=== PATIENT | male | born 1990 | race Caucasian/White ===

== ENCOUNTER 2017-09-19 18:15 | Inpatient (IN) | payer OTHER, SELFPAY ==
[2017-09-19 20:01] VITALS: BP 126/73; PULSE 79; RESP 18; TEMP 37; O2SAT 95; BMI 26.9
[2017-09-19 20:33] VITALS: BMI 26.9
[2017-09-19 22:00] VITALS: BP 121/74; PULSE 77; RESP 18; TEMP 36.9; O2SAT 95
[2017-09-19] MEDS: Pivot 1.5 Cal 1,000 ML BOTTLE 315 ML GT (22:28)
[2017-09-19] MEDS: oxyCODONE 5 MG Tablet PO (22:37)
--- NOTE | 2017-09-20 03:31 | NURSING ---
Pt deep suctioned and tolerated fair. Thick, white mucous suctioned.
--- NOTE | 2017-09-20 05:14 | NURSING ---
pt coughed up phlegm and then had emesis. Pt cleaned up and trach dressing changed. Pt has no complaint of nausea.
[2017-09-20] MEDS: Pivot 1.5 Cal 1,000 ML BOTTLE 315 ML GT ×5 (05:27→21:28)
[2017-09-20] MEDS: oxyCODONE 5 MG Tablet PO ×2 (05:30→21:26)
[2017-09-20 06:03] LABS: Hematocrit 32.8 % (40-54); Hemoglobin 11.1 g/dl (13.0-16.5); Mean Corp Hgb Conc 33.8 g/gl (32-36); Mean Corpuscular Hgb 30.2 pg (27.0-32.0); Mean Corpuscular Volume 89.1 fL (80-94); Mean Platelet Vol. 8.7 fl (6.2-12.0); Platelet Count 447 K/mm3 (150-450); RBC Distribution Width CV 13.3 % (11.6-14.6); RBC Distribution Width SD 40.6 fl (35.1-43.9); Red Blood Count 3.68 M/mm3 (4.6-6.2); White Blood Count 10.5 K/mm3 (4.4-11.0)
[2017-09-20 06:08] LABS: Scan Indicated on CBC? Y/N NO
[2017-09-20 06:34] LABS: Anion Gap 8 (5-15); BUN 17 mg/dL (7-18); BUN/Creat Ratio 27.8 RATIO (10-20); Calcium,Total 8.9 mg/dL (8.5-10.1); Chloride 101 mmol/L (98-107); Cholesterol 144 mg/dL (200); Creatinine, Serum 0.61 mg/dL (0.70-1.30); EST Glomerular Filtration Rate 165 mL/min (>60); Est Glom Filt Rate - Afr Amer 200 mL/min (>60); Estimated Creatinine Clearance 184.49 ml/min; Glucose 96 mg/dL (74-106); High Density Lipoprotein 26 mg/dL; Potassium 3.7 mmol/L (3.5-5.1); Sodium Level 137 mmol/L (136-145); Triglycerides 89 mg/dL; Very Low Density Lipoprotein 18 mg/dL (5-40)
--- NOTE | 2017-09-20 06:41 | NURSING ---
Pt straight cathed after pt denies urgency to pee and bladder scan indicates 950mL urine in. Straight cathed for 975mL out and bladder scanned 0mL. Pt tolerated well and resting sitting up.
[2017-09-20 06:46] VITALS: O2SAT 97
--- NOTE | 2017-09-20 07:27 | NURSING ---
pT ARRIVED FROM [facility] WITHOUT CERVICAL COLLAR NOT ON PT. COLLAR WAS IN BAG ACCOMPANYING PT. NURSE APPLIED COLLAR.
[2017-09-20 07:57] LABS: Hemoglobin A1c 5.6 % (4.2-6.3)
[2017-09-20 08:55] VITALS: BP 123/74; PULSE 87; RESP 19; TEMP 37.3; O2SAT 95
[2017-09-20] MEDS: Aspirin 81 MG TAB.CHEW PO (09:57)
[2017-09-20] MEDS: Enoxaparin 40 MG/0.4 ML Syringe SC (09:57)
--- NOTE | 2017-09-20 13:44 | PCM.PN.HOSP ---
Subjective: No pain. No SOB. Still flacid on right side. Vitals/I&O's: Vital Signs Temp Pulse Resp BP Pulse Ox 37.3 C 87 19 H 123/74 H 95 09/20/17 08:55 09/20/17 08:55 09/20/17 08:55 09/20/17 08:55 09/20/17 08:55 Oxygen Flow Rate 5 Oxygen Delivery Method Trach Collar Weight: 85 kg Body Mass Index (BMI) 26.9 Intake and Output for Last 24 Hours 09/18/17 09/19/17 09/20/17 23:59 23:59 23:59 Intake Total 1130 / 1130 565 / 565 Output Total 275 / 275 1325 / 1325 Balance 855 / 855 -760 / -760 General: Alert, Cooperative, No apparent distress, - - nonverbal d/t trach, but answers yes/no questions w thumbs up/down HEENT: Atraumatic, Normocephalic Oral: Moist Mucosa, No Gingival or Mucosal Lesions/ Ulcerations Neck: No Nodes, Thyroid Normal Size and Texture, - - Ccollar. Trach in place. Lungs: Clear to auscultation Cardiovascular: Regular rate, Regular Rhythm, Normal S1, Normal S2 Abdomen: Bowel Sounds Present, Soft, Non Tender, Non-Distended Extremities: No edema, No Calf Tenderness Skin: No rashes, No breakdown Musculoskeletal: No Tenderness to Palpation of Joints or Extremities, No Muscle Wasting Neurological: - - flacid in RUE, RLE. Psych/Mental Status: Normal Affect, Appropriate Laboratory Results 09/20/17 05:30: WBC 10.5, RBC 3.68 L, Hgb 11.1 L, Hct 32.8 L, MCV 89.1, MCH 30.2, MCHC 33.8, RDW 13.3, RDW Differential 40.6, Plt Count 447, MPV 8.7 09/20/17 05:30: Sodium 137, Potassium 3.7, Chloride 101, Carbon Dioxide 28.0, Anion Gap 8, BUN 17, Creatinine 0.61 L, Estim Creat Clear Calc 184.49, Est GFR (MDRD) Af Amer 200, Est GFR (MDRD) Non-Af 165, BUN/Creatinine Ratio 27.8 H, Glucose 96, Calcium 8.9, Triglycerides 89, Cholesterol 144, LDL Cholesterol 100, VLDL Cholesterol 18, HDL Cholesterol 26 L 09/20/17 05:30: Hemoglobin A1c 5.6 Current Medications Aspirin (Aspirin, Baby) 81 mg PO DAILY@0800 [facility] Last Admin: 09/20/17 09:57 Dose: 81 mg Atorvastatin Calcium (Lipitor) 20 mg PO QHS [facility] Bisacodyl (Dulcolax) 10 mg RECTAL .PRN X 1 PRN PRN Reason: Constipation Enoxaparin Sodium (Lovenox) 40 mg SC DAILY@1000 [facility] Last Admin: 09/20/17 09:57 Dose: 40 mg Lactose (Pivot 1.5 Guero) 315 ml GT 5X/DAY [facility] Last Admin: 09/20/17 10:05 Dose: 315 ml Magnesium Hydroxide (Milk Of Magnesia) 30 ml PO .PRN X 1 PRN PRN Reason: Constipation Melatonin (Melatonin) 3 mg PO QHS [facility] Oxycodone HCl (Oxyir) 5 mg PO Q6H PRN PRN PRN Reason: SEVERE PAIN (6-10/10) Last Admin: 09/20/17 05:30 Dose: 5 mg Senna/Docusate Sodium (Senokot-S, Kelsi-Colace) 2 tablet PO BID [facility] Last Admin: 09/20/17 10:11 Dose: Not Given Tamsulosin HCl (Flomax) 0.4 mg PO DAILY@1730 [facility] Assessment/Plan 27 yo admitted to [facility] on 08/27 after fall of 15-20f. Sustained C4 and C5 fracture. 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 Pt was trach and pegged. Had discectomy and fusion of C4-6. 1. pontine CVA d/t dissection v procedure v other. on ASA, statin PT OT right sided hemiparesis 2. C4 and C5 fracture s/p discectomy and fusion of C4-6 3. s/p Trach ENT on consult to change trach over 4. s/p PEG routine care speech therapy advance diet as appropriate. 5. DVT proph: SCDs Code Visit Inpatient E&M: 44246 Subs Hosp L3
--- NOTE | 2017-09-20 13:54 | PN_ITS ---
Subjective: No pain. No SOB. Still flacid on right side. Vitals/I&O's: Vital Signs Temp Pulse Resp BP Pulse Ox 37.3 C 87 19 H 123/74 H 95 09/20/17 08:55 09/20/17 08:55 09/20/17 08:55 09/20/17 08:55 09/20/17 08:55 Oxygen Flow Rate 5 Oxygen Delivery Method Trach Collar Weight: 85 kg Body Mass Index (BMI) 26.9 Intake and Output for Last 24 Hours 09/18/17 09/19/17 09/20/17 23:59 23:59 23:59 Intake Total 1130 / 1130 565 / 565 Output Total 275 / 275 1325 / 1325 Balance 855 / 855 -760 / -760 General: Alert, Cooperative, No apparent distress, - - nonverbal d/t trach, but answers yes/no questions w thumbs up/down HEENT: Atraumatic, Normocephalic Oral: Moist Mucosa, No Gingival or Mucosal Lesions/ Ulcerations Neck: No Nodes, Thyroid Normal Size and Texture, - - Ccollar. Trach in place. Lungs: Clear to auscultation Cardiovascular: Regular rate, Regular Rhythm, Normal S1, Normal S2 Abdomen: Bowel Sounds Present, Soft, Non Tender, Non-Distended Extremities: No edema, No Calf Tenderness Skin: No rashes, No breakdown Musculoskeletal: No Tenderness to Palpation of Joints or Extremities, No Muscle Wasting Neurological: - - flacid in RUE, RLE. Psych/Mental Status: Normal Affect, Appropriate Laboratory Results 09/20/17 05:30: WBC 10.5, RBC 3.68 L, Hgb 11.1 L, Hct 32.8 L, MCV 89.1, MCH 30.2 , MCHC 33.8, RDW 13.3, RDW Differential 40.6, Plt Count 447, MPV 8.7 09/20/17 05:30: Sodium 137, Potassium 3.7, Chloride 101, Carbon Dioxide 28.0, Anion Gap 8, BUN 17, Creatinine 0.61 L, Estim Creat Clear Calc 184.49, Est GFR ( MDRD) Af Amer 200, Est GFR (MDRD) Non-Af 165, BUN/Creatinine Ratio 27.8 H, Glucose 96, Calcium 8.9, Triglycerides 89, Cholesterol 144, LDL Cholesterol 100 , VLDL Cholesterol 18, HDL Cholesterol 26 L 09/20/17 05:30: Hemoglobin A1c 5.6 Current Medications Aspirin (Aspirin, Baby) 81 mg PO DAILY@0800 [facility] Last Admin: 09/20/17 09:57 Dose: 81 mg Atorvastatin Calcium (Lipitor) 20 mg PO QHS [facility] Bisacodyl (Dulcolax) 10 mg RECTAL .PRN X 1 PRN PRN Reason: Constipation Enoxaparin Sodium (Lovenox) 40 mg SC DAILY@1000 [facility] Last Admin: 09/20/17 09:57 Dose: 40 mg Lactose (Pivot 1.5 Guero) 315 ml GT 5X/DAY [facility] Last Admin: 09/20/17 10:05 Dose: 315 ml Magnesium Hydroxide (Milk Of Magnesia) 30 ml PO .PRN X 1 PRN PRN Reason: Constipation Melatonin (Melatonin) 3 mg PO QHS [facility] Oxycodone HCl (Oxyir) 5 mg PO Q6H PRN PRN PRN Reason: SEVERE PAIN (6-10/10) Last Admin: 09/20/17 05:30 Dose: 5 mg Senna/Docusate Sodium (Senokot-S, Kelsi-Colace) 2 tablet PO BID [facility] Last Admin: 09/20/17 10:11 Dose: Not Given Tamsulosin HCl (Flomax) 0.4 mg PO DAILY@1730 [facility] Assessment/Plan 27 yo admitted to [facility] on 08/27 after fall of 15-20f. Sustained C4 and C5 fracture. 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 Pt was trach and pegged. Had discectomy and fusion of C4 -6. 1. pontine CVA * d/t dissection v procedure v other. * on ASA, statin * PT OT * right sided hemiparesis 2. C4 and C5 fracture * s/p discectomy and fusion of C4-6 3. s/p Trach * ENT on consult to change trach over 4. s/p PEG * routine care * speech therapy * advance diet as appropriate. 5. DVT proph: SCDs Code Visit Inpatient E&M: 71367 [facility] Hosp L3
[2017-09-20 14:19] VITALS: O2SAT 96
--- NOTE | 2017-09-20 14:30 | CASEMGMT ---
Social Work Telephone call to patient spouse, This bilingual social worker communicating team information as well as how [facility] works in approving more time and how long [facility] has approved for patient to stay on the Inpatient Rehab Unit at this time. Patient spouse plans to attend the team meeting on Sunday. Support given. Will continue to follow. Chhaya DUBON, PEDIATRIC UROLOGIST
--- NOTE | 2017-09-20 15:42 | PCM.HP.COS ---
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 He sustained fractures to C4 and C5 vertebrae, as well as as his left patella. Subsequently the patient under went a diagnostic catheterization of his cervical arteries for a possible Grade 1 dissection of his right vertebral artery, which showed no intimal injury. During recovery in the PACU the patient developed right sided hemiparesis and aphasia he returned to the angiography suite no vessels injury was seen. An MRI performed several days later showed a Large Left Pontine stroke. On , the patient under went an anterior discectomy and fusion of C4-C6. On 09/09/17 he received a Tracheostomy and Percutaneous gastrostomy (PEG) tube. He has a cervical collar in place which will be worn at all times. A Left knee immobilizer, which will be worn at all times with no ROM to Left knee until cleared by surgeon. He is on Tube feed, Pivot 315 cc 5 x a day. His right sided flaccidity has not changed. He lives with his and 3 small children in a 3 story home with a walk out basement. He has 5 steps to get into the home. He is previously completely functionally independent and is admitted to the rehab unit in order to restore his previous level of functional independence. Past Medical History Allergies No Known Allergies Allergy (Verified 09/19/17 21:45) Surgical History: no surgical history Psychiatric History: No pertinent psych hx Lives: Spouse/ Significant Other Smoking Status: Never smoker Tobacco Use: Non-smoker Alcohol: None Drugs: None Review of Systems Unable to obtain accurate/complete ROS d/t: Patient is Trached, and unable to speak. VTE Information - Inpt Only VTE Present on Admission: No VTE Mechan Device Prophylaxis: SCD's, Knee High BETTY Hose VTE Pharm Prophylaxis ordered?: Yes - Physical Exam General: Alert, Oriented x3, Cooperative, - - nonverbal d/t trach, but answers yes/no questions w thumbs up/down HEENT: Atraumatic, PERRLA, EOMI, Normocephalic, - - C- collar on. Neck: Supple, No JVD, Negative Carotid Bruits, - - Trach in place. Lungs: Clear to auscultation, Normal air movement Cardiovascular: Regular rate, No murmurs Abdomen: Bowel Sounds Present, Soft, Non Tender Extremities: No edema, Capillary Refill Less than 3 Seconds Skin: No rashes, No breakdown Musculoskeletal: No Tenderness to Palpation of Joints or Extremities, - - flacid in RUE, RLE. Neurological: Cranial nerves II-XII grossly intact, - - flacid in RUE, RLE. Psych/Mental Status: Normal Affect, Appropriate Vital Signs Temp Pulse Resp BP Pulse Ox 99.1 F 87 19 H 123/74 H 96 09/20/17 08:55 09/20/17 08:55 09/20/17 08:55 09/20/17 08:55 09/20/17 14:19 Oxygen Flow Rate 5 Oxygen Delivery Method Trach Collar Weight: 85 kg Body Mass Index (BMI) 26.9 Intake and Output for Last 24 Hours 09/18/17 09/19/17 09/20/17 23:59 23:59 23:59 Intake Total 1130 / 1130 2325 / 2325 Output Total 275 / 275 1325 / 1325 Balance 855 / 855 1000 / 1000 Laboratory Tests Past 24 Hrs 09/20/17 09/20/17 09/20/17 05:30 05:30 05:30 WBC 10.5 RBC 3.68 L Hgb 11.1 L Hct 32.8 L MCV 89.1 MCH 30.2 MCHC 33.8 RDW 13.3 RDW Differential 40.6 Plt Count 447 MPV 8.7 Sodium 137 Potassium 3.7 Chloride 101 Carbon Dioxide 28.0 Anion Gap 8 BUN 17 Creatinine 0.61 L Estim Creat Clear Calc 184.49 Est GFR (MDRD) Af Amer 200 Est GFR (MDRD) Non-Af 165 BUN/Creatinine Ratio 27.8 H Glucose 96 Hemoglobin A1c 5.6 Calcium 8.9 Triglycerides 89 Cholesterol 144 LDL Cholesterol 100 VLDL Cholesterol 18 HDL Cholesterol 26 L Active Medications Aspirin (Aspirin, Baby) 81 mg PO DAILY@0800 [facility] Last Admin: 09/20/17 09:57 Dose: 81 mg Atorvastatin Calcium (Lipitor) 20 mg PO QHS [facility] Bisacodyl (Dulcolax) 10 mg RECTAL .PRN X 1 PRN PRN Reason: Constipation Enoxaparin Sodium (Lovenox) 40 mg SC DAILY@1000 [facility] Last Admin: 09/20/17 09:57 Dose: 40 mg Lactose (Pivot 1.5 Guero) 315 ml GT 5X/DAY [facility] Last Admin: 09/20/17 14:49 Dose: 315 ml Magnesium Hydroxide (Milk Of Magnesia) 30 ml PO .PRN X 1 PRN PRN Reason: Constipation Melatonin (Melatonin) 3 mg PO QHS [facility] Oxycodone HCl (Oxyir) 5 mg PO Q6H PRN PRN PRN Reason: SEVERE PAIN (6-10/10) Last Admin: 09/20/17 05:30 Dose: 5 mg Senna/Docusate Sodium (Senokot-S, Kelsi-Colace) 2 tablet PO BID [facility] Last Admin: 09/20/17 10:11 Dose: Not Given Tamsulosin HCl (Flomax) 0.4 mg PO DAILY@1730 [facility] Assessment/Plan Debility s/p fall from 15 - 20 feet. Sustained a C4 - C5 fracture. Developed a large left pontine stroke. Is currently Trached with # 8 Shiley and Pegged. Had a discectomy and fusion of C4 - C6. Goal of rehab is yarsani of functional independence. Plan: - Physical therapy for gait and balance - Occupational Therapy for ADLs - Speech therapy - As needed analgesics - Bowel protocol - Stroke prevention on ASA, Statin - DVT prophylaxis: SCDs, - Pontine CVA 2/2 dissection => right sided hemiparesis - C4 and C5 fracture => s/p discectomy and fusion of C4-6 - s/p Trach => ENT consulted to change trach over - s/p PEG => TF Pivot 315cc 5x a day
[2017-09-20 15:46] VITALS: TEMP 36.9
--- NOTE | 2017-09-20 15:49 | HP.PCM.COS_ITS ---
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 He sustained fractures to C4 and C5 vertebrae, as well as as his left patella. Subsequently the patient under went a diagnostic catheterization of his cervical arteries for a possible Grade 1 dissection of his right vertebral artery, which showed no intimal injury. During recovery in the PACU the patient developed right sided hemiparesis and aphasia he returned to the angiography suite no vessels injury was seen. An MRI performed several days later showed a Large Left Pontine stroke. On , the patient under went an anterior discectomy and fusion of C4-C6. On 09/09/17 he received a Tracheostomy and Percutaneous gastrostomy (PEG) tube. He has a cervical collar in place which will be worn at all times. A Left knee immobilizer, which will be worn at all times with no ROM to Left knee until cleared by surgeon. He is on Tube feed, Pivot 315 cc 5 x a day. His right sided flaccidity has not changed. He lives with his and 3 small children in a 3 story home with a walk out basement. He has 5 steps to get into the home. He is previously completely functionally independent and is admitted to the rehab unit in order to restore his previous level of functional independence. Past Medical History Allergies No Known Allergies Allergy (Verified 09/19/17 21:45) Surgical History: no surgical history Psychiatric History: No pertinent psych hx Lives: Spouse/ Significant Other Smoking Status: Never smoker Tobacco Use: Non-smoker Alcohol: None Drugs: None Review of Systems Unable to obtain accurate/complete ROS d/t: Patient is Trached, and unable to speak. VTE Information - Inpt Only VTE Present on Admission: No VTE Mechan Device Prophylaxis: SCD's, Knee High BETTY Hose VTE Pharm Prophylaxis ordered?: Yes - Physical Exam General: Alert, Oriented x3, Cooperative, - - nonverbal d/t trach, but answers yes/no questions w thumbs up/down HEENT: Atraumatic, PERRLA, EOMI, Normocephalic, - - C- collar on. Neck: Supple, No JVD, Negative Carotid Bruits, - - Trach in place. Lungs: Clear to auscultation, Normal air movement Cardiovascular: Regular rate, No murmurs Abdomen: Bowel Sounds Present, Soft, Non Tender Extremities: No edema, Capillary Refill Less than 3 Seconds Skin: No rashes, No breakdown Musculoskeletal: No Tenderness to Palpation of Joints or Extremities, - - flacid in RUE, RLE. Neurological: Cranial nerves II-XII grossly intact, - - flacid in RUE, RLE. Psych/Mental Status: Normal Affect, Appropriate Vital Signs Temp Pulse Resp BP Pulse Ox 99.1 F 87 19 H 123/74 H 96 09/20/17 08:55 09/20/17 08:55 09/20/17 08:55 09/20/17 08:55 09/20/17 14:19 Oxygen Flow Rate 5 Oxygen Delivery Method Trach Collar Weight: 85 kg Body Mass Index (BMI) 26.9 Intake and Output for Last 24 Hours 09/18/17 09/19/17 09/20/17 23:59 23:59 23:59 Intake Total 1130 / 1130 2325 / 2325 Output Total 275 / 275 1325 / 1325 Balance 855 / 855 1000 / 1000 Laboratory Tests Past 24 Hrs 09/20/17 09/20/17 09/20/17 05:30 05:30 05:30 WBC 10.5 RBC 3.68 L Hgb 11.1 L Hct 32.8 L MCV 89.1 MCH 30.2 MCHC 33.8 RDW 13.3 RDW Differential 40.6 Plt Count 447 MPV 8.7 Sodium 137 Potassium 3.7 Chloride 101 Carbon Dioxide 28.0 Anion Gap 8 BUN 17 Creatinine 0.61 L Estim Creat Clear Calc 184.49 Est GFR (MDRD) Af Amer 200 Est GFR (MDRD) Non-Af 165 BUN/Creatinine Ratio 27.8 H Glucose 96 Hemoglobin A1c 5.6 Calcium 8.9 Triglycerides 89 Cholesterol 144 LDL Cholesterol 100 VLDL Cholesterol 18 HDL Cholesterol 26 L Active Medications Aspirin (Aspirin, Baby) 81 mg PO DAILY@0800 [facility] Last Admin: 09/20/17 09:57 Dose: 81 mg Atorvastatin Calcium (Lipitor) 20 mg PO QHS [facility] Bisacodyl (Dulcolax) 10 mg RECTAL .PRN X 1 PRN PRN Reason: Constipation Enoxaparin Sodium (Lovenox) 40 mg SC DAILY@1000 [facility] Last Admin: 09/20/17 09:57 Dose: 40 mg Lactose (Pivot 1.5 Guero) 315 ml GT 5X/DAY [facility] Last Admin: 09/20/17 14:49 Dose: 315 ml Magnesium Hydroxide (Milk Of Magnesia) 30 ml PO .PRN X 1 PRN PRN Reason: Constipation Melatonin (Melatonin) 3 mg PO QHS [facility] Oxycodone HCl (Oxyir) 5 mg PO Q6H PRN PRN PRN Reason: SEVERE PAIN (6-10/10) Last Admin: 09/20/17 05:30 Dose: 5 mg Senna/Docusate Sodium (Senokot-S, Kelsi-Colace) 2 tablet PO BID [facility] Last Admin: 09/20/17 10:11 Dose: Not Given Tamsulosin HCl (Flomax) 0.4 mg PO DAILY@1730 [facility] Assessment/Plan Debility s/p fall from 15 - 20 feet. Sustained a C4 - C5 fracture. Developed a large left pontine stroke. Is currently Trached with # 8 Shiley and Pegged. Had a discectomy and fusion of C4 - C6. Goal of rehab is adventism of functional independence. Plan: - Physical therapy for gait and balance - Occupational Therapy for ADLs - Speech therapy - As needed analgesics - Bowel protocol - Stroke prevention on ASA, Statin - DVT prophylaxis: SCDs, - Pontine CVA 2/2 dissection => right sided hemiparesis - C4 and C5 fracture => s/p discectomy and fusion of C4-6 - s/p Trach => ENT consulted to change trach over - s/p PEG => TF Pivot 315cc 5x a day
[2017-09-20 16:29] LABS: Bacteria 0 SEEN /hpf (None Seen); Mucous, Urine 0 SEEN /hpf (<or=2+); Red Blood Cells-Urine 0 SEEN /hpf (0-5); Squamous Epithelial Cells - UA 0 SEEN /hpf (0-5)
[2017-09-20 16:42] LABS: Color, Urine Yellow (Yellow); Glucose, Dipstick Normal (Normal); Ketone-Dipstick Negative (Negative); Leukocyte Esterase-Dipstick Negative /ul (Negative); Nitrite-Dipstick Negative (Negative); Occult Blood-Urine 10 /ul (Negative); Protein-Dipstick Negative (Negative); Specific Gravity, Urine 1.015 (1.002-1.030); Urine Bilirubin Dipstick Negative (Negative); Urine Clarity Cloudy (Clear); Urine Urobilinogen Normal (Normal)
[2017-09-20] MEDS: Tamsulosin HCl 0.4 MG Capsule PO (17:45)
[2017-09-20 17:53] LABS: Coarse Granular Cast 0-5 SEEN /lpf (0-5 /lpf)
[2017-09-20 17:56] LABS: Amorphous Sediment 4+
[2017-09-20 17:58] LABS: White Blood Cells 0-5 SEEN /hpf (0-5)
[2017-09-20 20:23] VITALS: BMI 26.9
[2017-09-20 21:13] VITALS: BP 130/74; PULSE 68; RESP 18; TEMP 36.6; O2SAT 95
[2017-09-20] MEDS: MELATONIN 3 MG TABLET PO (21:28)
[2017-09-20] MEDS: Atorvastatin Calcium 20 MG Tablet PO (21:28)
--- NOTE | 2017-09-20 21:42 | PCM.RU.PYE ---
Admission Information Status Changes from Prescreening?: No changes Identified Actual Problem List:: Falls, Mobility Impaired, Self Care Deficit Potential Problem List:: DVT, Bleeding, Infection, UTI, Aspiration, Falls, Skin Integrity, Depression Risk of Complications DVT: LMWH, BETTY Hose, Sequential Compression Device Bleeding: Monitor Lab Values, Nursing to Teach Precautions for anti-coagulation therapy., Wound, if applicable, to be assessed every shift., Stroke patients assessed for lethargy or change in status. Infection: Clinical Staff to Monitor for S/S of infection:, S/S of infection include fever, redness, warmth, etc. Urinary Tract Infection: Monitor for frequency, burning, discomfort, or incontinence., Nursing will obtain urine sample for urinalysis and C&S when ordered. Aspiration: Clinical staff will monitor for coughing, drooling, congestion., Speech will evaluate swallowing and dsyphasia., Nursing will monitor patient swallowing during meals. Falls: Patient will be evaluated for Fall Precautions, Patient will be placed on Fall Precautions as indicated per protocol. Skin Breakdown: Nursing will assess skin daily using assessment tool., Nursing will place on Skin Breakdown Precautions as indicated. Pain: Clinical staff will assess patient's pain level per protocol., Medications will be given, if needed, and the pain level reassessed., Other methods: Massage, distraction, decrease stimulus, etc. used PRN. Plan of Care Patient requires physician specializing in physical medicine and rehab oversight to provide close medical supervision of rehab issues including: Pain Management, Sleep Problems, Bowel and Bladder, Medical and co-morbidity Management, DVT prophylaxis, Rehabilitation Leadership, Coordination of treatment team Patient needs Physical Therapy: For a minimum of 1 hour, At least 5 out of 7 days Patient needs Physical Therapy to improve:: Mobility, Mobility, Mobility, Strengthening, Transfers, Stretching, ROM, Endurance, Stairs, Gait, Balance Patient needs Occupational Therapy: For a minimum of 1 hour, At least 5 out of 7 days Patient needs Occupational Therapy to improve ADL's incl.: Eating, Grooming, Bathing, Dressing, Toileting, Toilet transfers, Community Reintegration, Higher functioning activities, Household tasks, Adaptive Equipment, Splinting, Other activities as determined Patient requires speech therapy: For a minimum of 1 hour, At least 5 out of 7 days Patient requires speech therapy for: Swallowing, Cognition, Language Skills, Compensatory Strategies Patient requires / Rehabilitation Nursing for: Pain Issues, Identifying and preventing risk factors, Monitoring and reporting current medical conditions, Assisting with ambulation, transfer, and all ADL's, Teaching patients about disease process and medications, Family teaching, Providing safe environment, Bowel and Bladder Issues, Skin integrity, Medication Management Patient needs Packer Operator Automatic/ Case Management for: Discharge Planning, Arranging Home Equipment or Services, Family Interventions Patient needs Dietary and Nutrition Services for: Adequate Nutrition, Nutritional Supplements, Nutritional Education Goals Patient will remain: free from falls, or injury at time of discharge. Patient will perform bed mobility at: MOD I level of assist. Patient will complete transfers from bed to chair at: MOD I level of assist. Patient will ambulate: 100 feet, with MOD I assist, with LRD Patient will complete upper body dressing at: MOD I level of assist. Patient will complete lower body dressing at: MOD I level of assist. Patient will complete toileting at: MOD I level of assist. Patient will perform bathing at: MOD I level of assist. Patient will complete grooming at: MOD I level of assist. Patient will complete home management skills at: MOD I level of assist. Patient will achieve: 12 stairs, at MOD I assist Patient will have pain level of: of 3 or less Patient's skin will: remain intact, free from infection. Patient will receive: adequate nutrition. Discharge Planning Pt Prognosis for Sig. Practical Improv. w/in Reasonable Time: Fair Estimated Length of stay (days): 30 Anticipated D/C Destination: Home Was Preadmission Assessment Accurate?: Yes
[2017-09-21] MEDS: oxyCODONE 5 MG Tablet PO ×2 (05:47→21:26)
[2017-09-21] MEDS: Pivot 1.5 Cal 1,000 ML BOTTLE 315 ML GT ×5 (06:10→21:27)
--- NOTE | 2017-09-21 07:57 | CON.PCM_ITS ---
Reason for Consult Date of Consultation: 09/21/17 Reason for Consultation: Trach management History of Present Illness: The patient is a 27-year-old male, with a history as outlined below, who presented to inpatient rehabilitation as a transfer from the [facility]. 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 The patient sustained fractures of his C4 and C5 vertebrae. Due to the mechanism of his injury, neurosurgery at [facility] performed a diagnostic catheterization of his cervical vessels which showed no intimal injury. However, in the PACU following that procedure the patient developed right-sided hemiparesis and aphasia. Subsequent MRI revealed that he had suffered a large left pontine stroke. The patient was subsequently transferred to the surgical intensive care unit for management of his respiratory failure. Despite attempts at weaning from mechanical ventilation, the patient was unable to be liberated from the ventilator. Therefore, on September 09, the patient underwent tracheostomy and PEG tube placement. The patient has right sided flaccidity. He was admitted to inpatient rehab on September 20. On September 21, the patient underwent tracheostomy change. He initially had a #[address] upon arrival. ENT changed out this trach to a #6 cuff less. We have been consulted to assist with trach management and for potential decannulation. Although the patient is nonverbal presently, he is able to give thumbs up/ thumbs down to questioning. Past Medical History Past Medical History (Chronic Problems): Chronic Problems Respiratory failure after trauma (Chronic) Allergies No Known Allergies Allergy (Verified 09/19/17 21:45) Surgical History: no surgical history Psychiatric History: No pertinent psych hx Lives: Spouse/ Significant Other Smoking Status: Never smoker Tobacco Use: Non-smoker Alcohol: None Drugs: None Review of Systems Constitutional: Denies: Chills, Fever, Weight Change HEENT: Denies: Head Aches, Sinus Congestion, Sinus Drainage Cardiovascular: Denies: Chest Pain, Palpitations Respiratory: Reports: - - + Secretions Gastrointestinal: Denies: Abdominal Pain, Nausea, Vomiting Genitourinary: Denies: Dysuria Musculoskeletal: Reports: Joint Tenderness Skin: Denies: Rash, Wounds Neurological: Denies: Numbness, Tingling, Focal weakness Psychiatric: Denies: Anxiety, Depression, Homicidal Ideations, Suicidal Ideations Hematologic/ Lymphatic: Denies: Easy Bruising, Easy Bleeding Objective: The patient's most recent lab work, culture data and imaging studies have all been personally reviewed. - Physical Exam General: Alert, Cooperative, No apparent distress, - - Resting comfortably in bed. Gives thumbs up or thumbs down in response to questioning. Oral: Moist Mucosa, No Gingival or Mucosal Lesions/ Ulcerations Neck: - - Tracheostomy site intact. Cervical collar in place Lungs: Normal air movement, No rhonchi, No wheeze, No rales Cardiovascular: Regular rate, Regular Rhythm, Normal S1, Normal S2, No murmurs Abdomen: Bowel Sounds Present, Soft, Non Tender, - - PEG tube in place Extremities: No clubbing, No cyanosis, No edema Skin: No rashes, No breakdown Neurological: - - Flaccid right upper and lower extremity Psych/Mental Status: Normal Affect, Appropriate Vital Signs Temp Pulse Resp BP Pulse Ox 97.8 F 68 18 130/74 H 95 09/20/17 21:13 09/20/17 21:13 09/20/17 21:13 09/20/17 21:13 09/20/17 21:13 Oxygen Flow Rate 5 Oxygen Delivery Method Trach Collar Weight: 187 lb 6.287 oz Body Mass Index (BMI) 26.9 Intake and Output for Last 24 Hours 09/19/17 09/20/17 09/21/17 23:59 23:59 23:59 Intake Total 1130 / 1130 4220 / 4220 375 / 375 Output Total 275 / 275 2024 / 202 950 / 950 Balance 855 / 855 2195 / 2195 -575 / -575 Laboratory Tests Past 24 Hrs 09/20/17 09/20/17 05:30 15:40 Hemoglobin A1c 5.6 Urine Color Yellow Urine Clarity Cloudy Urine pH 7.0 Ur Specific Blanch 1.015 Urine Protein Negative Urine Glucose (UA) Normal Urine Ketones Negative Urine Occult Blood 10 H Urine Nitrite Negative Urine Bilirubin Negative Urine Urobilinogen Normal Ur Leukocyte Esterase Negative Urine RBC 0 SEEN Urine WBC 0-5 SEEN Ur Squamous Epith Cells 0 SEEN Amorphous Sediment 4+ Urine Bacteria 0 SEEN Coarse Granular Casts 0-5 SEEN Urine Mucus 0 SEEN Labs (Last 48 Hours) 09/20/17 09/20/17 09/20/17 05:30 05:30 05:30 WBC 10.5 RBC 3.68 L Hgb 11.1 L Hct 32.8 L MCV 89.1 MCH 30.2 MCHC 33.8 RDW 13.3 RDW Differential 40.6 Plt Count 447 MPV 8.7 Sodium 137 Potassium 3.7 Chloride 101 Carbon Dioxide 28.0 Anion Gap 8 BUN 17 Creatinine 0.61 L Estim Creat Clear Calc 184.49 Est GFR (MDRD) Af Amer 200 Est GFR (MDRD) Non-Af 165 BUN/Creatinine Ratio 27.8 H Glucose 96 Hemoglobin A1c 5.6 Calcium 8.9 Triglycerides 89 Cholesterol 144 LDL Cholesterol 100 VLDL Cholesterol 18 HDL Cholesterol 26 L Urine Color Urine Clarity Urine pH Ur Specific Blanch Urine Protein Urine Glucose (UA) Urine Ketones Urine Occult Blood Urine Nitrite Urine Bilirubin Urine Urobilinogen Ur Leukocyte Esterase Urine RBC Urine WBC Ur Squamous Epith Cells Amorphous Sediment Urine Bacteria Coarse Granular Casts Urine Mucus 09/20/17 15:40 WBC RBC Hgb Hct MCV MCH MCHC RDW RDW Differential Plt Count MPV Sodium Potassium Chloride Carbon Dioxide Anion Gap BUN Creatinine Estim Creat Clear Calc Est GFR (MDRD) Af Amer Est GFR (MDRD) Non-Af BUN/Creatinine Ratio Glucose Hemoglobin A1c Calcium Triglycerides Cholesterol LDL Cholesterol VLDL Cholesterol HDL Cholesterol Urine Color Yellow Urine Clarity Cloudy Urine pH 7.0 Ur Specific [place] 1.015 Urine Protein Negative Urine Glucose (UA) Normal Urine Ketones Negative Urine Occult Blood 10 H Urine Nitrite Negative Urine Bilirubin Negative Urine Urobilinogen Normal Ur Leukocyte Esterase Negative Urine RBC 0 SEEN Urine WBC 0-5 SEEN Ur Squamous Epith Cells 0 SEEN Amorphous Sediment 4+ Urine Bacteria 0 SEEN Coarse Granular Casts 0-5 SEEN Urine Mucus 0 SEEN Microbiology 09/20/17 15:40 Urine Catheter - White Urine Culture - Preliminary Culture exhibits no growth. Assessment/Plan RECOMMENDATIONS: 1. Continue aggressive bronchopulmonary hygiene 2. Continue trach collar with humidity 3. Okay to begin capping trials as tolerated, once secretion production decreases 4. Place Passy-[place] valve 5. Speech therapy following IMPRESSIONS: 1. Chronic respiratory failure following trauma with cervical spine fracture and subsequent pontine stroke Continue aggressive bronchopulmonary hygiene. Anticipate secretion production will decrease now that cuff less Shiley is in place. Continue humidity with trach collar. Capping trials can be initiated once secretion production begins to decrease. Speech therapy to place Passy-[place] valve. We will continue to follow. Dr. Monreal will reevaluate patient on Sunday. This note was generated with [employer]ex dictation software. It may contain incorrect words, spelling, and punctuation that were not noted in checking the note before signing. Code Visit Inpatient E&M: 42408 Init Hosp L2
[2017-09-21 08:18] VITALS: O2SAT 91
--- NOTE | 2017-09-21 09:00 | NURSING ---
Dr. Greenberg regional sales trainer today for [facility] and Dr. silva of need for consult per Dr. Gomez pulmonary request for the first initial trach change. Patient has a size 8 shiley at this time and sutures are still in place to neck.
[2017-09-21] MEDS: Aspirin 81 MG TAB.CHEW PO (09:30)
[2017-09-21] MEDS: Enoxaparin 40 MG/0.4 ML Syringe SC (09:30)
[2017-09-21] MEDS: Senna/Docusate Sodium 1 Tablet 2 TABLET PO ×2 (09:30→21:28)
[2017-09-21 10:00] VITALS: BP 113/73; PULSE 78; RESP 22; TEMP 36.7; O2SAT 90
--- NOTE | 2017-09-21 12:22 | NURSING ---
dr kwon here and downsized trach to 6 shiley cuffless. respiratory therapist present in room. patient tolerated well.
--- NOTE | 2017-09-21 12:27 | CON.PCM_ITS ---
Problem List (1) Respiratory failure after trauma Status: Chronic Reason for Consult Date of Consultation: 09/21/17 History of Present Illness: The patient is a 27 year old M s/p fall/trauma with subsequent cervical fracture and subsequent to that a pontine stroke at [facility] - a trach/PEG was then placed on 09/09/2017. i was consulted to perform the first tracheotomy change. the patient has had no recent dyspnea, on trach collar. Past Medical History Past Medical History (Chronic Problems): Chronic Problems Respiratory failure after trauma (Chronic) Allergies No Known Allergies Allergy (Verified 09/19/17 21:45) Surgical History: no surgical history Psychiatric History: No pertinent psych hx Lives: Spouse/ Significant Other Smoking Status: Never smoker Tobacco Use: Non-smoker Alcohol: None Drugs: None Review of Systems Constitutional: Reports: - - patient is minimally verbal with his trach, alert. HEENT: Reports: - Respiratory: Reports: - - no stridor, no dyspnea Subjective: x - Physical Exam General: Alert Neck: - - 8DCT in place. no skin issues. sutures in place. Lungs: - - no stridor Vital Signs Temp Pulse Resp BP Pulse Ox 98.0 F 78 22 H 113/73 90 09/21/17 10:00 09/21/17 10:00 09/21/17 10:00 09/21/17 10:00 09/21/17 10:00 Oxygen Flow Rate 5 Oxygen Delivery Method Room Air Weight: 85 kg Body Mass Index (BMI) 26.9 Intake and Output for Last 24 Hours 09/19/17 09/20/17 09/21/17 23:59 23:59 23:59 Intake Total 1130 / 1130 4220 / 4220 375 / 375 Output Total 275 / 275 2024 / 2024 950 / 950 Balance 855 / 855 2195 / 2195 -575 / -575 Microbiology Past 72 Hours 09/20/17 15:40 Urine Culture - Preliminary Urine Catheter - White Culture exhibits no growth. Laboratory Tests Past 24 Hrs 09/20/17 15:40 Urine Color Yellow Urine Clarity Cloudy Urine pH 7.0 Ur Specific [place] 1.015 Urine Protein Negative Urine Glucose (UA) Normal Urine Ketones Negative Urine Occult Blood 10 H Urine Nitrite Negative Urine Bilirubin Negative Urine Urobilinogen Normal Ur Leukocyte Esterase Negative Urine RBC 0 SEEN Urine WBC 0-5 SEEN Ur Squamous Epith Cells 0 SEEN Amorphous Sediment 4+ Urine Bacteria 0 SEEN Coarse Granular Casts 0-5 SEEN Urine Mucus 0 SEEN Assessment/Plan 27 year old male with a trach placed after recent trauma, cervical spine fracture and pontine stroke -im not clear on why the patient needed a trach in the first place, if his swallow function has been evaluated. -8DCT replaced today with 6CFS, tract well formed -unsure what his vocal cord function is. would recommend evaluating swallow function and progressing with diet (or not, maintaining NPO/TF if fails). -will need an examination of his vocal cord function in 4-6 weeks and reevaluation of his symptoms and needs. he can follow up with me in clinic at his convenience. -routine trach care
--- NOTE | 2017-09-21 12:27 | PCM.OPRPT ---
Problem List (1) Respiratory failure after trauma Status: Chronic Report of Operation Date of Procedure: 09/21/17 Surgery/Procedure Performed:: tracheostomy change Description of Procedure: the patient's tracheostomy sutures were removed. the #8DCT was removed and the tract examined. the tract is well-formed. secretions were suctioned. a #6CFS was gently placed with no resistance and secured into place with a dayday collar. the tract was scoped and his airway was clear to the joy. there were no complications.
--- NOTE | 2017-09-21 12:30 | PCM.OPRPT ---
Problem List (1) Respiratory failure after trauma Status: Chronic Report of Operation Date of Procedure: 09/21/17 Surgery/Procedure Performed:: tracheoscopy Estimated Blood Loss (mL): none Description of Procedure: a flexible scope was placed through the tracheostomy tube and advanced. the tracheal rea and joy were visualized. there were moderate secretions as the patient had a cuffed tracheostomy. the airway was widely patent and the tracheostomy was in good position. - Complications none
[2017-09-21 13:26] VITALS: BMI 26.9
--- NOTE | 2017-09-21 14:38 | NURSING ---
dr jiménez was here to see patient.
--- NOTE | 2017-09-21 17:00 | PCM.PN.NEU ---
Subjective: patient seen and examined. ENT saw patient today and downsized trach to a # 6 Shiley from a # 8 Shiley, SAT's are in the mid to high 90's. Patient is tolerating therapy. Tolerating TF, White placed for urinary retention, Urology consulted. - Physical Exam General: Alert, Oriented x3, Cooperative HEENT: Atraumatic, PERRLA, EOMI, Normocephalic Neck: Supple, No JVD, Negative Carotid Bruits Lungs: Clear to auscultation, Normal air movement Cardiovascular: Regular rate, No murmurs Abdomen: Bowel Sounds Present, Soft, Non Tender Extremities: No edema, Capillary Refill Less than 3 Seconds Skin: No rashes, No breakdown Musculoskeletal: No Tenderness to Palpation of Joints or Extremities Neurological: Cranial nerves II-XII grossly intact Psych/Mental Status: Normal Affect, Appropriate Vital Signs Temp Pulse Resp BP Pulse Ox 98.0 F 78 22 H 113/73 90 09/21/17 10:00 09/21/17 10:00 09/21/17 10:00 09/21/17 10:00 09/21/17 10:00 Oxygen Flow Rate 5 Oxygen Delivery Method Room Air Weight: 85 kg Body Mass Index (BMI) 26.9 Intake and Output for Last 24 Hours 09/19/17 09/20/17 09/21/17 23:59 23:59 23:59 Intake Total 1130 / 1130 4220 / 4220 375 / 375 Output Total 275 / 275 2024 / 2024 1450 / 1450 Balance 855 / 855 2195 / 2195 -1075 / -1075 Microbiology Past 72 Hours 09/20/17 15:40 Urine Culture - Preliminary Urine Catheter - White Culture exhibits no growth. Laboratory Tests Past 24 Hrs 09/20/17 15:40 Urine Color Yellow Urine Clarity Cloudy Urine pH 7.0 Ur Specific [place] 1.015 Urine Protein Negative Urine Glucose (UA) Normal Urine Ketones Negative Urine Occult Blood 10 H Urine Nitrite Negative Urine Bilirubin Negative Urine Urobilinogen Normal Ur Leukocyte Esterase Negative Urine RBC 0 SEEN Urine WBC 0-5 SEEN Ur Squamous Epith Cells 0 SEEN Amorphous Sediment 4+ Urine Bacteria 0 SEEN Coarse Granular Casts 0-5 SEEN Urine Mucus 0 SEEN Active Medications Albuterol Sulfate (Ventolin Aerosols) 2.5 mg INHALATION Q2H PRN PRN PRN Reason: CONGESTION Aspirin (Aspirin, Baby) 81 mg PO DAILY@0800 [facility] Last Admin: 09/21/17 09:30 Dose: 81 mg Atorvastatin Calcium (Lipitor) 20 mg PO QHS [facility] Last Admin: 09/20/17 21:28 Dose: 20 mg Bisacodyl (Dulcolax) 10 mg RECTAL .PRN X 1 PRN PRN Reason: Constipation Enoxaparin Sodium (Lovenox) 40 mg SC DAILY@1000 [facility] Last Admin: 09/21/17 09:30 Dose: 40 mg Lactose (Pivot 1.5 Guero) 315 ml GT 5X/DAY [facility] Last Admin: 09/21/17 15:29 Dose: 315 ml Magnesium Hydroxide (Milk Of Magnesia) 30 ml PO .PRN X 1 PRN PRN Reason: Constipation Melatonin (Melatonin) 3 mg PO QHS [facility] Last Admin: 09/20/17 21:28 Dose: 3 mg Oxycodone HCl (Oxyir) 5 mg PO Q6H PRN PRN PRN Reason: SEVERE PAIN (6-10/10) Last Admin: 09/21/17 05:47 Dose: 5 mg Senna/Docusate Sodium (Senokot-S, Kelsi-Colace) 2 tablet PO BID [facility] Last Admin: 09/21/17 09:30 Dose: 2 tablet Tamsulosin HCl (Flomax) 0.4 mg PO DAILY@1730 [facility] Last Admin: 09/20/17 17:45 Dose: 0.4 mg Assessment/Plan Debility s/p fall from 15 - 20 feet. Sustained a C4 - C5 fracture. Developed a large left pontine stroke. Is currently Trached with # 8 Shiley and Pegged. Had a discectomy and fusion of C4 - C6. Goal of rehab is restorationism of functional independence. 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
--- NOTE | 2017-09-21 17:07 | PN.NEURO_ITS ---
Subjective: patient seen and examined. ENT saw patient today and downsized trach to a # 6 Shiley from a # 8 Shiley, SAT's are in the mid to high 90's. Patient is tolerating therapy. Tolerating TF, White placed for urinary retention, Urology consulted. - Physical Exam General: Alert, Oriented x3, Cooperative HEENT: Atraumatic, PERRLA, EOMI, Normocephalic Neck: Supple, No JVD, Negative Carotid Bruits Lungs: Clear to auscultation, Normal air movement Cardiovascular: Regular rate, No murmurs Abdomen: Bowel Sounds Present, Soft, Non Tender Extremities: No edema, Capillary Refill Less than 3 Seconds Skin: No rashes, No breakdown Musculoskeletal: No Tenderness to Palpation of Joints or Extremities Neurological: Cranial nerves II-XII grossly intact Psych/Mental Status: Normal Affect, Appropriate Vital Signs Temp Pulse Resp BP Pulse Ox 98.0 F 78 22 H 113/73 90 09/21/17 10:00 09/21/17 10:00 09/21/17 10:00 09/21/17 10:00 09/21/17 10:00 Oxygen Flow Rate 5 Oxygen Delivery Method Room Air Weight: 85 kg Body Mass Index (BMI) 26.9 Intake and Output for Last 24 Hours 09/19/17 09/20/17 09/21/17 23:59 23:59 23:59 Intake Total 1130 / 1130 4220 / 4220 375 / 375 Output Total 275 / 275 2024 / 2024 1450 / 1450 Balance 855 / 855 2195 / 2195 -1075 / -1075 Microbiology Past 72 Hours 09/20/17 15:40 Urine Culture - Preliminary Urine Catheter - White Culture exhibits no growth. Laboratory Tests Past 24 Hrs 09/20/17 15:40 Urine Color Yellow Urine Clarity Cloudy Urine pH 7.0 Ur Specific [place] 1.015 Urine Protein Negative Urine Glucose (UA) Normal Urine Ketones Negative Urine Occult Blood 10 H Urine Nitrite Negative Urine Bilirubin Negative Urine Urobilinogen Normal Ur Leukocyte Esterase Negative Urine RBC 0 SEEN Urine WBC 0-5 SEEN Ur Squamous Epith Cells 0 SEEN Amorphous Sediment 4+ Urine Bacteria 0 SEEN Coarse Granular Casts 0-5 SEEN Urine Mucus 0 SEEN Active Medications Albuterol Sulfate (Ventolin Aerosols) 2.5 mg INHALATION Q2H PRN PRN PRN Reason: CONGESTION Aspirin (Aspirin, Baby) 81 mg PO DAILY@0800 [facility] Last Admin: 09/21/17 09:30 Dose: 81 mg Atorvastatin Calcium (Lipitor) 20 mg PO QHS [facility] Last Admin: 09/20/17 21:28 Dose: 20 mg Bisacodyl (Dulcolax) 10 mg RECTAL .PRN X 1 PRN PRN Reason: Constipation Enoxaparin Sodium (Lovenox) 40 mg SC DAILY@1000 [facility] Last Admin: 09/21/17 09:30 Dose: 40 mg Lactose (Pivot 1.5 Guero) 315 ml GT 5X/DAY [facility] Last Admin: 09/21/17 15:29 Dose: 315 ml Magnesium Hydroxide (Milk Of Magnesia) 30 ml PO .PRN X 1 PRN PRN Reason: Constipation Melatonin (Melatonin) 3 mg PO QHS [facility] Last Admin: 09/20/17 21:28 Dose: 3 mg Oxycodone HCl (Oxyir) 5 mg PO Q6H PRN PRN PRN Reason: SEVERE PAIN (6-10/10) Last Admin: 09/21/17 05:47 Dose: 5 mg Senna/Docusate Sodium (Senokot-S, Kelsi-Colace) 2 tablet PO BID [facility] Last Admin: 09/21/17 09:30 Dose: 2 tablet Tamsulosin HCl (Flomax) 0.4 mg PO DAILY@1730 [facility] Last Admin: 09/20/17 17:45 Dose: 0.4 mg Assessment/Plan Debility s/p fall from 15 - 20 feet. Sustained a C4 - C5 fracture. Developed a large left pontine stroke. Is currently Trached with # 8 Shiley and Pegged. Had a discectomy and fusion of C4 - C6. Goal of rehab is religious of functional independence. 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
[2017-09-21] MEDS: Tamsulosin HCl 0.4 MG Capsule PO (17:54)
[2017-09-21] MEDS: MELATONIN 3 MG TABLET PO (21:26)
[2017-09-21] MEDS: Atorvastatin Calcium 20 MG Tablet PO (21:26)
[2017-09-21 21:40] VITALS: BP 115/75; PULSE 76; RESP 18; TEMP 36.9; O2SAT 94
[2017-09-22] MEDS: oxyCODONE 5 MG Tablet PO (05:48)
[2017-09-22] MEDS: Pivot 1.5 Cal 1,000 ML BOTTLE 315 ML GT ×5 (05:49→21:59)
[2017-09-22] MEDS: Aspirin 81 MG TAB.CHEW PO (08:12)
[2017-09-22] MEDS: Enoxaparin 40 MG/0.4 ML Syringe SC (08:12)
[2017-09-22 08:26] VITALS: BP 109/68; PULSE 88; RESP 18; TEMP 36.8; O2SAT 93
[2017-09-22] MEDS: Senna/Docusate Sodium 1 Tablet 2 TABLET PO ×2 (10:42→21:58)
[2017-09-22 17:00] VITALS: BMI 26.9
[2017-09-22] MEDS: Tamsulosin HCl 0.4 MG Capsule PO (17:16)
--- NOTE | 2017-09-22 18:07 | NURSING ---
Patient tolerating new trach well since new one placed yesterday and secretions are minimal. Family in to visit. Patient refused laxative when asked this afternoon due to no bm x 3 days but will re-offer on next shift and bs x4 with no distention.
[2017-09-22 20:18] VITALS: BP 100/67; PULSE 83; RESP 16; TEMP 36.8; O2SAT 94
[2017-09-22] MEDS: MELATONIN 3 MG TABLET PO (22:00)
[2017-09-22] MEDS: Atorvastatin Calcium 20 MG Tablet PO (22:00)
[2017-09-23] MEDS: Magnesium Hydroxide 30 ML UDC PO (00:44)
[2017-09-23 05:00] VITALS: BMI 26.9
[2017-09-23] MEDS: Pivot 1.5 Cal 1,000 ML BOTTLE 315 ML GT ×5 (06:08→21:22)
[2017-09-23 07:49] VITALS: BP 98/68; PULSE 67; RESP 16; TEMP 36.6; O2SAT 98
[2017-09-23] MEDS: Senna/Docusate Sodium 1 Tablet 2 TABLET PO (09:08)
[2017-09-23] MEDS: Aspirin 81 MG TAB.CHEW PO (09:08)
[2017-09-23] MEDS: Enoxaparin 40 MG/0.4 ML Syringe SC (09:09)
[2017-09-23 10:08] VITALS: BMI 26.9
--- NOTE | 2017-09-23 13:03 | PCM.PN.HOSP ---
Subjective: Patient seen and examined. He was lying in bed with a tracheostomy in place and PEG tube. He was conscious and alert and able to raise his left hand to indicate answers to questions. He denied any fever or chills, any headache, any chest pain, any abdominal pain, any diarrhea vomiting. Review of systems otherwise negative. No movement noted of the right upper extremity and right lower extremity during review. Vitals/I&O's: Vital Signs Temp Pulse Resp BP Pulse Ox 97.9 F 67 16 98/68 98 09/23/17 07:49 09/23/17 07:49 09/23/17 07:49 09/23/17 07:49 09/23/17 07:49 Oxygen Flow Rate 5 Oxygen Delivery Method Trach Collar Weight: 187 lb 6.287 oz Body Mass Index (BMI) 26.9 Intake and Output for Last 24 Hours 09/21/17 09/22/17 09/23/17 23:59 23:59 23:59 Intake Total 4300 / 4300 4095 / 4095 1565 / 1565 Output Total 2350 / 2350 2100 / 2100 850 / 850 Balance 1949 / 1949 1994 / 1994 715 / 715 General: Alert, Oriented x3, Cooperative, No apparent distress, - - In the neck brace, with tracheostomy in place. HEENT: Atraumatic, EOMI Oral: Moist Mucosa Neck: Supple, No JVD, Negative Carotid Bruits Lungs: Clear to auscultation, Normal air movement, No rhonchi, No wheeze Cardiovascular: Regular rate, Regular Rhythm, Normal S1, Normal S2, No murmurs Abdomen: Bowel Sounds Present, Soft, Non Tender, Non-Distended, No Hepato-splenomegaly, Distended, - - PEG tube in place Extremities: No clubbing, No cyanosis, No edema, Capillary Refill Less than 3 Seconds Skin: No rashes, No breakdown Musculoskeletal: No Tenderness to Palpation of Joints or Extremities Lymphatic: No Cervical, Supraclavicular, or Inguinal Adenopathy Neurological: Cranial nerves II-XII grossly intact, - - Right-sided hemiparesis with power in right upper extremity and right lower extremity pain 0/5 Psych/Mental Status: Normal Affect Microbiology Past 72 Hours 09/20/17 15:40 Urine Catheter - White Urine Culture - Final Culture exhibits no growth. Current Medications Albuterol Sulfate (Ventolin Aerosols) 2.5 mg INHALATION Q2H PRN PRN PRN Reason: CONGESTION Aspirin (Aspirin, Baby) 81 mg PO DAILY@0800 [facility] Last Admin: 09/23/17 09:08 Dose: 81 mg Atorvastatin Calcium (Lipitor) 20 mg PO QHS [facility] Last Admin: 09/22/17 22:00 Dose: 20 mg Bisacodyl (Dulcolax) 10 mg RECTAL .PRN X 1 PRN PRN Reason: Constipation Enoxaparin Sodium (Lovenox) 40 mg SC DAILY@1000 [facility] Last Admin: 09/23/17 09:09 Dose: 40 mg Lactose (Pivot 1.5 Guero) 315 ml GT 5X/DAY [facility] Last Admin: 09/23/17 09:08 Dose: 315 ml Magnesium Hydroxide (Milk Of Magnesia) 30 ml PO .PRN X 1 PRN PRN Reason: Constipation Last Admin: 09/23/17 00:44 Dose: 30 ml Melatonin (Melatonin) 3 mg PO QHS [facility] Last Admin: 09/22/17 22:00 Dose: 3 mg Oxycodone HCl (Oxyir) 5 mg PO Q6H PRN PRN PRN Reason: SEVERE PAIN (6-10/10) Last Admin: 09/22/17 05:48 Dose: 5 mg Senna/Docusate Sodium (Senokot-S, Kelsi-Colace) 2 tablet PO BID [facility] Last Admin: 09/23/17 09:08 Dose: 2 tablet Tamsulosin HCl (Flomax) 0.4 mg PO DAILY@1730 [facility] Last Admin: 09/22/17 17:16 Dose: 0.4 mg Assessment/Plan 1. C4-5 fracutre due to fall from height of ~ 15-20feet s/p diskectomy and fusion of C4-C6 stable. In neck brace 2. 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 Restpiratory failure s/p tracheostomy stable ENT on board. Trach management as per ENT 4. Nutrition: has PEG tube in place. On tube feeding via PEG tube 5. DVT prophylaxis: SCDs. On lovenox Code Visit Inpatient E&M: 73000 [facility] Hosp L3
--- NOTE | 2017-09-23 13:10 | PN_ITS ---
Subjective: Patient seen and examined. He was lying in bed with a tracheostomy in place and PEG tube. He was conscious and alert and able to raise his left hand to indicate answers to questions. He denied any fever or chills, any headache, any chest pain, any abdominal pain, any diarrhea vomiting. Review of systems otherwise negative. No movement noted of the right upper extremity and right lower extremity during review. Vitals/I&O's: Vital Signs Temp Pulse Resp BP Pulse Ox 97.9 F 67 16 98/68 98 09/23/17 07:49 09/23/17 07:49 09/23/17 07:49 09/23/17 07:49 09/23/17 07:49 Oxygen Flow Rate 5 Oxygen Delivery Method Trach Collar Weight: 187 lb 6.287 oz Body Mass Index (BMI) 26.9 Intake and Output for Last 24 Hours 09/21/17 09/22/17 09/23/17 23:59 23:59 23:59 Intake Total 4300 / 4300 4095 / 4095 1565 / 1565 Output Total 2350 / 2350 2100 / 2100 850 / 850 Balance 1949 / 1949 1994 / 1994 715 / 715 General: Alert, Oriented x3, Cooperative, No apparent distress, - - In the neck brace, with tracheostomy in place. HEENT: Atraumatic, EOMI Oral: Moist Mucosa Neck: Supple, No JVD, Negative Carotid Bruits Lungs: Clear to auscultation, Normal air movement, No rhonchi, No wheeze Cardiovascular: Regular rate, Regular Rhythm, Normal S1, Normal S2, No murmurs Abdomen: Bowel Sounds Present, Soft, Non Tender, Non-Distended, No Hepato- splenomegaly, Distended, - - PEG tube in place Extremities: No clubbing, No cyanosis, No edema, Capillary Refill Less than 3 Seconds Skin: No rashes, No breakdown Musculoskeletal: No Tenderness to Palpation of Joints or Extremities Lymphatic: No Cervical, Supraclavicular, or Inguinal Adenopathy Neurological: Cranial nerves II-XII grossly intact, - - Right-sided hemiparesis with power in right upper extremity and right lower extremity pain 0/5 Psych/Mental Status: Normal Affect Microbiology Past 72 Hours 09/20/17 15:40 Urine Catheter - White Urine Culture - Final Culture exhibits no growth. Current Medications Albuterol Sulfate (Ventolin Aerosols) 2.5 mg INHALATION Q2H PRN PRN PRN Reason: CONGESTION Aspirin (Aspirin, Baby) 81 mg PO DAILY@0800 [facility] Last Admin: 09/23/17 09:08 Dose: 81 mg Atorvastatin Calcium (Lipitor) 20 mg PO QHS [facility] Last Admin: 09/22/17 22:00 Dose: 20 mg Bisacodyl (Dulcolax) 10 mg RECTAL .PRN X 1 PRN PRN Reason: Constipation Enoxaparin Sodium (Lovenox) 40 mg SC DAILY@1000 [facility] Last Admin: 09/23/17 09:09 Dose: 40 mg Lactose (Pivot 1.5 Guero) 315 ml GT 5X/DAY [facility] Last Admin: 09/23/17 09:08 Dose: 315 ml Magnesium Hydroxide (Milk Of Magnesia) 30 ml PO .PRN X 1 PRN PRN Reason: Constipation Last Admin: 09/23/17 00:44 Dose: 30 ml Melatonin (Melatonin) 3 mg PO QHS [facility] Last Admin: 09/22/17 22:00 Dose: 3 mg Oxycodone HCl (Oxyir) 5 mg PO Q6H PRN PRN PRN Reason: SEVERE PAIN (6-10/10) Last Admin: 09/22/17 05:48 Dose: 5 mg Senna/Docusate Sodium (Senokot-S, Kelsi-Colace) 2 tablet PO BID [facility] Last Admin: 09/23/17 09:08 Dose: 2 tablet Tamsulosin HCl (Flomax) 0.4 mg PO DAILY@1730 [facility] Last Admin: 09/22/17 17:16 Dose: 0.4 mg Assessment/Plan 1. C4-5 fracutre due to fall from height of ~ 15-20feet * s/p diskectomy and fusion of C4-C6 * stable. In neck brace * 2. 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 Restpiratory failure s/p tracheostomy * stable * ENT on board. Trach management as per ENT * 4. Nutrition: has PEG tube in place. On tube feeding via PEG tube 5. DVT prophylaxis: SCDs. On lovenox Code Visit Inpatient E&M: 79097 Subs Hosp L3
--- NOTE | 2017-09-23 13:30 | NURSING ---
PATIENT UP in chair and has visitors at this time. patient tolerating well.
[2017-09-23] MEDS: Tamsulosin HCl 0.4 MG Capsule PO (17:22)
[2017-09-23] MEDS: Bisacodyl 10 MG Suppository RECTAL (18:25)
[2017-09-23 20:19] VITALS: BP 114/72; PULSE 84; RESP 16; TEMP 36.9; O2SAT 96
[2017-09-23] MEDS: MELATONIN 3 MG TABLET PO (21:22)
[2017-09-23] MEDS: Atorvastatin Calcium 20 MG Tablet PO (21:22)
[2017-09-24] MEDS: Pivot 1.5 Cal 1,000 ML BOTTLE 315 ML GT ×5 (05:42→21:04)
[2017-09-24] MEDS: Enoxaparin 40 MG/0.4 ML Syringe SC (05:42)
[2017-09-24 06:40] VITALS: O2SAT 97
[2017-09-24 07:54] VITALS: BP 107/63; PULSE 78; RESP 18; TEMP 36.8; O2SAT 97
[2017-09-24] MEDS: Senna/Docusate Sodium 1 Tablet 2 TABLET PO (08:21)
[2017-09-24] MEDS: oxyCODONE 5 MG Tablet PO (08:21)
[2017-09-24] MEDS: Aspirin 81 MG TAB.CHEW PO (08:21)
--- NOTE | 2017-09-24 09:56 | PCM.PROGNOTE ---
Patient Problems: Active and Suspected Problems Tracheostomy present (Acute) Subjective: Patient is 27 year old M s/p left pontine stroke s/p diagnostic angio w/neurosurgery and multi trauma of C4-5 fractures. Wears C collar at all times. Wearing trach collar for humidification purposes. The patient was seen and examined. Family at bedside. Denies any pain. He is sitting up in recliner, trach collar w/humidification in place. Oxygen saturations 100%. Remains afebrile and hemodynamically stable. Still having significant amount of sputum production but some improvement in last 2 days with thickness and frequency. Using oral suction to help clear secretions. Having loose bowel movements with tube feedings, remains NPO. RUE remains flaccid, RLE with minimal movement. Asking if the trach can be removed sometime this week. Nursing staff reports patient tolerating Passy-Dema valve about 1 hour at a time yesterday. Objective: No recent labwork since 09/20 to review. Tracheostomy changed 09/21/17 from #8 Shiley cuffed to #6 Shiley cuffless per ENT. - Physical Exam General: Alert, Oriented x3, Cooperative, No apparent distress, - - Nonverbal, no acute distress Oral: Moist Mucosa Neck: Supple, No Nodes, Trachea Midline, - - trach site c/d/i, no erythema or drainage Lungs: Diminished, - - scattered rhonchi throughout all ariza, no wheezing or rales Cardiovascular: Regular rate, Regular Rhythm, Normal S1, Normal S2, No murmurs, No rub noted, No Gallop Abdomen: Bowel Sounds Present, Soft, Non Tender, - - PEG tube site intact Extremities: No clubbing, No cyanosis, No edema Skin: No rashes, No breakdown Musculoskeletal: No Tenderness to Palpation of Joints or Extremities Neurological: - - sensory decreased to right side. RUE flaccid, RLE near flaccid. Nonverbal, able to give thumbs up/down to answer questions and using communication board to spell words. Psych/Mental Status: Alert and oriented to time, place, person, mood and affect Vital Signs Temp Pulse Resp BP Pulse Ox 98.3 F 78 18 107/63 97 09/24/17 07:54 09/24/17 07:54 09/24/17 07:54 09/24/17 07:54 09/24/17 07:54 Oxygen Flow Rate 5 Oxygen Delivery Method Room Air Weight: 187 lb 6.287 oz Body Mass Index (BMI) 26.9 Intake and Output for Last 24 Hours 09/22/17 09/23/17 09/24/17 23:59 23:59 23:59 Intake Total 4095 / 4095 3010 / 3010 1130 / 1130 Output Total 2100 / 2100 1600 / 1600 525 / 525 Balance 1994 1410 / 1410 605 / 605 Microbiology Past 72 Hours 09/20/17 15:40 Urine Culture - Final Urine Catheter - White Culture exhibits no growth. Assessment/Plan Active and Suspected Problems Tracheostomy present (Acute) RECOMMENDATIONS: 1. Continue aggressive bronchopulmonary hygiene 2. Continue trach collar with humidity and C-spine per neuro recommendations 3. Okay to begin capping trials as tolerated, once secretion production decreases 4. Place Passy-Jeff valve as tolerated 5. Speech therapy following IMPRESSIONS: 1. Chronic respiratory failure following trauma with cervical spine fracture and subsequent pontine stroke Continue aggressive bronchopulmonary hygiene. Secretion production somewhat decreased now that cuffless Shiley is in place (changed 09/21). Continue humidity with trach collar. Continue trach care. Capping trials can be initiated once secretion production begins to decrease. Once the patient has been capped for 48 hours continuously, consideration can be given for decannulation. Speech therapy is to continue to attempt placement of Passy-Dema valve, patient has only been tolerating about 1 hour at a time. We will continue to follow. This note was generated with [employer] dictation software. It may contain incorrect words, spelling, and punctuation that were not noted in checking the note before signing.
--- NOTE | 2017-09-24 10:08 | PN_ITS ---
Patient Problems: Active and Suspected Problems Tracheostomy present (Acute) Subjective: Patient is 27 year old M s/p left pontine stroke s/p diagnostic angio w/ neurosurgery and multi trauma of C4-5 fractures. Wears C collar at all times. Wearing trach collar for humidification purposes. The patient was seen and examined. Family at bedside. Denies any pain. He is sitting up in recliner, trach collar w/humidification in place. Oxygen saturations 100%. Remains afebrile and hemodynamically stable. Still having significant amount of sputum production but some improvement in last 2 days with thickness and frequency. Using oral suction to help clear secretions. Having loose bowel movements with tube feedings, remains NPO. RUE remains flaccid, RLE with minimal movement. Asking if the trach can be removed sometime this week. Nursing staff reports patient tolerating Passy-Jeff valve about 1 hour at a time yesterday. Objective: No recent labwork since 09/20 to review. Tracheostomy changed 09/21/17 from #8 Shiley cuffed to #6 Shiley cuffless per ENT. - Physical Exam General: Alert, Oriented x3, Cooperative, No apparent distress, - - Nonverbal, no acute distress Oral: Moist Mucosa Neck: Supple, No Nodes, Trachea Midline, - - trach site c/d/i, no erythema or drainage Lungs: Diminished, - - scattered rhonchi throughout all ariza, no wheezing or rales Cardiovascular: Regular rate, Regular Rhythm, Normal S1, Normal S2, No murmurs, No rub noted, No Gallop Abdomen: Bowel Sounds Present, Soft, Non Tender, - - PEG tube site intact Extremities: No clubbing, No cyanosis, No edema Skin: No rashes, No breakdown Musculoskeletal: No Tenderness to Palpation of Joints or Extremities Neurological: - - sensory decreased to right side. RUE flaccid, RLE near flaccid. Nonverbal, able to give thumbs up/down to answer questions and using communication board to spell words. Psych/Mental Status: Alert and oriented to time, place, person, mood and affect Vital Signs Temp Pulse Resp BP Pulse Ox 98.3 F 78 18 107/63 97 09/24/17 07:54 09/24/17 07:54 09/24/17 07:54 09/24/17 07:54 09/24/17 07:54 Oxygen Flow Rate 5 Oxygen Delivery Method Room Air Weight: 187 lb 6.287 oz Body Mass Index (BMI) 26.9 Intake and Output for Last 24 Hours 09/22/17 09/23/17 09/24/17 23:59 23:59 23:59 Intake Total 4095 / 4095 3010 / 3010 1130 / 1130 Output Total 2100 / 2100 1600 / 1600 525 / 525 Balance 1994 1410 / 1410 605 / 605 Microbiology Past 72 Hours 09/20/17 15:40 Urine Culture - Final Urine Catheter - White Culture exhibits no growth. Assessment/Plan Active and Suspected Problems Tracheostomy present (Acute) RECOMMENDATIONS: 1. Continue aggressive bronchopulmonary hygiene 2. Continue trach collar with humidity and C-spine per neuro recommendations 3. Okay to begin capping trials as tolerated, once secretion production decreases 4. Place Passy-Jeff valve as tolerated 5. Speech therapy following IMPRESSIONS: 1. Chronic respiratory failure following trauma with cervical spine fracture and subsequent pontine stroke Continue aggressive bronchopulmonary hygiene. Secretion production somewhat decreased now that cuffless Shiley is in place (changed 09/21). Continue humidity with trach collar. Continue trach care. Capping trials can be initiated once secretion production begins to decrease. Once the patient has been capped for 48 hours continuously, consideration can be given for decannulation. Speech therapy is to continue to attempt placement of Passy- [place] valve, patient has only been tolerating about 1 hour at a time. We will continue to follow. This note was generated with [employer] dictation software. It may contain incorrect words, spelling, and punctuation that were not noted in checking the note before signing.
--- NOTE | 2017-09-24 10:57 | PN.NEURO_ITS ---
Subjective: Staffed in team meeting. Family at bedside. Questions answered. With Physical therapy, patient is minimal to maximum assist for bed mobility. He is Moderate assist with 2 persons to transfer, pivot and stand. He was able to walk about 20 feet at the chair rail with max assistance. He is WBAT with brace. With Occupational therapy, he is 1 -2 person max to moderate assist for bathing. With Speech therapy they have been working on using the Passy Jeff valve he is able to tolerate about 10 minutes, varun start doing 20 minutes every two hours if he tolerates this without issues Dr. Gomez with Pulmonology group will Cap the Trach on Sunday or , with possible decannulation on Sunday. With nursing, He has a White in place which is putting out clear yellow urine. No other issues noted. Will reteam again on Sunday 10/01. - Physical Exam General: Alert, Oriented x3, Cooperative HEENT: Atraumatic, PERRLA, EOMI, Normocephalic Neck: Supple, No JVD, Negative Carotid Bruits Lungs: Clear to auscultation, Normal air movement Cardiovascular: Regular rate, No murmurs Abdomen: Bowel Sounds Present, Soft, Non Tender Extremities: No edema, Capillary Refill Less than 3 Seconds Skin: No rashes, No breakdown Musculoskeletal: No Tenderness to Palpation of Joints or Extremities Neurological: Cranial nerves II-XII grossly intact Psych/Mental Status: Normal Affect, Appropriate Vital Signs Temp Pulse Resp BP Pulse Ox 98.3 F 78 18 107/63 97 09/24/17 07:54 09/24/17 07:54 09/24/17 07:54 09/24/17 07:54 09/24/17 07:54 Oxygen Flow Rate 5 Oxygen Delivery Method Trach Collar Weight: 85 kg Body Mass Index (BMI) 26.9 Intake and Output for Last 24 Hours 09/22/17 09/23/17 09/24/17 23:59 23:59 23:59 Intake Total 4095 / 4095 3010 / 3010 1505 / 1505 Output Total 2100 / 2100 1600 / 1600 525 / 525 Balance 1994 / 1994 1410 / 1410 980 / 980 Microbiology Past 72 Hours 09/20/17 15:40 Urine Culture - Final Urine Catheter - White Culture exhibits no growth. Active Medications Albuterol Sulfate (Ventolin Aerosols) 2.5 mg INHALATION Q2H PRN PRN PRN Reason: CONGESTION Aspirin (Aspirin, Baby) 81 mg PO DAILY@0800 [facility] Last Admin: 09/24/17 08:21 Dose: 81 mg Atorvastatin Calcium (Lipitor) 20 mg PO QHS [facility] Last Admin: 09/23/17 21:22 Dose: 20 mg Bisacodyl (Dulcolax) 10 mg RECTAL .PRN X 1 PRN PRN Reason: Constipation Last Admin: 09/23/17 18:25 Dose: 10 mg Enoxaparin Sodium (Lovenox) 40 mg SC DAILY@0600 [facility] Last Admin: 09/24/17 05:42 Dose: 40 mg Lactose (Pivot 1.5 Guero) 315 ml GT 5X/DAY [facility] Last Admin: 09/24/17 10:13 Dose: 315 ml Magnesium Hydroxide (Milk Of Magnesia) 30 ml PO .PRN X 1 PRN PRN Reason: Constipation Last Admin: 09/23/17 00:44 Dose: 30 ml Melatonin (Melatonin) 3 mg PO QHS [facility] Last Admin: 09/23/17 21:22 Dose: 3 mg Oxycodone HCl (Oxyir) 5 mg PO Q6H PRN PRN PRN Reason: SEVERE PAIN (6-10/10) Last Admin: 09/24/17 08:21 Dose: 5 mg Senna/Docusate Sodium (Senokot-S, Kelsi-Colace) 2 tablet PO BID [facility] Last Admin: 09/24/17 08:21 Dose: 2 tablet Tamsulosin HCl (Flomax) 0.4 mg PO DAILY@1730 [facility] Last Admin: 09/23/17 17:22 Dose: 0.4 mg Assessment/Plan Debility s/p fall from 15 - 20 feet. Sustained a C4 - C5 fracture. Developed a large left pontine stroke. Is currently Trached with # 8 Shiley and Pegged. Had a discectomy and fusion of C4 - C6. Goal of rehab is roman catholic of functional independence. Plan: - Physical therapy for gait and balance - Occupational Therapy for ADLs - Speech therapy - As needed analgesics - Bowel protocol - Stroke prevention on ASA, Statin - DVT prophylaxis: SCDs, - Pontine CVA 2/2 dissection => right sided hemiparesis - C4 and C5 fracture => s/p discectomy and fusion of C4-6 - s/p Trach # 8 Ruchi => ENT consulted to change trach over => trach down sized to a #6 shiley - s/p PEG => TF Pivot 315cc 5x a day - White placed for Urinary retention => urology consulted. - Passy Jeff valve (PMV) every two hours
[2017-09-24 11:47] VITALS: BMI 26.9
--- NOTE | 2017-09-24 12:20 | NURSING ---
Addendum entered by Gabriella Song 09/24/17 12:21: speech therapy aware. Original Note: dr hyde was here to see patient, wants to increase frequency and duration of passey nichole valve.
--- NOTE | 2017-09-24 12:36 | CASEMGMT ---
Team meeting held. Patient present as well as patient family. No discharge date set at this time. [facility] approving until 10/29/17. Patient plans to discharge home with spouse when able to. Patient has support within the community. Patient to continue with care and treatment on the Inpatient Rehab Unit at this time. Support given. Will continue to follow. Chhaya DUBON, FIELD ENUMERATOR
--- NOTE | 2017-09-24 17:34 | NURSING ---
patient is tolerating having the passey nichole valve on every 2hours for 20 min increments. no acute distress noted.
[2017-09-24] MEDS: Tamsulosin HCl 0.4 MG Capsule PO (17:42)
[2017-09-24 19:44] VITALS: BMI 26.9
[2017-09-24 20:20] VITALS: BP 114/69; PULSE 77; RESP 18; TEMP 36.7; O2SAT 98
[2017-09-24] MEDS: MELATONIN 3 MG TABLET PO (21:04)
[2017-09-24] MEDS: Atorvastatin Calcium 20 MG Tablet PO (21:05)
[2017-09-25] MEDS: Enoxaparin 40 MG/0.4 ML Syringe SC (06:07)
[2017-09-25] MEDS: Pivot 1.5 Cal 1,000 ML BOTTLE 315 ML GT ×5 (06:08→21:42)
[2017-09-25 07:50] VITALS: BP 106/67; PULSE 83; RESP 16; TEMP 36.8; O2SAT 95
[2017-09-25] MEDS: Senna/Docusate Sodium 1 Tablet 2 TABLET PO ×2 (11:21→21:41)
[2017-09-25] MEDS: Aspirin 81 MG TAB.CHEW PO (11:21)
--- NOTE | 2017-09-25 13:39 | PN.NEURO_ITS ---
Subjective: Patient seen and examined. Tolerating therapy. Tolerating Passy Jeff trial with out difficulty. - Physical Exam General: Alert, Oriented x3, Cooperative HEENT: Atraumatic, PERRLA, EOMI, Normocephalic Neck: Supple, No JVD, Negative Carotid Bruits Lungs: Clear to auscultation, Normal air movement Cardiovascular: Regular rate, No murmurs Abdomen: Bowel Sounds Present, Soft, Non Tender Extremities: No edema, Capillary Refill Less than 3 Seconds Skin: No rashes, No breakdown Musculoskeletal: No Tenderness to Palpation of Joints or Extremities Neurological: Cranial nerves II-XII grossly intact Psych/Mental Status: Normal Affect, Appropriate Vital Signs Temp Pulse Resp BP Pulse Ox 98.2 F 83 16 106/67 95 09/25/17 07:50 09/25/17 07:50 09/25/17 07:50 09/25/17 07:50 09/25/17 07:50 Oxygen Flow Rate 5 Oxygen Delivery Method Room Air Weight: 73 kg Body Mass Index (BMI) 26.9 Intake and Output for Last 24 Hours 09/23/17 09/24/17 09/25/17 23:59 23:59 23:59 Intake Total 3010 / 3010 2975 / 2975 575 / 575 Output Total 1600 / 1600 1825 / 1825 1040 / 1040 Balance 1410 / 1410 1150 / 1150 -465 / -465 Microbiology Past 72 Hours 09/20/17 15:40 Urine Culture - Final Urine Catheter - White Culture exhibits no growth. Active Medications Albuterol Sulfate (Ventolin Aerosols) 2.5 mg INHALATION Q2H PRN PRN PRN Reason: CONGESTION Aspirin (Aspirin, Baby) 81 mg PO DAILY@0800 [facility] Last Admin: 09/25/17 11:21 Dose: 81 mg Atorvastatin Calcium (Lipitor) 20 mg PO QHS [facility] Last Admin: 09/24/17 21:05 Dose: 20 mg Bisacodyl (Dulcolax) 10 mg RECTAL .PRN X 1 PRN PRN Reason: Constipation Last Admin: 09/23/17 18:25 Dose: 10 mg Enoxaparin Sodium (Lovenox) 40 mg SC DAILY@0600 [facility] Last Admin: 09/25/17 06:07 Dose: 40 mg Lactose (Pivot 1.5 Guero) 315 ml GT 5X/DAY [facility] Last Admin: 09/25/17 11:22 Dose: 315 ml Magnesium Hydroxide (Milk Of Magnesia) 30 ml PO .PRN X 1 PRN PRN Reason: Constipation Last Admin: 09/23/17 00:44 Dose: 30 ml Melatonin (Melatonin) 3 mg PO QHS [facility] Last Admin: 09/24/17 21:04 Dose: 3 mg Oxycodone HCl (Oxyir) 5 mg PO Q6H PRN PRN PRN Reason: SEVERE PAIN (6-10/10) Last Admin: 09/24/17 08:21 Dose: 5 mg Senna/Docusate Sodium (Senokot-S, Kelsi-Colace) 2 tablet PO BID [facility] Last Admin: 09/25/17 11:21 Dose: 2 tablet Tamsulosin HCl (Flomax) 0.4 mg PO DAILY@1730 [facility] Last Admin: 09/24/17 17:42 Dose: 0.4 mg Assessment/Plan Debility s/p fall from 15 - 20 feet. Sustained a C4 - C5 fracture. Developed a large left pontine stroke. Is currently Trached with # 8 Shiley and Pegged. Had a discectomy and fusion of C4 - C6. Goal of rehab is hoahaoism of functional independence. 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 - Passy Jeff valve (PMV) trial
--- NOTE | 2017-09-25 16:05 | NURSING ---
Pt peg care done along with trach care, changed dressing no drainage noted at this time, pt tolerated well.
[2017-09-25 16:06] VITALS: BMI 26.9
[2017-09-25] MEDS: Tamsulosin HCl 0.4 MG Capsule PO (19:07)
[2017-09-25] MEDS: NYSTATIN 500,000 UNIT/5 ML UDC 500000 UNIT PO ×2 (19:08→21:42)
[2017-09-25 20:45] VITALS: BMI 26.9
[2017-09-25] MEDS: MELATONIN 3 MG TABLET PO (21:41)
[2017-09-25] MEDS: Atorvastatin Calcium 20 MG Tablet PO (21:41)
[2017-09-25 22:00] VITALS: BP 110/68; PULSE 72; RESP 18; TEMP 36.6; O2SAT 96
[2017-09-26] MEDS: Pivot 1.5 Cal 1,000 ML BOTTLE 315 ML GT ×5 (06:16→22:38)
[2017-09-26] MEDS: Enoxaparin 40 MG/0.4 ML Syringe SC (06:16)
[2017-09-26 07:22] VITALS: O2SAT 98
[2017-09-26 08:09] VITALS: BP 106/60; PULSE 85; RESP 18; TEMP 36.5; O2SAT 98
[2017-09-26] MEDS: NYSTATIN 500,000 UNIT/5 ML UDC 500000 UNIT PO ×4 (09:16→22:38)
[2017-09-26] MEDS: Senna/Docusate Sodium 1 Tablet 2 TABLET PO ×2 (09:16→22:38)
[2017-09-26] MEDS: Aspirin 81 MG TAB.CHEW PO (09:16)
--- NOTE | 2017-09-26 09:40 | PCM.PN.NEU ---
Subjective: Patient seen and examined. No new events overnight. Tolerating therapy. Denies any shortness of breath or chest pains. Has been tolerating the Passy-Jeff valve continuously. His secretions have decreased significantly, he is still occasionally producing thick, white mucus out of his trach and orally. He is able to clear his secretions without any difficulties. Patient is able to communicate with the Passy-[place] valve without difficulty. The plan is to Cap the trach tomorrow and possibly decannulate on Sunday. - Physical Exam General: Alert, Oriented x3, Cooperative HEENT: Atraumatic, PERRLA, EOMI, Normocephalic Neck: Supple, No JVD, Negative Carotid Bruits Lungs: Clear to auscultation, Normal air movement Cardiovascular: Regular rate, No murmurs Abdomen: Bowel Sounds Present, Soft, Non Tender Extremities: No edema, Capillary Refill Less than 3 Seconds Skin: No rashes, No breakdown Musculoskeletal: No Tenderness to Palpation of Joints or Extremities Neurological: Cranial nerves II-XII grossly intact Psych/Mental Status: Normal Affect, Appropriate Vital Signs Temp Pulse Resp BP Pulse Ox 97.7 F L 85 18 106/60 98 09/26/17 08:09 09/26/17 08:09 09/26/17 08:09 09/26/17 08:09 09/26/17 08:09 Oxygen Flow Rate 5 Oxygen Delivery Method Trach Collar Weight: 73 kg Body Mass Index (BMI) 26.9 Intake and Output for Last 24 Hours 09/24/17 09/25/17 09/26/17 23:59 23:59 23:59 Intake Total 2975 / 2975 1075 / 1075 1130 / 1130 Output Total 1825 / 1825 3990 / 3990 1400 / 1400 Balance 1150 / 1150 -2915 / -2915 -270 / -270 Microbiology Past 72 Hours 09/20/17 15:40 Urine Culture - Final Urine Catheter - White Culture exhibits no growth. Active Medications Albuterol Sulfate (Ventolin Aerosols) 2.5 mg INHALATION Q2H PRN PRN PRN Reason: CONGESTION Aspirin (Aspirin, Baby) 81 mg PO DAILY@0800 [facility] Last Admin: 09/26/17 09:16 Dose: 81 mg Atorvastatin Calcium (Lipitor) 20 mg PO QHS [facility] Last Admin: 09/25/17 21:41 Dose: 20 mg Bisacodyl (Dulcolax) 10 mg RECTAL .PRN X 1 PRN PRN Reason: Constipation Last Admin: 09/23/17 18:25 Dose: 10 mg Enoxaparin Sodium (Lovenox) 40 mg SC DAILY@0600 [facility] Last Admin: 09/26/17 06:16 Dose: 40 mg Lactose (Pivot 1.5 Guero) 315 ml GT 5X/DAY [facility] Last Admin: 09/26/17 09:25 Dose: 315 ml Magnesium Hydroxide (Milk Of Magnesia) 30 ml PO .PRN X 1 PRN PRN Reason: Constipation Last Admin: 09/23/17 00:44 Dose: 30 ml Melatonin (Melatonin) 3 mg PO QHS [facility] Last Admin: 09/25/17 21:41 Dose: 3 mg Nystatin (Nystatin) 500,000 unit PO 4X/DAY [facility] Last Admin: 09/26/17 09:16 Dose: 500,000 unit Oxycodone HCl (Oxyir) 5 mg PO Q6H PRN PRN PRN Reason: SEVERE PAIN (6-10/10) Last Admin: 09/24/17 08:21 Dose: 5 mg Polyethylene Glycol (Miralax) 17 gm GT DAILY [facility] Senna/Docusate Sodium (Senokot-S, Kelsi-Colace) 2 tablet PO BID [facility] Last Admin: 09/26/17 09:16 Dose: 2 tablet Tamsulosin HCl (Flomax) 0.4 mg PO DAILY@1730 [facility] Last Admin: 09/25/17 19:07 Dose: 0.4 mg Assessment/Plan Debility s/p fall from 15 - 20 feet. Sustained a C4 - C5 fracture. Developed a large left pontine stroke. Is currently Trached with # 8 Shiley and Pegged. Had a discectomy and fusion of C4 - C6. Goal of rehab is adventism of functional independence. 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 - Passy Jeff valve (PMV) trial
--- NOTE | 2017-09-26 09:55 | PCM.PROGNOTE ---
Subjective: Patient was seen and examined. He has been tolerating the [place] valve continuously. His secretions have significantly decreased, however is still producing intermittent thick, white mucus out of his trach and orally. He is able to expectorate without any difficulties. Patient is able to orally communicate with [place] valve and expresses desire to to start capping trial today so he can potentially be decannulated on Sunday. - Physical Exam General: Alert, Oriented x3, Cooperative, No apparent distress HEENT: Atraumatic, Normocephalic Oral: Moist Mucosa, No Gingival or Mucosal Lesions/ Ulcerations Neck: Trachea Midline, - - C-collar in place Lungs: Diminished, - - mild rhonchi that clears w/cough, no wheezing or rales. Symmetric expansion. Cardiovascular: Regular rate, Regular Rhythm, Normal S1, Normal S2, No murmurs Abdomen: Bowel Sounds Present, Soft, Non Tender, Non-Distended, - - PEG site c/d/i Extremities: No clubbing, No cyanosis, No edema Skin: No rashes, No breakdown Musculoskeletal: No Tenderness to Palpation of Joints or Extremities Lymphatic: No Cervical, Supraclavicular, or Inguinal Adenopathy Neurological: - - unchanged from previous exam, RUE flaccid and RLE near flaccid. No facial droop. Psych/Mental Status: Alert and oriented to time, place, person, mood and affect Vital Signs Temp Pulse Resp BP Pulse Ox 97.7 F L 85 18 106/60 98 09/26/17 08:09 09/26/17 08:09 09/26/17 08:09 09/26/17 08:09 09/26/17 08:09 Oxygen Flow Rate 5 Oxygen Delivery Method Trach Collar Weight: 160 lb 14.999 oz Body Mass Index (BMI) 26.9 Intake and Output for Last 24 Hours 09/24/17 09/25/17 09/26/17 23:59 23:59 23:59 Intake Total 2975 / 2975 1075 / 1075 1130 / 1130 Output Total 1825 / 1825 3990 / 3990 1400 / 1400 Balance 1150 / 1150 -2915 / -2915 -270 / -270 Microbiology Past 72 Hours 09/20/17 15:40 Urine Culture - Final Urine Catheter - White Culture exhibits no growth. Assessment/Plan RECOMMENDATIONS: 1. Continue aggressive bronchopulmonary hygiene 2. Continue C-spine per neuro recommendations (4 wks from surgery) 3. Attempt capping trial starting today 5. Speech therapy following IMPRESSIONS: 1. Chronic respiratory failure following trauma with cervical spine fracture and subsequent pontine stroke Continue aggressive bronchopulmonary hygiene. Secretion production improved now that cuffless Shiley is in place (changed 09/21). Continue trach care. Patient has tolerated Pass[place] valve very well. Capping trials can be initiated today as tolerated. Once the patient has been capped for 48 hours continuously, consideration can be given for decannulation. Speech therapy is following. We will continue to follow and anticipate possible decannulation on Sunday. This note was generated with [employer] dictation software. It may contain incorrect words, spelling, and punctuation that were not noted in checking the note before signing.
--- NOTE | 2017-09-26 09:58 | PN_ITS ---
Subjective: Patient was seen and examined. He has been tolerating the Passy-[place] valve continuously. His secretions have significantly decreased, however is still producing intermittent thick, white mucus out of his trach and orally. He is able to expectorate without any difficulties. Patient is able to orally communicate with Pass[place] valve and expresses desire to to start capping trial today so he can potentially be decannulated on Sunday. - Physical Exam General: Alert, Oriented x3, Cooperative, No apparent distress HEENT: Atraumatic, Normocephalic Oral: Moist Mucosa, No Gingival or Mucosal Lesions/ Ulcerations Neck: Trachea Midline, - - C-collar in place Lungs: Diminished, - - mild rhonchi that clears w/cough, no wheezing or rales. Symmetric expansion. Cardiovascular: Regular rate, Regular Rhythm, Normal S1, Normal S2, No murmurs Abdomen: Bowel Sounds Present, Soft, Non Tender, Non-Distended, - - PEG site c/d /i Extremities: No clubbing, No cyanosis, No edema Skin: No rashes, No breakdown Musculoskeletal: No Tenderness to Palpation of Joints or Extremities Lymphatic: No Cervical, Supraclavicular, or Inguinal Adenopathy Neurological: - - unchanged from previous exam, RUE flaccid and RLE near flaccid. No facial droop. Psych/Mental Status: Alert and oriented to time, place, person, mood and affect Vital Signs Temp Pulse Resp BP Pulse Ox 97.7 F L 85 18 106/60 98 09/26/17 08:09 09/26/17 08:09 09/26/17 08:09 09/26/17 08:09 09/26/17 08:09 Oxygen Flow Rate 5 Oxygen Delivery Method Trach Collar Weight: 160 lb 14.999 oz Body Mass Index (BMI) 26.9 Intake and Output for Last 24 Hours 09/24/17 09/25/17 09/26/17 23:59 23:59 23:59 Intake Total 2975 / 2975 1075 / 1075 1130 / 1130 Output Total 1825 / 1825 3990 / 3990 1400 / 1400 Balance 1150 / 1150 -2915 / -2915 -270 / -270 Microbiology Past 72 Hours 09/20/17 15:40 Urine Culture - Final Urine Catheter - White Culture exhibits no growth. Assessment/Plan RECOMMENDATIONS: 1. Continue aggressive bronchopulmonary hygiene 2. Continue C-spine per neuro recommendations (4 wks from surgery) 3. Attempt capping trial starting today 5. Speech therapy following IMPRESSIONS: 1. Chronic respiratory failure following trauma with cervical spine fracture and subsequent pontine stroke Continue aggressive bronchopulmonary hygiene. Secretion production improved now that cuffless Shiley is in place (changed 09/21). Continue trach care. Patient has tolerated Pass[place] valve very well. Capping trials can be initiated today as tolerated. Once the patient has been capped for 48 hours continuously, consideration can be given for decannulation. Speech therapy is following. We will continue to follow and anticipate possible decannulation on Sunday. This note was generated with [employer] dictation software. It may contain incorrect words, spelling, and punctuation that were not noted in checking the note before signing.
[2017-09-26 14:33] VITALS: BMI 26.9
[2017-09-26] MEDS: Polyethylene Glycol 3350 17 GM PACKET GT (15:47)
[2017-09-26] MEDS: Tamsulosin HCl 0.4 MG Capsule PO (18:45)
[2017-09-26 19:50] VITALS: BP 106/65; PULSE 87; RESP 16; TEMP 36.8; O2SAT 96
[2017-09-26] MEDS: Atorvastatin Calcium 20 MG Tablet PO (22:39)
[2017-09-26] MEDS: MELATONIN 3 MG TABLET PO (22:39)
[2017-09-27 05:00] VITALS: BMI 26.9
[2017-09-27] MEDS: Pivot 1.5 Cal 1,000 ML BOTTLE 315 ML GT ×5 (06:06→21:56)
[2017-09-27] MEDS: Enoxaparin 40 MG/0.4 ML Syringe SC (06:06)
--- NOTE | 2017-09-27 08:43 | PN.NEURO_ITS ---
Subjective: Patient seen and examined. No acute events over night. Trach was capped this morning by respiratory, SATs are 98% on room air and he is tolerating it without difficulty. Denies any shortness of breath or chest pains. - Physical Exam General: Alert, Oriented x3, Cooperative HEENT: Atraumatic, PERRLA, EOMI, Normocephalic Neck: Supple, No JVD, Negative Carotid Bruits Lungs: Clear to auscultation, Normal air movement Cardiovascular: Regular rate, No murmurs Abdomen: Bowel Sounds Present, Soft, Non Tender Extremities: No edema, Capillary Refill Less than 3 Seconds Skin: No rashes, No breakdown Musculoskeletal: No Tenderness to Palpation of Joints or Extremities Neurological: Cranial nerves II-XII grossly intact Psych/Mental Status: Normal Affect, Appropriate Vital Signs Temp Pulse Resp BP Pulse Ox 98.3 F 87 16 106/65 96 09/26/17 19:50 09/26/17 19:50 09/26/17 19:50 09/26/17 19:50 09/26/17 19:50 Oxygen Flow Rate 5 Oxygen Delivery Method Room Air Weight: 72.3 kg Body Mass Index (BMI) 26.9 Intake and Output for Last 24 Hours 09/25/17 09/26/17 09/27/17 23:59 23:59 23:59 Intake Total 1075 / 1075 2930 / 2930 1130 / 1130 Output Total 3990 / 3990 2500 / 2500 800 / 800 Balance -2915 / -2915 430 / 430 330 / 330 Active Medications Albuterol Sulfate (Ventolin Aerosols) 2.5 mg INHALATION Q2H PRN PRN PRN Reason: CONGESTION Aspirin (Aspirin, Baby) 81 mg PO DAILY@0800 [facility] Last Admin: 09/27/17 10:05 Dose: 81 mg Atorvastatin Calcium (Lipitor) 20 mg PO QHS [facility] Last Admin: 09/26/17 22:39 Dose: 20 mg Bisacodyl (Dulcolax) 10 mg RECTAL .PRN X 1 PRN PRN Reason: Constipation Last Admin: 09/23/17 18:25 Dose: 10 mg Enoxaparin Sodium (Lovenox) 40 mg SC DAILY@0600 [facility] Last Admin: 09/27/17 06:06 Dose: 40 mg Lactose (Pivot 1.5 Guero) 315 ml GT 5X/DAY [facility] Last Admin: 09/27/17 10:01 Dose: 315 ml Magnesium Hydroxide (Milk Of Magnesia) 30 ml PO .PRN X 1 PRN PRN Reason: Constipation Last Admin: 09/23/17 00:44 Dose: 30 ml Melatonin (Melatonin) 3 mg PO QHS [facility] Last Admin: 09/26/17 22:39 Dose: 3 mg Nystatin (Nystatin) 500,000 unit PO 4X/DAY [facility] Last Admin: 09/27/17 10:06 Dose: 500,000 unit Oxycodone HCl (Oxyir) 5 mg PO Q6H PRN PRN PRN Reason: SEVERE PAIN (6-10/10) Last Admin: 09/24/17 08:21 Dose: 5 mg Polyethylene Glycol (Miralax) 17 gm GT DAILY [facility] Last Admin: 09/27/17 10:05 Dose: 17 gm Senna/Docusate Sodium (Senokot-S, Kelsi-Colace) 2 tablet PO BID [facility] Last Admin: 09/27/17 10:05 Dose: 2 tablet Tamsulosin HCl (Flomax) 0.4 mg PO DAILY@1730 [facility] Last Admin: 09/26/17 18:45 Dose: 0.4 mg Assessment/Plan Debility s/p fall from 15 - 20 feet. Sustained a C4 - C5 fracture. Developed a large left pontine stroke. Is currently Trached with # 8 Shiley and Pegged. Had a discectomy and fusion of C4 - C6. Goal of rehab is [place] of functional independence. 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 - Trach is capped for next 48 hours , SATs are 98% on room air
[2017-09-27 08:50] VITALS: O2SAT 96
[2017-09-27 09:01] VITALS: PULSE 81; RESP 17; TEMP 36.7; O2SAT 93
--- NOTE | 2017-09-27 09:05 | CPS ---
With trach capped.
[2017-09-27] MEDS: Aspirin 81 MG TAB.CHEW PO (10:05)
[2017-09-27] MEDS: Senna/Docusate Sodium 1 Tablet 2 TABLET PO ×2 (10:05→21:56)
[2017-09-27] MEDS: Polyethylene Glycol 3350 17 GM PACKET GT (10:05)
[2017-09-27] MEDS: NYSTATIN 500,000 UNIT/5 ML UDC 500000 UNIT PO ×4 (10:06→21:56)
[2017-09-27 15:00] VITALS: O2SAT 97
[2017-09-27 16:30] VITALS: BMI 26.9
[2017-09-27] MEDS: Tamsulosin HCl 0.4 MG Capsule PO (17:16)
[2017-09-27] MEDS: Magnesium Hydroxide 30 ML UDC PO (17:16)
[2017-09-27 21:54] VITALS: BP 98/59; PULSE 72; RESP 18; TEMP 36.7; O2SAT 98
[2017-09-27] MEDS: MELATONIN 3 MG TABLET PO (21:56)
[2017-09-27] MEDS: Atorvastatin Calcium 20 MG Tablet PO (21:56)
--- NOTE | 2017-09-28 00:34 | NURSING ---
Last BM for patient was 09/23; Explained to pt our bowel protocol. Pt states would like to hold on dulcolax suppository (had MOM day shift) for now - states he only has a bm once a week at home...will continue to monitor
[2017-09-28] MEDS: Enoxaparin 40 MG/0.4 ML Syringe SC (06:20)
[2017-09-28] MEDS: Pivot 1.5 Cal 1,000 ML BOTTLE 315 ML GT ×5 (06:20→21:24)
[2017-09-28 06:57] VITALS: O2SAT 98
[2017-09-28 07:58] VITALS: BP 109/66; PULSE 82; RESP 18; TEMP 36.7; O2SAT 98
[2017-09-28] MEDS: Magnesium Hydroxide 30 ML UDC PO (09:07)
[2017-09-28] MEDS: oxyCODONE 5 MG Tablet PO (09:07)
[2017-09-28] MEDS: NYSTATIN 500,000 UNIT/5 ML UDC 500000 UNIT PO ×4 (09:16→21:07)
[2017-09-28] MEDS: Senna/Docusate Sodium 1 Tablet 2 TABLET PO ×2 (09:16→21:07)
[2017-09-28] MEDS: Aspirin 81 MG TAB.CHEW PO (09:16)
--- NOTE | 2017-09-28 10:24 | PCM.PROGNOTE ---
Subjective: The patient was seen and examined. He is working with occupational therapy at this time with noted RUE movement. He denies any shortness of breath. Continues with cough but has improved. Sputum production significantly decreased. Tolerating capping trial well, initiated on 09/27 at 0900. - Physical Exam General: Alert, Oriented x3, Cooperative, No apparent distress HEENT: Atraumatic, Normocephalic Oral: Moist Mucosa Neck: - - trach intact. C-collar in place. Lungs: Clear to auscultation, No rhonchi, No wheeze, No rales, Diminished Cardiovascular: Regular rate, Regular Rhythm, Normal S1, Normal S2, No murmurs, No rub noted, No Gallop Abdomen: Bowel Sounds Present, Soft, Non Tender, Non-Distended Extremities: No clubbing, No cyanosis, No edema Skin: No rashes, No breakdown Musculoskeletal: No Tenderness to Palpation of Joints or Extremities Lymphatic: No Cervical, Supraclavicular, or Inguinal Adenopathy Neurological: Cranial nerves II-XII grossly intact, Neuro grossly intact, Motor Exam 5/5 strength throughout Psych/Mental Status: Normal Affect Vital Signs Temp Pulse Resp BP Pulse Ox 98.1 F 82 18 109/66 98 09/28/17 07:58 09/28/17 07:58 09/28/17 07:58 09/28/17 07:58 09/28/17 07:58 Oxygen Flow Rate 5 Oxygen Delivery Method Room Air Weight: 160 lb 0.889 oz Body Mass Index (BMI) 26.9 Intake and Output for Last 24 Hours 09/26/17 09/27/17 09/28/17 23:59 23:59 23:59 Intake Total 2930 / 2930 2325 / 2325 565 / 565 Output Total 2500 / 2500 1850 / 1850 950 / 950 Balance 430 / 430 475 / 475 -385 / -385 Assessment/Plan RECOMMENDATIONS: 1. Continue aggressive bronchopulmonary hygiene 2. Continue C-spine per neuro recommendations (4 wks from surgery) 3. Continue capping trial, possible decannulation 09/29 5. Speech therapy following IMPRESSIONS: 1. Chronic respiratory failure following trauma with cervical spine fracture and subsequent pontine stroke Continue aggressive bronchopulmonary hygiene. Secretion production improved now that cuffless Shiley is in place (changed 09/21). Continue trach care. Patient has tolerated Passy-[place] valve very well. Capping trial initiated 09/27 at 0900. Once the patient has been capped for 48 hours continuously, consideration can be given for decannulation- potentially 09/29. Speech therapy is following. We will continue to follow and anticipate possible decannulation on Sunday. This note was generated with [employer] dictation software. It may contain incorrect words, spelling, and punctuation that were not noted in checking the note before signing.
[2017-09-28 14:00] VITALS: O2SAT 96
[2017-09-28 16:20] VITALS: BMI 26.9
[2017-09-28] MEDS: Tamsulosin HCl 0.4 MG Capsule PO (16:50)
[2017-09-28 21:00] VITALS: BP 104/70; PULSE 77; RESP 20; TEMP 37.2; O2SAT 96; BMI 26.9
[2017-09-28] MEDS: MELATONIN 3 MG TABLET PO (21:07)
[2017-09-28] MEDS: Atorvastatin Calcium 20 MG Tablet PO (21:07)
[2017-09-29] MEDS: Jevity 1.5. 1,000 ML Bottle 315 ML GT ×5 (06:08→22:15)
[2017-09-29] MEDS: Enoxaparin 40 MG/0.4 ML Syringe SC (06:08)
[2017-09-29 06:50] VITALS: O2SAT 98
--- NOTE | 2017-09-29 06:55 | NURSING ---
Reviewed and agree with LPNs fims and handoff
--- NOTE | 2017-09-29 08:38 | PCM.PROGNOTE ---
Subjective: Patient did well overnight. No acute issues have been reported. Patient has remained capped and able to tolerate secretions well. No pain is been reported. Patient is asking about shaving upon decannulation. - Physical Exam General: Alert, Oriented x3, Cooperative, No apparent distress, - - Speaking in 6-7 word sentences HEENT: Atraumatic, PERRLA, EOMI, Normocephalic, - - Scleral icterus or injection noted. No Oral: Moist Mucosa, No Gingival or Mucosal Lesions/ Ulcerations Neck: Supple, No JVD, No Nodes, Trachea Midline, - - C-collar in place Lungs: No rhonchi, No wheeze, No rales, Diminished Cardiovascular: Regular rate, Regular Rhythm, Normal S1, Normal S2, No murmurs, No rub noted, No Gallop Abdomen: Bowel Sounds Present, Soft, Non Tender, Non-Distended Extremities: No clubbing, No cyanosis, No edema, Capillary Refill Less than 3 Seconds Skin: No rashes, No breakdown, - - Trach is clean, dry and intact Musculoskeletal: No Tenderness to Palpation of Joints or Extremities Lymphatic: No Cervical, Supraclavicular, or Inguinal Adenopathy Neurological: - - Grossly unchanged compared to previous examination Psych/Mental Status: Normal Affect, Appropriate Vital Signs Temp Pulse Resp BP Pulse Ox 37.2 C 77 20 H 104/70 98 09/28/17 21:00 09/28/17 21:00 09/28/17 21:00 09/28/17 21:00 09/29/17 06:50 Oxygen Flow Rate 5 Oxygen Delivery Method Room Air Weight: 72.6 kg Body Mass Index (BMI) 26.9 Intake and Output for Last 24 Hours 09/27/17 09/28/17 09/29/17 23:59 23:59 23:59 Intake Total 2325 / 2325 3010 / 3010 815 / 815 Output Total 1850 / 1850 2025 / 2025 275 / 275 Balance 475 / 475 985 / 985 540 / 540 Assessment/Plan RECOMMENDATIONS: 1. Continue aggressive bronchopulmonary hygiene 2. Continue C-spine per neuro recommendations (4 wks from surgery) 3. Cover the ostomy with clean gauze on a daily basis 4. Speech therapy following IMPRESSIONS: 1. Chronic respiratory failure following trauma with cervical spine fracture and subsequent pontine stroke Patient overall has tolerated capping well. Secretions are well-controlled at this time. Tracheostomy looks well with no signs of infection at this time. Patient has tolerated capping for over 48 hours. Will decannulate patient. 4 x 4 occlusive dry dressing will be placed. This should be replaced on a daily basis until contraction of the orifice is completed. Patient will need to hold on any showers until orifice is closed. No Vaseline gauze should be used. Pulmonary service will stop by in 2-3 days to check on healing process if patient remains hospitalized. This note was generated with [employer] dictation software. It may contain incorrect words, spelling, and punctuation that were not noted in checking the note before signing. Code Visit Inpatient E&M: 17783 Subs Hosp L2
--- NOTE | 2017-09-29 09:19 | PN_ITS ---
Subjective: Patient did well overnight. No acute issues have been reported. Patient has remained capped and able to tolerate secretions well. No pain is been reported. Patient is asking about shaving upon decannulation. - Physical Exam General: Alert, Oriented x3, Cooperative, No apparent distress, - - Speaking in 6-7 word sentences HEENT: Atraumatic, PERRLA, EOMI, Normocephalic, - - Scleral icterus or injection noted. No Oral: Moist Mucosa, No Gingival or Mucosal Lesions/ Ulcerations Neck: Supple, No JVD, No Nodes, Trachea Midline, - - C-collar in place Lungs: No rhonchi, No wheeze, No rales, Diminished Cardiovascular: Regular rate, Regular Rhythm, Normal S1, Normal S2, No murmurs, No rub noted, No Gallop Abdomen: Bowel Sounds Present, Soft, Non Tender, Non-Distended Extremities: No clubbing, No cyanosis, No edema, Capillary Refill Less than 3 Seconds Skin: No rashes, No breakdown, - - Trach is clean, dry and intact Musculoskeletal: No Tenderness to Palpation of Joints or Extremities Lymphatic: No Cervical, Supraclavicular, or Inguinal Adenopathy Neurological: - - Grossly unchanged compared to previous examination Psych/Mental Status: Normal Affect, Appropriate Vital Signs Temp Pulse Resp BP Pulse Ox 37.2 C 77 20 H 104/70 98 09/28/17 21:00 09/28/17 21:00 09/28/17 21:00 09/28/17 21:00 09/29/17 06:50 Oxygen Flow Rate 5 Oxygen Delivery Method Room Air Weight: 72.6 kg Body Mass Index (BMI) 26.9 Intake and Output for Last 24 Hours 09/27/17 09/28/17 09/29/17 23:59 23:59 23:59 Intake Total 2325 / 2325 3010 / 3010 815 / 815 Output Total 1850 / 1850 2025 / 2025 275 / 275 Balance 475 / 475 985 / 985 540 / 540 Assessment/Plan RECOMMENDATIONS: 1. Continue aggressive bronchopulmonary hygiene 2. Continue C-spine per neuro recommendations (4 wks from surgery) 3. Cover the ostomy with clean gauze on a daily basis 4. Speech therapy following IMPRESSIONS: 1. Chronic respiratory failure following trauma with cervical spine fracture and subsequent pontine stroke Patient overall has tolerated capping well. Secretions are well- controlled at this time. Tracheostomy looks well with no signs of infection at this time. Patient has tolerated capping for over 48 hours. Will decannulate patient. 4 x 4 occlusive dry dressing will be placed. This should be replaced on a daily basis until contraction of the orifice is completed. Patient will need to hold on any showers until orifice is closed. No Vaseline gauze should be used. Pulmonary service will stop by in 2-3 days to check on healing process if patient remains hospitalized. This note was generated with [employer] dictation software. It may contain incorrect words, spelling, and punctuation that were not noted in checking the note before signing. Code Visit Inpatient E&M: 29209 Subs Hosp L2
[2017-09-29] MEDS: Senna/Docusate Sodium 1 Tablet 2 TABLET PO ×2 (09:38→22:14)
[2017-09-29] MEDS: Aspirin 81 MG TAB.CHEW PO (09:38)
[2017-09-29] MEDS: NYSTATIN 500,000 UNIT/5 ML UDC 500000 UNIT PO ×4 (09:38→22:14)
[2017-09-29 10:00] VITALS: BP 111/66; PULSE 73; RESP 17; RESP 18; TEMP 36.4; O2SAT 98
[2017-09-29 13:48] VITALS: BMI 26.9
[2017-09-29] MEDS: Tamsulosin HCl 0.4 MG Capsule PO (17:31)
--- NOTE | 2017-09-29 17:59 | NURSING ---
Changed dressing to trach stoma, pt had saturated old dressing with mucus secretions, cleaned site with NS applied 4x4 gauze with tape, pt tolerated dressing change well.
--- NOTE | 2017-09-29 18:04 | NURSING ---
Pt up to WC taken down to lobby by , to visit with family.
[2017-09-29 20:37] VITALS: BP 112/64; PULSE 78; RESP 17; TEMP 37.3; O2SAT 96
[2017-09-29 21:50] VITALS: BMI 26.9
[2017-09-29] MEDS: Atorvastatin Calcium 20 MG Tablet PO (22:14)
[2017-09-29] MEDS: MELATONIN 3 MG TABLET PO (22:14)
[2017-09-30] MEDS: Jevity 1.5. 1,000 ML Bottle 315 ML GT ×5 (05:39→21:39)
[2017-09-30] MEDS: Enoxaparin 40 MG/0.4 ML Syringe SC (05:39)
[2017-09-30 06:55] VITALS: O2SAT 95
[2017-09-30 07:38] VITALS: BP 105/65; PULSE 73; RESP 16; TEMP 36.8; O2SAT 95
[2017-09-30] MEDS: Aspirin 81 MG TAB.CHEW PO (09:29)
[2017-09-30] MEDS: NYSTATIN 500,000 UNIT/5 ML UDC 500000 UNIT PO ×4 (09:29→21:30)
[2017-09-30 11:08] VITALS: BMI 26.9
--- NOTE | 2017-09-30 13:01 | PCM.PN.NEU ---
Subjective: He is concerned about his x-rays apparently his appointment at [facility] got canceled for the . Follow up on this. No other complaints. His catheter has been removed and his tracheostomy tube is out. He is getting a swallowing study tomorrow. He has noted continued but minimal improvement in his right hand. Objective: [place]ation he is awake and alert. His speech is dysarthric. He has ongoing right hemiparesis but he has improved triceps strength at 4/5. Biceps is 0/5. There is 1/5 movement in his intrinsic hand muscles on the right. I do not see any movement in his right lower extremity. - Physical Exam Vital Signs Temp Pulse Resp BP Pulse Ox 36.8 C 73 16 105/65 95 09/30/17 07:38 09/30/17 07:38 09/30/17 07:38 09/30/17 07:38 09/30/17 07:38 Oxygen Flow Rate 5 Oxygen Delivery Method Room Air Weight: 73.6 kg Body Mass Index (BMI) 26.9 Intake and Output for Last 24 Hours 09/28/17 09/29/17 09/30/17 23:59 23:59 23:59 Intake Total 3010 / 3010 2445 / 2445 1190 / 1190 Output Total 2024 / 2024 1275 / 1275 1700 / 1700 Balance 985 / 985 1170 / 1170 -510 / -510 Current Medications Generic Name Dose Route Start Last Admin Trade Name Freq PRN Reason Stop Dose Admin Albuterol Sulfate 2.5 mg 09/20/17 18:02 Ventolin Aerosols INHALATION Q2H PRN PRN CONGESTION Aspirin 81 mg 09/20/17 08:00 09/30/17 09:29 Aspirin, Baby PO 81 mg DAILY@0800 [facility] Administration Atorvastatin Calcium 20 mg 09/20/17 22:00 09/29/17 22:14 Lipitor PO 20 mg QHS [facility] Administration Bisacodyl 10 mg 09/19/17 21:07 09/23/17 18:25 Dulcolax RECTAL 10 mg .PRN X 1 PRN Administration Constipation Enoxaparin Sodium 40 mg 09/24/17 06:00 09/30/17 05:39 Lovenox SC 40 mg DAILY@0600 [facility] Administration Enteral Nutritional Formula 315 ml 09/29/17 06:00 09/30/17 09:29 Jevity 1.5 GT 315 ml 5X/DAY [facility] Administration Magnesium Hydroxide 30 ml 09/19/17 21:07 09/28/17 09:07 Milk Of Magnesia PO 30 ml .PRN X 1 PRN Administration Constipation Melatonin 3 mg 09/20/17 22:00 09/29/17 22:14 Melatonin PO 3 mg QHS [facility] Administration Nystatin 500,000 unit 09/25/17 18:00 09/30/17 09:29 Nystatin PO 500,000 unit 4X/DAY [facility] Administration Oxycodone HCl 5 mg 09/19/17 22:03 09/28/17 09:07 Oxyir PO 5 mg Q6H PRN PRN Administration SEVERE PAIN (6-10/10) Polyethylene Glycol 17 gm 09/26/17 10:00 09/30/17 09:28 Miralax GT Not Given DAILY [facility] Senna/Docusate Sodium 2 tablet 09/19/17 22:00 09/30/17 09:28 Senokot-S, Kelsi-Colace PO Not Given BID [facility] Tamsulosin HCl 0.4 mg 09/20/17 17:30 09/29/17 17:31 Flomax PO 0.4 mg DAILY@1730 [facility] Administration Assessment/Plan Debility s/p fall from 15 - 20 feet. Sustained a C4 - C5 fracture. Developed a large left pontine stroke. Is currently Trached with # 8 Shiley and Pegged. Had a discectomy and fusion of C4 - C6. Goal of rehab is [place] of functional independence. 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 His follow-up appointment on the has been canceled however this Sunday we will do a C-spine x-ray which will be forwarded to his [facility] surgeon for review. Follow up appointments will be scheduled upon discharge from the rehab unit. - s/p Trach # 8 Shiley => ENT consulted to change trach over => trach down sized to a #6 shiley. 09/30: Trach out yesterday, doing very well - s/p PEG => TF Pivot 315cc 5x a day. Repeat swallow evaluation tomorrow. - White placed for Urinary retention => urology consulted. White removed yesterday, urinating well.
--- NOTE | 2017-09-30 13:05 | PN.NEURO_ITS ---
Subjective: He is concerned about his x-rays apparently his appointment at [facility] got canceled for the . Follow up on this. No other complaints. His catheter has been removed and his tracheostomy tube is out. He is getting a swallowing study tomorrow. He has noted continued but minimal improvement in his right hand. Objective: Emanation he is awake and alert. His speech is dysarthric. He has ongoing right hemiparesis but he has improved triceps strength at 4/5. Biceps is 0/5. There is 1/5 movement in his intrinsic hand muscles on the right. I do not see any movement in his right lower extremity. - Physical Exam Vital Signs Temp Pulse Resp BP Pulse Ox 36.8 C 73 16 105/65 95 09/30/17 07:38 09/30/17 07:38 09/30/17 07:38 09/30/17 07:38 09/30/17 07:38 Oxygen Flow Rate 5 Oxygen Delivery Method Room Air Weight: 73.6 kg Body Mass Index (BMI) 26.9 Intake and Output for Last 24 Hours 09/28/17 09/29/17 09/30/17 23:59 23:59 23:59 Intake Total 3010 / 3010 2445 / 2445 1190 / 1190 Output Total 2024 / 2024 1275 / 1275 1700 / 1700 Balance 985 / 985 1170 / 1170 -510 / -510 Current Medications Generic Name Dose Route Start Last Admin Trade Name Freq PRN Reason Stop Dose Admin Albuterol Sulfate 2.5 mg 09/20/17 18:02 Ventolin Aerosols INHALATION Q2H PRN PRN CONGESTION Aspirin 81 mg 09/20/17 08:00 09/30/17 09:29 Aspirin, Baby PO 81 mg DAILY@0800 [facility] Administration Atorvastatin Calcium 20 mg 09/20/17 22:00 09/29/17 22:14 Lipitor PO 20 mg QHS AVI Administration Bisacodyl 10 mg 09/19/17 21:07 09/23/17 18:25 Dulcolax RECTAL 10 mg .PRN X 1 PRN Administration Constipation Enoxaparin Sodium 40 mg 09/24/17 06:00 09/30/17 05:39 Lovenox SC 40 mg DAILY@0600 [facility] Administration Enteral Nutritional Formula 315 ml 09/29/17 06:00 09/30/17 09:29 Jevity 1.5 GT 315 ml 5X/DAY AVI Administration Magnesium Hydroxide 30 ml 09/19/17 21:07 09/28/17 09:07 Milk Of Magnesia PO 30 ml .PRN X 1 PRN Administration Constipation Melatonin 3 mg 09/20/17 22:00 09/29/17 22:14 Melatonin PO 3 mg QHS AVI Administration Nystatin 500,000 unit 09/25/17 18:00 09/30/17 09:29 Nystatin PO 500,000 unit 4X/DAY AVI Administration Oxycodone HCl 5 mg 09/19/17 22:03 09/28/17 09:07 Oxyir PO 5 mg Q6H PRN PRN Administration SEVERE PAIN (6-10/10) Polyethylene Glycol 17 gm 09/26/17 10:00 09/30/17 09:28 Miralax GT Not Given DAILY AVI Senna/Docusate Sodium 2 tablet 09/19/17 22:00 09/30/17 09:28 Senokot-S, Kelsi-Colace PO Not Given BID AVI Tamsulosin HCl 0.4 mg 09/20/17 17:30 09/29/17 17:31 Flomax PO 0.4 mg DAILY@1730 [facility]I Administration Assessment/Plan Debility s/p fall from 15 - 20 feet. Sustained a C4 - C5 fracture. Developed a large left pontine stroke. Is currently Trached with # 8 Shiley and Pegged. Had a discectomy and fusion of C4 - C6. Goal of rehab is christianity of functional independence. 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 His follow-up appointment on the has been canceled however this Sunday we will do a C- spine x-ray which will be forwarded to his [facility] surgeon for review. Follow up appointments will be scheduled upon discharge from the rehab unit. - s/p Trach # 8 Shiley => ENT consulted to change trach over => trach down sized to a #6 shiley. 09/30: Trach out yesterday, doing very well - s/p PEG => TF Pivot 315cc 5x a day. Repeat swallow evaluation tomorrow. - White placed for Urinary retention => urology consulted. White removed yesterday, urinating well.
--- NOTE | 2017-09-30 14:48 | NURSING ---
ambulated > 150 ft with hemiwalker x min assist with w/c follow this shift.
--- NOTE | 2017-09-30 15:22 | PCM.PROGNOTE ---
Subjective: Chief complaint: Follow-up after consultation for medical management after admission to rehabilitation unit. Patient seen and examined. No acute events overnight. He reported no significant complaints. Tracheostomy tube was taken out yesterday and he has been stable, breathing is fine. Weakness on the right side of his body still there, hemiparesis. His vital signs are stable. - Physical Exam General: Alert, Oriented x3, Cooperative HEENT: Atraumatic, PERRLA, EOMI Oral: Moist Mucosa, No Gingival or Mucosal Lesions/ Ulcerations Neck: Supple, No JVD, Negative Carotid Bruits, Trachea Midline, Thyroid Normal Size and Texture Lungs: Clear to auscultation, No rhonchi, No wheeze, No rales, Diminished Cardiovascular: Regular rate, Regular Rhythm, Normal S1, Normal S2, PMI Normal Abdomen: Bowel Sounds Present, Soft, Non Tender, Non-Distended, No Hepato-splenomegaly Extremities: No clubbing, No cyanosis, No edema Skin: No rashes, No breakdown Lymphatic: No Cervical, Supraclavicular, or Inguinal Adenopathy Neurological: Cranial nerves II-XII grossly intact, - - Right-sided hemiparesis Psych/Mental Status: Normal Affect, Appropriate Vital Signs Temp Pulse Resp BP Pulse Ox 98.3 F 73 16 105/65 95 09/30/17 07:38 09/30/17 07:38 09/30/17 07:38 09/30/17 07:38 09/30/17 07:38 Oxygen Flow Rate 5 Oxygen Delivery Method Room Air Weight: 162 lb 4.163 oz Body Mass Index (BMI) 26.9 Intake and Output for Last 24 Hours 09/28/17 09/29/17 09/30/17 23:59 23:59 23:59 Intake Total 3010 / 3010 2445 / 2445 1565 / 1565 Output Total 2024 / 2024 1275 / 1275 2150 / 2150 Balance 985 / 985 1170 / 1170 -585 / -585 Microbiology Past 72 Hours 09/30/17 12:55 Group A Streptococcus Rapid Screen - Preliminary Mucosa - Throat Assessment/Plan This is a 27 years old male patient admitted to amputation unit after 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 #1 C4-C5 fracture status post anterior discectomy and fusion of C4-C6: On neck collar, pain is well-controlled. Vital signs are stable. Plan to continue PT OT according to rehab team. #2 left pontine stroke: This developed after patient had diagnostic catheterization of the cervical arteries for possible grade 1 dissection which showed no intimal injury, with resultant right-sided hemiparesis. He is on aspirin and statins. Blood pressure stable. #3 status post tracheostomy: This was removed yesterday, respiratory status stable, pulse ox is normal on room air. Patient has no complaints. #4 status post PEG tube: He is tolerating tube feeds. #5 left patellar fracture: On knee immobilizer, pain is controlled. #6 urinary retention: White catheter, on Flomax. #7 DVT prophylaxis: Subcu Lovenox. This note was generated with [employer] dictation software. It may contain incorrect words, spelling, and punctuation that were not noted in checking the note before signing. Code Visit Inpatient E&M: 87628 Subs Hosp L2
--- NOTE | 2017-09-30 15:31 | PN_ITS ---
Subjective: Chief complaint: Follow-up after consultation for medical management after admission to rehabilitation unit. Patient seen and examined. No acute events overnight. He reported no significant complaints. Tracheostomy tube was taken out yesterday and he has been stable, breathing is fine. Weakness on the right side of his body still there, hemiparesis. His vital signs are stable. - Physical Exam General: Alert, Oriented x3, Cooperative HEENT: Atraumatic, PERRLA, EOMI Oral: Moist Mucosa, No Gingival or Mucosal Lesions/ Ulcerations Neck: Supple, No JVD, Negative Carotid Bruits, Trachea Midline, Thyroid Normal Size and Texture Lungs: Clear to auscultation, No rhonchi, No wheeze, No rales, Diminished Cardiovascular: Regular rate, Regular Rhythm, Normal S1, Normal S2, PMI Normal Abdomen: Bowel Sounds Present, Soft, Non Tender, Non-Distended, No Hepato- splenomegaly Extremities: No clubbing, No cyanosis, No edema Skin: No rashes, No breakdown Lymphatic: No Cervical, Supraclavicular, or Inguinal Adenopathy Neurological: Cranial nerves II-XII grossly intact, - - Right-sided hemiparesis Psych/Mental Status: Normal Affect, Appropriate Vital Signs Temp Pulse Resp BP Pulse Ox 98.3 F 73 16 105/65 95 09/30/17 07:38 09/30/17 07:38 09/30/17 07:38 09/30/17 07:38 09/30/17 07:38 Oxygen Flow Rate 5 Oxygen Delivery Method Room Air Weight: 162 lb 4.163 oz Body Mass Index (BMI) 26.9 Intake and Output for Last 24 Hours 09/28/17 09/29/17 09/30/17 23:59 23:59 23:59 Intake Total 3010 / 3010 2445 / 2445 1565 / 1565 Output Total 2024 / 2024 1275 / 1275 2150 / 2150 Balance 985 / 985 1170 / 1170 -585 / -585 Microbiology Past 72 Hours 09/30/17 12:55 Group A Streptococcus Rapid Screen - Preliminary Mucosa - Throat Assessment/Plan This is a 27 years old male patient admitted to amputation unit after 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 #1 C4-C5 fracture status post anterior discectomy and fusion of C4-C6: On neck collar, pain is well-controlled. Vital signs are stable. Plan to continue PT OT according to rehab team. #2 left pontine stroke: This developed after patient had diagnostic catheterization of the cervical arteries for possible grade 1 dissection which showed no intimal injury, with resultant right-sided hemiparesis. He is on aspirin and statins. Blood pressure stable. #3 status post tracheostomy: This was removed yesterday, respiratory status stable, pulse ox is normal on room air. Patient has no complaints. #4 status post PEG tube: He is tolerating tube feeds. #5 left patellar fracture: On knee immobilizer, pain is controlled. #6 urinary retention: White catheter, on Flomax. #7 DVT prophylaxis: Subcu Lovenox. This note was generated with [employer] dictation software. It may contain incorrect words, spelling, and punctuation that were not noted in checking the note before signing. Code Visit Inpatient E&M: 08193 Subs Hosp L2
[2017-09-30] MEDS: Tamsulosin HCl 0.4 MG Capsule PO (17:30)
[2017-09-30 20:17] VITALS: BP 124/70; PULSE 96; RESP 18; TEMP 36.9; O2SAT 97
[2017-09-30 21:15] VITALS: PULSE 96; RESP 18; O2SAT 97; BMI 26.9
[2017-09-30] MEDS: Atorvastatin Calcium 20 MG Tablet PO (21:40)
[2017-09-30] MEDS: MELATONIN 3 MG TABLET PO (21:40)
--- NOTE | 2017-10-01 04:53 | NURSING ---
Reviewed and agree with ANDROID ARCHITECT documentation.
[2017-10-01] MEDS: Jevity 1.5. 1,000 ML Bottle 315 ML GT ×5 (06:04→21:45)
[2017-10-01] MEDS: Enoxaparin 40 MG/0.4 ML Syringe SC (06:04)
[2017-10-01 06:55] VITALS: O2SAT 93
[2017-10-01 08:20] VITALS: BP 114/64; PULSE 89; RESP 18; TEMP 36.6; O2SAT 90
[2017-10-01] MEDS: NYSTATIN 500,000 UNIT/5 ML UDC 500000 UNIT PO ×4 (10:48→21:43)
[2017-10-01] MEDS: Senna/Docusate Sodium 1 Tablet 2 TABLET GT ×2 (10:48→21:43)
[2017-10-01] MEDS: Aspirin 81 MG TAB.CHEW GT (10:49)
--- NOTE | 2017-10-01 11:03 | CASEMGMT ---
Team meeting held. Patient present as well as patient family. No discharge date set at this time. [facility] approving until 10/29/17 at this time. Patient plans to discharge home with family at time of discharge. Patient to continue with treatment on the Inpatient Rehab Unit at this time. Support given. Will continue to follow. Chhaya DUBON, TECHNOLOGY ADMINISTRATOR
--- NOTE | 2017-10-01 14:00 | RAD_ITS ---
STUDY: SWALLOWING STUDY REASON FOR EXAM: Male, 27 years old. Aspiration. TECHNIQUE: The examination was performed with Speech Pathology in attendance. Under fluoroscopic observation, the patient ingested thin barium, thick barium, barium pudding, and barium coated cracker. FLUOROSCOPY TIME: 1:58 minutes/seconds. 1802 spot images were obtained. RADIOLOGIST INVOLVEMENT: Radiologist was present and providing direct supervision. COMPARISON: None. FINDINGS: The following was observed during swallowing of the various mixtures of barium: Thin Barium: Silent aspiration with ingestion of thin liquids. Thick Barium: Solid aspiration with ingestion of nectar and honey thickened liquids. Barium Puddin aspiration with ingestion of pudding. RAD/Swallowing Function w/Video IMPRESSION: Aspiration with ingestion of all consistencies. The swallow study findings were discussed with the patient by the speech pathologist at the conclusion of the examination. Please see speech pathology report for more information and recommendations. Electronically Signed: Cristhian Harrell MD at 15:02 EST Tel [phone], Service support ,
--- NOTE | 2017-10-01 14:00 | SP.MBSS_ITS ---
PRIMARY / SECONDARY DIAGNOSIS: severe oropharyngeal dysphagia (R13.12) REFERRING PHYSICIAN: Dr. Bharathi Jarquin MD CURRENT DIET: NPO with alternative means of nutrition via PEG (Pivot 1.5 at 315ml) DENTITION: WFL MENTAL STATUS: WNL RESPIRATORY STATUS: O2 via room air PREVIOUS MODIFIED BARIUM SWALLOW STUDY: none, FEES completed 09/14/2017 FEES completed at [facility] revealed SILENT aspiration of thin, honey, and pureed textures. REASON FOR REFERRAL: Patient is a 27 year old male referred for a modified barium swallow (MBS) study to objectively assess the Patients oropharyngeal swallow function under fluoroscopy secondary to a recent fall (08/27/2017) from 15-20 feet resulting in debility and C4-C5 fracture status post discectomy and fusion (09/09/2017) in addition to a large left pontine cerebrovascular accident resulting in right sided weakness. Patient required placement of a tracheostomy tube in addition to percutaneous gastrostomy (PEG) tube on 09/09/2017; Patient subsequently decannulated on 09/29/2017. Patient currently admitted to [facility]. Patient currently strict NPO with alternative means of nutrition via PEG (Pivot 1.5 at 315ml) MEDICAL HISTORY: No significant past medical history prior to 08/27/2017 fall. STUDY FINDINGS: Patient participated in a Modified Barium Swallow (MBS) study on 10/01/2017. Dr. Harrell was the radiologist present for this evaluation. This study was recorded in the lateral view and images were sent to PACs for storage. The following consistencies were presented to this patient for analysis of oropharyngeal swallow function: thin liquids, nectar thickened liquids, honey thickened liquids, and pudding textures. Results of the MBS are as follows: PENETRATION / ASPIRATION SCALE (WEBB): 1 = does not enter airway 2 = enters airway/above vocal folds/ejected 3 = enters airway/above vocal folds/not ejected 4 = enters airway/contacts vocal folds/ejected 5 = enters airway/contacts vocal folds/not ejected 6 = enters airway/below vocal folds/ejected 7 = enters airway/below vocal folds/not ejected despite effort 8 = enters airway/below vocal folds/no effort VIDEOFLOROSCOPIC SCALE SCORE (WEBB): Grade I = aspiration of material that has penetrated into the laryngeal vestibule, intact cough reflex Grade II = aspiration < 10 % of the bolus, intact cough reflex Grade III = aspiration of < 10 % of the bolus, reduced cough reflex or aspiration of > 10 % of the bolus, intact cough reflex Grade IV = aspiration of > 10 % of the bolus, reduced cough reflex PENETRATION / ASPIRATION SCALE (SCORE) WITH VIDEOFLOROSCOPIC SCALE SCORE: Thin liquid - 5 mL tsp.: 8 - Grade III Cleary thickened liquids - 5 mL tsp.: 8 - Grade III Cleary thickened liquids - 5 mL tsp.: 8 - Grade IV Honey thickened liquids - 5 mL tsp.: 8 - Grade IV Honey thickened liquids - 5 mL tsp.: 8 - Grade IV Pudding via spoon: 8 - Grade IV IMPRESSION: DIAGNOSIS: severe to profound oropharyngeal dysphagia (R13.12) ORAL PHASE CHARACTERIZED BY: LABIAL SEAL: no labial escape TONGUE CONTROL DURING BOLUS MANIPULATION: posterior escape of greater than half of bolus; escape to lateral buccal cavity/floor of mouth BOLUS PREPARATION / MASTICATION: held due to safety concerns BOLUS TRANSPORT / LINGUAL MOTION: brisk tongue motion ORAL RESIDUE: trace residue lining oral structures PHARYNGEAL PHASE CHARACTERIZED BY: INITIATION OF PHARYNGEAL SWALLOW: bolus head in pyriforms at first hyoid excursion SOFT PALATE ELEVATION: no bolus between soft palate and pharyngeal wall LARYNGEAL ELEVATION: partial superior movement of thyroid cartilage/partial approximation of arytenoids cartilage to epiglottic petiole ANTERIOR HYOID EXCURSION: trace to no anterior movement EPIGLOTTIC MOVEMENT: no epiglottic inversion LARYNGEAL VESTIBULE CLOSURE AT HEIGHT OF SWALLOW: no laryngeal vestibule closure with wide column of air/contrast in laryngeal vestibule PHARYNGEAL STRIPPING WAVE: pharyngeal stripping wave present / diminished PHARYNGOESOPHAGEAL SEGMENT OPENING: minimal distension and minimal duration with marked obstruction of flow TONGUE BASE RETRACTION: narrow to wide column of contrast between tongue base and posterior pharyngeal wall PHARYNGEAL RESIDUE: majority of contrast within or on pharyngeal structures ( valleculae) ESOPHAGEAL PHASE CHARACTERIZED BY: ESOPHAGEAL BOLUS CLEARANCE IN THE UPRIGHT POSITION: could not view EFFECTS OF TREATMENT STRATEGIES ATTEMPTED: Cough and reswallow = ineffective Effort swallow = ineffective Double swallow = ineffective Reduced bolus size = ineffective DIET TEXTURE RECOMMENDATIONS: Will recommend continued NPO status with alternative means of nutrition in place via PEG INTERPRETATION OF RESULTS: Patient presents with severe to profound oropharyngeal dysphagia (R13.12) secondary to a recent fall from 15-20 feet resulting in debility and C4-C5 fracture status post discectomy and fusion in addition to a large left pontine cerebrovascular accident, in addition to iatrogenic factors to include previous intubation, tracheostomy tube placement, recent decannulation, and placement / possible continued soft tissue swelling status post discectomy and fusion. Oral phase primarily marked by suboptimal bolus control with noted frequent posterior bolus loss contributing to both pre-prandial and prandial penetration and aspiration. Pharyngeal phase primarily marked by delayed pharyngeal swallow onset timing resulting in suboptimal bolus location upon swallow onset; reduced closure of the airway during deglutition attributed to severely reduced anterior hyoid excursion and to a lesser extent reduced laryngeal elevation resulting in little to no epiglottic inversion and laryngeal vestibule closure / pressure; and severely impaired pharyngeal motility / pharyngeal dysmotility attributed to reduced tongue based retraction and posterior pharyngeal stripping wave action (at the sight of fusion) resulting in copious pharyngeal retention within the valleculae, in addition to reduced pharyngoesophageal segment opening resulting in pharyngeal retention within the pyriforms; all deficits contributing to pre-prandial, prandial, and post prandial penetration and aspiration that was SILENT in nature of rather significant amounts. Available therapeutic / postural techniques limited by cervical range of motion limitations, though unlikely to produce significant improvements at current juncture. Noted severely insufficient cough response / effectiveness to expel penetrated material / laryngotracheal aspiration, with a significant amount suctioned well below the upper trachea upon cued cough. Cervical hardware located at the C4-C5 location, further tracheal scarring noted at tracheal stoma sight. Patient noted to SILENTLY aspirate with all intake, with clinical assessment at bedside relying on identification of classic overt signs and symptoms of aspiration unreliable, advancement strongly contraindicated. RECOMMENDATIONS: Medical team immediately notified of results, with images reviewed with RANDA Oconnor. Chest x-ray immediately completed, with results revealing a focal area of increased density in the lateral aspect of the right lower lobe, follow- up is recommended. Patient and Patients family instructed to complete aggressive use of incentive spirometer, physical therapy requested to provide additional intervention sessions to promote improved movement and aeration, with the Patient instructed to remain upright for 3-4 hours. Will recommend implementation of the [place] Free Water Protocol (FFWP), as continued manipulation of thin liquids may promote improved structural timing, coordination, return of range of motion, and intraoral hydration ONLY FOLLOWING CLEARANCE BY THE MEDICAL TEAM. Will hold FFWP placement until cleared. Strongly discourage any PO trials aside from the FFWP when cleared by emergency medical technician/driver without completion of objective assessment under fluoroscopy due to the nature and extent of aspiration that was silent in nature across various consistencies. Recommend a repeat modified barium swallow study within 2-3 weeks (if clinically appropriate) to further assess the presence and extent of silent and overt aspiration prior to advancement to thin liquids, with clearance from medical team recommended. Patient requires intensive skilled speech-language intervention targeting continued diet texture management; training and implementation of recommended compensatory strategies (when appropriate); training and implementation of recommended oropharyngeal strengthening exercises to facilitate improved labial control / strength, lingual control / strength, swallow onset timing, laryngeal vestibule closure / pressure, and pharyngeal motility; training, implementation, and Patient education regarding implementation of the FFWP following clearance from the medical team. ADDITIONAL COMMENTS/RECOMMENDATIONS: Results and recommendations were discussed with the Patient immediately following MBS completion, with the Patient verbalizing understanding and agreement with all recommendations and education provided. IMAGE COUNT: [id number]
--- NOTE | 2017-10-01 14:01 | PN_ITS ---
Subjective: The patient was seen and examined at the bedside this morning. Events from the last 24 hours have been reviewed. The patient is currently afebrile, hemodynamically stable and maintaining appropriate oxygen saturations on room air. The patient was successfully decannulated by Dr. Monreal on September 29. The patient is currently resting comfortably without complaints of shortness of breath. He does nod yes that he has been able to expectorate sputum without issue. Objective: The patient's most recent lab work, culture data and imaging studies have all been personally reviewed. - Physical Exam General: Alert, Oriented x3, Cooperative, No apparent distress HEENT: Atraumatic, PERRLA, Normocephalic Oral: Moist Mucosa, No Gingival or Mucosal Lesions/ Ulcerations Neck: Supple, No Nodes, Trachea Midline, - - Stoma site intact. C-collar remains in place. Lungs: Normal air movement, No rhonchi, No wheeze, No rales Cardiovascular: Regular rate, Regular Rhythm, Normal S1, Normal S2, No murmurs Abdomen: Bowel Sounds Present, Soft, Non Tender Extremities: No clubbing, No cyanosis, No edema Skin: No rashes, No breakdown Musculoskeletal: No Tenderness to Palpation of Joints or Extremities Lymphatic: No Cervical, Supraclavicular, or Inguinal Adenopathy Neurological: - - No significant change from previous Psych/Mental Status: Normal Affect, Appropriate Vital Signs Temp Pulse Resp BP Pulse Ox 97.8 F 89 18 114/64 90 10/01/17 08:20 10/01/17 08:20 10/01/17 08:20 10/01/17 08:20 10/01/17 08:20 Oxygen Flow Rate 5 Oxygen Delivery Method Room Air Weight: 161 lb 2.526 oz Body Mass Index (BMI) 26.9 Intake and Output for Last 24 Hours 09/29/17 09/30/17 10/01/17 23:59 23:59 23:59 Intake Total 2445 / 2445 2565 / 2565 1200 / 1200 Output Total 1275 / 1275 2450 / 2450 1050 / 1050 Balance 1170 / 1170 115 / 115 150 / 150 Microbiology Past 72 Hours 09/30/17 12:55 Group A Streptococcus Rapid Screen - Preliminary Mucosa - Throat Microbiology 09/30/17 12:55 Mucosa - Throat Group A Streptococcus Rapid Screen - Preliminary Assessment/Plan RECOMMENDATIONS: 1. Cover ostomy site with clean gauze on a daily basis. Stoma will close on its own. 2. Continue aggressive bronchopulmonary hygiene IMPRESSIONS: 1. Chronic respiratory failure following trauma with cervical spine fracture and subsequent pontine stroke Continue aggressive bronchopulmonary hygiene. Daily dressing changes, until stoma site is closed. Patient will need to hold on any showers until orifice is closed. No Vaseline gauze should be used. This note was generated with [employer] dictation software. It may contain incorrect words, spelling, and punctuation that were not noted in checking the note before signing. Will sign off at this time. Please call with any additional questions. Code Visit Inpatient E&M: 56443 Subs Hosp L2
--- NOTE | 2017-10-01 14:25 | RAD_ITS ---
STUDY: X-RAY CHEST REASON FOR EXAM: Male, 27 years old. Aspiration. TECHNIQUE: Single frontal view of the chest. COMPARISON: None. FINDINGS: Soft tissue density seen along the lateral inferior aspect of the right lower lobe. This may represent either an infiltrate or changes secondary to prior trauma. Follow-up is recommended. There is no demonstrated pleural abnormality. Normal size heart. Normal mediastinum and davis. Normal visualized pulmonary arteries. Normal visualized aortic arch and descending thoracic aorta. Normal visualized thoracic spine. Normal visualized ribs, clavicles, and shoulders. There is no demonstrated abnormality of the visualized soft tissue structures of the upper abdomen. RAD/Chest 1 View IMPRESSION: Focal area of increased density in the lateral aspect of the right lower lobe as described. Follow-up is recommended. Electronically Signed: Cristhian Harrell MD at 14:42 EST Tel [phone], Service support ,
[2017-10-01 15:39] VITALS: BMI 26.9
--- NOTE | 2017-10-01 15:46 | PCM.PN.HOSP ---
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 Objective: GENERAL: Affect flat HEENT: Clear conjunctiva, NECK; neck in the collar CHEST: Clear to auscultation bilaterally, HEART: Regular S1 S2, no audible murmurs ABDOMEN: soft, PEG tube in situ RECTAL: deferred EXTREMITIES: No edema, no clubbing, COLOR CHECKER: Awake, upper extremity weakness SKIN: No Rash Vitals/I&O's: Vital Signs Temp Pulse Resp BP Pulse Ox 97.8 F 89 18 114/64 90 10/01/17 08:20 10/01/17 08:20 10/01/17 08:20 10/01/17 08:20 10/01/17 08:20 Oxygen Flow Rate 5 Oxygen Delivery Method Room Air Weight: 73.1 kg Body Mass Index (BMI) 26.9 Intake and Output for Last 24 Hours 09/29/17 09/30/17 10/01/17 23:59 23:59 23:59 Intake Total 2445 / 2445 2565 / 2565 1200 / 1200 Output Total 1275 / 1275 2450 / 2450 1050 / 1050 Balance 1170 / 1170 115 / 115 150 / 150 Microbiology Past 72 Hours 09/30/17 12:55 Mucosa - Throat Group A Streptococcus Rapid Screen - Preliminary Current Medications Albuterol Sulfate (Ventolin Aerosols) 2.5 mg INHALATION Q2H PRN PRN PRN Reason: CONGESTION Aspirin (Aspirin, Baby) 81 mg GT DAILY@0800 [facility] Last Admin: 10/01/17 10:49 Dose: 81 mg Atorvastatin Calcium (Lipitor) 20 mg GT QHS [facility] Bisacodyl (Dulcolax) 10 mg RECTAL .PRN X 1 PRN PRN Reason: Constipation Last Admin: 09/23/17 18:25 Dose: 10 mg Enoxaparin Sodium (Lovenox) 40 mg SC DAILY@0600 [facility] Last Admin: 10/01/17 06:04 Dose: 40 mg Enteral Nutritional Formula (Jevity 1.5) 315 ml GT 5X/DAY [facility] Last Admin: 10/01/17 15:45 Dose: 315 ml Magnesium Hydroxide (Milk Of Magnesia) 30 ml GT .PRN X 1 PRN PRN Reason: Constipation Melatonin (Melatonin) 3 mg GT QHS [facility] Nystatin (Nystatin) 500,000 unit PO 4X/DAY [facility] Last Admin: 10/01/17 15:44 Dose: 500,000 unit Oxycodone HCl (Oxyir) 5 mg GT Q6H PRN PRN PRN Reason: SEVERE PAIN (6-10/10) Polyethylene Glycol (Miralax) 17 gm GT DAILY [facility] Last Admin: 10/01/17 10:48 Dose: Not Given Senna/Docusate Sodium (Senokot-S, Kelsi-Colace) 2 tablet GT BID [facility] Last Admin: 10/01/17 10:48 Dose: 2 tablet Tamsulosin HCl (Flomax) 0.4 mg PO DAILY@1730 [facility] Last Admin: 09/30/17 17:30 Dose: 0.4 mg Assessment/Plan Patient is a 27-year-old gentleman who 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 1. 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 2. Left pontine stroke complicating diagnostic catheterization of cervical arteries for suspected dissection. Patient is on statin therapy in addition to platelet therapy 3. Status post tracheostomy removed on 09/29/2016 4. Status post PEG tube placement 5. Left patellar fracture: knee immobilizer in place 6. Acute urinary retention patient is on Flomax in addition to White catheter 7. DVT prophylaxis SC Lovenox Code Visit Inpatient E&M: 50085 Subs Hosp L2
--- NOTE | 2017-10-01 16:17 | PCM.PN.NEU ---
Subjective: Staffed in team meeting. Family at bedside. Questions answered. With Physical therapy, he is minimal assist to go from lying to sitting position. He is able to transfer from the bed to the bedside recliner using the Janes-walker at contact guard. He is able to walk about 95 feet to 100 feet using the Janes-walker at contact guard. With Occupational therapy he is able to do his personal care at minimal assist to get his shirt on to bath lower body he is max assist, he is minimal assist for personal grooming. He is able to stand using the Janes-walker do an activity and maintain his balance without a problem. With Speech therapy, he was decannulated on Sunday, with out complications, his O2 SATs have been about 95 - 98% on room air. Had a swallow evaluation this afternoon, did not do very well silently aspirated, thicken and pudding consistency foods, obtained an STAT chest, will monitor for aspiration pneumonia. With Nursing he is scheduled to have an X-Ray tomorrow for the Neurosurgeon of his neck with the collar being removed on 10/06 or 10/07 if it is alright with the surgeon. Will consult [employer] here to manage his patella fracture, will obtain an X-ray of the knee, in preparation. - Physical Exam General: Alert, Oriented x3, Cooperative HEENT: Atraumatic, PERRLA, EOMI, Normocephalic Neck: Supple, No JVD, Negative Carotid Bruits Lungs: Clear to auscultation, Normal air movement Cardiovascular: Regular rate, No murmurs Abdomen: Bowel Sounds Present, Soft, Non Tender Extremities: No edema, Capillary Refill Less than 3 Seconds Skin: No rashes, No breakdown Musculoskeletal: No Tenderness to Palpation of Joints or Extremities Neurological: Cranial nerves II-XII grossly intact Psych/Mental Status: Normal Affect, Appropriate Vital Signs Temp Pulse Resp BP Pulse Ox 97.8 F 89 18 114/64 90 10/01/17 08:20 10/01/17 08:20 10/01/17 08:20 10/01/17 08:20 10/01/17 08:20 Oxygen Flow Rate 5 Oxygen Delivery Method Room Air Weight: 73.1 kg Body Mass Index (BMI) 26.9 Intake and Output for Last 24 Hours 09/29/17 09/30/17 10/01/17 23:59 23:59 23:59 Intake Total 2445 / 2445 2565 / 2565 1200 / 1200 Output Total 1275 / 1275 2450 / 2450 1050 / 1050 Balance 1170 / 1170 115 / 115 150 / 150 Microbiology Past 72 Hours 09/30/17 12:55 Group A Streptococcus Rapid Screen - Preliminary Mucosa - Throat Active Medications Albuterol Sulfate (Ventolin Aerosols) 2.5 mg INHALATION Q2H PRN PRN PRN Reason: CONGESTION Aspirin (Aspirin, Baby) 81 mg GT DAILY@0800 [facility] Last Admin: 10/01/17 10:49 Dose: 81 mg Atorvastatin Calcium (Lipitor) 20 mg GT QHS [facility] Bisacodyl (Dulcolax) 10 mg RECTAL .PRN X 1 PRN PRN Reason: Constipation Last Admin: 09/23/17 18:25 Dose: 10 mg Enoxaparin Sodium (Lovenox) 40 mg SC DAILY@0600 [facility] Last Admin: 10/01/17 06:04 Dose: 40 mg Enteral Nutritional Formula (Jevity 1.5) 315 ml GT 5X/DAY [facility] Last Admin: 10/01/17 15:45 Dose: 315 ml Magnesium Hydroxide (Milk Of Magnesia) 30 ml GT .PRN X 1 PRN PRN Reason: Constipation Melatonin (Melatonin) 3 mg GT QHS [facility] Nystatin (Nystatin) 500,000 unit PO 4X/DAY [facility] Last Admin: 10/01/17 15:44 Dose: 500,000 unit Oxycodone HCl (Oxyir) 5 mg GT Q6H PRN PRN PRN Reason: SEVERE PAIN (6-10/10) Polyethylene Glycol (Miralax) 17 gm GT DAILY [facility] Last Admin: 10/01/17 10:48 Dose: Not Given Senna/Docusate Sodium (Senokot-S, Kelsi-Colace) 2 tablet GT BID [facility] Last Admin: 10/01/17 10:48 Dose: 2 tablet Tamsulosin HCl (Flomax) 0.4 mg PO DAILY@1730 [facility] Last Admin: 09/30/17 17:30 Dose: 0.4 mg Assessment/Plan Debility s/p fall from 15 - 20 feet. Sustained a C4 - C5 fracture. Developed a large left pontine stroke. Is currently Trached with # 8 Shiley and Pegged. Had a discectomy and fusion of C4 - C6. Goal of rehab is [facility] of functional independence. Plan: - Physical therapy for gait and balance - Occupational Therapy for ADLs - Speech therapy - As needed analgesics - Bowel protocol - Stroke prevention on ASA, Statin, and Lovenox - DVT prophylaxis: Edward, jeffrey alonzo, Lovenox - Pontine CVA 2/2 dissection => right sided hemiparesis - C4 and C5 fracture => s/p discectomy and fusion of C4-6. His follow-up appointment on the has been canceled however this Sunday we will do a C-spine x-ray which will be forwarded to his [facility] surgeon for review. Follow up appointments will be scheduled upon discharge from the rehab unit. - s/p Trach # 8 Shiley => ENT consulted to change trach over => trach down sized to a #6 shiley. 09/30: Trach out yesterday, doing very well - s/p PEG => TF Pivot 315cc 5x a day. Repeat swallow evaluation today => failed swallow evaluation will continue, TF - Urinary retention -> White removed -> urinating without any problems -> Urology consulted - Possible aspiration during swallow evaluation -> STAT chest X-ray, monitor for s/s of aspiration pneumonia (CBC in the am and monitor temperature) - X-Ray neck and knee for Neurosurgeon and Orthopedic surgeon.
--- NOTE | 2017-10-01 16:36 | PN.NEURO_ITS ---
Subjective: Staffed in team meeting. Family at bedside. Questions answered. With Physical therapy, he is minimal assist to go from lying to sitting position. He is able to transfer from the bed to the bedside recliner using the Janes-walker at contact guard. He is able to walk about 95 feet to 100 feet using the Janes- walker at contact guard. With Occupational therapy he is able to do his personal care at minimal assist to get his shirt on to bath lower body he is max assist, he is minimal assist for personal grooming. He is able to stand using the Janes-walker do an activity and maintain his balance without a problem. With Speech therapy, he was decannulated on Sunday, with out complications, his O2 SATs have been about 95 - 98% on room air. Had a swallow evaluation this afternoon, did not do very well silently aspirated, thicken and pudding consistency foods, obtained an STAT chest, will monitor for aspiration pneumonia. With Nursing he is scheduled to have an X-Ray tomorrow for the Neurosurgeon of his neck with the collar being removed on 10/06 or 10/07 if it is alright with the surgeon. Will consult [employer] here to manage his patella fracture, will obtain an X-ray of the knee, in preparation. - Physical Exam General: Alert, Oriented x3, Cooperative HEENT: Atraumatic, PERRLA, EOMI, Normocephalic Neck: Supple, No JVD, Negative Carotid Bruits Lungs: Clear to auscultation, Normal air movement Cardiovascular: Regular rate, No murmurs Abdomen: Bowel Sounds Present, Soft, Non Tender Extremities: No edema, Capillary Refill Less than 3 Seconds Skin: No rashes, No breakdown Musculoskeletal: No Tenderness to Palpation of Joints or Extremities Neurological: Cranial nerves II-XII grossly intact Psych/Mental Status: Normal Affect, Appropriate Vital Signs Temp Pulse Resp BP Pulse Ox 97.8 F 89 18 114/64 90 10/01/17 08:20 10/01/17 08:20 10/01/17 08:20 10/01/17 08:20 10/01/17 08:20 Oxygen Flow Rate 5 Oxygen Delivery Method Room Air Weight: 73.1 kg Body Mass Index (BMI) 26.9 Intake and Output for Last 24 Hours 09/29/17 09/30/17 10/01/17 23:59 23:59 23:59 Intake Total 2445 / 2445 2565 / 2565 1200 / 1200 Output Total 1275 / 1275 2450 / 2450 1050 / 1050 Balance 1170 / 1170 115 / 115 150 / 150 Microbiology Past 72 Hours 09/30/17 12:55 Group A Streptococcus Rapid Screen - Preliminary Mucosa - Throat Active Medications Albuterol Sulfate (Ventolin Aerosols) 2.5 mg INHALATION Q2H PRN PRN PRN Reason: CONGESTION Aspirin (Aspirin, Baby) 81 mg GT DAILY@0800 [facility] Last Admin: 10/01/17 10:49 Dose: 81 mg Atorvastatin Calcium (Lipitor) 20 mg GT QHS [facility] Bisacodyl (Dulcolax) 10 mg RECTAL .PRN X 1 PRN PRN Reason: Constipation Last Admin: 09/23/17 18:25 Dose: 10 mg Enoxaparin Sodium (Lovenox) 40 mg SC DAILY@0600 [facility] Last Admin: 10/01/17 06:04 Dose: 40 mg Enteral Nutritional Formula (Jevity 1.5) 315 ml GT 5X/DAY [facility] Last Admin: 10/01/17 15:45 Dose: 315 ml Magnesium Hydroxide (Milk Of Magnesia) 30 ml GT .PRN X 1 PRN PRN Reason: Constipation Melatonin (Melatonin) 3 mg GT QHS [facility] Nystatin (Nystatin) 500,000 unit PO 4X/DAY [facility] Last Admin: 10/01/17 15:44 Dose: 500,000 unit Oxycodone HCl (Oxyir) 5 mg GT Q6H PRN PRN PRN Reason: SEVERE PAIN (6-10/10) Polyethylene Glycol (Miralax) 17 gm GT DAILY [facility] Last Admin: 10/01/17 10:48 Dose: Not Given Senna/Docusate Sodium (Senokot-S, Kelsi-Colace) 2 tablet GT BID [facility] Last Admin: 10/01/17 10:48 Dose: 2 tablet Tamsulosin HCl (Flomax) 0.4 mg PO DAILY@1730 [facility] Last Admin: 09/30/17 17:30 Dose: 0.4 mg Assessment/Plan Debility s/p fall from 15 - 20 feet. Sustained a C4 - C5 fracture. Developed a large left pontine stroke. Is currently Trached with # 8 Shiley and Pegged. Had a discectomy and fusion of C4 - C6. Goal of rehab is [facility]riism of functional independence. Plan: - Physical therapy for gait and balance - Occupational Therapy for ADLs - Speech therapy - As needed analgesics - Bowel protocol - Stroke prevention on ASA, Statin, and Lovenox - DVT prophylaxis: Edward, jeffrey alonzo, Lovenox - Pontine CVA 2/2 dissection => right sided hemiparesis - C4 and C5 fracture => s/p discectomy and fusion of C4-6. His follow-up appointment on the has been canceled however this Sunday we will do a C- spine x-ray which will be forwarded to his [facility] surgeon for review. Follow up appointments will be scheduled upon discharge from the rehab unit. - s/p Trach # 8 Shiley => ENT consulted to change trach over => trach down sized to a #6 shiley. 09/30: Trach out yesterday, doing very well - s/p PEG => TF Pivot 315cc 5x a day. Repeat swallow evaluation today => failed swallow evaluation will continue, TF - Urinary retention -> White removed -> urinating without any problems -> Urology consulted - Possible aspiration during swallow evaluation -> STAT chest X-ray, monitor for s/s of aspiration pneumonia (CBC in the am and monitor temperature) - X-Ray neck and knee for Neurosurgeon and Orthopedic surgeon.
--- NOTE | 2017-10-01 16:37 | CHAPLAIN ---
Type of Pastoral Visit _x__ Initial Visit ___ Follow-up Visit ___ On-call Visit ___ General Patient Visit ___ Spiritual Assessment ___ Family Conference ___ Bereavement ___ Rapid Response ___ Code Blue ___ Other (describe below) Pastoral Care Referral From _x__ Patient ___ Family ___ Nurse ___ Physician ___ Core Java Engineer ___ Sectional Belt Mold Assembler ___ Other (describe below) Sacrament/Intervention _x__ Active listening ___ Anointing ___ Anabaptist ___ Bereavement ___ Communion ___ Lazara exploration ___ ___ Life review ___ Prayer ___ Reconciliation ___ Sacrament of Sick _x__ Supportive presence ___ Wedding ___ Other (describe below) Pastoral Comments
[2017-10-01 16:50] VITALS: O2SAT 98
[2017-10-01] MEDS: Tamsulosin HCl 0.4 MG Capsule PO (18:18)
[2017-10-01 19:59] VITALS: BP 113/70; PULSE 73; RESP 19; TEMP 36.8; O2SAT 92
[2017-10-01 21:00] VITALS: PULSE 73; RESP 19; O2SAT 92; BMI 26.9
[2017-10-01] MEDS: MELATONIN 3 MG TABLET GT (21:42)
[2017-10-01] MEDS: Atorvastatin Calcium 20 MG Tablet GT (21:43)
--- NOTE | 2017-10-02 04:51 | NURSING ---
Reviewed and agree with [facility] documentation.
[2017-10-02 06:00] LABS: White Blood Count 13.9 K/mm3 (4.4-11.0)
[2017-10-02] MEDS: Enoxaparin 40 MG/0.4 ML Syringe SC (06:18)
[2017-10-02] MEDS: Jevity 1.5. 1,000 ML Bottle 315 ML GT ×4 (06:19→21:41)
--- NOTE | 2017-10-02 08:00 | RAD_ITS ---
STUDY: X-RAY - CERVICAL SPINE REASON FOR EXAM: Male, 27 years old. Fusion of C4-C5 and C5-C6 level following a fall. TECHNIQUE: 8 view(s) of the cervical spine were obtained including flexion and extension and oblique views.. COMPARISON: None FINDINGS: Normal anterior atlantoaxial articulation. Normal odontoid process. Normal cervical lordosis. The patient is status post anterior fusion at the C4-C5 and C5-6 levels with prosthetic disc. There is good alignment. Normal visualized intervertebral neuroforamina. The soft tissue structures are unremarkable. RAD/Cerv Spine 4 or 5 Views IMPRESSION: Status post anterior fusion at the C4-C5 and C5-C6 levels. Electronically Signed: Cristhian Harrell MD at 8:58 EST Tel [phone], Service support ,
[2017-10-02] MEDS: NYSTATIN 500,000 UNIT/5 ML UDC 500000 UNIT PO ×4 (09:09→21:54)
[2017-10-02] MEDS: Polyethylene Glycol 3350 17 GM PACKET GT (09:09)
[2017-10-02] MEDS: Aspirin 81 MG TAB.CHEW GT (09:09)
[2017-10-02] MEDS: Senna/Docusate Sodium 1 Tablet 2 TABLET GT ×2 (09:09→21:54)
--- NOTE | 2017-10-02 09:32 | NURSING ---
xrays completed today. Shelly from [facility] medical records sending cd rom to [facility] spine center office.
[2017-10-02 09:54] VITALS: BP 100/60; PULSE 64; RESP 18; TEMP 36.1; O2SAT 95
[2017-10-02 10:22] VITALS: BMI 26.9
--- NOTE | 2017-10-02 10:30 | RAD_ITS ---
STUDY: X-RAY - LEFT KNEE REASON FOR EXAM: Male, 27 years old. History of patellar fracture following a fall. TECHNIQUE: AP and lateral view(s) of the knee. COMPARISON: None. FINDINGS: Normal visualized distal femur. Normal visualized proximal tibia and fibula. Normal proximal tibiofibular articulation. There is evidence of a healing comminuted fracture of the mid and inferior portion of the patella. There is good alignment. Normal medial femorotibial compartment. Normal lateral femorotibial compartment. Normal patellofemoral articulation. Minimal joint effusion. RAD/Knee 1 or 2 Views IMPRESSION: Healing comminuted fracture of the mid and inferior portions of the patella. There is good alignment. Minimal joint effusion. Electronically Signed: Cristhian Harrell MD at 8:58 EST Tel [phone], Service support ,
--- NOTE | 2017-10-02 11:34 | PCM.CONS.GEN ---
Reason for Consult Date of Consultation: 10/02/17 Reason for Consultation: Left patella fracture History of Present Illness: The patient is a 27 year old M [who fell from a height while working on 08-27-17. He had a cervical spine fracture that required surgical intervention a couple weeks ago. Also at the time of injury he was found to have a nondisplaced comminuted left patella fracture. He was placed in a knee immobilizer at that time. His surgery was at [facility]. He has since been discharged and transferred to the fourth floor rehab unit at [facility]. He has been doing very well. He has been weightbearing as tolerated with the knee immobilizer in place on the left at all times. He has not been having any pain in the left knee. Denies numbness or tingling into the left lower extremity. Denies reinjury. 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 No acute distress at rest. Breathing easily without respiratory distress. He has a cervical collar in place from his cervical fusion. He has weakness/flaccid paralysis on the right. He is able to perform a straight leg raise on the left. Gentle range of motion of the hip and ankle are without pain. Left knee is without gross deformity. Without palpable effusion, erythema, warmth, signs of infection. Left patella is without tenderness to palpation. Range of motion was deferred due to fracture. Negative Uziel on the right. Sensation intact to light touch left lower extremity. Able to actively plantar and dorsiflex left ankle. Neurovascularly intact on the left. - Physical Exam Vital Signs Temp Pulse Resp BP Pulse Ox 97.0 F L 64 18 100/60 95 10/02/17 09:54 10/02/17 09:54 10/02/17 09:54 10/02/17 09:54 10/02/17 09:54 Oxygen Flow Rate 5 Oxygen Delivery Method Room Air Weight: 72.2 kg Body Mass Index (BMI) 26.9 Intake and Output for Last 24 Hours 09/30/17 10/01/17 10/02/17 23:59 23:59 23:59 Intake Total 2565 / 2565 2075 / 2075 1935 / 1935 Output Total 2450 / 2450 1425 / 1425 600 / 600 Balance 115 / 115 650 / 650 1335 / 1335 Microbiology Past 72 Hours 09/30/17 12:55 Group A Streptococcus Rapid Screen - Final Mucosa - Throat Laboratory Tests Past 24 Hrs 10/02/17 05:25 WBC 13.9 H Assessment/Plan Assessment is multiple trauma injury requiring cervical spine fusion and pontine stroke. 5 weeks following a comminuted nondisplaced left patella fracture. Plan regarding the left patella fracture will be to continue knee immobilizer at all times ?1 more week. Tylenol if having pain. Ice and elevate as needed for pain and swelling. May continue weightbearing as tolerated with knee immobilizer in place currently. After 1 week the patient may begin to work with physical therapy on gentle range of motion as tolerated and weightbearing as tolerated without the knee immobilizer. Please do not hesitate to contact [facility] with any further concern. May follow up as an outpatient with [facility] for the left patella fracture as needed.
--- NOTE | 2017-10-02 11:38 | NURSING ---
shaggy deleon pa here to see patient and reviewed knee xray.
--- NOTE | 2017-10-02 12:00 | NURSING ---
Per Aisha RHOADES ok to remove knee immobilizer on october 08 and PT can do gently ROM and weightbearing as tolerated without knee immobilizer.
[2017-10-02] MEDS: Tamsulosin HCl 0.4 MG Capsule PO (17:31)
[2017-10-02 21:40] VITALS: BP 112/64; PULSE 91; RESP 20; TEMP 37.1; O2SAT 92; BMI 26.9
[2017-10-02] MEDS: MELATONIN 3 MG TABLET GT (21:54)
[2017-10-02] MEDS: Atorvastatin Calcium 20 MG Tablet GT (21:54)
[2017-10-03] MEDS: Jevity 1.5. 1,000 ML Bottle 315 ML GT ×6 (02:10→22:57)
[2017-10-03] MEDS: Enoxaparin 40 MG/0.4 ML Syringe SC (07:12)
[2017-10-03 09:00] VITALS: BP 110/76; PULSE 69; RESP 18; TEMP 36.3; O2SAT 96
--- NOTE | 2017-10-03 09:02 | PN.NEURO_ITS ---
Subjective: Patient seen and examined. No acute issues overnight. Tolerating therapy. Trach site is healing nicely, O2 SATs are 96% - 98%, denies any shortness of breath or chest pains. - Physical Exam General: Alert, Oriented x3, Cooperative HEENT: Atraumatic, PERRLA, EOMI, Normocephalic Neck: Supple, No JVD, Negative Carotid Bruits Lungs: Clear to auscultation, Normal air movement Cardiovascular: Regular rate, No murmurs Abdomen: Bowel Sounds Present, Soft, Non Tender Extremities: No edema, Capillary Refill Less than 3 Seconds Skin: No rashes, No breakdown Musculoskeletal: No Tenderness to Palpation of Joints or Extremities Neurological: Cranial nerves II-XII grossly intact Psych/Mental Status: Normal Affect, Appropriate Vital Signs Temp Pulse Resp BP Pulse Ox 98.7 F 91 20 H 112/64 92 10/02/17 21:40 10/02/17 21:40 10/02/17 21:40 10/02/17 21:40 10/02/17 21:40 Oxygen Flow Rate 5 Oxygen Delivery Method Room Air Weight: 72.2 kg Body Mass Index (BMI) 26.9 Intake and Output for Last 24 Hours 10/01/17 10/02/17 10/03/17 23:59 23:59 23:59 Intake Total 2075 / 2075 4180 / 4180 1130 / 1130 Output Total 1425 / 1425 2075 / 2075 600 / 600 Balance 650 / 650 2105 / 2105 530 / 530 Microbiology Past 72 Hours 09/30/17 12:55 Group A Streptococcus Rapid Screen - Final Mucosa - Throat Active Medications Albuterol Sulfate (Ventolin Aerosols) 2.5 mg INHALATION Q2H PRN PRN PRN Reason: CONGESTION Aspirin (Aspirin, Baby) 81 mg GT DAILY@0800 [facility] Last Admin: 10/02/17 09:09 Dose: 81 mg Atorvastatin Calcium (Lipitor) 20 mg GT QHS [facility] Last Admin: 10/02/17 21:54 Dose: 20 mg Bisacodyl (Dulcolax) 10 mg RECTAL .PRN X 1 PRN PRN Reason: Constipation Last Admin: 09/23/17 18:25 Dose: 10 mg Enoxaparin Sodium (Lovenox) 40 mg SC DAILY@0600 [facility] Last Admin: 10/03/17 07:12 Dose: 40 mg Enteral Nutritional Formula (Jevity 1.5) 315 ml GT 5X/DAY [facility] Last Admin: 10/03/17 07:12 Dose: 315 ml Magnesium Hydroxide (Milk Of Magnesia) 30 ml GT .PRN X 1 PRN PRN Reason: Constipation Melatonin (Melatonin) 3 mg GT QHS [facility] Last Admin: 10/02/17 21:54 Dose: 3 mg Nystatin (Nystatin) 500,000 unit PO 4X/DAY [facility] Last Admin: 10/02/17 21:54 Dose: 500,000 unit Oxycodone HCl (Oxyir) 5 mg GT Q6H PRN PRN PRN Reason: SEVERE PAIN (6-1010) Polyethylene Glycol (Miralax) 17 gm GT DAILY [facility] Last Admin: 10/02/17 09:09 Dose: 17 gm Senna/Docusate Sodium (Senokot-S, Kelsi-Colace) 2 tablet GT BID [facility] Last Admin: 10/02/17 21:54 Dose: 2 tablet Tamsulosin HCl (Flomax) 0.4 mg PO DAILY@1730 [facility] Last Admin: 10/02/17 17:31 Dose: 0.4 mg Assessment/Plan Debility s/p fall from 15 - 20 feet. Sustained a C4 - C5 fracture. Developed a large left pontine stroke. Is currently Trached with # 8 Shiley and Pegged. Had a discectomy and fusion of C4 - C6. Goal of rehab is sikh of functional independence. 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 His follow-up appointment on the has been canceled however this Sunday we will do a C- spine x-ray which will be forwarded to his [facility] surgeon for review. Follow up appointments will be scheduled upon discharge from the rehab unit. - s/p Trach # 8 Shiley => ENT consulted to change trach over => trach down sized to a #6 shiley. 09/30: Trach out yesterday, doing very well - s/p PEG => TF Pivot 315cc 5x a day. Repeat swallow evaluation today => failed swallow evaluation will continue, TF - Urinary retention -> White removed -> urinating without any problems -> Urology consulted - Possible aspiration during swallow evaluation -> STAT chest X-ray, monitor for s/s of aspiration pneumonia (CBC in the am and monitor temperature) - X-Ray neck and knee for Neurosurgeon and Orthopedic surgeon.
[2017-10-03] MEDS: NYSTATIN 500,000 UNIT/5 ML UDC 500000 UNIT PO ×3 (09:40→22:56)
[2017-10-03] MEDS: Aspirin 81 MG TAB.CHEW GT (09:41)
[2017-10-03 11:30] VITALS: BMI 26.9
--- NOTE | 2017-10-03 15:38 | CHAPLAIN ---
Type of Pastoral Visit ___ Initial Visit _x__ Follow-up Visit ___ On-call Visit ___ General Patient Visit ___ Spiritual Assessment ___ Family Conference ___ Bereavement ___ Rapid Response ___ Code Blue ___ Other (describe below) Pastoral Care Referral From _x__ Patient ___ Family ___ Nurse ___ Physician ___ Character Actress ___ Glove Parts Inspector ___ Other (describe below) Sacrament/Intervention _x__ Active listening ___ Anointing ___ Protestant ___ Bereavement ___ Communion _x__ Lazara exploration ___ ___ Life review _x__ Prayer ___ Reconciliation ___ Sacrament of Sick _x__ Supportive presence ___ Wedding ___ Other (describe below) Pastoral Comments initial visit with patient was short due to visits from others to patient; pt was alone and sitting up in bed; pt tells me that he has a goal to be back home by October 13; pt says that he has had some progress; pt says that he is doing fine with his situation; pt had a Bible at bedside but said that he cannot read for long due to neck/eyes/position etc. so I offered to read to him; pt welcomed Bible reading and prayer; pt said that his lazara may be stronger and his appreciation for life and activity better since his fall
--- NOTE | 2017-10-03 16:26 | PCM.PN.HOSP ---
Subjective: Patient seen therapy is proceeding as expected. He did express the desire to eat however his next speech and swallow eval is in a week's time. 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: Awake, upper extremity weakness SKIN: No Rash Vitals/I&O's: Vital Signs Temp Pulse Resp BP Pulse Ox 97.3 F L 69 18 110/76 96 10/03/17 09:00 10/03/17 09:00 10/03/17 09:00 10/03/17 09:00 10/03/17 09:00 Oxygen Flow Rate 5 Oxygen Delivery Method Room Air Weight: 72.2 kg Body Mass Index (BMI) 26.9 Intake and Output for Last 24 Hours 10/01/17 10/02/17 10/03/17 23:59 23:59 23:59 Intake Total 2075 / 2075 4180 / 4180 2575 / 2575 Output Total 1425 / 1425 2075 / 2075 1100 / 1100 Balance 650 / 650 2105 / 2105 1475 / 1475 Microbiology Past 72 Hours 09/30/17 12:55 Mucosa - Throat Group A Streptococcus Rapid Screen - Final Current Medications Albuterol Sulfate (Ventolin Aerosols) 2.5 mg INHALATION Q2H PRN PRN PRN Reason: CONGESTION Aspirin (Aspirin, Baby) 81 mg GT DAILY@0800 [facility] Last Admin: 10/03/17 09:41 Dose: 81 mg Atorvastatin Calcium (Lipitor) 20 mg GT QHS [facility] Last Admin: 10/02/17 21:54 Dose: 20 mg Bisacodyl (Dulcolax) 10 mg RECTAL .PRN X 1 PRN PRN Reason: Constipation Last Admin: 09/23/17 18:25 Dose: 10 mg Enoxaparin Sodium (Lovenox) 40 mg SC DAILY@0600 [facility] Last Admin: 10/03/17 07:12 Dose: 40 mg Enteral Nutritional Formula (Jevity 1.5) 315 ml GT 5X/DAY [facility] Last Admin: 10/03/17 13:59 Dose: 315 ml Magnesium Hydroxide (Milk Of Magnesia) 30 ml GT .PRN X 1 PRN PRN Reason: Constipation Melatonin (Melatonin) 3 mg GT QHS [facility] Last Admin: 10/02/17 21:54 Dose: 3 mg Nystatin (Nystatin) 500,000 unit PO 4X/DAY [facility] Last Admin: 10/03/17 13:59 Dose: 500,000 unit Oxycodone HCl (Oxyir) 5 mg GT Q6H PRN PRN PRN Reason: SEVERE PAIN (6-10/10) Polyethylene Glycol (Miralax) 17 gm GT DAILY [facility] Last Admin: 10/03/17 09:29 Dose: Not Given Senna/Docusate Sodium (Senokot-S, Kelsi-Colace) 2 tablet GT BID [facility] Last Admin: 10/03/17 09:30 Dose: Not Given Tamsulosin HCl (Flomax) 0.4 mg PO DAILY@1730 [facility] Last Admin: 10/02/17 17:31 Dose: 0.4 mg Assessment/Plan Patient is a 27-year-old gentleman who 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 1. 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 2. Left pontine stroke complicating diagnostic catheterization of cervical arteries for suspected dissection. Patient is on statin therapy in addition to platelet therapy 3. Status post tracheostomy removed on 09/29/2016 4. Status post PEG tube placement 5. Left patellar fracture: knee immobilizer in place 6. Acute urinary retention patient is on Flomax in addition to White catheter 7. DVT prophylaxis SC Lovenox Code Visit Inpatient E&M: 55545 Subs Hosp L2
[2017-10-03] MEDS: Tamsulosin HCl 0.4 MG Capsule PO (16:53)
[2017-10-03 20:18] VITALS: BP 113/68; PULSE 88; RESP 20; TEMP 36.9; O2SAT 93
--- NOTE | 2017-10-03 20:35 | NURSING ---
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 PT HAD MILD SHORTNESS OF BREATH, NOW LESSENING. RESPIRATIONS APPEARS SLIGHTLY LABORED WITH SOME USE OF ABDOMINAL MUSCLES. LUNG SOUNDS ARE WITH INS AND EXP WHEEZING TO RUL POST, DIMINISHED TO SHIVANI AND LLL POST, AND DIMINISHED TO ANTERIOR LOBES.
--- NOTE | 2017-10-03 20:43 | NURSING ---
DR COBIAN NOTIFIED OF PT'S LUNG SOUNDS AND MILD RESP DIFFICULTY. ADVISED TO CALL CPS AND HE WILL ORDER AN AEROSOL. CPS NOTIFIED THAT AEROSOL IS BEING ORDERED AND WILL NEED TO BE GIVEN. PT HAS BEEN PLACED ON 2 LPM O2 PER N/C. PT ABLE TO TALK.
[2017-10-03 22:00] VITALS: PULSE 92; RESP 24; O2SAT 92; O2SAT 97
[2017-10-03] MEDS: Ipratropium/Albuterol Sulfate 3 ML AMPUL.NEB INHALATION (22:00)
--- NOTE | 2017-10-03 22:28 | NURSING ---
DR COBIAN NOTIFIED THAT RESPIRATORY THERAPIST STATES PT'S LUNG SOUNDS REMAIN COARSE SOUNDING AFTER AEROSOL TX. ORDERS WILL BE PUT IN BY DR COBIAN.
--- NOTE | 2017-10-03 22:40 | RAD_ITS ---
STUDY: X-RAY CHEST REASON FOR EXAM: Male, 27 years old. Short of breath TECHNIQUE: Frontal and lateral views of the chest. COMPARISON: 10-01-17 FINDINGS: Right lower lobe infiltrate. There is no demonstrated pleural abnormality. Normal size heart. Normal mediastinum and davis. Normal visualized pulmonary arteries. Normal visualized aortic arch and descending thoracic aorta. Normal visualized thoracic spine. Normal visualized ribs, clavicles, and shoulders. There is no demonstrated abnormality of the visualized soft tissue structures of the upper abdomen. RAD/Chest PA and Lateral IMPRESSION: Right lower lobe pneumonia. This appears worse. Electronically Signed: Chetan Foster MD at 23:00 EST , Service support ,
[2017-10-03] MEDS: Senna/Docusate Sodium 1 Tablet 2 TABLET GT (22:56)
[2017-10-03] MEDS: MELATONIN 3 MG TABLET GT (22:57)
[2017-10-03] MEDS: Atorvastatin Calcium 20 MG Tablet GT (22:57)
--- NOTE | 2017-10-03 23:23 | NURSING ---
CXR RESULTS COMPLETE. PAGE PLACED TO DR ROLAND. PT DENIES ANY DIFFICULTY BREATHING AT THIS TIME. LUNG SOUNDS ARE WITH COARSE WHEEEZES. SKIN IS WARM AND DRY. PT PREFERS NOT TO WEAR O2 AT 2 LPM PER N/C AT THIS TIME.
--- NOTE | 2017-10-03 23:46 | NURSING ---
DR ROLAND AWARE OF X RAY RESULT. WILL COME TO UNIT TO SEE PT.
[2017-10-04] MEDS: 0.9% Normal Saline 1,000 ML 100 ML IV (01:07)
[2017-10-04] MEDS: Piperacil/Tazobactam 3.375 GM/50 ML ML IV ×2 (01:12→07:10)
[2017-10-04 01:15] LABS: Color, Urine Yellow (Yellow); Glucose, Dipstick Normal (Normal); Ketone-Dipstick Negative (Negative); Leukocyte Esterase-Dipstick 500 /ul (Negative); Nitrite-Dipstick Negative (Negative); Occult Blood-Urine Negative /ul (Negative); Protein-Dipstick Negative (Negative); Urine Bilirubin Dipstick Negative (Negative); Urine Clarity Clear (Clear); Urine Urobilinogen Normal (Normal)
--- NOTE | 2017-10-04 01:16 | PCM.HOSP.N ---
Hospitalist Note Nurse called me for patient having wheezing and mild shortness of breath. Patient has recent history of multiple trauma including C4-C5 vertebral fracture with left pontine stroke after diagnostic cath for right vertebral artery dissection with resulting right-sided hemiparesis. Patient had tracheostomy closed on 09/29/2016. Patient has PEG tube On exam: Lungs: Crepitations present over right lung base. Patient mild short of breath Heart S1-S2 regular, no murmur gallop rub. Chest x-ray PA and lateral ordered. It shows a right lower lobe infiltrate. Patient has high risk of aspiration and its most probably right lower lobe aspiration pneumonia. There is also possibility of health considered pneumonia Patient is started on IV Zosyn. 1 dose of IV vancomycin ordered. MRSA nasal screen. On bronchodilator, cough syrup, and full pneumonia workup with urinary antigens, blood cultures ?2 and sputum culture ordered. If MRSA nasal screen is negative, can discontinue vancomycin Code Visit Inpatient E&M: 62560 Subs Hosp L2
--- NOTE | 2017-10-04 01:20 | CCHN_ITS ---
Hospitalist Note Nurse called me for patient having wheezing and mild shortness of breath. Patient has recent history of multiple trauma including C4-C5 vertebral fracture with left pontine stroke after diagnostic cath for right vertebral artery dissection with resulting right-sided hemiparesis. Patient had tracheostomy closed on 09/29/2016. Patient has PEG tube On exam: Lungs: Crepitations present over right lung base. Patient mild short of breath Heart S1-S2 regular, no murmur gallop rub. Chest x-ray PA and lateral ordered. It shows a right lower lobe infiltrate. Patient has high risk of aspiration and its most probably right lower lobe aspiration pneumonia. There is also possibility of health considered pneumonia Patient is started on IV Zosyn. 1 dose of IV vancomycin ordered. MRSA nasal screen. On bronchodilator, cough syrup, and full pneumonia workup with urinary antigens , blood cultures ?2 and sputum culture ordered. If MRSA nasal screen is negative, can discontinue vancomycin Code Visit Inpatient E&M: 42106 Subs Hosp L2
[2017-10-04 03:24] LABS: M R Staph aureus DNA By PCR Negative (Negative); Probe Check PASS; Specimen Processing Control PASS
[2017-10-04] MEDS: Enoxaparin 40 MG/0.4 ML Syringe SC (05:39)
[2017-10-04] MEDS: Jevity 1.5. 1,000 ML Bottle 315 ML GT (05:40)
[2017-10-04] MEDS: Ipratropium/Albuterol Sulfate 3 ML AMPUL.NEB INHALATION (07:11)
[2017-10-04 07:13] VITALS: PULSE 91; RESP 32
[2017-10-04 07:45] VITALS: BP 123/75; PULSE 107; RESP 30; RESP 32; TEMP 36.7; O2SAT 94
--- NOTE | 2017-10-04 08:10 | NURSING ---
Sandy Guerrier [employer] INVENTORY CLERK called and updated on patient's respiratory status and stridor noted with sternal retractions and respirations labored and per Respiratory Therapy request for Racepinephrine x1 now and order received. Patient had been up and down on BSC this Am and denies SOB. HOB elevated while in bed, patient denies need to sit in chair. Oxygen placed on 3 Lfor comfort even though spo2 wnl at 94% RA. Dr Leon paged by respiratory at 8am with no call back and Sandy notified.
[2017-10-04 08:23] VITALS: PULSE 105; RESP 32
[2017-10-04] MEDS: Racepinephrine HCl 0.5 ML VIAL.NEB. INHALATION (08:23)
--- NOTE | 2017-10-04 08:36 | PCM.RU.DC ---
Rehab Discharge Summary DATE OF ADMISSION: 09/19/17 DATE OF DISCHARGE: 10/04/2017 - Rehab Diagnosis Multiple Trauma Discharge Diet: - - Tube feeding - Jevity 315cc 5 X a day Discharge Activity: May Not Drive, May Shower, Use Walker - Janes-walker Weight Bearing Status: Weight bearing as tolerated Call your doctor if you observe: Fever of 101 or Higher, Coldness, Increased Pain, Numbness or Tingling, Change in Color, Inability to urinate, Inability to have a bowel movement, Using more than one pad per hour, Shortness of breath, Dizziness, Fainting spells, Swelling in the ankles, Chest pain, Prolonged hiccoughing, Increased palpitations (irregular heartbeat), Calf discomfort, Uncontrolled pain Primary Care Physician: Cirilo Mendoza MD [Primary Care Provider] - Disposition: Acute care Hospital Minutes spent on discharge:: 30 Patient Condition:: Fair Rehab Course The patient is a 27 year old Male who was admitted to the rehab unit for rehabilitation from [facility] where he was admitted after falling approximately 15 - 20 feet 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 He sustained fractures to C4 and C5 vertebrae, as well as as his left patella. During the night he develop wheezing and mild shortness of breath. The Hospitalist was notified. A chest x-ray was obtained and showed right lower lobe pneumonia. Patient has high risk of aspiration, recently had a swallow evaluation where it was noted he was having silent aspiration. Its most probably right lower lobe aspiration pneumonia. The Hospitalist started the patient on IV Zosyn, gave 1 dose of IV vancomycin, and MRSA nasal screen was done. He is on bronchodilator, cough syrup, and full pneumonia workup with urinary antigens, blood cultures ?2 and sputum culture ordered. During the morning the patient became worse with severe shortness of breath, the patient will be transferred to the ICU for close monitoring. Meaningful Use Info Meaningful Use Diagnoses (Choose all that apply): None applicable
[2017-10-04] MEDS: Famotidine 20 MG Tablet GT (08:41)
[2017-10-04] MEDS: NYSTATIN 500,000 UNIT/5 ML UDC 500000 UNIT PO (08:41)
[2017-10-04] MEDS: Aspirin 81 MG TAB.CHEW GT (08:41)
--- NOTE | 2017-10-04 08:47 | DS.PCM_ITS ---
Rehab Discharge Summary DATE OF ADMISSION: 09/19/17 DATE OF DISCHARGE: 10/04/2017 - Rehab Diagnosis Multiple Trauma Discharge Diet: - - Tube feeding - Jevity 315cc 5 X a day Discharge Activity: May Not Drive, May Shower, Use Walker - Janes-walker Weight Bearing Status: Weight bearing as tolerated Call your doctor if you observe: Fever of 101 or Higher, Coldness, Increased Pain, Numbness or Tingling, Change in Color, Inability to urinate, Inability to have a bowel movement, Using more than one pad per hour, Shortness of breath, Dizziness, Fainting spells, Swelling in the ankles, Chest pain, Prolonged hiccoughing, Increased palpitations (irregular heartbeat), Calf discomfort, Uncontrolled pain Primary Care Physician: Cirilo Mendoza MD [Primary Care Provider] - Disposition: Acute care Hospital Minutes spent on discharge:: 30 Patient Condition:: Fair Rehab Course The patient is a 27 year old Male who was admitted to the rehab unit for rehabilitation from [facility] where he was admitted after falling approximately 15 - 20 feet 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 He sustained fractures to C4 and C5 vertebrae, as well as as his left patella. During the night he develop wheezing and mild shortness of breath. The Hospitalist was notified. A chest x-ray was obtained and showed right lower lobe pneumonia. Patient has high risk of aspiration, recently had a swallow evaluation where it was noted he was having silent aspiration. Its most probably right lower lobe aspiration pneumonia. The Hospitalist started the patient on IV Zosyn, gave 1 dose of IV vancomycin, and MRSA nasal screen was done. He is on bronchodilator , cough syrup, and full pneumonia workup with urinary antigens, blood cultures ? 2 and sputum culture ordered. During the morning the patient became worse with severe shortness of breath, the patient will be transferred to the ICU for close monitoring. Meaningful Use Info Meaningful Use Diagnoses (Choose all that apply): None applicable
--- NOTE | 2017-10-04 08:59 | CPS ---
0711 RT CAME UP TO DO Q4 BREATHING TREATMENT. NURSE WAS IN ROOM AND PATIENT WAS BREATHING 36 TIMES A MIN RETRACTIONS NOTED PATIENTS SPO2 94% ON RA, DUONEB GIVEN PATIENT NOT GETTING ANY BETTER, RT CALLED ANOTHER RT TO COME ASSESS PATIENT OTHER RT COMES UP AND WE AGREE THAT THE HOSPITALIST SHOULD BE PAGED TO ORDER RACEMIC EPI RR 32 SUBSTERNAL & INTERCOSTAL RETRACTIONS. PT ON 3L STRIDOR NOTED 0756 PAGED 0805 PAGED AGAIN 0815 [facility] RN CALLED [facility] RN TO GET VERBAL ORDER FOR RAC EPI 0817 CALLED BACK 0823 RACEMIC EPI GIVEN PATIENT REMAINS SAME 0825 AND [facility] RN UP TO ASSESS PATIENT, MOVING PATIENT TO ICU
[2017-10-04 09:15] VITALS: RESP 20
--- NOTE | 2017-10-04 09:25 | NURSING ---
Report given to ICU, called and notified of change in condition and transfer, discharged at this time to ICU bed 7. Respirations 20 and slight labored with slight sternal retractions noted.
--- NOTE | 2017-10-04 17:06 | CPS ---
Pt nasotracheal suctioned at 8:44 with 8 fr catheter, Dr Gomez bedside. No secretions.
[2017-10-05 14:00] VITALS: BP 105/67; PULSE 90; RESP 20; TEMP 37.1; O2SAT 95
--- NOTE | 2017-10-05 14:59 | PN.NEURO_ITS ---
Patient Problems: Active and Suspected Problems Mucus pooling in larynx (Acute) Subjective: Patient returned from inpatient hospital, after being transferred from the Rehab unit for shortness of breath. Patient was diagnosis with HCAP 2/2 aspiration. Was started on Amoxicillin x 14 doses, and Levaquin x 7 doses. Patient denies any shortness of breath. He is currently maintaining oxygen saturations on room air. - Physical Exam General: Alert, Oriented x3, Cooperative HEENT: Atraumatic, PERRLA, EOMI, Normocephalic Neck: Supple, No JVD, Negative Carotid Bruits Lungs: Clear to auscultation, Normal air movement Cardiovascular: Regular rate, No murmurs Abdomen: Bowel Sounds Present, Soft, Non Tender Extremities: No edema, Capillary Refill Less than 3 Seconds Skin: No rashes, No breakdown Musculoskeletal: No Tenderness to Palpation of Joints or Extremities Neurological: Cranial nerves II-XII grossly intact Psych/Mental Status: Normal Affect, Appropriate Vital Signs Temp Pulse Resp BP Pulse Ox 98.7 F 90 20 H 105/67 95 10/05/17 14:00 10/05/17 14:00 10/05/17 14:00 10/05/17 14:00 10/05/17 14:00 Oxygen Flow Rate 2 Oxygen Delivery Method Room Air Weight: 71 kg Body Mass Index (BMI) 26.9 Intake and Output for Last 24 Hours 10/03/17 10/04/17 10/05/17 23:59 23:59 23:59 Intake Total 4020 / 4020 1380 / 1380 Output Total 1950 / 1950 410 / 410 Balance 2070 / 2070 970 / 970 Microbiology Past 72 Hours 10/04/17 00:30 Streptococcus pneumoniae Antigen (M - Final Interface Orders 10/04/17 00:30 Legionella Antigen - Final Interface Orders Active Medications Al Hydroxide/Mg Hydroxide (Mylanta Ii) 30 ml PO Q6H PRN PRN PRN Reason: Gastric burning Amoxicillin/Clavulanate Potassium (Augmentin Tablet) mg GT BID [facility]I Stop: 10/12/17 10:01 Bisacodyl (Dulcolax) 5 mg PO DAILY PRN PRN PRN Reason: Constipation Enoxaparin Sodium (Lovenox) 40 mg SC DAILY@0600 [facility] Enteral Nutritional Formula (Jevity 1.5) 315 ml GT 5X/DAY [facility] Lactobacillus Acidophilus (Acidophilus) 1 tablet GT DAILY [facility] Levofloxacin (Levaquin) 750 mg GT DAILY [facility] Stop: 10/12/17 10:01 Magnesium Hydroxide (Milk Of Magnesia) 30 ml PO DAILY PRN PRN PRN Reason: Constipation Psyllium Hydrophilic Mucilloid (Metamucil) 1 packet GT DAILY PRN PRN PRN Reason: CONSTIPATION Senna/Docusate Sodium (Senokot-S, Kelsi-Colace) 2 tablet GT BID [facility] Assessment/Plan Active and Suspected Problems Mucus pooling in larynx (Acute) Debility s/p fall from 15 - 20 feet. Sustained a C4 - C5 fracture. Developed a large left pontine stroke. Is currently Trached with # 8 Shiley and Pegged. Had a discectomy and fusion of C4 - C6. Goal of rehab is yarsani of functional independence. Plan: - Physical therapy for gait and balance - Occupational Therapy for ADLs - Speech therapy - As needed analgesics - Bowel protocol - Stroke prevention on ASA, Statin, and Lovenox - DVT prophylaxis: SCDs, jeffrey clinton, Lovenox - Pontine CVA 2/ dissection => right sided hemiparesis - C4 and C5 fracture => s/p discectomy and fusion of C4-6. His follow-up appointment on the has been canceled however this Sunday we will do a C- spine x-ray which will be forwarded to his [facility] surgeon for review. Follow up appointments will be scheduled upon discharge from the rehab unit. - s/p Trach # 8 Shiley => ENT consulted to change trach over => trach down sized to a #6 shiley. 09/30: Trach out yesterday, doing very well - s/p PEG => TF Pivot 315cc 5x a day. Repeat swallow evaluation today => failed swallow evaluation will continue, TF - Urinary retention -> White removed -> urinating without any problems -> Urology consulted - Possible aspiration during swallow evaluation -> STAT chest X-ray, monitor for s/s of aspiration pneumonia (CBC in the am and monitor temperature) - X-Ray neck and knee for Neurosurgeon and Orthopedic surgeon. - Aspiration pneumonia started on Amoxicillin x 14 doses, and Levaquin x 7 doses.
[2017-10-05 16:07] VITALS: BMI 26.9
[2017-10-05] MEDS: Jevity 1.5. 1,000 ML Bottle 315 ML GT ×2 (17:06→21:37)
[2017-10-05 18:30] VITALS: PULSE 125; RESP 26
[2017-10-05] MEDS: Albuterol 2.5 MG/3 ML VIAL.NEB. INHALATION (18:35)
--- NOTE | 2017-10-05 18:50 | NURSING ---
Dr. Jeffrey gave new order for Racepinephrine per RT request due to Dr. Rach arteaga per his answering service and no call back at [address] Leon, patients hospitalist, not here per panel flow machine operator. At 1820 patient had a coughing spell per his and upon assessment he was 96% RA, respirations 36, audible wheeze noted and labored breathing. Oxygen placed at 3L via nc. RT called and came to assess patient and albuterol aerosol given with little effect.
[2017-10-05 19:15] VITALS: PULSE 127; RESP 26
[2017-10-05] MEDS: Racepinephrine HCl 0.5 ML VIAL.NEB. INHALATION (19:30)
[2017-10-05] MEDS: Tamsulosin HCl 0.4 MG Capsule PO (21:27)
[2017-10-05] MEDS: NYSTATIN 500,000 UNIT/5 ML UDC 500000 UNIT PO (21:27)
[2017-10-05] MEDS: Amox/Clavulanate 875 MG Tablet GT (21:36)
[2017-10-05] MEDS: Senna/Docusate Sodium 1 Tablet 2 TABLET GT (21:36)
[2017-10-05 21:42] VITALS: BP 113/69; PULSE 97; RESP 20; TEMP 36.8; O2SAT 94
--- NOTE | 2017-10-05 23:06 | CPS ---
Dr. Shen was called and informed on patient's status. It was explained to Dr. Moy per RT staff that the patient was laboring to breath but was able to keep good oxygen saturations. Patient was given an albuterol and racemic epinephrine treatments, which Dr. Moy was made aware of. Dr. Moy informed RT staff that she would pass this information onto the night hospitalist and talk to the RN about this.
[2017-10-06] VITALS (8 sets, daily range): BP systolic 146; BP diastolic 81; PULSE 111–145; RESP 18–32; TEMP 36.7; O2SAT 94–99; BMI 26.9
--- NOTE | 2017-10-06 00:55 | NURSING ---
RT in with pt around 1929 giving racemic ephinephrine. Notable improvement s/p treatment. Pt now off O2. RA sats 95%. Resp easy and reg.
--- NOTE | 2017-10-06 04:41 | NURSING ---
heard pt cough with a harsh high pitched noise. pt is noted to be awake and spo2 was 90-91% on ra with heart rate at 133. pt requested breathing tx and reports he thinks he has another mucus plug. rn made aware and respiratory called right away
--- NOTE | 2017-10-06 04:47 | NURSING ---
Sudden onset increased resp rate 34; HR 109 and BP 138/91. Sats down to 93%. Dr. Diaz called - order received for vaponefrin (epinephrine). Light stridor noted
--- NOTE | 2017-10-06 04:50 | NURSING ---
, Love called to update (per request if pt's condition deteriorated)
--- NOTE | 2017-10-06 05:11 | NURSING ---
123/69 HR 107 Sats 96% with O2 at 4L. States is feeling better. HR was as high as 120. Was slightly diaphoretic. Currently skin warm and dry. No stridor heard at this time s/p eppy aeresol
[2017-10-06] MEDS: Racepinephrine HCl 0.5 ML VIAL.NEB. INHALATION ×3 (05:14→19:18)
[2017-10-06] MEDS: Enoxaparin 40 MG/0.4 ML Syringe SC (05:14)
[2017-10-06] MEDS: Jevity 1.5. 1,000 ML Bottle 315 ML GT ×3 (05:15→15:11)
--- NOTE | 2017-10-06 05:19 | NURSING ---
Sats 99%. O2 decreased to 2L
--- NOTE | 2017-10-06 06:20 | NURSING ---
Sats 96% on 1L. O2 dc'd -= sats remain 95%
[2017-10-06] MEDS: Albuterol 2.5 MG/3 ML VIAL.NEB. INHALATION ×3 (09:10→18:35)
--- NOTE | 2017-10-06 09:41 | CT_ITS ---
STUDY: CT SOFT TISSUE NECK WITHOUT CONTRAST REASON FOR EXAM: Male, 27 years old. Difficulty breathing and swallowing. Patient fell 20 feet from roof. Multiple fractures. RADIATION DOSAGE (If Supplied By Facility): CTDIvol = ( 17.65 ) mGy, DLP = ( 568.70 ) mGycm TECHNIQUE: The patient was scanned in a multi-detector CT scanner. High resolution transaxial imaging was performed without the administration of intravenous contrast material. Sagittal and coronal images were reconstructed. Individualized dose optimization techniques were used for this CT. COMPARISON: None. FINDINGS: Visualized intracranial contents are grossly within normal limits. The nasopharynx is within normal limits. The parotid and submandibular glands are symmetric. The oral cavity and the oropharynx are within normal limits. The airway is patent. However significant patient motion artifact at the level of the larynx and subglottic larynx limits assessment of the airway.. There is a focal area of anterior outpouching noted in the trachea at the level of cervical thoracic junction likely artifactual. However subtle airway injury in this region is not excluded. Please correlate with direct visual inspection. No evidence for pneumomediastinum. No apical pneumothorax visualized. Anterior cervical spine fusion extending from C4 through C6. IMPRESSION: Significantly motion degraded CT examination of the soft tissue neck with limited sensitivity due to patient's breathing difficulty. No definite evidence for airway compromise seen however. Patient may benefit from a repeat examination as clinically deemed essential Focal area of anterior outpouching noted in the trachea at the level of cervical thoracic junction likely artifactual. However subtle airway injury in this region is not excluded. Please correlate with direct visual inspection. Patient may benefit from a repeat CT examination Electronically Signed: Corey Lord, at 10:34 EST Tel , Service support , CT/Soft Tissue Neck without Contr
[2017-10-06] MEDS: Amox/Clavulanate 875 MG Tablet GT (10:57)
[2017-10-06] MEDS: NYSTATIN 500,000 UNIT/5 ML UDC 500000 UNIT PO ×3 (10:57→16:40)
[2017-10-06] MEDS: Senna/Docusate Sodium 1 Tablet 2 TABLET GT (10:57)
[2017-10-06] MEDS: levoFLOXacin 750 MG Tablet GT (10:57)
[2017-10-06] MEDS: Aspirin 81 MG TAB.CHEW GT (10:58)
--- NOTE | 2017-10-06 12:43 | PN_ITS ---
Patient Problems: Active and Suspected Problems Mucus pooling in larynx (Acute) Subjective: Has had recurrent episodes of respiratory distress Objective: GENERAL: Affect flat HEENT: Clear conjunctiva, NECK; neck in the collar CHEST: Clear to auscultation bilaterally, HEART: Regular S1 S2, no audible murmurs ABDOMEN: soft, PEG tube in situ RECTAL: deferred EXTREMITIES: No edema, no clubbing, ORNAMENTER: Awake, upper extremity weakness SKIN: No Rash Vitals/I&O's: Vital Signs Temp Pulse Resp BP Pulse Ox 98.1 F 125 H 27 H 146/81 H 95 10/06/17 10:00 10/06/17 10:00 10/06/17 10:00 10/06/17 10:00 10/06/17 10:00 Oxygen Flow Rate 6 Oxygen Delivery Method Nasal Cannula Weight: 71 kg Body Mass Index (BMI) 26.9 Intake and Output for Last 24 Hours 10/04/17 10/05/17 10/06/17 23:59 23:59 23:59 Intake Total 1380 / 1380 1695 / 1695 565 / 565 Output Total 410 / 410 900 / 900 550 / 550 Balance 970 / 970 795 / 795 15 / 15 Microbiology Past 72 Hours 10/04/17 00:50 Blood Culture (Wb) - Anticubital Left Blood Culture - Preliminary No growth in 48 hours. 10/04/17 00:55 Blood Culture (Wb) - Right Hand Blood Culture - Preliminary No growth in 48 hours. 10/04/17 00:30 Interface Orders Streptococcus pneumoniae Antigen (M - Final 10/04/17 00:30 Interface Orders Legionella Antigen - Final Current Medications Acetylcysteine (Mucomyst) 800 mg INHALATION Q6H.RT AVI Al Hydroxide/Mg Hydroxide (Mylanta Ii) 30 ml PO Q6H PRN PRN PRN Reason: Gastric burning Albuterol Sulfate (Ventolin Aerosols) 2.5 mg INHALATION Q2H PRN PRN PRN Reason: SHORTNESS OF BREATH Last Admin: 10/06/17 09:10 Dose: 2.5 mg Amoxicillin/Clavulanate Potassium (Augmentin Tablet) 875 mg GT BID [facility] Stop: 10/12/17 10:01 Last Admin: 10/06/17 10:57 Dose: 875 mg Aspirin ([facility]in, Baby) [facility] Last Admin: 10/06/17 10:58 Dose: 81 mg Bisacodyl (Dulcolax) 5 mg PO DAILY PRN PRN PRN Reason: Constipation Enoxaparin Sodium (Lovenox) 40 mg SC DAILY@0600 [facility] Last Admin: 10/06/17 05:14 Dose: 40 mg Enteral Nutritional Formula (Jevity 1.5) 315 ml GT 5X/DAY [facility] Last Admin: 10/06/17 10:58 Dose: 315 ml Lactobacillus Acidophilus (Acidophilus) 1 tablet GT DAILY [facility] Last Admin: 10/06/17 10:58 Dose: 1 tablet Levofloxacin (Levaquin) 750 mg GT DAILY [facility] Stop: 10/12/17 10:01 Last Admin: 10/06/17 10:57 Dose: 750 mg Magnesium Hydroxide (Milk Of Magnesia) 30 ml PO DAILY PRN PRN PRN Reason: Constipation Nystatin (Nystatin) 500,000 unit PO 4X/DAY [facility] Last Admin: 10/06/17 10:57 Dose: 500,000 unit Psyllium Hydrophilic Mucilloid (Metamucil) 1 packet GT DAILY PRN PRN PRN Reason: CONSTIPATION Senna/Docusate Sodium (Senokot-S, Kelsi-Colace) 2 tablet GT BID [facility] Last Admin: 10/06/17 10:57 Dose: 2 tablet Tamsulosin HCl (Flomax) 0.4 mg PO DAILY@1730 [facility] Last Admin: 10/05/17 21:27 Dose: 0.4 mg Assessment/Plan Active and Suspected Problems Mucus pooling in larynx (Acute) Patient is a 27-year-old gentleman who 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 And was transferred to the main hospital following acute respiratory distress secondary to combination of aspiration pneumonia as well as mucous plugging patient transferred back to the inpatient rehab unit following stabilization of his medical condition 1. 1. Acute respiratory insufficiency converted to healthcare acquired pneumonia/aspiration pneumonia patient patient was admitted to the main hospital and readmitted back to the inpatient rehab unit following stabilization of his medical condition. 2. Stridor. Patient underwent endoscopic evaluation by Dr. Schultz with ENT with no obstruction found; however found to have thick secretions and was therefore determined his stridor was secondary to mucous plugging. Has since been placed on a Mucomyst in addition to racemic epinephrine as needed 3. 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 4. Left pontine stroke complicating diagnostic catheterization of cervical arteries for suspected dissection. Patient is on statin therapy in addition to platelet therapy 5. Status post tracheostomy removed on 09/29/2016 6. Status post PEG tube placement 7. Left patellar fracture: knee immobilizer in place 8. Acute urinary retention patient is on Flomax in addition to White catheter 9. DVT prophylaxis SC Del Code Visit Inpatient E&M: 38361 Subs Hosp L2
[2017-10-06] MEDS: Acetylcysteine 800 MG/4 ML VIAL.NEB. INHALATION ×2 (13:29→18:35)
[2017-10-06] MEDS: 0.9% Normal Saline 1,000 ML 150 ML IV (15:11)
[2017-10-06] MEDS: Tamsulosin HCl 0.4 MG Capsule PO (16:40)
--- NOTE | 2017-10-06 19:30 | NURSING ---
Rapid Response called due to RR 30's. HR 130's. BP 160/103. Diaphoretic. Stridor noted. Racemic eppy aeresol treatment given. Color dusky. Order received to transfer pt to ICU. Family here and informed. Pt remains responsive, following commands.
[2017-10-06 19:56] LABS: Bedside Glucose 122 mg/dL (70-110)
--- NOTE | 2017-10-06 21:07 | CT_ITS ---
STUDY: CT SOFT TISSUE NECK WITHOUT CONTRAST REASON FOR EXAM: Male, 27 years old. Difficulty breathing and swallowing. Previous cervical fractures. RADIATION DOSAGE (If Supplied By Facility): CTDIvol = ( 17.21 ) mGy, DLP = ( 558.69 ) mGycm TECHNIQUE: The patient was scanned in a multi-detector CT scanner. High resolution transaxial imaging was performed without the administration of intravenous contrast material. Sagittal and coronal images were reconstructed. Individualized dose optimization techniques were used for this CT. COMPARISON: None. FINDINGS: Very significantly limited by the absence of IV contrast. No definite acute abnormality. Normal bilateral parotid glands. Normal bilateral tube teller spaces. Normal bilateral parapharyngeal spaces. Normal bilateral carotid spaces. Normal bilateral sublingual and submandibular glands and spaces. Normal visualized nasopharynx. Normal retropharyngeal space. Normal perivertebral space. Normal visualized bilateral faucial tonsils. The visualized tongue, tongue base and oropharynx are normal. The visualized cervical lymph nodes (levels I-) are within normal size limits, and maintain normal morphology. There is no demonstrated solid or cystic mass lesion. Normal epiglottis, bilateral vallecula and hypopharynx. The pre-epiglottic and paraglottic adipose spaces are normal. Normal visualized bilateral piriform sinuses, aryepiglottic folds, vocal cords, and arytenoid-cricoid articulations. Normal subglottic trachea. Normal bilateral lobes of the thyroid gland. Normal visualized pulmonary apices. Normal visualized paranasal sinuses. Postsurgical changes of the cervical spine. CT/Soft Tissue Neck without Contr IMPRESSION: Very limited by absence of IV contrast but no abnormality is seen. Electronically Signed: Sean Zazueta MD at 22:30 EST , Service support ,
--- NOTE | 2017-10-06 23:41 | PCM.RU.DC ---
Rehab Discharge Summary DATE OF ADMISSION: 09/19/17 DATE OF DISCHARGE: 10/06/17 - Rehab Diagnosis Acute Respiratory distress, stridor and aspiration PNA Discharge Diet: - - Tube feeding - Jevity 315cc 5 X a day Discharge Activity: May Not Drive, May Shower, Use Walker - Janes-walker, - - Pateint transferred to ICU for further acute medical management Weight Bearing Status: Weight bearing as tolerated Call your doctor if you observe: Fever of 101 or Higher, Coldness, Increased Pain, Numbness or Tingling, Change in Color, Inability to urinate, Inability to have a bowel movement, Using more than one pad per hour, Shortness of breath, Dizziness, Fainting spells, Swelling in the ankles, Chest pain, Prolonged hiccoughing, Increased palpitations (irregular heartbeat), Calf discomfort, Uncontrolled pain Home Medications: Medications to take at Discharge Amoxicillin/Potassium Clav [Augmentin 875-125 Tablet] 1 each GT BID 10/05/17 Bisacodyl [Dulcolax] 5 mg PO DAILY PRN PRN tablet 10/05/17 Enoxaparin [Lovenox] 40 mg SC DAILY@1000 10/05/17 Jevity 1.5 315 ml GT 5X/DAY 10/05/17 Lactobacillus Acidophilus [Acidophilus] 1 tablet GT DAILY 10/05/17 Levofloxacin [Levaquin] 750 mg GT DAILY 10/05/17 Mag Hydrox/Al Hydrox/Simeth [Mylanta II] 30 ml PO Q6H PRN PRN udc 10/05/17 Magnesium Hydroxide [Milk Of Magnesia] 30 ml PO DAILY PRN PRN udc 10/05/17 Psyllium [Metamucil] 1 packet GT DAILY PRN PRN packet 10/05/17 Senna/Docusate Sodium [Senokot-S] 2 tablet GT BID 10/05/17 Primary Care Physician: Cirilo Mendoza MD [Primary Care Provider] - Disposition: Acute care Hospital Rehab Course [] 27 M admitted to [facility] on 09/20/17 with debility s/p traumatic fall with C4-C5 fracture, T2 fracture, left patellar fracture and stroke, patient admitted to [facility] s/p traumatic fall from about 20 feet at work, found to have C4-C5 fracture s/p discectomy and fusion, hospital course complicated with left pontine stroke and posterior circulation strokes, s/p angiogram, on ASA, statin, s/p trach which was decannulated during the inpatient RU stay on 09/29/17 and s/p PEG, right sided weakness, on cervical collar to be continues atleast for 4 weeks per documentation. Patient developed acute onset dyspnea overnight (10/04/17), was seen by the hospitalist, diagnosed with right LL aspiration PNA, his SOB worsened this morning (10/04/17), and per Dr. Gomez senior director of strategy it was felt that he would benefit from ICU admission for further monitoring and management of his symptoms. Patient transferred to ICU for further management of aspiration PNA. Had mucus plugging. Patient was then readmitted to [facility] on 10/05/17 after being treated with antibiotics and was maintained on Augmentin and Levaquin but during the night of 10/05/17 patient again developed dyspnea, respiratory distress, with tachypnea and tachycardia needing racemic epinephrine which stabilized the patient but overnight patient had more episodes of acute respiratory distress and this evening (10/06/17) patient developed severe stridor with acute dyspnea, with tachypnea and tachycardia needing racemic epinephrine, hospitalist and senior director of strategy was consulted who felt patient would benefit from monitoring in the ICU for evaluation and management. Patient is being transferred back to ICU with acute respiratory distress, Stridor, dyspnea, tachypnea and tachycardia for further medical management and stabilization. May benefit from further ENT evaluation. Meaningful Use Info Meaningful Use Diagnoses (Choose all that apply): None applicable
--- NOTE | 2017-10-08 12:58 | CASEMGMT ---
Insurance Notified insurance of patent discharge on 10/06/17 to [facility]. Auth#[id number] Chhaya DUBON, PIN CLEANER
== END 2017-10-07 12:00 | disposition short-term general hospital (02) | DRG 559 ==
PROVIDERS: Internal Medicine; Nurse Practitioner Acute Care; Admitting Provider Psychiatry & Neurology Neurology; Family Provider Family Medicine; PCP Family Medicine; Visit Provider Internal Medicine
DX: S12.300D Unspecified displaced fracture of fourth cervical vertebra, subsequent encounter for fracture with routine healing (principal); I77.74 Dissection of vertebral artery; J69.0 Pneumonitis due to inhalation of food and vomit; J96.10 Chronic respiratory failure, unspecified whether with hypoxia or hypercapnia; I69.351 Hemiplegia and hemiparesis following cerebral infarction affecting right dominant side; S12.400D Unspecified displaced fracture of fifth cervical vertebra, subsequent encounter for fracture with routine healing; R33.9 Retention of urine, unspecified; S82.002D Unspecified fracture of left patella, subsequent encounter for closed fracture with routine healing; W12.XXXD Fall on and from scaffolding, subsequent encounter; I69.320 Aphasia following cerebral infarction; I69.322 Dysarthria following cerebral infarction; R06.03 Acute respiratory distress; Z98.1 Arthrodesis status; Z93.1 Gastrostomy status; Z93.0 Tracheostomy status
CPT/HCPCS: 31502; 31720; 36415; 70490; 71045; 71046; 72050; 73560; 74230; 80048; 80053; 80061; 80202; 81001; 81002; 82962; 83036; 83605; 83735; 85025; 85027; 85048; 87040; 87086; 87449; 87641; 87880; 92507; 92526; 92610; 92611; 94002; 94003; 94640; 94667; 94668; 97032; 97110; 97112; 97116; 97140; 97162; 97166; 97530; 97535; 97802; 97803; 99152; J3010; J7030; J7050; A4216; J0744

== ENCOUNTER 2017-10-04 08:37 | Inpatient (IN) | payer OTHER, SELFPAY ==
[2017-10-04] VITALS (12 sets, daily range): BP systolic 105–131; BP diastolic 67–83; PULSE 86–105; RESP 15–19; TEMP 37–37.3; O2SAT 94–97; BMI 22.4
--- NOTE | 2017-10-04 10:34 | PCM.HP.STD ---
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 Patient was noted earlier on in the morning of having gone into acute respiratory distress subsequent imaging studies came back consistent with suspected aspiration patient was started on broad-spectrum antibiotic therapy per protocol. Patient respiratory status continued to deteriorate with significant tachypnea as well as stridor he did receive racemic epinephrine decision made to admit patient to the main hospital for inpatient evaluation. Past Medical History Past Medical History (Chronic Problems): Chronic Problems Cervical spine fracture (Chronic) Respiratory failure after trauma (Chronic) Tracheostomy present (Chronic) Left pontine CVA (Chronic) Allergies No Known Allergies Allergy (Verified 09/19/17 21:45) Surgical History: no surgical history Psychiatric History: No pertinent psych hx Smoking Status: Never smoker - *Family History Maternal History Items: No pertinent history Review of Systems Constitutional: Reports: Malaise HEENT: Denies: Head Aches, Sinus Congestion, Sinus Drainage Respiratory: Reports: Cough, Shortness of Breath Gastrointestinal: Denies: Abdominal Pain, Hematemesis, Hematochezia, Nausea, Melena, Vomiting Genitourinary: Denies: Dysuria, Frequency, Hematuria, Urgency Musculoskeletal: Denies: Joint Pain, Joint Tenderness Neurological: Denies: Focal weakness, Numbness, Tingling Psychiatric: Denies: Homicidal Ideations, Suicidal Ideations Hematologic/ Lymphatic: Denies: Easy Bruising, Easy Bleeding VTE Information - Inpt Only VTE Present on Admission: No VTE Mechan Device Prophylaxis: Knee High BETTY Hose VTE Pharm Prophylaxis ordered?: Yes Patient Problems: Active and Suspected Problems Aspiration pneumonia (Acute) Objective: GENERAL: Affect flat HEENT: Clear conjunctiva, NECK; neck in the collar CHEST: Diminished to auscultation bilaterally, bilateral rhonchi HEART: Regular S1 S2, no audible murmurs ABDOMEN: soft, PEG tube in situ RECTAL: deferred EXTREMITIES: No edema, no clubbing, 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: Awake, right upper extremity weakness SKIN: No Rash - Physical Exam Vital Signs Temp Pulse Resp BP Pulse Ox 98.6 F 86 16 113/80 96 10/04/17 10:00 10/04/17 10:30 10/04/17 10:30 10/04/17 10:30 10/04/17 10:30 Oxygen Delivery Method Room Air Weight: 73.1 kg Body Mass Index (BMI) 22.4 Laboratory Tests Past 24 Hrs 10/04/17 09:40 MRSA (PCR) Pending Assessment/Plan Active and Suspected Problems Aspiration pneumonia (Acute) Patient is a 27-year-old gentleman who 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 Patient was transferred to the regular hospital following acute respiratory distress 1. Acute respiratory insufficiency converted to healthcare acquired pneumonia/aspiration pneumonia patient admitted to regular nursing floor managed with antibiotics 2. Stridor. Patient underwent endoscopic evaluation by Dr. Schultz with ENT with no obstruction found 3. 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 4. Left pontine stroke complicating diagnostic catheterization of cervical arteries for suspected dissection. Patient is on statin therapy in addition to antiplatelet therapy 5 Status post tracheostomy; patient underwent decannulation on on 09/29/2016 6. Status post PEG tube placement 7. Left patellar fracture: knee immobilizer in place 8. Acute urinary retention patient is on Flomax in addition to White catheter 9. DVT prophylaxis SC Lovenox Code Visit Inpatient E&M: 74437 [facility] Hosp L3
--- NOTE | 2017-10-04 11:05 | PCM.CON.CC ---
Reason for Consult Date of Consultation: 10/04/17 Reason for Consultation: Respiratory distress History of Present Illness: The patient is a 27-year-old male, with a history as outlined below, who presented to inpatient rehabilitation on 09/20 as a transfer from the [facility]. 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 The patient sustained fractures of his C4 and C5 vertebrae. Due to the mechanism of his injury, neurosurgery at [facility] performed a diagnostic catheterization of his cervical vessels which showed no intimal injury. However, in the PACU following that procedure the patient developed right-sided hemiparesis and aphasia. Subsequent MRI revealed that he had suffered a large left pontine stroke. The patient was subsequently transferred to the surgical intensive care unit for management of his respiratory failure. Despite attempts at weaning from mechanical ventilation, the patient was unable to be liberated from the ventilator. Therefore, on September 09, the patient underwent tracheostomy and PEG tube placement. He was then admitted to inpatient rehab on September 20. On September 21, the patient underwent tracheostomy change. He initially had a #[address] in [address] upon arrival. ENT changed out this trach to a #6 cuff less. The pulmonary medicine service and followed the patient over the ensuing week. The patient was then successfully decannulated on September 29. He has been on room air and doing well from a respiratory standpoint until this morning. On the morning of October 04, the patient reportedly developed respiratory distress with stridor and sternal retractions noted. He was given racemic epinephrine without improvement. The patient, however, was never hypoxic. The patient was evaluated by the hospitalist and felt that he would be best served in the medical intensive care unit. After I was made aware of the patient's condition, I went personally to the rehab unit to evaluate him. However, the patient had received a breathing treatment and upon my arrival did not seem to be in distress. Of note, on September 14 FEES was completed at the [facility] and revealed silent aspiration of thin, honey and pur?ed textures. On October 01 a modified barium swallow revealed severe to profound oropharyngeal dysphagia with silent aspiration of all consistencies. The patient was evaluated by speech therapy early this morning. Past Medical History Past Medical History (Chronic Problems): Chronic Problems Cervical spine fracture (Chronic) Respiratory failure after trauma (Chronic) Left pontine CVA (Chronic) Allergies No Known Allergies Allergy (Verified 09/19/17 21:45) Surgical History: no surgical history Psychiatric History: No pertinent psych hx Smoking Status: Never smoker Review of Systems Constitutional: Denies: Chills, Fever, Night Sweats Eyes: Denies: Blurred vision, Double vision HEENT: Reports: Difficulty Swallowing, Dysphasia Cardiovascular: Denies: Chest Pain, Palpitations Respiratory: Reports: Shortness of Breath. Denies: Sputum production Gastrointestinal: Denies: Abdominal Pain, Nausea, Vomiting Genitourinary: Denies: Dysuria Musculoskeletal: Denies: Joint Pain, Joint Tenderness Skin: Denies: Rash, Wounds Neurological: Reports: Difficulty swallowing Psychiatric: Denies: Anxiety, Depression, Homicidal Ideations, Suicidal Ideations Hematologic/ Lymphatic: Denies: Easy Bruising, Easy Bleeding Objective: The patient's most recent lab work, culture data and imaging studies have all been personally reviewed. - Physical Exam General: Alert, Cooperative, No apparent distress HEENT: Atraumatic, PERRLA, Normocephalic Oral: No Gingival or Mucosal Lesions/ Ulcerations Neck: Supple, No Nodes, Trachea Midline, - - Closed stoma. Rigid c-collar remains in place Lungs: Normal air movement, No rhonchi, No wheeze, No rales Cardiovascular: Regular rate, Regular Rhythm, Normal S1, Normal S2, No murmurs Abdomen: Bowel Sounds Present, Soft, Non Tender, - - +PEG Extremities: No clubbing, No cyanosis, No edema Skin: No rashes, No breakdown Musculoskeletal: No Muscle Wasting Neurological: - - No significant change from previous Psych/Mental Status: Normal Affect, Appropriate Vital Signs Temp Pulse Resp BP Pulse Ox 98.6 F 86 16 113/80 96 10/04/17 10:00 10/04/17 10:30 10/04/17 10:30 10/04/17 10:30 10/04/17 10:30 Oxygen Delivery Method Room Air Weight: 161 lb 2.526 oz Body Mass Index (BMI) 22.4 Laboratory Tests Past 24 Hrs 10/04/17 09:40 MRSA (PCR) Pending Labs (Last 48 Hours) 10/04/17 10/04/17 10/04/17 09:40 10:55 10:55 WBC Pending RBC Pending Hgb Pending Hct Pending MCV Pending MCH Pending MCHC Pending RDW Pending RDW Differential Pending Plt Count Pending Neut % (Auto) Pending Absolute Neuts (auto) Pending Total Counted Pending Sodium Pending Potassium Pending Chloride Pending Carbon Dioxide Pending Anion Gap Pending BUN Pending Creatinine Pending Est GFR (MDRD) Af Amer Pending Est GFR (MDRD) Non-Af Pending BUN/Creatinine Ratio Pending Glucose Pending Lactic Acid Calcium Pending Magnesium Pending Total Bilirubin Pending AST Pending ALT Pending Alkaline Phosphatase Pending Total Protein Pending Albumin Pending MRSA (PCR) Pending 10/04/17 10:55 WBC RBC Hgb Hct MCV MCH MCHC RDW RDW Differential Plt Count Neut % (Auto) Absolute Neuts (auto) Total Counted Sodium Potassium Chloride Carbon Dioxide Anion Gap BUN Creatinine Est GFR (MDRD) Af Amer Est GFR (MDRD) Non-Af BUN/Creatinine Ratio Glucose Lactic Acid Pending Calcium Magnesium Total Bilirubin AST ALT Alkaline Phosphatase Total Protein Albumin MRSA (PCR) Assessment/Plan RECOMMENDATIONS: 1. Continue aggressive bronchopulmonary hygiene 2. Video laryngoscopy by ENT 3. Continue antibiotics for right lower lobe infiltrate 4. Continue work with PT/OT/speech 5. Stable for transfer out of the intensive care unit IMPRESSIONS: 1. Acute hypoxic respiratory insufficiency Likely related to transient mucous plugging. Video laryngoscopy by ENT was largely unremarkable. Given the transient nature of the patient's symptoms, I suspect mucous plugging as the etiology. Continue aggressive bronchopulmonary hygiene. The patient is currently maintaining oxygen saturations on room air. As needed aerosol treatments can be utilized. Continue treatment for underlying HCAP. The patient remains at high risk for aspiration. He is medically stable for transfer out of the intensive care unit versus return to inpatient rehabilitation. This note was generated with [employer] dictation software. It may contain incorrect words, spelling, and punctuation that were not noted in checking the note before signing. Code Visit Inpatient E&M: 34426 Init Hosp L2
[2017-10-04 11:14] LABS: Absolute Lymphocyte Count 1.59 X10^3/ul (0.83-4.51); Absolute Neutrophil Count 10.8 X10^3/uL (2.0-7.7); Basophil# 0.03 X10^3/uL; Basophil% 0.2 % (0-1); Eosinophil# 0.09 X10^3/uL; Eosinophils% 0.7 % (0-5); Hematocrit 35.3 % (40-54); Hemoglobin 12.3 g/dl (13.0-16.5); Lymphocyte # 1.59 X10^3/ul (4.0); Lymphocyte % 11.8 % (19-41); Mean Corp Hgb Conc 34.8 g/gl (32-36); Mean Corpuscular Hgb 31.1 pg (27.0-32.0); Mean Corpuscular Volume 89.1 fL (80-94); Mean Platelet Vol. 9.1 fl (6.2-12.0); Monocyte# 0.89 X10^3/uL; Monocyte% 6.6 % (0-10); Neutrophil # 10.81 X10^3/uL (2.7-7.7); Neutrophil % 80.5 % (47-70); POSITIVE COUNT NO; POSITIVE DIFFERENTIAL NO; POSITIVE MORPHOLOGY NO; Platelet Count 242 K/mm3 (150-450); RBC Distribution Width CV 14.1 % (11.6-14.6); RBC Distribution Width SD 45.1 fl (35.1-43.9); Red Blood Count 3.96 M/mm3 (4.6-6.2); White Blood Count 13.4 K/mm3 (4.4-11.0)
[2017-10-04 11:31] LABS: ALB/GLOB Ratio 0.8 RATIO (0.9-2.4); AST(SGOT) 16 U/L (15-37); Alanine Aminotransfer ALT/SGPT 26 U/L (16-61); Albumin, Serum 3.1 g/dL (3.2-5.0); Alkaline Phosphatase 102 U/L (45-117); Anion Gap 7 (5-15); BUN 14 mg/dL (7-18); BUN/Creat Ratio 18.5 RATIO (10-20); Chloride 98 mmol/L (98-107); Creatinine, Serum 0.76 mg/dL (0.70-1.30); EST Glomerular Filtration Rate 129 mL/min (>60); Est Glom Filt Rate - Afr Amer 156 mL/min (>60); Estimated Creatinine Clearance 148.28 ml/min; Glucose 91 mg/dL (74-106); Magnesium 1.9 mg/dL (1.6-2.6); Potassium 4.1 mmol/L (3.5-5.1); Protein, Total 7.1 g/dL (6.4-8.2); Sodium Level 135 mmol/L (136-145)
[2017-10-04 11:37] LABS: Lactic Acid 1.2 mmol/L (0.4-2.0)
--- NOTE | 2017-10-04 12:07 | PCM.PN.BLA ---
Progress Note Asked to the patient at the request of Dr. Leon for stridor. 27 yo white male s/p tracheotomy for prolonged ventilation after fall from scaffolding. He also sustained c4,5 fracture and pontine stroke. He was decanulated 09/29 in the rehab unit. He did well after decanulation until this morning where he had respiratory distress. He is comfortable now. He denies any shortness of breath or difficulty phonating. PE: awake alert nad. no stridor no stertor Voice is strong. Speech is dysarthric. Neck - well healed left neck incision from C4-5 repair. Tracheotomy site is closed with some brown crust at the site. M/OP normal. Tongue projects midline. Nose-bloody crusts bilaterally. Procedure: 4% topical lidocaine was sprayed in the nasal cavity. A scope was passed. The nasopharynx is normal. Base of tongue, epiglottis and vallecula are normal. There is bilateral vocal cord motion. He coughed vigorously after touching his epiglottis. He has thick secretions generally throughout the hypopharynx. A: Respiratory distress, now resolved P: Continue observation. If stridor is heard again, or his respiratory status declines without obvious pathology, consider airway CT to look for subglottic stenosis.
--- NOTE | 2017-10-04 12:14 | PCM.RX.CS ---
Subjective/Objective Date: 10/04/17 Time: 12:14 Antibiotic: Vancomycin Type of Consult: New start Indications for Therapy: SUSPECTED PNEUMONIA Labs: Sodium 135 mmol/L (136-145) L 10/04/17 10:55 Potassium 4.1 mmol/L (3.5-5.1) 10/04/17 10:55 Chloride 98 mmol/L (98-107) 10/04/17 10:55 Carbon Dioxide 30.0 mmol/L (21.0-32.0) 10/04/17 10:55 Anion Gap 7 (5-15) 10/04/17 10:55 BUN 14 mg/dL (7-18) 10/04/17 10:55 Creatinine 0.76 mg/dL (0.70-1.30) 10/04/17 10:55 Est GFR (MDRD) Af Amer 156 mL/min (>60) 10/04/17 10:55 Est GFR (MDRD) Non-Af 129 mL/min (>60) 10/04/17 10:55 BUN/Creatinine Ratio 18.5 RATIO (10-20) 10/04/17 10:55 Glucose 91 mg/dL (74-106) 10/04/17 10:55 Estimated Creatinine Clearance: 184ml/min Pharmacy Plan for Drug Dosing: Pharmacy Service will continue to monitor and adjust dosing as required. Pharmacy to manage vancomycin for the treatment of suspected pneumonia. Patient was previously admitted to the inpatient rehab unit, where he received a one-time vancomycin dose of 1g. Will target a goal trough of 15-20 based on suspected diagnosis. Est CrCl 184 mL/min with a SCr of 0.61. Plan/ Recommendations 1. vancomycin 1.25g IV Q8hrs (17mg/kg based on TBW of 73.1) 2. Trough scheduled for 10/05/17 @1330 (Prior to 5th total dose of vancomycin) 3. Pharmacy will continue to monitor and make adjustments as necessary
--- NOTE | 2017-10-04 12:28 | PHA.PHARE_ITS ---
Subjective/Objective Date: 10/04/17 Time: 12:14 Antibiotic: Vancomycin Type of Consult: New start Indications for Therapy: SUSPECTED PNEUMONIA Labs: Sodium 135 mmol/L (136-145) L 10/04/17 10:55 Potassium 4.1 mmol/L (3.5-5.1) 10/04/17 10:55 Chloride 98 mmol/L (98-107) 10/04/17 10:55 Carbon Dioxide 30.0 mmol/L (21.0-32.0) 10/04/17 10:55 Anion Gap 7 (5-15) 10/04/17 10:55 BUN 14 mg/dL (7-18) 10/04/17 10:55 Creatinine 0.76 mg/dL (0.70-1.30) 10/04/17 10:55 Est GFR (MDRD) Af Amer 156 mL/min (>60) 10/04/17 10:55 Est GFR (MDRD) Non-Af 129 mL/min (>60) 10/04/17 10:55 BUN/Creatinine Ratio 18.5 RATIO (10-20) 10/04/17 10:55 Glucose 91 mg/dL (74-106) 10/04/17 10:55 Estimated Creatinine Clearance: 184ml/min Pharmacy Plan for Drug Dosing: Pharmacy Service will continue to monitor and adjust dosing as required. Pharmacy to manage vancomycin for the treatment of suspected pneumonia. Patient was previously admitted to the inpatient rehab unit, where he received a one- time vancomycin dose of 1g. Will target a goal trough of 15-20 based on suspected diagnosis. Est CrCl 184 mL/min with a SCr of 0.61. Plan/ Recommendations 1. vancomycin 1.25g IV Q8hrs (17mg/kg based on TBW of 73.1) 2. Trough scheduled for 10/05/17 @1330 (Prior to 5th total dose of vancomycin) 3. Pharmacy will continue to monitor and make adjustments as necessary
[2017-10-04] MEDS: Ciprofloxacin 400 MG/200 ML BAG 200 MG IV ×2 (12:30→21:17)
[2017-10-04 13:43] LABS: M R Staph aureus DNA By PCR Negative (Negative); Probe Check PASS; Specimen Processing Control PASS
--- NOTE | 2017-10-04 15:48 | CHAPLAIN ---
Type of Pastoral Visit ___ Initial Visit _x__ Follow-up Visit ___ On-call Visit ___ General Patient Visit ___ Spiritual Assessment ___ Family Conference ___ Bereavement ___ Rapid Response ___ Code Blue ___ Other (describe below) Pastoral Care Referral From _x__ Patient ___ Family ___ Nurse ___ Physician ___ Ad Setter ___ Cook Fish Eggs ___ Other (describe below) Sacrament/Intervention ___ Active listening ___ Anointing ___ Episcopalian ___ Bereavement ___ Communion ___ Lazara exploration ___ ___ Life review _x__ Prayer ___ Reconciliation ___ Sacrament of Sick _x__ Supportive presence ___ Wedding ___ Other (describe below) Pastoral Comments this patient has been seen by this rum processing operator in Rehab unit; pt moved to ICU; pt was quiet with eyes closed but opened them when I entered room; this rum processing operator gave presence and prayer; pt acknowledged my visit and said he is ok; a written word was left for patient and family to remind them of God's care in their lives; pt accepted prayer and waved to me as I left the room
[2017-10-04] MEDS: Piperacil/Tazobactam 3.375 GM/50 ML ML IV ×2 (16:36→22:16)
--- NOTE | 2017-10-04 20:18 | NURSING ---
PT STRAIGHT CATH FOR URINE. STERILE TECHNIQUE MAINTAINED. PT HAD NO URINE AT THIS TIME. PT SAID THE LAST TIME HE VOIDED WAS 1700. PT WANTS TO DO CLEAN CATCH NEXT TIME.
[2017-10-04] MEDS: 0.9% NaCl IVPB Med Flush (250 mL) 15 ML IV (22:17)
[2017-10-04] MEDS: LORazepam 2 MG/ML Syringe 0.5 MG IV (23:27)
[2017-10-05] MEDS: 0.9% Normal Saline 1,000 ML 100 ML IV (02:14)
[2017-10-05 02:20] VITALS: BP 104/65; PULSE 87; RESP 18; TEMP 37.1; O2SAT 95
[2017-10-05 02:23] VITALS: O2SAT 95
[2017-10-05] MEDS: Ciprofloxacin 400 MG/200 ML BAG 200 MG IV (05:01)
[2017-10-05] MEDS: Piperacil/Tazobactam 3.375 GM/50 ML ML IV (06:05)
[2017-10-05 06:19] LABS: Hematocrit 33.7 % (40-54); Hemoglobin 11.5 g/dl (13.0-16.5); Mean Corp Hgb Conc 34.1 g/gl (32-36); Mean Corpuscular Hgb 30.7 pg (27.0-32.0); Mean Corpuscular Volume 89.9 fL (80-94); Mean Platelet Vol. 9.3 fl (6.2-12.0); Platelet Count 221 K/mm3 (150-450); RBC Distribution Width CV 14.3 % (11.6-14.6); Red Blood Count 3.75 M/mm3 (4.6-6.2)
[2017-10-05 06:23] LABS: Scan Indicated on CBC? Y/N NO
[2017-10-05 06:35] LABS: Anion Gap 7 (5-15); BUN 12 mg/dL (7-18); BUN/Creat Ratio 14.3 RATIO (10-20); Calcium,Total 8.7 mg/dL (8.5-10.1); Chloride 101 mmol/L (98-107); Creatinine, Serum 0.84 mg/dL (0.70-1.30); EST Glomerular Filtration Rate 115 mL/min (>60); Est Glom Filt Rate - Afr Amer 139 mL/min (>60); Estimated Creatinine Clearance 134.71 ml/min; Glucose 96 mg/dL (74-106); Potassium 3.9 mmol/L (3.5-5.1); Sodium Level 137 mmol/L (136-145)
[2017-10-05 07:22] VITALS: O2SAT 95
--- NOTE | 2017-10-05 08:34 | PN_ITS ---
Patient Problems: Active and Suspected Problems Mucus pooling in larynx (Acute) Aspiration pneumonia (Acute) Subjective: Patient was seen and examined. He is sitting up in bed with no complaints. No current coughing or sputum production. Feels his wheezing has improved. Anxious to go back to rehab and continue his therapy. Objective: Patient remains afebrile and hemodynamically stable. He is maintaining appropriate saturations on room air. Lab data reviewed, leukocytosis has resolved. Slightly anemic at 11.5, otherwise blood work unremarkable. MRSA PCR was negative. - Physical Exam General: Alert, Oriented x3, Cooperative, No apparent distress HEENT: Atraumatic, Normocephalic Oral: Moist Mucosa Neck: Trachea Midline, - - Dressing over stoma C/D/I. C-collar in place. Lungs: Diminished, - - Faint expiratory wheeze, otherwise clear Cardiovascular: Regular rate, Regular Rhythm, Normal S1, Normal S2, No murmurs Abdomen: Bowel Sounds Present, Soft, Non Tender, Non-Distended Extremities: No clubbing, No cyanosis, No edema Skin: No rashes, No breakdown Musculoskeletal: No Tenderness to Palpation of Joints or Extremities Neurological: - - Right-sided weakness remains unchanged from previous assessment Psych/Mental Status: Alert and oriented to time, place, person, mood and affect Vital Signs Temp Pulse Resp BP Pulse Ox 98.8 F 87 18 104/65 95 10/05/17 02:20 10/05/17 02:20 10/05/17 02:20 10/05/17 02:20 10/05/17 07:22 Oxygen Delivery Method Room Air Weight: 161 lb 13.109 oz Body Mass Index (BMI) 22.4 Intake and Output for Last 24 Hours 10/03/17 10/04/17 10/05/17 23:59 23:59 23:59 Intake Total 1558 / 1558 1114 / 1114 Output Total 1150 / 1150 Balance 408 / 408 1114 / 1114 Laboratory Tests Past 24 Hrs 10/04/17 10/04/17 10/04/17 09:40 10:55 10:55 WBC 13.4 H RBC 3.96 L Hgb 12.3 L Hct 35.3 L MCV 89.1 MCH 31.1 MCHC 34.8 RDW 14.1 RDW Differential 45.1 H Plt Count 242 MPV 9.1 Immature Gran % (Auto) 0.200 Neut % (Auto) 80.5 H Lymph % (Auto) 11.8 L [place] % (Auto) 6.6 Eos % (Auto) 0.7 Baso % (Auto) 0.2 Absolute Neuts (auto) 10.8 H Absolute Lymphs (auto) 1.59 Total Counted Not Reportable Sodium 135 L Potassium 4.1 Chloride 98 Carbon Dioxide 30.0 Anion Gap 7 BUN 14 Creatinine 0.76 Estim Creat Clear Calc 148.28 Est GFR (MDRD) Af Amer 156 Est GFR (MDRD) Non-Af 129 BUN/Creatinine Ratio 18.5 Glucose 91 Lactic Acid Calcium 9.0 Magnesium 1.9 Total Bilirubin 0.40 AST 16 ALT 26 Alkaline Phosphatase 102 Total Protein 7.1 Albumin 3.1 L Globulin 4.0 Albumin/Globulin Ratio 0.8 L MRSA (PCR) Negative 10/04/17 10/05/17 10/05/17 10:55 05:28 05:28 WBC 11.0 RBC 3.75 L Hgb 11.5 L Hct 33.7 L MCV 89.9 MCH 30.7 MCHC 34.1 RDW 14.3 RDW Differential 46.0 H Plt Count 221 MPV 9.3 Immature Gran % (Auto) Neut % (Auto) Lymph % (Auto) [place] % (Auto) Eos % (Auto) Baso % (Auto) Absolute Neuts (auto) Absolute Lymphs (auto) Total Counted Sodium 137 Potassium 3.9 Chloride 101 Carbon Dioxide 29.0 Anion Gap 7 BUN 12 Creatinine 0.84 Estim Creat Clear Calc 134.71 Est GFR (MDRD) Af Amer 139 Est GFR (MDRD) Non-Af 115 BUN/Creatinine Ratio 14.3 Glucose 96 Lactic Acid 1.2 Calcium 8.7 Magnesium Total Bilirubin AST ALT Alkaline Phosphatase Total Protein Albumin Globulin Albumin/Globulin Ratio MRSA (PCR) Assessment/Plan Active and Suspected Problems Mucus pooling in larynx (Acute) Aspiration pneumonia (Acute) RECOMMENDATIONS: 1. Continue aggressive bronchopulmonary hygiene 2. Video laryngoscopy by ENT clean 3. Continue antibiotics for right lower lobe infiltrate 4. Continue work with PT/OT/speech--reevaluate tube feedings rate/ administration for aspiration 5. Okay to transfer back to rehab today from pulmonary standpoint IMPRESSIONS: 1. Acute hypoxic respiratory insufficiency Likely related to transient mucous plugging. Video laryngoscopy by ENT was largely unremarkable. Given the transient nature of the patient's symptoms, I suspect mucous plugging as the etiology. Continue aggressive bronchopulmonary hygiene. The patient is currently maintaining oxygen saturations on room air. As needed aerosol treatments can be utilized. Continue treatment for underlying HCAP. The patient remains at high risk for aspiration. He will be reassessed by speech. He should remain upright for feedings. Given the lack of need for supervisor finishing/pulmonary needs, will sign off the patient at this time. Please do not hesitate to contact us with any further questions or concerns. This note was generated with [employer] dictation software. It may contain incorrect words, spelling, and punctuation that were not noted in checking the note before signing.
[2017-10-05 08:37] VITALS: BP 111/73; PULSE 82; RESP 18; TEMP 36.9; O2SAT 98
[2017-10-05 08:40] VITALS: PULSE 80
--- NOTE | 2017-10-05 09:44 | CASEMGMT ---
Addendum entered by Shena Baez 10/05/17 10:13: SW spoke w/Shelly in rehab, as long as pt is here less than 3 days, no new precert is needed. SW texted physician to let him know. SCOTT Pryor, [employer]OX [employer] Original Note: Pt is here from inpt rehab, as per physician, pt is ready to return. It seems that pt is there under worker's comp. DALY called the referral phone, message left inquiring if pt is able to return today. SCOTT Pryor, [employer]
--- NOTE | 2017-10-05 10:49 | PCM.DC ---
- Discharge Diagnoses Current Active Problems: Current Active and Chronic Problems Aspiration pneumonia (Acute) You will use the following diet at home:: Other - via GT Allergies/Adverse Reactions: Allergies No Known Allergies Allergy (Verified 09/19/17 21:45) Medications to take at Discharge Acetaminophen [Tylenol Suppository] 650 mg RECTAL Q4H PRN PRN suppos. 10/05/17 Amoxicillin/Potassium Clav [Augmentin 875-125 Tablet] 1 ea PO BID #14 tab 10/05/17 Bisacodyl [Dulcolax] 5 mg PO DAILY PRN PRN tablet 10/05/17 Enoxaparin [Lovenox] 40 mg SC DAILY@1000 syringe 10/05/17 Jevity 1.5 315 ml GT 5X/DAY bottle 10/05/17 Lactobacillus Acidophilus [Acidophilus] 1 tab GT DAILY #30 tab 10/05/17 Levofloxacin [Levaquin] 750 mg GT DAILY #7 tab 10/05/17 Mag Hydrox/Al Hydrox/Simeth [Mylanta II] 30 ml PO Q6H PRN PRN udc 10/05/17 Magnesium Hydroxide [Milk Of Magnesia] 30 ml PO DAILY PRN PRN udc 10/05/17 Psyllium [Metamucil] 1 packet GT DAILY PRN PRN packet 10/05/17 Senna/Docusate Sodium [Senokot-S] 2 tablet GT BID tablet 10/05/17 The following prescriptions were given: Amoxicillin/Potassium Clav [Augmentin 875-125 Tablet] 1 ea PO BID #14 tab Lactobacillus Acidophilus [Acidophilus] 1 tab GT DAILY #30 tab Levofloxacin [Levaquin] 750 mg GT DAILY #7 tab Primary Care Physician: Cirilo Mendoza MD [Primary Care Provider] - Proposed Discharge Date: 10/05/17
--- NOTE | 2017-10-05 10:52 | PCM.DC.SUM ---
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 Patient was transferred to the regular hospital following acute respiratory distress 1. Acute respiratory insufficiency converted to healthcare acquired pneumonia/aspiration pneumonia patient admitted to regular nursing floor managed with antibiotics 2. Stridor. Patient underwent endoscopic evaluation by Dr. Schultz with ENT with no obstruction found; however found to have thick secretions and was therefore determined his stridor was secondary to mucous plugging. 3. 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 4. Left pontine stroke complicating diagnostic catheterization of cervical arteries for suspected dissection. Patient is on statin therapy in addition to antiplatelet therapy 5 Status post tracheostomy; patient underwent decannulation on on 09/29/2016 6. Status post PEG tube placement 7. Left patellar fracture: knee immobilizer in place 8. Acute urinary retention patient is on Flomax in addition to White catheter 9. DVT prophylaxis SC Lovenox Discharge Diet: - - via gt Home Medications: Medications to take at Discharge Acetaminophen [Tylenol Suppository] 650 mg RECTAL Q4H PRN PRN suppos. 10/05/17 Amoxicillin/Potassium Clav [Augmentin 875-125 Tablet] 1 ea PO BID #14 tab 10/05/17 Bisacodyl [Dulcolax] 5 mg PO DAILY PRN PRN tablet 10/05/17 Enoxaparin [Lovenox] 40 mg SC DAILY@1000 syringe 10/05/17 Jevity 1.5 315 ml GT 5X/DAY bottle 10/05/17 Lactobacillus Acidophilus [Acidophilus] 1 tab GT DAILY #30 tab 10/05/17 Levofloxacin [Levaquin] 750 mg GT DAILY #7 tab 10/05/17 Mag Hydrox/Al Hydrox/Simeth [Mylanta II] 30 ml PO Q6H PRN PRN udc 10/05/17 Magnesium Hydroxide [Milk Of Magnesia] 30 ml PO DAILY PRN PRN udc 10/05/17 Psyllium [Metamucil] 1 packet GT DAILY PRN PRN packet 10/05/17 Senna/Docusate Sodium [Senokot-S] 2 tablet GT BID tablet 10/05/17 Following Prescrptions Were Given to Patient: Amoxicillin/Potassium Clav [Augmentin 875-125 Tablet] 1 ea PO BID #14 tab Lactobacillus Acidophilus [Acidophilus] 1 tab GT DAILY #30 tab Levofloxacin [Levaquin] 750 mg GT DAILY #7 tab Primary Care Physician: Cirilo Mendoza MD [Primary Care Provider] - Disposition: Inpt Rehab Unit/Facility Minutes spent on discharge:: 35 Patient Condition:: Stable Meaningful Use Info Meaningful Use Diagnoses (Choose all that apply): None applicable Code Visit Inpatient E&M: 35770 Disch Hosp
--- NOTE | 2017-10-05 10:59 | DS.PCM_ITS ---
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 Patient was transferred to the regular hospital following acute respiratory distress 1. Acute respiratory insufficiency converted to healthcare acquired pneumonia/ aspiration pneumonia patient admitted to regular nursing floor managed with antibiotics 2. Stridor. Patient underwent endoscopic evaluation by Dr. Schultz with ENT with no obstruction found; however found to have thick secretions and was therefore determined his stridor was secondary to mucous plugging. 3. 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 4. Left pontine stroke complicating diagnostic catheterization of cervical arteries for suspected dissection. Patient is on statin therapy in addition to antiplatelet therapy 5 Status post tracheostomy; patient underwent decannulation on on 09/29/2016 6. Status post PEG tube placement 7. Left patellar fracture: knee immobilizer in place 8. Acute urinary retention patient is on Flomax in addition to White catheter 9. DVT prophylaxis SC Lovenox Discharge Diet: - - via gt Home Medications: Medications to take at Discharge Acetaminophen [Tylenol Suppository] 650 mg RECTAL Q4H PRN PRN suppos. 10/05/17 Amoxicillin/Potassium Clav [Augmentin 875-125 Tablet] 1 ea PO BID #14 tab Bisacodyl [Dulcolax] 5 mg PO DAILY PRN PRN tablet 10/05/17 Enoxaparin [Lovenox] 40 mg SC DAILY@1000 syringe 10/05/17 Jevity 1.5 315 ml GT 5X/DAY bottle 10/05/17 Lactobacillus Acidophilus [Acidophilus] 1 tab GT DAILY #30 tab 10/05/17 Levofloxacin [Levaquin] 750 mg GT DAILY #7 tab 10/05/17 Mag Hydrox/Al Hydrox/Simeth [Mylanta II] 30 ml PO Q6H PRN PRN udc 10/05/17 Magnesium Hydroxide [Milk Of Magnesia] 30 ml PO DAILY PRN PRN udc 10/05/17 Psyllium [Metamucil] 1 packet GT DAILY PRN PRN packet 10/05/17 Senna/Docusate Sodium [Senokot-S] 2 tablet GT BID tablet 10/05/17 Following Prescrptions Were Given to Patient: Amoxicillin/Potassium Clav [Augmentin 875-125 Tablet] 1 ea PO BID #14 tab Lactobacillus Acidophilus [Acidophilus] 1 tab GT DAILY #30 tab Levofloxacin [Levaquin] 750 mg GT DAILY #7 tab Primary Care Physician: Cirilo Mendoza MD [Primary Care Provider] - Disposition: Inpt Rehab Unit/Facility Minutes spent on discharge:: 35 Patient Condition:: Stable Meaningful Use Info Meaningful Use Diagnoses (Choose all that apply): None applicable Code Visit Inpatient E&M: 44355 Disch Hosp
--- NOTE | 2017-10-05 11:55 | CASEMGMT ---
Social Work Pt ready for discharge on this date. Phone call to [facility] in Inpt Rehab and they are able to accept pt back. RN notified and will arrange transfer. SW met with pt in room and informed him that d/c is set for today and he can return to Inpt Rehab. Pt is agreeable. SW offered to phone family to notify of d/c and pt states no, he would prefer to tell them. No further d/c needs. Plan: [facility] Inpt Rehab [facility] [place]
[2017-10-05] MEDS: Enoxaparin 40 MG/0.4 ML Syringe SC (12:32)
[2017-10-05 12:33] VITALS: BP 107/66; PULSE 93; RESP 18; TEMP 37.3; O2SAT 96
[2017-10-05 13:33] LABS: Vancomycin, Trough Level 11.2 ug/mL (5.0-15.0)
== END 2017-10-05 13:30 | DRG 178 ==
LOC: ICU 13:13 → MS3 16:06
PROVIDERS: Admitting Provider Internal Medicine; Family Provider Family Medicine; PCP Family Medicine; Visit Provider Internal Medicine
DX: J69.0 Pneumonitis due to inhalation of food and vomit (principal); G81.91 Hemiplegia, unspecified affecting right dominant side; Z93.0 Tracheostomy status; T17.990A Other foreign object in respiratory tract, part unspecified in causing asphyxiation, initial encounter; Z93.1 Gastrostomy status; R33.9 Retention of urine, unspecified; S82.002D Unspecified fracture of left patella, subsequent encounter for closed fracture with routine healing; W17.89XD Other fall from one level to another, subsequent encounter; S12.9XXD Fracture of neck, unspecified, subsequent encounter
CPT/HCPCS: 36415; 80048; 80053; 80202; 83605; 83735; 85025; 85027; 87641; 97162; 97166; 97802; J7030; J7050; J0744

== ENCOUNTER 2017-10-06 19:51 | Inpatient (IN) | payer OTHER, SELFPAY ==
[2017-10-06] VITALS (11 sets, daily range): BP systolic 107–133; BP diastolic 82–87; PULSE 96–129; RESP 12–33; TEMP 36.9–37.4; O2SAT 97–100; BMI 21.6; BMI 21.8
--- NOTE | 2017-10-06 19:59 | CPS ---
PT ARRIVED FROM INPATIENT REHAB. VERBAL ORDER RECEIVED DURING TAX REPRESENTATIVE FROM DR. CARTY TO PLACE PT ON BIPAP. IF PRESSURE NEEDS INCREASE RT TO CALL DR. CARTY AND HE WILL CONSULT ENT. PT INITIATED ON BIPAP 07/11 RR12 35%. PTS WOB IMPROVED AND STRIDOR IMPROVED POST RACEMIC AEROSOL. PT STILL WITH ACCESSORY MUSCLE USE BUT HAS IMPROVED WELL SINCE RACEMIC AEROSOL.
[2017-10-06] MEDS: Racepinephrine HCl 0.5 ML VIAL.NEB. INHALATION (22:00)
--- NOTE | 2017-10-06 22:07 | CPS ---
Pt transported back from CT scan with RN Annalee and RT Rona on 35% VM tolerating well. Pt's WOB increased on arrival to their room and pt had stridor breath sounds. Bipap applied back on pt and Dr. Diaz paged for racemic order. Racemic given in-line with the bipap and breath sounds improved post tx. Pt tolerating bipap well. Racemic epi Q3prn ordered by Dr. Diaz if needed.
[2017-10-06] MEDS: Amox/Clavulanate 875 MG Tablet GT (23:07)
[2017-10-06] MEDS: 0.9% NaCl Peripheral Flush Adult/Peds IV (23:08)
[2017-10-07] VITALS (17 sets, daily range): BP systolic 106–130; BP diastolic 75–90; PULSE 83–115; RESP 12–33; TEMP 36.7–36.9; O2SAT 96–100
[2017-10-07] MEDS: Jevity 1.5. 1,000 ML Bottle 315 ML GT ×2 (00:24→07:00)
[2017-10-07 05:26] LABS: Absolute Lymphocyte Count 0.79 X10^3/ul (0.83-4.51); Absolute Neutrophil Count 9.8 X10^3/uL (2.0-7.7); Hemoglobin 12.6 g/dl (13.0-16.5); Lymphocyte # 0.79 X10^3/ul (4.0); Lymphocyte % 7.4 % (19-41); Mean Corp Hgb Conc 34.1 g/gl (32-36); Mean Corpuscular Hgb 30.2 pg (27.0-32.0); Mean Corpuscular Volume 88.7 fL (80-94); Mean Platelet Vol. 8.8 fl (6.2-12.0); Monocyte# 0.13 X10^3/uL; Monocyte% 1.2 % (0-10); Neutrophil # 9.79 X10^3/uL (2.7-7.7); Neutrophil % 91.2 % (47-70); Platelet Count 249 K/mm3 (150-450); RBC Distribution Width SD 45.5 fl (35.1-43.9); Red Blood Count 4.17 M/mm3 (4.6-6.2); White Blood Count 10.7 K/mm3 (4.4-11.0)
[2017-10-07 05:31] LABS: POSITIVE COUNT NO; POSITIVE DIFFERENTIAL NO; POSITIVE MORPHOLOGY NO
--- NOTE | 2017-10-07 05:55 | RAD_ITS ---
STUDY: X-RAY CHEST REASON FOR EXAM: Male, 27 years old. Cough TECHNIQUE: Single view of the chest was obtained COMPARISON: October 03, 2017 chest radiograph. FINDINGS: Interval development of left lower lobe infiltrate since previous examination. Subtle reticulonodular opacities in the right upper lobe also seen. Cardiac size is within normal limits. Osseous structures demonstrate no acute abnormalities. Right lower lobe airspace opacities are also seen. RAD/Chest 1 View (Portable) IMPRESSION: Interval development of left lower lobe infiltrate since previous examination Electronically Signed: Corey Lord, at 8:20 EST Tel , Service support ,
[2017-10-07 05:59] LABS: BUN 12 mg/dL (7-18); BUN/Creat Ratio 15.7 RATIO (10-20); Calcium,Total 9.3 mg/dL (8.5-10.1); Creatinine, Serum 0.76 mg/dL (0.70-1.30); EST Glomerular Filtration Rate 128 mL/min (>60); Est Glom Filt Rate - Afr Amer 155 mL/min (>60); Glucose 163 mg/dL (74-106); Potassium 4.6 mmol/L (3.5-5.1); Sodium Level 139 mmol/L (136-145)
[2017-10-07 06:11] LABS: Anion Gap 6 (5-15); Chloride 104 mmol/L (98-107)
--- NOTE | 2017-10-07 06:38 | PCM.PN.INT ---
Subjective: The patient is a 27-year-old male, with a history as outlined below, who presented to inpatient rehabilitation on 09/20 as a transfer from the [facility]. The patient was initially admitted to 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 The patient sustained fractures of his C4 and C5 vertebrae. Due to the mechanism of his injury, neurosurgery at [facility] performed a diagnostic catheterization of his cervical vessels which showed no intimal injury. However, in the PACU following that procedure the patient developed right-sided hemiparesis and aphasia. Subsequent MRI revealed that he had suffered a large left pontine stroke. The patient was subsequently transferred to the surgical intensive care unit for management of his respiratory failure. Despite attempts at weaning from mechanical ventilation, the patient was unable to be liberated from the ventilator. Therefore, on September 09, the patient underwent tracheostomy and PEG tube placement. He was then admitted to inpatient rehab on September 20. On September 21, the patient underwent tracheostomy change. He initially had a #8 cuffed [address] tracheostomy in place upon arrival. ENT changed out this trach to a #6 cuff less. The pulmonary medicine service and followed the patient over the ensuing week. The patient was then successfully decannulated on September 29. Of note, on September 14 FEES was completed at the [facility] and revealed silent aspiration of thin, honey and pur?ed textures. On October 01 a modified barium swallow revealed severe to profound oropharyngeal dysphagia with silent aspiration of all consistencies. On the morning of October 04 the patient developed respiratory distress with reported stridor. He was transferred from inpatient rehab to the medical ICU unit, where he underwent video laryngoscopy by ENT. The patient's epiglottis and vallecula were noted to be normal with bilateral vocal cord motion noted. He did have thick secretions noted throughout the hypopharynx. The etiology for his respiratory distress was felt to be secondary to transient mucous plugging, as the patient responded to bronchopulmonary hygiene. He was subsequently transferred back to the inpatient rehab unit on October 05. The patient did well for approximately 24 hours and then again on the morning of October 06 developed respiratory distress with similar symptoms to that noted previously. The patient received racemic epinephrine and breathing treatments. A soft tissue neck CT was significantly limited due to motion artifact. However, there was no definitive evidence for airway compromise. The patient initially responded to therapy only to have a similar episode later in the day on October 06. The decision was then made to again transfer the patient back to the intensive care unit. A repeat soft tissue CT neck was obtained, which again demonstrated no abnormality. The patient was placed on BiPAP therapy for symptomatic relief. Of note, the patient is on treatment for healthcare associated pneumonia. Objective: The patient's most recent lab work, culture data and imaging studies have all been personally reviewed. General: Alert, Oriented x3, Cooperative, - - Currently on BiPAP HEENT: Atraumatic, PERRLA, Normocephalic Oral: No Gingival or Mucosal Lesions/ Ulcerations Neck: - - Closed stoma site. Rigid cervical collar in place Lungs: Diminished, - - A mild degree of stridor can be appreciated once BiPAP was removed. Cardiovascular: Regular rate, Regular Rhythm, Normal S1, Normal S2, No murmurs Abdomen: Bowel Sounds Present, Soft, Non Tender, - - +PEG Extremities: No clubbing, No cyanosis, No edema Skin: No rashes, No breakdown Musculoskeletal: No Tenderness to Palpation of Joints or Extremities Lymphatic: No Cervical, Supraclavicular, or Inguinal Adenopathy Neurological: - - Residual right-sided weakness Psych/Mental Status: Normal Affect, Appropriate Vital Signs Temp Pulse Resp BP Pulse Ox 98.2 F 88 15 112/77 98 10/07/17 04:00 10/07/17 06:00 10/07/17 06:00 10/07/17 06:00 10/07/17 06:00 Oxygen Delivery Method Bi-pap Weight: 154 lb 15.759 oz Body Mass Index (BMI) 21.6 Intake and Output for Last 24 Hours 10/05/17 10/06/17 10/07/17 23:59 23:59 23:59 Intake Total 365 / 365 1042 / 1042 Output Total 500 / 500 Balance 365 / 365 542 / 542 Labs (Last 48 Hours) 10/07/17 10/07/17 05:00 05:00 WBC 10.7 RBC 4.17 L Hgb 12.6 L Hct 37.0 L MCV 88.7 MCH 30.2 MCHC 34.1 RDW 14.0 RDW Differential 45.5 H Plt Count 249 MPV 8.8 Immature Gran % (Auto) 0.200 Neut % (Auto) 91.2 H Lymph % (Auto) 7.4 L [place] % (Auto) 1.2 Eos % (Auto) 0.0 Baso % (Auto) 0.0 Absolute Neuts (auto) 9.8 H Absolute Lymphs (auto) 0.79 L Total Counted Not Reportable Sodium 139 Potassium 4.6 Chloride 104 Carbon Dioxide 29.0 Anion Gap 6 BUN 12 Creatinine 0.76 Estim Creat Clear Calc 142.60 Est GFR (MDRD) Af Amer 155 Est GFR (MDRD) Non-Af 128 BUN/Creatinine Ratio 15.7 Glucose 163 H Calcium 9.3 Assessment/Plan RECOMMENDATIONS: 1. Proceed with bronchoscopy at the bedside this morning 2. Continue BiPAP therapy as tolerated 3. Wean supplemental oxygen to maintain saturations at or above 90% IMPRESSIONS: 1. Acute respiratory failure/Recurrent episodes of acute respiratory distress/HCAP Unclear etiology at this time. CT soft tissue neck was largely unremarkable, but was limited by the lack of IV contrast. Initial concern was for transient mucous plugging due to the patient's underlying HCAP. However, given that these episodes continue to persist, we will proceed with bedside bronchoscopy this morning for further evaluation. The patient can be maintained on BiPAP therapy as tolerated. Wean oxygen to maintain saturations at or above 90%. Continue antibiotic coverage for HCAP. 2. Recent trauma with cervical spine fracture and subsequent pontine stroke The patient has been in rehab and had been progressing. He remains n.p.o. with a PEG tube in place. 3. Oropharyngeal dysphagia/aspiration Continue work with speech therapy. Continue tube feeds. This note was generated with [employer] dictation software. It may contain incorrect words, spelling, and punctuation that were not noted in checking the note before signing. Code Visit Inpatient E&M: [id number] [facility] Hosp L3
--- NOTE | 2017-10-07 06:43 | PN_ITS ---
Subjective: The patient is a 27-year-old male, with a history as outlined below, who presented to inpatient rehabilitation on 09/20 as a transfer from the [facility]. 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 The patient sustained fractures of his C4 and C5 vertebrae. Due to the mechanism of his injury, neurosurgery at [facility] performed a diagnostic catheterization of his cervical vessels which showed no intimal injury. However, in the PACU following that procedure the patient developed right-sided hemiparesis and aphasia. Subsequent MRI revealed that he had suffered a large left pontine stroke. The patient was subsequently transferred to the surgical intensive care unit for management of his respiratory failure. Despite attempts at weaning from mechanical ventilation, the patient was unable to be liberated from the ventilator. Therefore, on September 09, the patient underwent tracheostomy and PEG tube placement. He was then admitted to inpatient rehab on September 20. On September 21, the patient underwent tracheostomy change. He initially had a #8 cuffed [address]iley tracheostomy in place upon arrival. ENT changed out this trach to a #6 cuff less. The pulmonary medicine service and followed the patient over the ensuing week. The patient was then successfully decannulated on September 29. Of note, on September 14 FEES was completed at the [facility] and revealed silent aspiration of thin, honey and pur?ed textures. On October 01 a modified barium swallow revealed severe to profound oropharyngeal dysphagia with silent aspiration of all consistencies. On the morning of October 04 the patient developed respiratory distress with reported stridor. He was transferred from inpatient rehab to the medical ICU unit, where he underwent video laryngoscopy by ENT. The patient's epiglottis and vallecula were noted to be normal with bilateral vocal cord motion noted. He did have thick secretions noted throughout the hypopharynx. The etiology for his respiratory distress was felt to be secondary to transient mucous plugging, as the patient responded to bronchopulmonary hygiene. He was subsequently transferred back to the inpatient rehab unit on October 05. The patient did well for approximately 24 hours and then again on the morning of October 06 developed respiratory distress with similar symptoms to that noted previously. The patient received racemic epinephrine and breathing treatments. A soft tissue neck CT was significantly limited due to motion artifact. However, there was no definitive evidence for airway compromise. The patient initially responded to therapy only to have a similar episode later in the day on October 06. The decision was then made to again transfer the patient back to the intensive care unit. A repeat soft tissue CT neck was obtained, which again demonstrated no abnormality. The patient was placed on BiPAP therapy for symptomatic relief. Of note, the patient is on treatment for healthcare associated pneumonia. Objective: The patient's most recent lab work, culture data and imaging studies have all been personally reviewed. General: Alert, Oriented x3, Cooperative, - - Currently on BiPAP HEENT: Atraumatic, PERRLA, Normocephalic Oral: No Gingival or Mucosal Lesions/ Ulcerations Neck: - - Closed stoma site. Rigid cervical collar in place Lungs: Diminished, - - A mild degree of stridor can be appreciated once BiPAP was removed. Cardiovascular: Regular rate, Regular Rhythm, Normal S1, Normal S2, No murmurs Abdomen: Bowel Sounds Present, Soft, Non Tender, - - +PEG Extremities: No clubbing, No cyanosis, No edema Skin: No rashes, No breakdown Musculoskeletal: No Tenderness to Palpation of Joints or Extremities Lymphatic: No Cervical, Supraclavicular, or Inguinal Adenopathy Neurological: - - Residual right-sided weakness Psych/Mental Status: Normal Affect, Appropriate Vital Signs Temp Pulse Resp BP Pulse Ox 98.2 F 88 15 112/77 98 10/07/17 04:00 10/07/17 06:00 10/07/17 06:00 10/07/17 06:00 10/07/17 06:00 Oxygen Delivery Method Bi-pap Weight: 154 lb 15.759 oz Body Mass Index (BMI) 21.6 Intake and Output for Last 24 Hours 10/05/17 10/06/17 10/07/17 23:59 23:59 23:59 Intake Total 365 / 365 1042 / 1042 Output Total 500 / 500 Balance 365 / 365 542 / 542 Labs (Last 48 Hours) 10/07/17 10/07/17 05:00 05:00 WBC 10.7 RBC 4.17 L Hgb 12.6 L Hct 37.0 L MCV 88.7 MCH 30.2 MCHC 34.1 RDW 14.0 RDW Differential 45.5 H Plt Count 249 MPV 8.8 Immature Gran % (Auto) 0.200 Neut % (Auto) 91.2 H Lymph % (Auto) 7.4 L [place] % (Auto) 1.2 Eos % (Auto) 0.0 Baso % (Auto) 0.0 Absolute Neuts (auto) 9.8 H Absolute Lymphs (auto) 0.79 L Total Counted Not Reportable Sodium 139 Potassium 4.6 Chloride 104 Carbon Dioxide 29.0 Anion Gap 6 BUN 12 Creatinine 0.76 Estim Creat Clear Calc 142.60 Est GFR (MDRD) Af Amer 155 Est GFR (MDRD) Non-Af 128 BUN/Creatinine Ratio 15.7 Glucose 163 H Calcium 9.3 Assessment/Plan RECOMMENDATIONS: 1. Proceed with bronchoscopy at the bedside this morning 2. Continue BiPAP therapy as tolerated 3. Wean supplemental oxygen to maintain saturations at or above 90% IMPRESSIONS: 1. Acute respiratory failure/Recurrent episodes of acute respiratory distress/ HCAP Unclear etiology at this time. CT soft tissue neck was largely unremarkable, but was limited by the lack of IV contrast. Initial concern was for transient mucous plugging due to the patient's underlying HCAP. However, given that these episodes continue to persist, we will proceed with bedside bronchoscopy this morning for further evaluation. The patient can be maintained on BiPAP therapy as tolerated. Wean oxygen to maintain saturations at or above 90%. Continue antibiotic coverage for HCAP. 2. Recent trauma with cervical spine fracture and subsequent pontine stroke The patient has been in rehab and had been progressing. He remains n.p.o. with a PEG tube in place. 3. Oropharyngeal dysphagia/aspiration Continue work with speech therapy. Continue tube feeds. This note was generated with [employer] dictation software. It may contain incorrect words, spelling, and punctuation that were not noted in checking the note before signing. Code Visit Inpatient E&M: [id number] [facility] Hosp L3
--- NOTE | 2017-10-07 07:22 | PCM.PN.HOSP ---
Subjective: Patient was transferred by Dr. Garza to the ICU during the evening on account of patient having gone into respiratory distress attributed to me because plaque in the context of tracheal stenosis which was confirmed by Dr. Gomez's bronchoscopy this morning. Plan is for patient to be transferred to a tertiary care center for subsequent evaluation Objective: GENERAL: Affect flat HEENT: Clear conjunctiva, NECK; neck in the collar CHEST: Clear to auscultation bilaterally, HEART: Regular S1 S2, no audible murmurs ABDOMEN: soft, PEG tube in situ RECTAL: deferred EXTREMITIES: No edema, no clubbing, TECHNICIAN PREVENTATIVE MEDICINE: Awake, upper extremity weakness SKIN: No Rash Vitals/I&O's: Vital Signs Temp Pulse Resp BP Pulse Ox 98.2 F 89 14 112/77 100 10/07/17 04:00 10/07/17 07:04 10/07/17 07:04 10/07/17 06:00 10/07/17 07:04 Oxygen Delivery Method Bi-pap Weight: 70.3 kg Body Mass Index (BMI) 21.6 Intake and Output for Last 24 Hours 10/05/17 10/06/17 10/07/17 23:59 23:59 23:59 Intake Total 365 / 365 1042 / 1042 Output Total 500 / 500 Balance 365 / 365 542 / 542 Laboratory Results 10/07/17 05:00: WBC 10.7, RBC 4.17 L, Hgb 12.6 L, Hct 37.0 L, MCV 88.7, MCH 30.2, MCHC 34.1, RDW 14.0, RDW Differential 45.5 H, Plt Count 249, MPV 8.8, Immature Gran % (Auto) 0.200, Neut % (Auto) 91.2 H, Lymph % (Auto) 7.4 L, [place] % (Auto) 1.2, Eos % (Auto) 0.0, Baso % (Auto) 0.0, Absolute Neuts (auto) 9.8 H, Absolute Lymphs (auto) 0.79 L, Total Counted Not Reportable 10/07/17 05:00: Sodium 139, Potassium 4.6, Chloride 104, Carbon Dioxide 29.0, Anion Gap 6, BUN 12, Creatinine 0.76, Estim Creat Clear Calc 142.60, Est GFR (MDRD) Af Amer 155, Est GFR (MDRD) Non-Af 128, BUN/Creatinine Ratio 15.7, Glucose 163 H, Calcium 9.3 Current Medications Al Hydroxide/Mg Hydroxide (Mylanta Ii) 30 ml PO Q6H PRN PRN PRN Reason: Gastric burning Amoxicillin/Clavulanate Potassium (Augmentin Tablet) 875 mg GT BID [facility] Last Admin: 10/06/17 23:07 Dose: 875 mg Bisacodyl (Dulcolax) 5 mg PO DAILY PRN PRN PRN Reason: Constipation Enoxaparin Sodium (Lovenox) 40 mg SC DAILY@1000 [facility] Enteral Nutritional Formula (Jevity 1.5) 315 ml GT 5X/DAY [facility] Last Admin: 10/07/17 07:00 Dose: 315 ml Epinephrine (Vaponefrin) 0.5 ml INHALATION Q3H.RT PRN PRN Reason: SOB &/OR WHEEZING Sodium Chloride () 250 mls @ 15 mls/hr IV .[id number] PRN PRN Reason: SALINE FLUSH Lactobacillus Acidophilus (Acidophilus) 1 tablet GT DAILY [facility] Levofloxacin (Levaquin) 750 mg GT DAILY [facility] Magnesium Hydroxide (Milk Of Magnesia) 30 ml PO DAILY PRN PRN PRN Reason: Constipation Sodium Chloride () 5 - 30 ml IV UD PRN PRN Reason: SALINE FLUSH Last Admin: 10/06/17 23:08 Dose: 20 ml Assessment/Plan Patient is a 27-year-old gentleman who 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 And was transferred to the [facility] following acute respiratory distress secondary to combination of aspiration pneumonia as well as mucous plugging patient transferred back to the inpatient rehab unit following stabilization of his medical condition recent condition however deteriorated on the evening of 10/23/2017 resulting in patient being transferred back to the ICU 1. 1. Acute respiratory insufficiency converted to healthcare acquired pneumonia/aspiration pneumonia patient patient was admitted to the main hospital and readmitted back to the inpatient rehab unit following stabilization of his medical condition. 2. Stridor. Patient underwent endoscopic evaluation by Dr. Schultz with ENT with no obstruction found; however found to have thick secretions and was therefore determined his stridor was secondary to mucous plugging. Has since been placed on a Mucomyst in addition to racemic epinephrine as needed to be sent back to the ICU on the evening of 10/06/2017 bronchoscopy performed on the morning of 10/07/[address] Gomez revealed the presence of tracheal stenosis. Arrangements subsequently made for patient to be transferred to [facility] 3. 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 4. Left pontine stroke complicating diagnostic catheterization of cervical arteries for suspected dissection. Patient is on statin therapy in addition to platelet therapy 5. Status post tracheostomy removed on 09/29/2016 6. Status post PEG tube placement 7. Left patellar fracture: knee immobilizer in place 8. Acute urinary retention patient is on Flomax in addition to White catheter 9. DVT prophylaxis SC Lovenox
--- NOTE | 2017-10-07 08:31 | PCM.OP.BLANK ---
Operative Report Date of Procedure: 10/07/17 DATE OF SERVICE: October 07, 2017 BRIEF HISTORY: The patient is a 27-year-old male who was status post trach and PEG on September 09, 2017 at the [facility], following a traumatic injury. The patient was transferred to our inpatient rehabilitation unit on September 20. He subsequently underwent tracheostomy downsizing, capping trials and eventual decannulation on September 29. He did well following decannulation for approximately 5-6 days. He then went on to develop recurrent episodes of respiratory distress. The patient was evaluated by ENT with video laryngoscopy performed. There was noted to be normal. However, the patient's episodes continue to persist. CT soft tissue neck was largely unremarkable. Therefore, on October 07, the patient underwent bedside bronchoscopy, which did reveal evidence of tracheal stenosis. PROCEDURE: Diagnostic bronchoscopy INDICATION: Recurrent respiratory distress/stridor PHYSICIAN: Maximino Gomez DO ANESTHETIC: 2 mg of Versed, 50 mcg of fentanyl COMPLICATIONS: No immediate complications noted. DESCRIPTION OF PROCEDURE: A history and physical has been performed. Please see inpatient consultation note. The patient's medications and allergies have been reviewed. Informed consent was obtained from the patient. The risks and benefits of the procedure and sedation options and risks were discussed with the patient at length. All questions were answered and informed consent was obtained. The patient's identification and proposed procedure were verified prior to the procedure by the physician. ASA Grade Assessment: II After obtaining informed consent, the bronchoscope was inserted through the patient's mouth and advanced into the trachea. This procedure was accomplished without difficulty. The patient tolerated the procedure well. FINDINGS: The patient's supraglottic structures appeared normal. Vocal cords move normally. Thin secretions were noted throughout the hypopharynx. Upon entering the patient's trachea, a circumferential area of stenosis was identified. The bronchoscope was unable to be passed through this area. Retained secretions were suctioned and photographs were taken. IMPRESSION: 1. Thin secretions noted in hypopharynx and proximal trachea 2. Circumferential tracheal stenosis RECOMMENDATIONS: 1. Following a discussion with ENT, it has been advised that the patient be transferred to a tertiary care center for further evaluation and/or intervention upon the patient's tracheal stenosis. Code Visit [id number]: Other Procedure See Report
--- NOTE | 2017-10-07 08:39 | NURSING ---
Dr Gomez performed Bronchoscopy. He spoke w/Dr Steward regarding results who recommended transfer to tertiary care center. Spoke w/RN ROSARIO Flowers re:insurance. OK for pt to go wherever d/t emergent transfer.
--- NOTE | 2017-10-07 09:43 | PCM.DC.SUM ---
Discharge Date and Diagnosis Date of Admission: 10/04/17 Date of Discharge: 10/07/17 - Primary Discharge Diagnosis Tracheal stenosis - Secondary Discharge Diagnosis Chronic Problems Cervical spine fracture (Chronic) Respiratory failure after trauma (Chronic) Tracheostomy present (Chronic) Left pontine CVA (Chronic) Hospital Course and Treatment Imaging Results: Clinical Impression(s) from Imaging Studies Chest X-Ray 10/07/17 05:55 IMPRESSION: Interval development of left lower lobe infiltrate since previous examination Electronically Signed: Corey Lord, at 8:20 EST Tel , Service support , Summary of Care Provided: Patient is a 27-year-old gentleman who 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 And was transferred to the [facility] hospital following acute respiratory distress secondary to combination of aspiration pneumonia as well as mucous plugging patient transferred back to the inpatient rehab unit following stabilization of his medical condition recent condition however deteriorated on the evening of 10/23/2017 resulting in patient being transferred back to the ICU 1. 1. Acute respiratory insufficiency converted to healthcare acquired pneumonia/aspiration pneumonia patient patient was admitted to the [facility] hospital and readmitted back to the inpatient rehab unit following stabilization of his medical condition. Condition however deteriorated once more resulting in patient being transferred back to the tensive care unit 2. Stridor. Patient underwent endoscopic evaluation by Dr. Schultz with ENT with no obstruction found; however found to have thick secretions and was therefore determined his stridor was secondary to mucous plugging. Has since been placed on a Mucomyst in addition to racemic epinephrine as needed to be sent back to the ICU on the evening of 10/06/2017 bronchoscopy performed on the morning of 10/07/[address] Gomez revealed the presence of tracheal stenosis. Arrangements subsequently made for patient to be transferred to [facility] 3. 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 4. Left pontine stroke complicating diagnostic catheterization of cervical arteries for suspected dissection. Patient is on statin therapy in addition to platelet therapy 5. Status post tracheostomy removed on 09/29/2016 6. Status post PEG tube placement 7. Left patellar fracture: knee immobilizer in place 8. Acute urinary retention patient is on Flomax in addition to White catheter 9. DVT prophylaxis SC Lovenox Home Medications: Medications to take at Discharge Amoxicillin/Potassium Clav [Augmentin 875-125 Tablet] 1 each GT BID 10/05/17 Bisacodyl [Dulcolax] 5 mg PO DAILY PRN PRN tablet 10/05/17 Enoxaparin [Lovenox] 40 mg SC DAILY@1000 10/05/17 Jevity 1.5 315 ml GT 5X/DAY 10/05/17 Lactobacillus Acidophilus [Acidophilus] 1 tablet GT DAILY 10/05/17 Levofloxacin [Levaquin] 750 mg GT DAILY 10/05/17 Mag Hydrox/Al Hydrox/Simeth [Mylanta II] 30 ml PO Q6H PRN PRN udc 10/05/17 Magnesium Hydroxide [Milk Of Magnesia] 30 ml PO DAILY PRN PRN udc 10/05/17 Psyllium [Metamucil] 1 packet GT DAILY PRN PRN packet 10/05/17 Senna/Docusate Sodium [Senokot-S] 2 tablet GT BID 10/05/17 Primary Care Physician: Cirilo Mendoza MD [Primary Care Provider] - Disposition: Acute care Hospital - [facility] Minutes spent on discharge:: 45 Patient Condition:: Fair Meaningful Use Info Meaningful Use Diagnoses (Choose all that apply): None applicable Code Visit Inpatient E&M: 27834 Disch Hosp
--- NOTE | 2017-10-07 10:25 | NURSING ---
Spoke w/Dr Gomez regarding ground MICU transportation. Ground transport is unable to arrive until 1700. Dr Gomez does not feel it is best for pt to be here that long, requests air transport. [facility]. Approx ETA 25 minutes.
[2017-10-07] MEDS: Albuterol 2.5 MG/3 ML VIAL.NEB. INHALATION (10:36)
[2017-10-07] MEDS: levoFLOXacin 750 MG Tablet GT (10:37)
[2017-10-07] MEDS: Amox/Clavulanate 875 MG Tablet GT (10:37)
--- NOTE | 2017-10-07 11:26 | NURSING ---
[facility] transport here for pt. Pt's taking all of his belongings with her. Pt remains on BiPap.
--- NOTE | 2017-10-07 12:06 | NURSING ---
[facility] left w/pt.
--- NOTE | 2017-10-13 00:31 | HP.PCM_ITS ---
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 Aidan carvalho was called on October 06, 2017 for acute respiratory failure. Pt had stridor and had to be placed on bipap. After a few minutes being placed on bipap, he improved. However, he was transferred to the ICU for further stabilization. He was also given racemic epinephrine. Past Medical History Past Medical History (Chronic Problems): Chronic Problems Left patella fracture (Chronic) Cervical spine fracture (Chronic) Respiratory failure after trauma (Chronic) Tracheostomy present (Chronic) Left pontine CVA (Chronic) Allergies No Known Allergies Allergy (Verified 10/10/17 16:31) Home Medications: Ambulatory Orders Medication Instructions Recorded Enoxaparin [Lovenox] 40 mg SC DAILY@0600 10/05/17 Jevity 1.5 315 ml GT 5X/DAY 10/05/17 Lactobacillus Acidophilus 1 tablet GT DAILY 10/05/17 [Acidophilus] Aspirin [Aspirin, Baby] 81 mg GT DAILY@0800 10/10/17 Docusate Sodium [COLACE LIQUID] 20 ml GT BID 10/10/17 Melatonin 3 mg GT QHS 10/10/17 Polyethylene Glycol 3350 [Miralax] 17 gm GT DAILY 10/10/17 Tamsulosin HCl [Flomax] 0.4 mg GT DAILY 10/10/17 Surgical History: no surgical history Psychiatric History: No pertinent psych hx Smoking Status: Never smoker - *Family History Maternal History Items: No pertinent history Review of Systems Constitutional: Denies: Chills, Fever, Weight Change HEENT: Denies: Head Aches, Sinus Congestion, Sinus Drainage Cardiovascular: Denies: Chest Pain, Palpitations Respiratory: Reports: Shortness of Breath, Shortness of breath at rest. Denies : Sputum production Gastrointestinal: Denies: Abdominal Pain, Nausea, Vomiting Genitourinary: Denies: Dysuria Musculoskeletal: Denies: Joint Pain, Joint Tenderness Skin: Denies: Rash, Wounds Neurological: Denies: Numbness, Tingling, Focal weakness Psychiatric: Denies: Anxiety, Depression, Homicidal Ideations, Suicidal Ideations Hematologic/ Lymphatic: Denies: Easy Bruising, Easy Bleeding VTE Information - Inpt Only VTE Present on Admission: No VTE Mechan Device Prophylaxis: SCD's VTE Pharm Prophylaxis ordered?: Yes Patient Problems: Active and Suspected Problems Tracheal stenosis following tracheostomy (Acute) - Physical Exam General: Alert, Oriented x3, Cooperative HEENT: Atraumatic, PERRLA, EOMI, Normocephalic Neck: Supple, No JVD, Negative Carotid Bruits Lungs: Normal air movement, Short of Breath - Stridor noted Cardiovascular: Regular rate, No murmurs Abdomen: Bowel Sounds Present, Soft, Non Tender Extremities: No edema, Capillary Refill Less than 3 Seconds Skin: No rashes, No breakdown Musculoskeletal: No Tenderness to Palpation of Joints or Extremities Neurological: - - right sided hemiparesis Psych/Mental Status: Normal Affect, Appropriate Vital Signs Temp Pulse Resp BP Pulse Ox 98.0 F 115 H 28 H 129/79 H 98 10/07/17 08:00 10/07/17 11:00 10/07/17 11:00 10/07/17 11:00 10/07/17 11:00 Oxygen Delivery Method Bi-pap Weight: 70.3 kg Body Mass Index (BMI) 21.6 Assessment/Plan Active and Suspected Problems Tracheal stenosis following tracheostomy (Acute) 27 year old male w/ h/o 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 1) Acute respiratory failure: Most likely will need bronchoscopy in AM. C/w bipap. Repeat CT chest. 2) Stridor: Probably secondary to tracheal stenosis. ENT to re-evaluate in AM. 3) Chronic issues: C4-C5 vertebra fracture, left pontine stroke w/ resultant right sided hemiparesis: C/w current management.
== END 2017-10-07 12:00 | disposition short-term general hospital (02) | DRG 189 ==
PROVIDERS: Internal Medicine Critical Care Medicine; Admitting Provider Internal Medicine; Family Provider Family Medicine; PCP Family Medicine; Visit Provider Internal Medicine
PROC: 0BJ08ZZ Inspection of Tracheobronchial Tree, Via Natural or Artificial Opening Endoscopic (ICD-10-PCS; CPT 31622; principal; 2017-10-07 08:00)
DX: J96.00 Acute respiratory failure, unspecified whether with hypoxia or hypercapnia (principal); J69.0 Pneumonitis due to inhalation of food and vomit; I69.351 Hemiplegia and hemiparesis following cerebral infarction affecting right dominant side; Z93.0 Tracheostomy status; R13.12 Dysphagia, oropharyngeal phase; J39.8 Other specified diseases of upper respiratory tract; Z93.1 Gastrostomy status; Y95 Nosocomial condition; R33.9 Retention of urine, unspecified; S82.002D Unspecified fracture of left patella, subsequent encounter for closed fracture with routine healing; W17.89XD Other fall from one level to another, subsequent encounter; S12.300D Unspecified displaced fracture of fourth cervical vertebra, subsequent encounter for fracture with routine healing; S12.400D Unspecified displaced fracture of fifth cervical vertebra, subsequent encounter for fracture with routine healing
CPT/HCPCS: 71045; 80048; 85025; 94002; 94003; 94640; 97802; 99152; J3010; A4216

== ENCOUNTER 2017-10-10 16:09 | Inpatient (IN) | payer OTHER, SELFPAY ==
[2017-10-10 16:28] VITALS: BP 114/67; PULSE 67; RESP 18; TEMP 36.7; O2SAT 93; BMI 22.1; BMI 22.2
[2017-10-10 16:30] VITALS: O2SAT 99
[2017-10-10 18:33] VITALS: PULSE 90; RESP 18; O2SAT 98
[2017-10-10] MEDS: Ipratropium/Albuterol Sulfate 3 ML AMPUL.NEB INHALATION ×2 (18:33→22:40)
[2017-10-10 19:36] VITALS: BP 114/70; PULSE 76; RESP 18; TEMP 36.8; O2SAT 96
[2017-10-10] MEDS: Famotidine 20 MG Tablet GT (21:38)
[2017-10-10] MEDS: MELATONIN 3 MG TABLET GT (21:38)
[2017-10-10] MEDS: Atorvastatin Calcium 20 MG Tablet GT (21:38)
[2017-10-10] MEDS: Jevity 1.5. 1,000 ML Bottle 315 ML GT (21:39)
[2017-10-10] MEDS: Docusate Sodium 100 MG/10 ML UDC 200 MG GT (21:40)
[2017-10-10] MEDS: Amox/Clavulanate 875 MG Tablet GT (21:41)
[2017-10-10 22:40] VITALS: PULSE 84; RESP 18; O2SAT 96
[2017-10-10 22:46] VITALS: BMI 22.1
[2017-10-11] MEDS: Enoxaparin 40 MG/0.4 ML Syringe SC (05:00)
[2017-10-11] MEDS: Jevity 1.5. 1,000 ML Bottle 315 ML GT ×5 (05:00→21:37)
[2017-10-11] MEDS: levoFLOXacin 750 MG Tablet GT (05:00)
[2017-10-11 06:10] LABS: Hemoglobin 12.7 g/dl (13.0-16.5); Mean Corp Hgb Conc 33.4 g/gl (32-36); Mean Corpuscular Hgb 29.6 pg (27.0-32.0); Mean Corpuscular Volume 88.6 fL (80-94); Mean Platelet Vol. 8.8 fl (6.2-12.0); Platelet Count 238 K/mm3 (150-450); RBC Distribution Width CV 13.8 % (11.6-14.6); RBC Distribution Width SD 44.6 fl (35.1-43.9); Red Blood Count 4.29 M/mm3 (4.6-6.2); White Blood Count 6.7 K/mm3 (4.4-11.0)
[2017-10-11 06:26] LABS: Scan Indicated on CBC? Y/N NO
[2017-10-11 06:27] LABS: ALB/GLOB Ratio 0.7 RATIO (0.9-2.4); AST(SGOT) 24 U/L (15-37); Alanine Aminotransfer ALT/SGPT 30 U/L (16-61); Alkaline Phosphatase 86 U/L (45-117); Anion Gap 10 (5-15); BUN 13 mg/dL (7-18); Calcium,Total 9.2 mg/dL (8.5-10.1); Chloride 100 mmol/L (98-107); Creatinine, Serum 0.68 mg/dL (0.70-1.30); EST Glomerular Filtration Rate 145 mL/min (>60); Est Glom Filt Rate - Afr Amer 175 mL/min (>60); Globulin 4.1 g/dL (2.2-4.2); Glucose 117 mg/dL (74-106); Magnesium 1.9 mg/dL (1.6-2.6); Phosphorus 4.5 mg/dL (2.5-4.9); Protein, Total 7.1 g/dL (6.4-8.2); Sodium Level 138 mmol/L (136-145)
[2017-10-11 07:01] VITALS: PULSE 57; RESP 16; O2SAT 98
[2017-10-11] MEDS: Ipratropium/Albuterol Sulfate 3 ML AMPUL.NEB INHALATION ×3 (07:02→18:35)
[2017-10-11] MEDS: Amox/Clavulanate 875 MG Tablet GT ×2 (08:30→21:37)
[2017-10-11] MEDS: Famotidine 20 MG Tablet GT ×2 (08:30→21:39)
[2017-10-11] MEDS: Docusate Sodium 100 MG/10 ML UDC 200 MG GT ×2 (08:30→21:37)
[2017-10-11] MEDS: Aspirin 81 MG TAB.CHEW GT (08:30)
[2017-10-11] MEDS: Polyethylene Glycol 3350 17 GM PACKET GT (08:31)
[2017-10-11 09:09] VITALS: BP 111/68; PULSE 82; RESP 18; TEMP 37; O2SAT 93
[2017-10-11] MEDS: NYSTATIN 500,000 UNIT/5 ML UDC 500000 UNIT PO ×4 (13:02→21:38)
[2017-10-11 13:10] VITALS: BMI 22.1
[2017-10-11 13:43] VITALS: PULSE 84; RESP 16
--- NOTE | 2017-10-11 16:45 | CHAPLAIN ---
Type of Pastoral Visit ___ Initial Visit _x__ Follow-up Visit ___ On-call Visit ___ General Patient Visit ___ Spiritual Assessment ___ Family Conference ___ Bereavement ___ Rapid Response ___ Code Blue ___ Other (describe below) Pastoral Care Referral From _x__ Patient ___ Family ___ Nurse ___ Physician ___ Upsetter Helper ___ [employer] ___ Other (describe below) Sacrament/Intervention ___ Active listening ___ Anointing ___ Church ___ Bereavement ___ Communion _x__ Lazara exploration ___ ___ Life review _x__ Prayer ___ Reconciliation ___ Sacrament of Sick _x__ Supportive presence ___ Wedding ___ Other (describe below) Pastoral Comments patient communicated through hand signals and texting on his phone; pt welcomed a Bible reading from Rakesh 8 and then after this shipwright apprentice read it pt said it was one of his favorite passages; sat and gave presence to patient and watched the snow come down outside; affirmed support for patient; offered a prayer; after prayer the pt had tears running down his checks; reminded pt that this shipwright apprentice is available as needed for support and prayers
[2017-10-11] MEDS: Tamsulosin HCl 0.4 MG Capsule PO (17:03)
--- NOTE | 2017-10-11 17:06 | PCM.CONS.GEN ---
Problem List (1) Aspiration pneumonia Status: Acute (2) Left patella fracture Status: Chronic (3) Cervical spine fracture Status: Chronic (4) Left pontine CVA Status: Chronic (5) Respiratory failure after trauma Status: Chronic (6) Tracheostomy present Status: Chronic Reason for Consult Date of Consultation: 10/11/17 Reason for Consultation: Medical management History of Present Illness: The patient is a 27 year old M who presents to the rehab unit after DC from [facility]. He has been in and out of the rehab unit since September. Initially the patient was treated at [facility] for a C4/C5 fracture, for which he had a fusion. He had fallen off of a roof at work, he also had a nonsurgical left patellar fracture. After the surgery he developed right hemiplegia and aphasia. He was found to have an acute left pontine stroke and was intubated. When stabilized h e was DC'd from [facility] to the rehab unit on 09/20. On 09/29 pulmonology decannulated his tracheostomy. He developed respiratory distress and stridor on 10/04 and was admitted to [facility] ICU. He was discharged back to the Rehab Unit on 10/05. On 10/06 he was transferred back to [facility] in respiratory failure. On 10/07 he was transferred from [facility] to [facility]. At [facility] a new tracheostomy was placed for tracheal stenosis. Also of note prior to transfer to [facility] he was on augmentin and levaquin for suspected aspiration pna with a CXR showing a developing left lower lobe infiltrate. These were not continued at [facility]. They were restarted upon admission to the rehab unit. He is using 28% blow by O2 with his trach. Nursing notes that he did not desaturate today when off of the O2. He has severe Right sided weakness but reportedly is able to walk. He does not speak. 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) Allergies No Known Allergies Allergy (Verified 10/10/17 16:31) Home Medications: Ambulatory Orders Medication Instructions Recorded Enoxaparin [Lovenox] 40 mg SC DAILY@0600 10/05/17 Jevity 1.5 315 ml GT 5X/DAY 10/05/17 Lactobacillus Acidophilus 1 tablet GT DAILY 10/05/17 [Acidophilus] Aspirin [Aspirin, Baby] 81 mg GT DAILY@0800 10/10/17 Docusate Sodium [COLACE LIQUID] 20 ml GT BID 10/10/17 Melatonin 3 mg GT QHS 10/10/17 Polyethylene Glycol 3350 [Miralax] 17 gm GT DAILY 10/10/17 Tamsulosin HCl [Flomax] 0.4 mg GT DAILY 10/10/17 Surgical History: - - C4/5 fusion Psychiatric History: No pertinent psych hx Lives: With Family Smoking Status: Never smoker Tobacco Use: Non-smoker Alcohol: None Drugs: None - *Family History Maternal History Items: No pertinent history Review of Systems Constitutional: Denies: Chills, Fever, Weight Change HEENT: Denies: Head Aches, Sinus Congestion, Sinus Drainage Cardiovascular: Denies: Chest Pain, Palpitations Respiratory: Denies: Cough, Shortness of breath at rest, Sputum production Gastrointestinal: Denies: Abdominal Pain, Nausea, Vomiting Genitourinary: Denies: Dysuria Musculoskeletal: Denies: Joint Pain, Joint Tenderness Skin: Denies: Rash, Wounds Neurological: Denies: Numbness, Tingling, Focal weakness Psychiatric: Denies: Anxiety, Depression, Homicidal Ideations, Suicidal Ideations Hematologic/ Lymphatic: Denies: Easy Bruising, Easy Bleeding - Physical Exam General: Alert, Oriented x3, Cooperative HEENT: Atraumatic, PERRLA, EOMI, Normocephalic Neck: Supple, No JVD, Negative Carotid Bruits Lungs: Clear to auscultation, Normal air movement, - - tracheostomy in place. Cardiovascular: Regular rate, No murmurs Abdomen: Bowel Sounds Present, Soft, Non Tender Extremities: No edema, Capillary Refill Less than 3 Seconds Skin: No rashes, No breakdown Musculoskeletal: No Tenderness to Palpation of Joints or Extremities Neurological: Cranial nerves II-XII grossly intact Psych/Mental Status: Normal Affect, Appropriate Vital Signs Temp Pulse Resp BP Pulse Ox 98.6 F 84 16 111/68 93 10/11/17 09:09 10/11/17 13:43 10/11/17 13:43 10/11/17 09:09 10/11/17 09:09 Oxygen Flow Rate (L/min) 8 Oxygen Delivery Method Trach Collar Weight: 70 kg Body Mass Index (BMI) 22.1 Intake and Output for Last 24 Hours 10/09/17 10/10/17 10/11/17 23:59 23:59 23:59 Intake Total 565 / 565 1695 / 1695 Output Total 450 / 450 1550 / 1550 Balance 115 / 115 145 / 145 Laboratory Tests Past 24 Hrs 10/11/17 10/11/17 05:30 05:30 WBC 6.7 RBC 4.29 L Hgb 12.7 L Hct 38.0 L MCV 88.6 MCH 29.6 MCHC 33.4 RDW 13.8 RDW Differential 44.6 H Plt Count 238 MPV 8.8 Sodium 138 Potassium 4.0 Chloride 100 Carbon Dioxide 28.0 Anion Gap 10 BUN 13 Creatinine 0.68 L Estim Creat Clear Calc 158.70 Est GFR (MDRD) Af Amer 175 Est GFR (MDRD) Non-Af 145 BUN/Creatinine Ratio 19.0 Glucose 117 H Calcium 9.2 Phosphorus 4.5 Magnesium 1.9 Total Bilirubin 0.50 AST 24 ALT 30 Alkaline Phosphatase 86 Total Protein 7.1 Albumin 3.0 L Globulin 4.1 Albumin/Globulin Ratio 0.7 L Assessment/Plan 1. Aspiration/HCAP - was not on abx at [facility]. Monitor for further cough, fever, leukocytosis, worsening dyspnea. Repeat CXR PA/Lat in AM. Continue Abx as ordered per rehab team - levaquin/augmentin. Defer to pulmonology. 2. Respiratory failure 2/2 tracheal stenosis - pulmonology following. Did not desaturate off O2 at today per RN. This is 2nd trach placement. He was noted to be aphasic at [facility] at time of acute stroke, but his current not speaking is due to his new trach. He was speaking well prior to this new one being placed. 3. Right sided hemiplegia 2/2 left pontine stroke. PTOT. Asa/Statin. 4. Dysphagia 2/2 acute CVA - continue Jevity as ordered via PEG tube. 5. C4/C5 cervical fracture 2/2 fall from roof - s/p fusion surgery 6. Left patellar fracture - nonsurgical, immobilizer as directed by ortho. 7. Urinary retention - flomax. He no longer has a martin and there is no further reported retention. DVT ppx: lovenox Thank you for the opportunity to participate in the care of this patient. This patient was seen by Michele Niño PA-C under the supervision of Dr. Harris.
--- NOTE | 2017-10-11 17:11 | CON.PCM_ITS ---
Problem List (1) Aspiration pneumonia Status: Acute (2) Left patella fracture Status: Chronic (3) Cervical spine fracture Status: Chronic (4) Left pontine CVA Status: Chronic (5) Respiratory failure after trauma Status: Chronic (6) Tracheostomy present Status: Chronic Reason for Consult Date of Consultation: 10/11/17 Reason for Consultation: Medical management History of Present Illness: The patient is a 27 year old M who presents to the rehab unit after DC from [facility]. He has been in and out of the rehab unit since September. Initially the patient was treated at [facility] for a C4/C5 fracture, for which he had a fusion. He had fallen off of a roof at work, he also had a nonsurgical left patellar fracture. After the surgery he developed right hemiplegia and aphasia. He was found to have an acute left pontine stroke and was intubated. When stabilized h e was DC'd from [facility] to the rehab unit on 09/20. On 09/29 pulmonology decannulated his tracheostomy. He developed respiratory distress and stridor on 10/04 and was admitted to [facility] ICU. He was discharged back to the Rehab Unit on 10/05. On 10/06 he was transferred back to [facility] in respiratory failure. On 10/07 he was transferred from [facility] to [facility]. At [facility] a new tracheostomy was placed for tracheal stenosis. Also of note prior to transfer to [facility] he was on augmentin and levaquin for suspected aspiration pna with a CXR showing a developing left lower lobe infiltrate. These were not continued at [facility]. They were restarted upon admission to the rehab unit. He is using 28% blow by O2 with his trach. Nursing notes that he did not desaturate today when off of the O2. He has severe Right sided weakness but reportedly is able to walk. He does not speak. 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) Allergies No Known Allergies Allergy (Verified 10/10/17 16:31) Home Medications: Ambulatory Orders Medication Instructions Recorded Enoxaparin [Lovenox] 40 mg SC DAILY@0600 10/05/17 Jevity 1.5 315 ml GT 5X/DAY 10/05/17 Lactobacillus Acidophilus 1 tablet GT DAILY 10/05/17 [Acidophilus] Aspirin [Aspirin, Baby] 81 mg GT DAILY@0800 10/10/17 Docusate Sodium [COLACE LIQUID] 20 ml GT BID 10/10/17 Melatonin 3 mg GT QHS 10/10/17 Polyethylene Glycol 3350 [Miralax] 17 gm GT DAILY 10/10/17 Tamsulosin HCl [Flomax] 0.4 mg GT DAILY 10/10/17 Surgical History: - - C4/5 fusion Psychiatric History: No pertinent psych hx Lives: With Family Smoking Status: Never smoker Tobacco Use: Non-smoker Alcohol: None Drugs: None - *Family History Maternal History Items: No pertinent history Review of Systems Constitutional: Denies: Chills, Fever, Weight Change HEENT: Denies: Head Aches, Sinus Congestion, Sinus Drainage Cardiovascular: Denies: Chest Pain, Palpitations Respiratory: Denies: Cough, Shortness of breath at rest, Sputum production Gastrointestinal: Denies: Abdominal Pain, Nausea, Vomiting Genitourinary: Denies: Dysuria Musculoskeletal: Denies: Joint Pain, Joint Tenderness Skin: Denies: Rash, Wounds Neurological: Denies: Numbness, Tingling, Focal weakness Psychiatric: Denies: Anxiety, Depression, Homicidal Ideations, Suicidal Ideations Hematologic/ Lymphatic: Denies: Easy Bruising, Easy Bleeding - Physical Exam General: Alert, Oriented x3, Cooperative HEENT: Atraumatic, PERRLA, EOMI, Normocephalic Neck: Supple, No JVD, Negative Carotid Bruits Lungs: Clear to auscultation, Normal air movement, - - tracheostomy in place. Cardiovascular: Regular rate, No murmurs Abdomen: Bowel Sounds Present, Soft, Non Tender Extremities: No edema, Capillary Refill Less than 3 Seconds Skin: No rashes, No breakdown Musculoskeletal: No Tenderness to Palpation of Joints or Extremities Neurological: Cranial nerves II-XII grossly intact Psych/Mental Status: Normal Affect, Appropriate Vital Signs Temp Pulse Resp BP Pulse Ox 98.6 F 84 16 111/68 93 10/11/17 09:09 10/11/17 13:43 10/11/17 13:43 10/11/17 09:09 10/11/17 09:09 Oxygen Flow Rate (L/min) 8 Oxygen Delivery Method Trach Collar Weight: 70 kg Body Mass Index (BMI) 22.1 Intake and Output for Last 24 Hours 10/09/17 10/10/17 10/11/17 23:59 23:59 23:59 Intake Total 565 / 565 1695 / 1695 Output Total 450 / 450 1550 / 1550 Balance 115 / 115 145 / 145 Laboratory Tests Past 24 Hrs 10/11/17 10/11/17 05:30 05:30 WBC 6.7 RBC 4.29 L Hgb 12.7 L Hct 38.0 L MCV 88.6 MCH 29.6 MCHC 33.4 RDW 13.8 RDW Differential 44.6 H Plt Count 238 MPV 8.8 Sodium 138 Potassium 4.0 Chloride 100 Carbon Dioxide 28.0 Anion Gap 10 BUN 13 Creatinine 0.68 L Estim Creat Clear Calc 158.70 Est GFR (MDRD) Af Amer 175 Est GFR (MDRD) Non-Af 145 BUN/Creatinine Ratio 19.0 Glucose 117 H Calcium 9.2 Phosphorus 4.5 Magnesium 1.9 Total Bilirubin 0.50 AST 24 ALT 30 Alkaline Phosphatase 86 Total Protein 7.1 Albumin 3.0 L Globulin 4.1 Albumin/Globulin Ratio 0.7 L Assessment/Plan 1. Aspiration/HCAP - was not on abx at [facility]. Monitor for further cough, fever, leukocytosis, worsening dyspnea. Repeat CXR PA/Lat in AM. Continue Abx as ordered per rehab team - levaquin/augmentin. Defer to pulmonology. 2. Respiratory failure 2/2 tracheal stenosis - pulmonology following. Did not desaturate off O2 at today per RN. This is 2nd trach placement. He was noted to be aphasic at [facility] at time of acute stroke, but his current not speaking is due to his new trach. He was speaking well prior to this new one being placed. 3. Right sided hemiplegia 2/2 left pontine stroke. PTOT. Asa/Statin. 4. Dysphagia 2/2 acute CVA - continue Jevity as ordered via PEG tube. 5. C4/C5 cervical fracture 2/2 fall from roof - s/p fusion surgery 6. Left patellar fracture - nonsurgical, immobilizer as directed by ortho. 7. Urinary retention - flomax. He no longer has a martin and there is no further reported retention. DVT ppx: lovenox Thank you for the opportunity to participate in the care of this patient. This patient was seen by Michele Niño PA-C under the supervision of Dr. Harris.
--- NOTE | 2017-10-11 17:47 | HP.PCM.COS_ITS ---
History of Present Illness Date of Admission: 10/10/17 Chief Complaint: CVA/Debility from Mechanical fall 27 M admitted to [facility] on 09/20/17 with debility s/p traumatic fall with C4-C5 fracture, T2 fracture, left patellar fracture and stroke, patient admitted to [facility] s/p traumatic fall from about 20 feet at work, found to have C4-C5 fracture s/p discectomy and fusion, hospital course complicated with left pontine stroke and posterior circulation strokes, s/p angiogram, on ASA, statin, s/p trach which was decannulated during the inpatient RU stay on 09/29/17 and s/p PEG, right sided weakness, on cervical collar to be continues atleast for 4 weeks per documentation. Patient developed acute onset dyspnea overnight (10/04/17), was seen by the hospitalist, diagnosed with right LL aspiration PNA, his SOB worsened this morning (10/04/17), and per Dr. Gomez special shopper it was felt that he would benefit from ICU admission for further monitoring and management of his symptoms. Patient transferred to ICU for further management of aspiration PNA. Had mucus plugging. Patient was then readmitted to [facility] on 10/05/17 after being treated with antibiotics and was maintained on Augmentin and Levaquin but during the night of 10/05/17 patient again developed dyspnea, respiratory distress , with tachypnea and tachycardia needing racemic epinephrine which stabilized the patient but overnight patient had more episodes of acute respiratory distress the evening of (10/06/17) patient developed severe stridor with acute dyspnea, with tachypnea and tachycardia needing racemic epinephrine, hospitalist and special shopper was consulted who felt patient would benefit from monitoring in the ICU for evaluation and management. Patient was transferred back to ICU with acute respiratory distress, Stridor, dyspnea, tachypnea and tachycardia for further medical management and stabilization. On 10/07 he was transferred from [facility] to [facility]. At [facility] a new tracheostomy was placed for tracheal stenosis. Also of note prior to transfer to [facility] he was on Augmentin and Levaquin for suspected aspiration pna with a CXR showing a developing left lower lobe infiltrate. These were not continued at [facility]. They were restarted upon admission to the rehab unit. He is using 28% blow by O2 with his trach. His Left knee immobilizer, was cleared for removal on 10/08 by the Orthopedic surgeons here at [facility] on his return to the unit it was removed. He may have passive range of motion on that side per Ortho notes. He is on Tube feed, Pivot 315 cc 5 x a day. His right sided flaccidity has improved, he is able to walk using a Janes-walker but his right arm remains motionless. He lives with his and 3 small children in a 3 story home with a walk out basement. He has 5 steps to get into the home. He is previously completely functionally independent and is admitted to the rehab unit in order to restore his previous level of functional independence. Past Medical History Past Medical History (Chronic Problems): Chronic Problems Left patella fracture (Chronic) Cervical spine fracture (Chronic) Respiratory failure after trauma (Chronic) Tracheostomy present (Chronic) Left pontine CVA (Chronic) Allergies No Known Allergies Allergy (Verified 10/10/17 16:31) Home Medications: Ambulatory Orders Medication Instructions Recorded Enoxaparin [Lovenox] 40 mg SC DAILY@0600 10/05/17 Jevity 1.5 315 ml GT 5X/DAY 10/05/17 Lactobacillus Acidophilus 1 tablet GT DAILY 10/05/17 [Acidophilus] Aspirin [Aspirin, Baby] 81 mg GT DAILY@0800 10/10/17 Docusate Sodium [COLACE LIQUID] 20 ml GT BID 10/10/17 Melatonin 3 mg GT QHS 10/10/17 Polyethylene Glycol 3350 [Miralax] 17 gm GT DAILY 10/10/17 Tamsulosin HCl [Flomax] 0.4 mg GT DAILY 10/10/17 Surgical History: - - C4/5 fusion Psychiatric History: No pertinent psych hx Lives: With Family Smoking Status: Never smoker Tobacco Use: Non-smoker Alcohol: None Drugs: None - *Family History Maternal History Items: No pertinent history Review of Systems Constitutional: Denies: Chills, Fever, Weight Change HEENT: Denies: Head Aches, Sinus Congestion, Sinus Drainage Cardiovascular: Denies: Chest Pain, Palpitations Respiratory: Denies: Cough, Shortness of breath at rest, Sputum production Gastrointestinal: Denies: Abdominal Pain, Nausea, Vomiting Genitourinary: Denies: Dysuria Musculoskeletal: Denies: Joint Pain, Joint Tenderness Skin: Denies: Rash, Wounds Neurological: Denies: Numbness, Tingling, Focal weakness Psychiatric: Denies: Anxiety, Depression, Homicidal Ideations, Suicidal Ideations Hematologic/ Lymphatic: Denies: Easy Bruising, Easy Bleeding VTE Information - Inpt Only VTE Present on Admission: No VTE Mechan Device Prophylaxis: SCD's, Knee High JEFFREY Hose VTE Pharm Prophylaxis ordered?: Yes - Physical Exam General: Alert, Oriented x3, Cooperative HEENT: Atraumatic, PERRLA, EOMI, Normocephalic Neck: Supple, No JVD, Negative Carotid Bruits Lungs: Clear to auscultation, Normal air movement Cardiovascular: Regular rate, No murmurs Abdomen: Bowel Sounds Present, Soft, Non Tender Extremities: No edema, Capillary Refill Less than 3 Seconds Skin: No rashes, No breakdown Musculoskeletal: No Tenderness to Palpation of Joints or Extremities Neurological: Cranial nerves II-XII grossly intact Psych/Mental Status: Normal Affect, Appropriate Vital Signs Temp Pulse Resp BP Pulse Ox 98.6 F 84 16 111/68 93 10/11/17 09:09 10/11/17 13:43 10/11/17 13:43 10/11/17 09:09 10/11/17 09:09 Oxygen Flow Rate (L/min) 8 Oxygen Delivery Method Trach Collar Weight: 70 kg Body Mass Index (BMI) 22.1 Intake and Output for Last 24 Hours 10/09/17 10/10/17 10/11/17 23:59 23:59 23:59 Intake Total 565 / 565 1695 / 1695 Output Total 450 / 450 1550 / 1550 Balance 115 / 115 145 / 145 Laboratory Tests Past 24 Hrs 10/11/17 10/11/17 05:30 05:30 WBC 6.7 RBC 4.29 L Hgb 12.7 L Hct 38.0 L MCV 88.6 MCH 29.6 MCHC 33.4 RDW 13.8 RDW Differential 44.6 H Plt Count 238 MPV 8.8 Sodium 138 Potassium 4.0 Chloride 100 Carbon Dioxide 28.0 Anion Gap 10 BUN 13 Creatinine 0.68 L Estim Creat Clear Calc 158.70 Est GFR (MDRD) Af Amer 175 Est GFR (MDRD) Non-Af 145 BUN/Creatinine Ratio 19.0 Glucose 117 H Calcium 9.2 Phosphorus 4.5 Magnesium 1.9 Total Bilirubin 0.50 AST 24 ALT 30 Alkaline Phosphatase 86 Total Protein 7.1 Albumin 3.0 L Globulin 4.1 Albumin/Globulin Ratio 0.7 L Active Medications Acetaminophen (Tylenol) 650 mg PO Q6H PRN PRN PRN Reason: Mild Pain (0-3/10)/Headache Albuterol/Ipratropium (Duoneb) 3 ml INHALATION Q6HWA.RT [facility] Last Admin: 10/11/17 13:43 Dose: 3 ml Amoxicillin/Clavulanate Potassium (Augmentin Tablet) 875 mg GT BID [facility] Stop: 10/15/17 22:01 Last Admin: 10/11/17 08:30 Dose: 875 mg Aspirin (Aspirin, Baby) 81 mg GT DAILY@0800 [facility] Last Admin: 10/11/17 08:30 Dose: 81 mg Atorvastatin Calcium (Lipitor) 20 mg GT QHS [facility] Last Admin: 10/10/17 21:38 Dose: 20 mg Bisacodyl (Dulcolax) 10 mg RECTAL .PRN X 1 PRN PRN Reason: Constipation Docusate Sodium (Colace Syrup) 200 mg GT BID [facility] Last Admin: 10/11/17 08:30 Dose: 200 mg Enoxaparin Sodium (Lovenox) 40 mg SC DAILY@0600 [facility] Last Admin: 10/11/17 05:00 Dose: 40 mg Enteral Nutritional Formula (Jevity 1.5) 315 ml GT 5X/DAY [facility] Last Admin: 10/11/17 17:10 Dose: 315 ml Famotidine (Pepcid) 20 mg GT BID [facility] Last Admin: 10/11/17 08:30 Dose: 20 mg Lactobacillus Acidophilus (Acidophilus) 1 tablet GT DAILY [facility] Last Admin: 10/11/17 08:30 Dose: 1 tablet Levofloxacin (Levaquin) 750 mg GT DAILY@0600 [facility] Stop: 10/16/17 06:01 Last Admin: 10/11/17 05:00 Dose: 750 mg Magnesium Hydroxide (Milk Of Magnesia) 30 ml PO .PRN X 1 PRN PRN Reason: Constipation Melatonin (Melatonin) 6 mg GT QHS [facility] Nystatin (Nystatin) 500,000 unit PO 4X/DAY [facility] Last Admin: 10/11/17 17:03 Dose: 500,000 unit Oxycodone HCl (Oxyir) 5 - 10 mg PO Q4H PRN PRN PRN Reason: PAIN Polyethylene Glycol (Miralax) 17 gm GT DAILY [facility] Last Admin: 10/11/17 08:31 Dose: 17 gm Tamsulosin HCl (Flomax) 0.4 mg PO DAILY@1830 [facility] Last Admin: 10/11/17 17:03 Dose: 0.4 mg Assessment/Plan Debility s/p fall from 15 - 20 feet. Sustained a C4 - C5 fracture. Developed a large left pontine stroke. Is currently Trached with # 8 Shiley and Pegged. Had a discectomy and fusion of C4 - C6. Goal of rehab is holiness of functional independence. 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 His follow-up appointment on the has been canceled however this Sunday we will do a C- spine x-ray which will be forwarded to his [facility] surgeon for review. Follow up appointments will be scheduled upon discharge from the rehab unit. - re- Trached # 6 Ruchi => ENT consulted along with Pulmonology to follow patient. - s/p PEG => TF Pivot 315cc 5x a day. - Urinary retention -> White removed -> urinating without any problems -> Urology consulted - Knee immobilized removed => may have passive range of motion - Aspiration pneumonia re-started on Amoxicillin x 5 days with a stop date of , and Levaquin x 5 days with a stop date of 10/16.
[2017-10-11 18:35] VITALS: PULSE 97; RESP 18; O2SAT 98
[2017-10-11] MEDS: Atorvastatin Calcium 20 MG Tablet GT (21:37)
[2017-10-11] MEDS: MELATONIN 3 MG TABLET 6 MG GT (21:38)
[2017-10-11 22:00] VITALS: BP 113/66; PULSE 89; RESP 18; TEMP 36.7; O2SAT 97
[2017-10-11 22:42] VITALS: BMI 22.1
--- NOTE | 2017-10-12 05:55 | RAD_ITS ---
STUDY: X-RAY CHEST REASON FOR EXAM: Male, 27 years old. Shortness of breath. TECHNIQUE: AP and lateral views of the chest. COMPARISON: Comparison is made with prior study dated October 07, 2017. FINDINGS: A tracheostomy tube is seen. The tip is at 3.5 cm proximal to the joy. The lungs are clear and expanded. There is no demonstrated pleural abnormality. Normal size heart. Normal mediastinum and davis. Normal visualized pulmonary arteries. Normal visualized aortic arch and descending thoracic aorta. Normal visualized thoracic spine. Stable deformity of the lower right anterior ribs in keeping with prior trauma. There is no demonstrated abnormality of the visualized soft tissue structures of the upper abdomen. RAD/Chest PA and Lateral IMPRESSION: No acute abnormality is seen. Electronically Signed: Cristhian Harrell MD at 8:58 EST Tel [phone], Service support ,
[2017-10-12] MEDS: Jevity 1.5. 1,000 ML Bottle 315 ML GT ×5 (06:30→21:45)
[2017-10-12] MEDS: Enoxaparin 40 MG/0.4 ML Syringe SC (06:30)
[2017-10-12] MEDS: levoFLOXacin 750 MG Tablet GT (06:31)
[2017-10-12 06:53] VITALS: PULSE 82; RESP 16; O2SAT 99
[2017-10-12] MEDS: Ipratropium/Albuterol Sulfate 3 ML AMPUL.NEB INHALATION (06:53)
--- NOTE | 2017-10-12 09:11 | PCM.RU.PYE ---
Admission Information Status Changes from Prescreening?: No changes Identified Actual Problem List:: Pain, ALteration in Cmfrt, Alteration in Nutrition, Mobility Impaired, Self Care Deficit, Alteration/ Air Exchange, Ineffect.D/C Plan r/t Psy Potential Problem List:: DVT, Bleeding, Infection, UTI, Aspiration, Falls, Skin Integrity, Depression Risk of Complications DVT: LMWH, BETTY Hose, Sequential Compression Device Bleeding: Monitor Lab Values, Nursing to Teach Precautions for anti-coagulation therapy., Wound, if applicable, to be assessed every shift., Stroke patients assessed for lethargy or change in status. Infection: Clinical Staff to Monitor for S/S of infection:, S/S of infection include fever, redness, warmth, etc. Urinary Tract Infection: Monitor for frequency, burning, discomfort, or incontinence., Nursing will obtain urine sample for urinalysis and C&S when ordered. Aspiration: Clinical staff will monitor for coughing, drooling, congestion., Speech will evaluate swallowing and dsyphasia., Nursing will monitor patient swallowing during meals. Falls: Patient will be evaluated for Fall Precautions, Patient will be placed on Fall Precautions as indicated per protocol. Skin Breakdown: Nursing will assess skin daily using assessment tool., Nursing will place on Skin Breakdown Precautions as indicated. Pain: Clinical staff will assess patient's pain level per protocol., Medications will be given, if needed, and the pain level reassessed., Other methods: Massage, distraction, decrease stimulus, etc. used PRN. Plan of Care Patient requires physician specializing in physical medicine and rehab oversight to provide close medical supervision of rehab issues including: Pain Management, Sleep Problems, Bowel and Bladder, Medical and co-morbidity Management, DVT prophylaxis, Rehabilitation Leadership, Coordination of treatment team Patient needs Physical Therapy: For a minimum of 1 hour, At least 5 out of 7 days Patient needs Physical Therapy to improve:: Mobility, Mobility, Mobility, Strengthening, Transfers, Stretching, ROM, Endurance, Stairs, Gait, Balance Patient needs Occupational Therapy: For a minimum of 1 hour, At least 5 out of 7 days Patient needs Occupational Therapy to improve ADL's incl.: Eating, Grooming, Bathing, Dressing, Toileting, Toilet transfers, Community Reintegration, Higher functioning activities, Household tasks, Adaptive Equipment, Splinting, Other activities as determined Patient requires speech therapy: For a minimum of 1 hour, At least 5 out of 7 days Patient requires speech therapy for: Swallowing, Cognition, Language Skills, Compensatory Strategies Patient requires 24/ Rehabilitation Nursing for: Pain Issues, Identifying and preventing risk factors, Monitoring and reporting current medical conditions, Assisting with ambulation, transfer, and all ADL's, Teaching patients about disease process and medications, Family teaching, Providing safe environment, Bowel and Bladder Issues, Skin integrity, Medication Management Patient needs Service Attendant/ Case Management for: Discharge Planning, Arranging Home Equipment or Services, Family Interventions Patient needs Dietary and Nutrition Services for: Adequate Nutrition, Nutritional Supplements, Nutritional Education Goals Patient will remain: free from falls, or injury at time of discharge. Patient will perform bed mobility at: MOD I level of assist. Patient will complete transfers from bed to chair at: MOD I level of assist. Patient will ambulate: 100 feet, with MOD I assist, with LRD Patient will complete upper body dressing at: MOD I level of assist. Patient will complete lower body dressing at: MOD I level of assist. Patient will complete toileting at: MOD I level of assist. Patient will perform bathing at: MOD I level of assist. Patient will complete grooming at: MOD I level of assist. Patient will complete home management skills at: MOD I level of assist. Patient will achieve: 12 stairs, at MOD I assist Patient will have pain level of: of 3 or less Patient's skin will: remain intact, free from infection. Patient will receive: adequate nutrition. Discharge Planning Pt Prognosis for Sig. Practical Improv. w/in Reasonable Time: Good Anticipated D/C Destination: Home with Outpt Therapy Was Preadmission Assessment Accurate?: Yes
[2017-10-12] MEDS: Famotidine 20 MG Tablet GT ×2 (09:40→21:41)
[2017-10-12] MEDS: NYSTATIN 500,000 UNIT/5 ML UDC 500000 UNIT PO ×4 (09:40→21:42)
[2017-10-12] MEDS: Amox/Clavulanate 875 MG Tablet GT (09:40)
[2017-10-12] MEDS: Aspirin 81 MG TAB.CHEW GT (09:40)
--- NOTE | 2017-10-12 13:03 | PCM.CONS.GEN ---
Problem List (1) Tracheal stenosis following tracheostomy Status: Acute (2) Left patella fracture Status: Chronic Qualifiers: Encounter type: sequela (3) Cervical spine fracture Status: Chronic (4) Respiratory failure after trauma Status: Chronic (5) Tracheostomy present Status: Chronic (6) Left pontine CVA Status: Chronic Reason for Consult Date of Consultation: 10/12/17 Reason for Consultation: Tracheal stenosis History of Present Illness: The patient is a 27 year old M, with past medical history listed below and well-known to me from previous admission, who presented to [facility] on 10/11/[address] [facility]. Patient was recently admitted at [facility] for rehab following a fall. Patient had multiple injuries from the fall and was discharged from [facility] to the rehab unit on 09/20/2017. At that time, patient was successfully decannulated on 09/29/2017 and was doing well. Approximately 1 week ago, patient had some difficulty with respiratory issues. A bronchoscopy was completed showing tracheal stenosis. Patient was emergently transferred back to [facility] and a trach was placed. No intervention in the tracheal stenosis was noted in the medical record. Patient now presents back for rehab. Patient reports no difficulty with with respirations at this time. Did discuss with speech therapy and they have tried brief encounters with PMV with limited success. Patient denies any pain at the tracheostomy site. The 6-0 percutaneous Shiley is currently sewn into place. Patient denies any productive cough. Past Medical History Past Medical History (Chronic Problems): Chronic Problems Left patella fracture (Chronic) Cervical spine fracture (Chronic) Respiratory failure after trauma (Chronic) Tracheostomy present (Chronic) Left pontine CVA (Chronic) Allergies No Known Allergies Allergy (Verified 10/10/17 16:31) Home Medications: Ambulatory Orders Medication Instructions Recorded Enoxaparin [Lovenox] 40 mg SC DAILY@0600 10/05/17 Jevity 1.5 315 ml GT 5X/DAY 10/05/17 Lactobacillus Acidophilus 1 tablet GT DAILY 10/05/17 [Acidophilus] Aspirin [Aspirin, Baby] 81 mg GT DAILY@0800 10/10/17 Docusate Sodium [COLACE LIQUID] 20 ml GT BID 10/10/17 Melatonin 3 mg GT QHS 10/10/17 Polyethylene Glycol 3350 [Miralax] 17 gm GT DAILY 10/10/17 Tamsulosin HCl [Flomax] 0.4 mg GT DAILY 10/10/17 Surgical History: - - C4/5 fusion Psychiatric History: No pertinent psych hx Lives: With Family Smoking Status: Never smoker Tobacco Use: Non-smoker Alcohol: None Drugs: None - *Family History Maternal History Items: No pertinent history Review of Systems Comment: See HPI, otherwise negative ?10 systems. Patient Problems: Active and Suspected Problems Tracheal stenosis following tracheostomy (Acute) Objective: Chest x-ray was personally reviewed and shows no acute infiltrates at this time. - Physical Exam General: Alert, Oriented x3, Cooperative, No apparent distress, - - Peers stated age. HEENT: Atraumatic, PERRLA, EOMI, Normocephalic, - - No temporal wasting, facial droop, scleral icterus or injection is appreciated. Oral: Moist Mucosa, No Gingival or Mucosal Lesions/ Ulcerations Neck: Supple, No JVD, No Nodes, Trachea Midline, - - Trach is clean, dry and intact. Sewn with interrupted silk sutures Lungs: Clear to auscultation, Normal air movement, No rhonchi, No wheeze, No rales, - - Symmetric expansion. No dullness to percussion. Cardiovascular: Regular rate, Regular Rhythm, Normal S1, Normal S2, No murmurs, No rub noted, No Gallop Abdomen: Bowel Sounds Present, Soft, Non Tender, Non-Distended Extremities: No clubbing, No cyanosis, No edema, Capillary Refill Less than 3 Seconds Skin: No rashes, No breakdown Musculoskeletal: No Tenderness to Palpation of Joints or Extremities Lymphatic: No Cervical, Supraclavicular, or Inguinal Adenopathy Neurological: Cranial nerves II-XII grossly intact, - - No changes in neurologic exam. Right-sided weakness is again appreciated. Psych/Mental Status: Normal Affect, Appropriate Vital Signs Temp Pulse Resp BP Pulse Ox 36.7 C 82 16 113/66 99 10/11/17 22:00 10/12/17 06:53 10/12/17 06:53 10/11/17 22:00 10/12/17 06:53 Oxygen Flow Rate (L/min) 6 Oxygen Delivery Method Room Air Weight: 70 kg Body Mass Index (BMI) 22.1 Intake and Output for Last 24 Hours 10/10/17 10/11/17 10/12/17 23:59 23:59 23:59 Intake Total 565 / 565 3140 / 3140 1130 / 1130 Output Total 450 / 450 2700 / 2700 1600 / 1600 Balance 115 / 115 440 / 440 -470 / -470 Laboratory Tests 10/11/17 10/11/17 05:30 05:30 WBC 6.7 RBC 4.29 L Hgb 12.7 L Hct 38.0 L MCV 88.6 MCH 29.6 MCHC 33.4 RDW 13.8 RDW Differential 44.6 H Plt Count 238 MPV 8.8 Sodium 138 Potassium 4.0 Chloride 100 Carbon Dioxide 28.0 Anion Gap 10 BUN 13 Creatinine 0.68 L Estim Creat Clear Calc 158.70 Est GFR (MDRD) Af Amer 175 Est GFR (MDRD) Non-Af 145 BUN/Creatinine Ratio 19.0 Glucose 117 H Calcium 9.2 Phosphorus 4.5 Magnesium 1.9 Total Bilirubin 0.50 AST 24 ALT 30 Alkaline Phosphatase 86 Total Protein 7.1 Albumin 3.0 L Globulin 4.1 Albumin/Globulin Ratio 0.7 L Clinical Impression(s) from Imaging Studies Chest X-Ray 10/12/17 05:55 IMPRESSION: No acute abnormality is seen. Electronically Signed: Cristhian Harrell MD at 8:58 EST Tel [phone], Service support , Assessment/Plan Active and Suspected Problems Tracheal stenosis following tracheostomy (Acute) RECOMMENDATIONS: 1. Discontinue antibiotics and bronchodilators 2. Continue with trach mask 3. Okay to complete supervised PMV trials only 4. No plans of decannulation during this hospitalization 5. Sutures can be removed in 1 week IMPRESSIONS: 1. Chronic respiratory failure/tracheal stenosis With significant tracheal stenosis following decannulation during last hospitalization. It does not appear that this has been addressed from an ENT standpoint outside of stabilizing the airway. Patient should have sutures removed in 1 week. Patient will need evaluation by ENT prior to any manipulation of the trach. Patient can have PMV trials under supervision only. Cannot assume that patient is able to exhale out of his mouth given the level of tracheal stenosis previously documented by bronchoscopy. Patient does not have any current infiltrates and likely does not require supplemental steroids or antibiotics. She does not have a history of obstructive lung disease, so bronchodilators are likely not necessary. Will follow peripherally. Please call with any questions or concerns. 2. Multiple traumas following fall Patient can proceed with rehab per therapy recommendations. Code Visit Inpatient E&M: 60046 Init Hosp L2
--- NOTE | 2017-10-12 13:15 | CON.PCM_ITS ---
Problem List (1) Tracheal stenosis following tracheostomy Status: Acute (2) Left patella fracture Status: Chronic Qualifiers: Encounter type: sequela (3) Cervical spine fracture Status: Chronic (4) Respiratory failure after trauma Status: Chronic (5) Tracheostomy present Status: Chronic (6) Left pontine CVA Status: Chronic Reason for Consult Date of Consultation: 10/12/17 Reason for Consultation: Tracheal stenosis History of Present Illness: The patient is a 27 year old M, with past medical history listed below and well- known to me from previous admission, who presented to [facility] on 10/11/2017 from [facility]. Patient was recently admitted at [facility] for rehab following a fall. Patient had multiple injuries from the fall and was discharged from [facility] to the rehab unit on 09/20/2017. At that time, patient was successfully decannulated on 09/29/2017 and was doing well. Approximately 1 week ago, patient had some difficulty with respiratory issues. A bronchoscopy was completed showing tracheal stenosis. Patient was emergently transferred back to [facility] and a trach was placed. No intervention in the tracheal stenosis was noted in the medical record. Patient now presents back for rehab. Patient reports no difficulty with with respirations at this time. Did discuss with speech therapy and they have tried brief encounters with PMV with limited success. Patient denies any pain at the tracheostomy site. The 6-0 percutaneous Shiley is currently sewn into place. Patient denies any productive cough. Past Medical History Past Medical History (Chronic Problems): Chronic Problems Left patella fracture (Chronic) Cervical spine fracture (Chronic) Respiratory failure after trauma (Chronic) Tracheostomy present (Chronic) Left pontine CVA (Chronic) Allergies No Known Allergies Allergy (Verified 10/10/17 16:31) Home Medications: Ambulatory Orders Medication Instructions Recorded Enoxaparin [Lovenox] 40 mg SC DAILY@0600 10/05/17 Jevity 1.5 315 ml GT 5X/DAY 10/05/17 Lactobacillus Acidophilus 1 tablet GT DAILY 10/05/17 [Acidophilus] Aspirin [Aspirin, Baby] 81 mg GT DAILY@0800 10/10/17 Docusate Sodium [COLACE LIQUID] 20 ml GT BID 10/10/17 Melatonin 3 mg GT QHS 10/10/17 Polyethylene Glycol 3350 [Miralax] 17 gm GT DAILY 10/10/17 Tamsulosin HCl [Flomax] 0.4 mg GT DAILY 10/10/17 Surgical History: - - C4/5 fusion Psychiatric History: No pertinent psych hx Lives: With Family Smoking Status: Never smoker Tobacco Use: Non-smoker Alcohol: None Drugs: None - *Family History Maternal History Items: No pertinent history Review of Systems Comment: See HPI, otherwise negative ?10 systems. Patient Problems: Active and Suspected Problems Tracheal stenosis following tracheostomy (Acute) Objective: Chest x-ray was personally reviewed and shows no acute infiltrates at this time. - Physical Exam General: Alert, Oriented x3, Cooperative, No apparent distress, - - Peers stated age. HEENT: Atraumatic, PERRLA, EOMI, Normocephalic, - - No temporal wasting, facial droop, scleral icterus or injection is appreciated. Oral: Moist Mucosa, No Gingival or Mucosal Lesions/ Ulcerations Neck: Supple, No JVD, No Nodes, Trachea Midline, - - Trach is clean, dry and intact. Sewn with interrupted silk sutures Lungs: Clear to auscultation, Normal air movement, No rhonchi, No wheeze, No rales, - - Symmetric expansion. No dullness to percussion. Cardiovascular: Regular rate, Regular Rhythm, Normal S1, Normal S2, No murmurs, No rub noted, No Gallop Abdomen: Bowel Sounds Present, Soft, Non Tender, Non-Distended Extremities: No clubbing, No cyanosis, No edema, Capillary Refill Less than 3 Seconds Skin: No rashes, No breakdown Musculoskeletal: No Tenderness to Palpation of Joints or Extremities Lymphatic: No Cervical, Supraclavicular, or Inguinal Adenopathy Neurological: Cranial nerves II-XII grossly intact, - - No changes in neurologic exam. Right-sided weakness is again appreciated. Psych/Mental Status: Normal Affect, Appropriate Vital Signs Temp Pulse Resp BP Pulse Ox 36.7 C 82 16 113/66 99 10/11/17 22:00 10/12/17 06:53 10/12/17 06:53 10/11/17 22:00 10/12/17 06:53 Oxygen Flow Rate (L/min) 6 Oxygen Delivery Method Room Air Weight: 70 kg Body Mass Index (BMI) 22.1 Intake and Output for Last 24 Hours 10/10/17 10/11/17 10/12/17 23:59 23:59 23:59 Intake Total 565 / 565 3140 / 3140 1130 / 1130 Output Total 450 / 450 2700 / 2700 1600 / 1600 Balance 115 / 115 440 / 440 -470 / -470 Laboratory Tests 10/11/17 10/11/17 05:30 05:30 WBC 6.7 RBC 4.29 L Hgb 12.7 L Hct 38.0 L MCV 88.6 MCH 29.6 MCHC 33.4 RDW 13.8 RDW Differential 44.6 H Plt Count 238 MPV 8.8 Sodium 138 Potassium 4.0 Chloride 100 Carbon Dioxide 28.0 Anion Gap 10 BUN 13 Creatinine 0.68 L Estim Creat Clear Calc 158.70 Est GFR (MDRD) Af Amer 175 Est GFR (MDRD) Non-Af 145 BUN/Creatinine Ratio 19.0 Glucose 117 H Calcium 9.2 Phosphorus 4.5 Magnesium 1.9 Total Bilirubin 0.50 AST 24 ALT 30 Alkaline Phosphatase 86 Total Protein 7.1 Albumin 3.0 L Globulin 4.1 Albumin/Globulin Ratio 0.7 L Clinical Impression(s) from Imaging Studies Chest X-Ray 10/12/17 05:55 IMPRESSION: No acute abnormality is seen. Electronically Signed: Cristhian Harrell MD at 8:58 EST Tel [phone], Service support , Assessment/Plan Active and Suspected Problems Tracheal stenosis following tracheostomy (Acute) RECOMMENDATIONS: 1. Discontinue antibiotics and bronchodilators 2. Continue with trach mask 3. Okay to complete supervised PMV trials only 4. No plans of decannulation during this hospitalization 5. Sutures can be removed in 1 week IMPRESSIONS: 1. Chronic respiratory failure/tracheal stenosis With significant tracheal stenosis following decannulation during last hospitalization. It does not appear that this has been addressed from an ENT standpoint outside of stabilizing the airway. Patient should have sutures removed in 1 week. Patient will need evaluation by ENT prior to any manipulation of the trach. Patient can have PMV trials under supervision only. Cannot assume that patient is able to exhale out of his mouth given the level of tracheal stenosis previously documented by bronchoscopy. Patient does not have any current infiltrates and likely does not require supplemental steroids or antibiotics. She does not have a history of obstructive lung disease, so bronchodilators are likely not necessary. Will follow peripherally. Please call with any questions or concerns. 2. Multiple traumas following fall Patient can proceed with rehab per therapy recommendations. Code Visit Inpatient E&M: 64980 Init Hosp L2
[2017-10-12 13:40] VITALS: BMI 22.1
[2017-10-12 14:26] VITALS: BP 105/69; PULSE 96; RESP 17; TEMP 36.8; O2SAT 97
--- NOTE | 2017-10-12 15:23 | PCM.PN.NEU ---
Patient Problems: Active and Suspected Problems Tracheal stenosis following tracheostomy (Acute) Subjective: Patient is doing well no acute events over night. Tolerating Therapy. Denies any problems with respirations. Speech therapy did several 5 minute PMV trail with limited success. Dr. Monreal saw patient ok'd monitored PMV trails only. CXR showed no infiltrates, antibiotic therapy d/c'd. Patient denies any shortness of breath. - Physical Exam General: Alert, Oriented x3, Cooperative HEENT: Atraumatic, PERRLA, EOMI, Normocephalic Neck: Supple, No JVD, Negative Carotid Bruits Lungs: Clear to auscultation, Normal air movement Cardiovascular: Regular rate, No murmurs Abdomen: Bowel Sounds Present, Soft, Non Tender Extremities: No edema, Capillary Refill Less than 3 Seconds Skin: No rashes, No breakdown Musculoskeletal: No Tenderness to Palpation of Joints or Extremities Neurological: Cranial nerves II-XII grossly intact Psych/Mental Status: Normal Affect, Appropriate Vital Signs Temp Pulse Resp BP Pulse Ox 98.3 F 96 17 105/69 97 10/12/17 14:26 10/12/17 14:26 10/12/17 14:26 10/12/17 14:26 10/12/17 14:26 Oxygen Flow Rate (L/min) 6 Oxygen Delivery Method Room Air Weight: 68.6 kg Body Mass Index (BMI) 22.1 Intake and Output for Last 24 Hours 10/10/17 10/11/17 10/12/17 23:59 23:59 23:59 Intake Total 565 / 565 3140 / 3140 1695 / 1695 Output Total 450 / 450 2700 / 2700 1600 / 1600 Balance 115 / 115 440 / 440 95 / 95 Active Medications Acetaminophen (Tylenol) 650 mg PO Q6H PRN PRN PRN Reason: Mild Pain (0-3/10)/Headache Aspirin (Aspirin, Baby) 81 mg GT DAILY@0800 [facility] Last Admin: 10/12/17 09:40 Dose: 81 mg Atorvastatin Calcium (Lipitor) 20 mg GT QHS [facility] Last Admin: 10/11/17 21:37 Dose: 20 mg Bisacodyl (Dulcolax) 10 mg RECTAL .PRN X 1 PRN PRN Reason: Constipation Docusate Sodium (Colace Syrup) 200 mg GT BID [facility] Last Admin: 10/12/17 10:32 Dose: Not Given Enoxaparin Sodium (Lovenox) 40 mg SC DAILY@0600 [facility] Last Admin: 10/12/17 06:30 Dose: 40 mg Enteral Nutritional Formula (Jevity 1.5) 315 ml GT 5X/DAY [facility] Last Admin: 10/12/17 14:50 Dose: 315 ml Famotidine (Pepcid) 20 mg GT BID [facility] Last Admin: 10/12/17 09:40 Dose: 20 mg Lactobacillus Acidophilus (Acidophilus) 1 tablet GT DAILY [facility] Last Admin: 10/12/17 09:40 Dose: 1 tablet Magnesium Hydroxide (Milk Of Magnesia) 30 ml PO .PRN X 1 PRN PRN Reason: Constipation Melatonin (Melatonin) 6 mg GT QHS [facility] Last Admin: 10/11/17 21:38 Dose: 6 mg Nystatin (Nystatin) 500,000 unit PO 4X/DAY [facility] Last Admin: 10/12/17 14:50 Dose: 500,000 unit Oxycodone HCl (Oxyir) 5 - 10 mg PO Q4H PRN PRN PRN Reason: PAIN Polyethylene Glycol (Miralax) 17 gm GT DAILY [facility] Last Admin: 10/12/17 10:32 Dose: Not Given Tamsulosin HCl (Flomax) 0.4 mg PO DAILY@1830 [facility] Last Admin: 10/11/17 17:03 Dose: 0.4 mg Assessment/Plan Active and Suspected Problems Tracheal stenosis following tracheostomy (Acute) Debility s/p fall from 15 - 20 feet. Sustained a C4 - C5 fracture. Developed a large left pontine stroke. Is currently Trached with # 8 Shiley and Pegged. Had a discectomy and fusion of C4 - C6. Goal of rehab is confucianist of functional independence. 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 His follow-up appointment on the has been canceled however this Sunday we will do a C-spine x-ray which will be forwarded to his [facility] surgeon for review. Follow up appointments will be scheduled upon discharge from the rehab unit. - re- Trached # 6 Ruchi => ENT consulted along with Pulmonology to follow patient. - s/p PEG => TF Pivot 315cc 5x a day. - Urinary retention -> White removed -> urinating without any problems -> Urology consulted - Knee immobilized removed => may have passive range of motion - Aspiration pneumonia re-started on Amoxicillin x 5 days with a stop date of 10/15, and Levaquin x 5 days with a stop date of 10/16.
--- NOTE | 2017-10-12 15:26 | CHAPLAIN ---
brought CD player and CD's of the Bible to patient so he could listen to these whenever he desires; looking for ways to occupy patient when not in therapy; pt has some difficulty holding his Bible and reading it due to effects of stroke and his trach
[2017-10-12] MEDS: Tamsulosin HCl 0.4 MG Capsule PO (17:51)
[2017-10-12 19:37] VITALS: O2SAT 97
[2017-10-12] MEDS: MELATONIN 3 MG TABLET 6 MG GT (21:41)
[2017-10-12] MEDS: Atorvastatin Calcium 20 MG Tablet GT (21:42)
[2017-10-12] MEDS: Docusate Sodium 100 MG/10 ML UDC 200 MG GT (21:42)
[2017-10-12 22:00] VITALS: BP 114/70; PULSE 88; RESP 16; TEMP 36.9; O2SAT 97
[2017-10-13] MEDS: Jevity 1.5. 1,000 ML Bottle 315 ML GT ×5 (06:18→22:33)
[2017-10-13] MEDS: Enoxaparin 40 MG/0.4 ML Syringe SC (06:18)
[2017-10-13 07:50] LABS: Absolute Lymphocyte Count 1.61 X10^3/ul (0.83-4.51); Absolute Neutrophil Count 4.3 X10^3/uL (2.0-7.7); Basophil# 0.02 X10^3/uL; Basophil% 0.3 % (0-1); Eosinophil# 0.24 X10^3/uL; Eosinophils% 3.6 % (0-5); Hematocrit 39.4 % (40-54); Hemoglobin 13.9 g/dl (13.0-16.5); Lymphocyte # 1.61 X10^3/ul (4.0); Lymphocyte % 23.9 % (19-41); Mean Corp Hgb Conc 35.3 g/gl (32-36); Mean Corpuscular Hgb 30.6 pg (27.0-32.0); Mean Corpuscular Volume 86.8 fL (80-94); Mean Platelet Vol. 8.6 fl (6.2-12.0); Monocyte% 8.9 % (0-10); Neutrophil # 4.25 X10^3/uL (2.7-7.7); POSITIVE COUNT NO; POSITIVE DIFFERENTIAL NO; Platelet Count 292 K/mm3 (150-450); RBC Distribution Width CV 13.5 % (11.6-14.6); RBC Distribution Width SD 41.5 fl (35.1-43.9); Red Blood Count 4.54 M/mm3 (4.6-6.2); White Blood Count 6.7 K/mm3 (4.4-11.0)
[2017-10-13 07:51] LABS: POSITIVE MORPHOLOGY NO
[2017-10-13 08:02] VITALS: O2SAT 99
[2017-10-13 08:50] LABS: Anion Gap 10 (5-15); BUN 14 mg/dL (7-18); BUN/Creat Ratio 19.6 RATIO (10-20); Calcium,Total 9.4 mg/dL (8.5-10.1); Chloride 99 mmol/L (98-107); Creatinine, Serum 0.72 mg/dL (0.70-1.30); EST Glomerular Filtration Rate 138 mL/min (>60); Est Glom Filt Rate - Afr Amer 166 mL/min (>60); Estimated Creatinine Clearance 147.53 ml/min; Glucose 98 mg/dL (74-106); Potassium 3.8 mmol/L (3.5-5.1); Sodium Level 139 mmol/L (136-145)
[2017-10-13 09:28] VITALS: BP 110/72; PULSE 72; RESP 16; TEMP 36.8; O2SAT 95
[2017-10-13] MEDS: Aspirin 81 MG TAB.CHEW GT (10:36)
[2017-10-13] MEDS: Famotidine 20 MG Tablet GT ×2 (10:36→21:15)
[2017-10-13] MEDS: Polyethylene Glycol 3350 17 GM PACKET GT (10:36)
[2017-10-13] MEDS: Docusate Sodium 100 MG/10 ML UDC 200 MG GT (10:36)
[2017-10-13] MEDS: NYSTATIN 500,000 UNIT/5 ML UDC 500000 UNIT PO ×4 (10:37→21:15)
[2017-10-13 14:27] VITALS: BMI 22.1
[2017-10-13] MEDS: Tamsulosin HCl 0.4 MG Capsule PO (17:39)
[2017-10-13 20:05] VITALS: BP 102/63; PULSE 108; RESP 18; TEMP 37.2; O2SAT 98
[2017-10-13 20:29] VITALS: PULSE 89; RESP 16; O2SAT 97
[2017-10-13] MEDS: Atorvastatin Calcium 20 MG Tablet GT (21:15)
[2017-10-13] MEDS: MELATONIN 3 MG TABLET 6 MG GT (21:15)
[2017-10-14] MEDS: Jevity 1.5. 1,000 ML Bottle 315 ML GT ×5 (05:58→21:24)
[2017-10-14] MEDS: Enoxaparin 40 MG/0.4 ML Syringe SC (05:58)
[2017-10-14 07:14] VITALS: O2SAT 99
[2017-10-14] MEDS: Aspirin 81 MG TAB.CHEW GT (09:03)
[2017-10-14] MEDS: NYSTATIN 500,000 UNIT/5 ML UDC 500000 UNIT PO ×4 (09:03→21:24)
[2017-10-14] MEDS: Famotidine 20 MG Tablet GT ×2 (09:03→21:24)
[2017-10-14 09:27] VITALS: BP 102/71; PULSE 75; RESP 16; TEMP 36.5; O2SAT 93
--- NOTE | 2017-10-14 16:29 | PCM.PROGNOTE ---
Patient Problems: Active and Suspected Problems Tracheal stenosis following tracheostomy (Acute) Subjective: Pt is in chair NAD. present. He still has the trach and cannot speak with it, although he apparently has started PMV trials. His cough has improved. He has no SOB. He is off O2 during the day, humidified O2 at night. No fever or chills. He has no complaints. He is walking better, did 2 laps around the floor. He still has significant right sided weakness. - Physical Exam General: Alert, Oriented x3, Cooperative HEENT: Atraumatic, PERRLA, EOMI, Normocephalic Neck: Supple, No JVD, Negative Carotid Bruits, - - trach patent, does not appear inflamed Lungs: Clear to auscultation, Normal air movement Cardiovascular: Regular rate, No murmurs Abdomen: Bowel Sounds Present, Soft, Non Tender Extremities: No edema, Capillary Refill Less than 3 Seconds Skin: No rashes, No breakdown Musculoskeletal: No Tenderness to Palpation of Joints or Extremities Neurological: Cranial nerves II-XII grossly intact Psych/Mental Status: Normal Affect, Appropriate, Alert and oriented to time, place, person, mood and affect Vital Signs Temp Pulse Resp BP Pulse Ox 97.7 F L 75 16 102/71 93 10/14/17 09:27 10/14/17 09:27 10/14/17 09:27 10/14/17 09:27 10/14/17 09:27 Oxygen Flow Rate (L/min) 10 Oxygen Delivery Method Room Air Weight: 70.8 kg Body Mass Index (BMI) 22.1 Intake and Output for Last 24 Hours 10/12/17 10/13/17 10/15/17 23:59 23:59 00:59 Intake Total 3705 / 3705 3270 / 3270 815 / 815 Output Total 1999 1625 / 1625 325 / 325 Balance 1705 / 1705 1645 / 1645 490 / 490 Assessment/Plan Active and Suspected Problems Tracheal stenosis following tracheostomy (Acute) 1. Aspiration/HCAP - resolved. 2. Respiratory failure 2/2 tracheal stenosis - improved. Trach continued. Pulm following. Will need to go to [facility] for decannulation when ready. 3. Right sided hemiplegia 2/2 left pontine stroke. PTOT. Asa/Statin. Improving. 4. Dysphagia 2/2 acute CVA - continue Jevity as ordered via PEG tube. 5. C4/C5 cervical fracture 2/2 fall from roof - s/p fusion surgery 6. Left patellar fracture - nonsurgical, immobilizer as directed by ortho. 7. Urinary retention - flomax. He no longer has a martin and there is no further reported retention. DVT ppx: lovenox Thank you for the opportunity to participate in the care of this patient. This patient was seen by Michele Niño PA-C under the supervision of Dr. Harris.
[2017-10-14 17:00] VITALS: BMI 22.1
[2017-10-14] MEDS: Tamsulosin HCl 0.4 MG Capsule PO (18:44)
[2017-10-14 20:25] VITALS: BP 104/69; PULSE 79; RESP 16; TEMP 36.9; O2SAT 99
[2017-10-14] MEDS: Docusate Sodium 100 MG/10 ML UDC 200 MG GT (21:24)
[2017-10-14] MEDS: MELATONIN 3 MG TABLET 6 MG GT (21:24)
[2017-10-14] MEDS: Atorvastatin Calcium 20 MG Tablet GT (21:24)
--- NOTE | 2017-10-14 23:29 | NURSING ---
PT POSITIONED ONTO L SIDE. LUNG SOUNDS ARE CLEAR ALL LOBES POSTERIORLY. RESP ARE EVEN AND EASY. COOL MIST TRACH COLLAR IN PLACE.
[2017-10-15 05:00] VITALS: BMI 22.1
[2017-10-15] MEDS: Enoxaparin 40 MG/0.4 ML Syringe SC (05:32)
[2017-10-15] MEDS: Jevity 1.5. 1,000 ML Bottle 315 ML GT ×5 (05:33→21:24)
[2017-10-15 09:39] VITALS: BP 102/61; PULSE 56; RESP 16; TEMP 36.6; O2SAT 100
[2017-10-15] MEDS: Aspirin 81 MG TAB.CHEW GT (10:33)
[2017-10-15] MEDS: NYSTATIN 500,000 UNIT/5 ML UDC 500000 UNIT PO ×4 (10:33→21:23)
[2017-10-15] MEDS: Famotidine 20 MG Tablet GT ×2 (10:33→21:23)
--- NOTE | 2017-10-15 10:39 | PN.NEURO_ITS ---
Patient Problems: Active and Suspected Problems Tracheal stenosis following tracheostomy (Acute) Subjective: Staffed in team meeting. at bedside. Questions answered. With Physical therapy, He is able to ambulate 600 to 900 feet with a straight walking cane. With Occupational therapy he is having some moving in the right arm at the shoulder, triceps and biceps. He is able to do about 75% of his personal care. He requires help with getting his brace on his right leg, and pulling up his clothes on the right side because of the right arm. With Speech therapy, because of the trach being back in place and no plans of decannulating him, they are unable to do aggressive therapy with him, they will start to decrease their time and allow for Physical and Occupational therapy to increase their time with him. With Nursing will start teaching the how to do his Tube feedings and water flushes. How to clean and care for the trach area. The patient would like to go home in the next week, before discharge will check with Dr. Monreal and [facility] ENT team to make sure medically he is cleared to go, will make a follow up appointment with ENT for next week prior to setting a discharge date, ideally within the same week of discharge. Will re-team on Sunday of next week. - Physical Exam General: Alert, Oriented x3, Cooperative HEENT: Atraumatic, PERRLA, EOMI, Normocephalic Neck: Supple, No JVD, Negative Carotid Bruits Lungs: Clear to auscultation, Normal air movement Cardiovascular: Regular rate, No murmurs Abdomen: Bowel Sounds Present, Soft, Non Tender Extremities: No edema, Capillary Refill Less than 3 Seconds Skin: No rashes, No breakdown Musculoskeletal: No Tenderness to Palpation of Joints or Extremities Neurological: Cranial nerves II-XII grossly intact Psych/Mental Status: Normal Affect, Appropriate Vital Signs Temp Pulse Resp BP Pulse Ox 97.8 F 56 L 16 102/61 100 10/15/17 09:39 10/15/17 09:39 10/15/17 09:39 10/15/17 09:39 10/15/17 09:39 Oxygen Flow Rate (L/min) 10 Oxygen Delivery Method Room Air Weight: 70.4 kg Body Mass Index (BMI) 22.1 Intake and Output for Last 24 Hours 10/13/17 10/14/17 10/15/17 22:59 23:59 23:59 Intake Total 315 / 315 Output Total Balance 315 / 315 Active Medications Acetaminophen (Tylenol) 650 mg PO Q6H PRN PRN PRN Reason: Mild Pain (0-3/10)/Headache Aspirin (Aspirin, Baby) 81 mg GT DAILY@0800 [facility] Last Admin: 10/14/17 09:03 Dose: 81 mg Atorvastatin Calcium (Lipitor) 20 mg GT QHS [facility] Last Admin: 10/14/17 21:24 Dose: 20 mg Bisacodyl (Dulcolax) 10 mg RECTAL .PRN X 1 PRN PRN Reason: Constipation Docusate Sodium (Colace Syrup) 200 mg GT BID [facility] Last Admin: 10/14/17 21:24 Dose: 200 mg Enoxaparin Sodium (Lovenox) 40 mg SC DAILY@0600 [facility] Last Admin: 10/15/17 05:32 Dose: 40 mg Enteral Nutritional Formula (Jevity 1.5) 315 ml GT 5X/DAY [facility] Last Admin: 10/15/17 05:33 Dose: 315 ml Famotidine (Pepcid) 20 mg GT BID [facility] Last Admin: 10/14/17 21:24 Dose: 20 mg Lactobacillus Acidophilus (Acidophilus) 1 tablet GT DAILY [facility] Last Admin: 10/14/17 09:03 Dose: 1 tablet Magnesium Hydroxide (Milk Of Magnesia) 30 ml PO .PRN X 1 PRN PRN Reason: Constipation Melatonin (Melatonin) 6 mg GT QHS [facility] Last Admin: 10/14/17 21:24 Dose: 6 mg Nystatin (Nystatin) 500,000 unit PO 4X/DAY [facility] Last Admin: 10/14/17 21:24 Dose: 500,000 unit Oxycodone HCl (Oxyir) 5 - 10 mg PO Q4H PRN PRN PRN Reason: PAIN Polyethylene Glycol (Miralax) 17 gm GT DAILY [facility] Last Admin: 10/14/17 09:03 Dose: Not Given Tamsulosin HCl (Flomax) 0.4 mg PO DAILY@1830 [facility] Last Admin: 10/14/17 18:44 Dose: 0.4 mg Assessment/Plan Active and Suspected Problems Tracheal stenosis following tracheostomy (Acute) Debility s/p fall from 15 - 20 feet. Sustained a C4 - C5 fracture. Developed a large left pontine stroke. Is currently Trached with # 8 Shiley and Pegged. Had a discectomy and fusion of C4 - C6. Goal of rehab is worship of functional independence. Plan: - Physical therapy for gait and balance - Occupational Therapy for ADLs - Speech therapy - As needed analgesics - Bowel protocol - Stroke prevention on ASA, Statin, and Lovenox - DVT prophylaxis: SCDs, jeffrey hoses, Lovenox - Pontine CVA 2/2 dissection => right sided hemiparesis - C4 and C5 fracture => s/p discectomy and fusion of C4-6. His follow-up appointment on the has been canceled however this Sunday we will do a C- spine x-ray which will be forwarded to his [facility] surgeon for review. Follow up appointments will be scheduled upon discharge from the rehab unit. - re- Trached # 6 Ruchi => ENT consulted along with Pulmonology to follow patient. - s/p PEG => TF Pivot 315cc 5x a day. - Urinary retention -> White removed -> urinating without any problems -> Urology consulted - Knee immobilized removed => may have passive range of motion - Aspiration pneumonia re-started on Amoxicillin x 5 days with a stop date of , and Levaquin x 5 days with a stop date of 10/16. Antibiotics where stopped on Sunday, 10/12. - Family teaching on Tube feeding and trach care.
--- NOTE | 2017-10-15 10:56 | CASEMGMT ---
Team meeting held. Patient present as well as patient family. No discharge date at this time. Patient family to begin training for PEG tube feedings and trach care at current discharge plan is that patient will discharge home with trach and PEG. Planning to re-team patient next week. Support given. Will continue to follow. Chhaya DUBON, TECHNICIAN [employer]QUIPMENT
[2017-10-15 14:30] VITALS: BMI 22.1
--- NOTE | 2017-10-15 15:09 | PN_ITS ---
Patient Problems: Active and Suspected Problems Tracheal stenosis following tracheostomy (Acute) Subjective: Patient has tracheostomy. Alert and awake and understand and communicates appropriately with signs. Vitals/I&O's: Vital Signs Temp Pulse Resp BP Pulse Ox 97.8 F 56 L 16 102/61 100 10/15/17 09:39 10/15/17 09:39 10/15/17 09:39 10/15/17 09:39 10/15/17 09:39 Oxygen Flow Rate (L/min) 10 Oxygen Delivery Method Trach Collar Weight: 155 lb 3.287 oz Body Mass Index (BMI) 22.1 Intake and Output for Last 24 Hours 10/13/17 10/14/17 10/15/17 22:59 23:59 23:59 Intake Total 565 / 565 Output Total Balance 565 / 565 General: Alert, Oriented x3, Cooperative HEENT: Atraumatic, PERRLA, EOMI, Normocephalic Neck: Supple, No JVD, Negative Carotid Bruits Lungs: No rales, Diminished, Wheezes Cardiovascular: Regular rate, Regular Rhythm, Normal S1, Normal S2, No murmurs Abdomen: Bowel Sounds Present, Soft, Non Tender, Non-Distended Extremities: No edema, Capillary Refill Less than 3 Seconds Skin: No rashes, No breakdown Musculoskeletal: No Tenderness to Palpation of Joints or Extremities, - Neurological: Cranial nerves II-XII grossly intact, - - Right-sided weakness Psych/Mental Status: Normal Affect, Appropriate Current Medications Acetaminophen (Tylenol) 650 mg PO Q6H PRN PRN PRN Reason: Mild Pain (0-3/10)/Headache Aspirin (Aspirin, Baby) 81 mg GT DAILY@0800 [facility] Last Admin: 10/15/17 10:33 Dose: 81 mg Atorvastatin Calcium (Lipitor) 20 mg GT QHS [facility] Last Admin: 10/14/17 21:24 Dose: 20 mg Bisacodyl (Dulcolax) 10 mg RECTAL .PRN X 1 PRN PRN Reason: Constipation Docusate Sodium (Colace Syrup) 200 mg GT BID [facility] Last Admin: 10/15/17 10:32 Dose: Not Given Enoxaparin Sodium (Lovenox) 40 mg SC DAILY@0600 [facility] Last Admin: 10/15/17 05:32 Dose: 40 mg Enteral Nutritional Formula (Jevity 1.5) 315 ml GT 5X/DAY [facility] Last Admin: 10/15/17 10:34 Dose: 315 ml Famotidine (Pepcid) 20 mg GT BID [facility] Last Admin: 10/15/17 10:33 Dose: 20 mg Lactobacillus Acidophilus (Acidophilus) 1 tablet GT DAILY [facility] Last Admin: 10/15/17 10:33 Dose: 1 tablet Magnesium Hydroxide (Milk Of Magnesia) 30 ml PO .PRN X 1 PRN PRN Reason: Constipation Melatonin (Melatonin) 6 mg GT QHS [facility] Last Admin: 10/14/17 21:24 Dose: 6 mg Nystatin (Nystatin) 500,000 unit PO 4X/DAY [facility] Last Admin: 10/15/17 10:33 Dose: 500,000 unit Oxycodone HCl (Oxyir) 5 - 10 mg PO Q4H PRN PRN PRN Reason: PAIN Polyethylene Glycol (Miralax) 17 gm GT DAILY [facility] Last Admin: 10/15/17 10:32 Dose: Not Given Tamsulosin HCl (Flomax) 0.4 mg PO DAILY@1830 [facility] Last Admin: 10/14/17 18:44 Dose: 0.4 mg Assessment/Plan Active and Suspected Problems Tracheal stenosis following tracheostomy (Acute) There is a 27 gentleman who was admitted from [facility] for rehab after he had multiple injuries from fall including C4-C5 fracture, T2 fracture and a stroke. Patient was successfully decannulated after initial tracheostomy on 09/29/2017 and was in rehab. About 1 week later he had respiratory distress and was admitted in ICU from rehab. Patient was admitted and had bronchoscopy was done and found tracheal stenosis. Patient was emergently transferred to [facility] and tracheostomy is placed. Patient is readmitted in acute rehab. 1. Debility s/p fall from 15 - 20 feet. Sustained a C4 - C5 fracture. Developed a large left pontine stroke. Is currently Trached with # 8 Shiley and Pegged. Had a discectomy and fusion of C4 - C6. 2. Aspiration/HCAP: Resolved. 3. Respiratory failure secondary to tracheal stenosis: Improved. Has trach collar. 4. Right sided hemiplegia 2/2 left pontine stroke. PTOT. Asa/Statin. Improving. Dysphagia 2/2 acute CVA - continue Jevity as ordered via PEG tube. 5. C4/C5 cervical fracture 2/2 fall from roof - s/p fusion surgery 6. Left patellar fracture - nonsurgical, immobilizer as directed by ortho. 7. Urinary retention - flomax. Spontaneous urination. DVT ppx: lovenox Code Visit Inpatient E&M: 68714 Subs Hosp L2
--- NOTE | 2017-10-15 16:04 | CHAPLAIN ---
Type of Pastoral Visit ___ Initial Visit _x__ Follow-up Visit ___ On-call Visit ___ General Patient Visit ___ Spiritual Assessment ___ Family Conference ___ Bereavement ___ Rapid Response ___ Code Blue ___ Other (describe below) Pastoral Care Referral From _x__ Patient ___ Family ___ Nurse ___ Physician ___ Landmen ___ Facilities Clerk ___ Other (describe below) Sacrament/Intervention ___ Active listening ___ Anointing ___ Zoroastrian ___ Bereavement ___ Communion ___ Lazara exploration ___ ___ Life review ___ Prayer ___ Reconciliation ___ Sacrament of Sick _x__ Supportive presence ___ Wedding ___ Other (describe below) Pastoral Comments brief visit to check on patient and see if he needed any more CD's from my collection to listen to when alone; spouse of pt was with him; friendly greeting
[2017-10-15] MEDS: Tamsulosin HCl 0.4 MG Capsule PO (18:10)
[2017-10-15] MEDS: MELATONIN 3 MG TABLET 6 MG GT (21:23)
[2017-10-15] MEDS: Docusate Sodium 100 MG/10 ML UDC 200 MG GT (21:24)
[2017-10-15] MEDS: Atorvastatin Calcium 20 MG Tablet GT (21:24)
[2017-10-15 21:40] VITALS: BP 113/72; PULSE 74; RESP 18; TEMP 37; O2SAT 100
[2017-10-15 21:51] VITALS: BMI 22.1
[2017-10-16] MEDS: Enoxaparin 40 MG/0.4 ML Syringe SC (05:37)
[2017-10-16] MEDS: Jevity 1.5. 1,000 ML Bottle 315 ML GT ×5 (05:37→22:02)
[2017-10-16 08:42] VITALS: O2SAT 96
[2017-10-16] MEDS: Aspirin 81 MG TAB.CHEW GT (09:56)
[2017-10-16] MEDS: Famotidine 20 MG Tablet GT ×2 (09:57→22:01)
[2017-10-16] MEDS: NYSTATIN 500,000 UNIT/5 ML UDC 500000 UNIT PO ×4 (09:57→22:01)
[2017-10-16 10:00] VITALS: BP 110/64; PULSE 83; RESP 17; TEMP 37; O2SAT 98
[2017-10-16 12:08] VITALS: BMI 22.1
--- NOTE | 2017-10-16 12:14 | PN.NEURO_ITS ---
Patient Problems: Active and Suspected Problems Tracheal stenosis following tracheostomy (Acute) Subjective: Patient seen, tolerating therapy. No acute event overnight. SATs remain in the mid to high 90's on room air during the day and humidified air at night. Tolerating tube feed is on Jevity 1.5 at 5x a day with water flushes. No issues with . - Physical Exam General: Alert, Oriented x3, Cooperative HEENT: Atraumatic, PERRLA, EOMI, Normocephalic Neck: Supple, No JVD, Negative Carotid Bruits Lungs: Clear to auscultation, Normal air movement Cardiovascular: Regular rate, No murmurs Abdomen: Bowel Sounds Present, Soft, Non Tender Extremities: No edema, Capillary Refill Less than 3 Seconds Skin: No rashes, No breakdown Musculoskeletal: No Tenderness to Palpation of Joints or Extremities Neurological: Cranial nerves II-XII grossly intact Psych/Mental Status: Normal Affect, Appropriate Vital Signs Temp Pulse Resp BP Pulse Ox 98.6 F 83 17 110/64 98 10/16/17 10:00 10/16/17 10:00 10/16/17 10:00 10/16/17 10:00 10/16/17 10:00 Oxygen Flow Rate (L/min) 10 Oxygen Delivery Method Room Air Weight: 72 kg Body Mass Index (BMI) 22.1 Intake and Output for Last 24 Hours 10/14/17 10/15/17 10/16/17 23:59 23:59 23:59 Intake Total 565 / 565 1130 / 1130 Output Total 400 / 400 550 / 550 Balance 165 / 165 580 / 580 Active Medications Acetaminophen (Tylenol) 650 mg PO Q6H PRN PRN PRN Reason: Mild Pain (0-3/10)/Headache Aspirin (Aspirin, Baby) 81 mg GT DAILY@0800 [facility] Last Admin: 10/16/17 09:56 Dose: 81 mg Atorvastatin Calcium (Lipitor) 20 mg GT QHS [facility] Last Admin: 10/15/17 21:24 Dose: 20 mg Bisacodyl (Dulcolax) 10 mg RECTAL .PRN X 1 PRN PRN Reason: Constipation Docusate Sodium (Colace Syrup) 200 mg GT BID [facility] Last Admin: 10/16/17 09:57 Dose: Not Given Enoxaparin Sodium (Lovenox) 40 mg SC DAILY@0600 [facility] Last Admin: 10/16/17 05:37 Dose: 40 mg Enteral Nutritional Formula (Jevity 1.5) 315 ml GT 5X/DAY [facility] Last Admin: 10/16/17 09:57 Dose: 315 ml Famotidine (Pepcid) 20 mg GT BID [facility] Last Admin: 10/16/17 09:57 Dose: 20 mg Lactobacillus Acidophilus (Acidophilus) 1 tablet GT DAILY [facility] Last Admin: 10/16/17 09:56 Dose: 1 tablet Magnesium Hydroxide (Milk Of Magnesia) 30 ml PO .PRN X 1 PRN PRN Reason: Constipation Melatonin (Melatonin) 6 mg GT QHS [facility] Last Admin: 10/15/17 21:23 Dose: 6 mg Nystatin (Nystatin) 500,000 unit PO 4X/DAY [facility] Last Admin: 10/16/17 09:57 Dose: 500,000 unit Oxycodone HCl (Oxyir) 5 - 10 mg PO Q4H PRN PRN PRN Reason: PAIN Polyethylene Glycol (Miralax) 17 gm GT DAILY [facility] Last Admin: 10/16/17 09:57 Dose: Not Given Tamsulosin HCl (Flomax) 0.4 mg PO DAILY@1830 [facility] Last Admin: 10/15/17 18:10 Dose: 0.4 mg Assessment/Plan Active and Suspected Problems Tracheal stenosis following tracheostomy (Acute) Debility s/p fall from 15 - 20 feet. Sustained a C4 - C5 fracture. Developed a large left pontine stroke. Is currently Trached with # 8 Ruchi and Pegged. Had a discectomy and fusion of C4 - C6. Goal of rehab is adventist of functional independence. Plan: - Physical therapy for gait and balance - Occupational Therapy for ADLs - Speech therapy - As needed analgesics - Bowel protocol - Stroke prevention on ASA, Statin, and Lovenox - DVT prophylaxis: SCDs, jeffrey hoses, Lovenox - Pontine CVA 2/2 dissection => right sided hemiparesis - C4 and C5 fracture => s/p discectomy and fusion of C4-6. His follow-up appointment on the has been canceled however this Sunday we will do a C- spine x-ray which will be forwarded to his [facility] surgeon for review. Follow up appointments will be scheduled upon discharge from the rehab unit. - re- Trached # 6 Shiley => ENT consulted along with Pulmonology to follow patient. - s/p PEG => TF Pivot 315cc 5x a day. - Urinary retention -> White removed -> urinating without any problems -> Urology consulted - Knee immobilized removed => may have passive range of motion - Aspiration pneumonia re-started on Amoxicillin x 5 days with a stop date of , and Levaquin x 5 days with a stop date of 10/16. Antibiotics where stopped on Sunday, 10/12. - Family teaching on Tube feeding and trach care.
--- NOTE | 2017-10-16 16:23 | CHAPLAIN ---
Type of Pastoral Visit ___ Initial Visit _x__ Follow-up Visit ___ On-call Visit ___ General Patient Visit ___ Spiritual Assessment ___ Family Conference ___ Bereavement ___ Rapid Response ___ Code Blue ___ Other (describe below) Pastoral Care Referral From _x__ Patient ___ Family ___ Nurse ___ Physician ___ Billboard Poster Helper ___ Trains Dispatcher Supervisor ___ Other (describe below) Sacrament/Intervention ___ Active listening ___ Anointing ___ Yarsanism ___ Bereavement ___ Communion _x__ Lazara exploration ___ ___ Life review ___ Prayer ___ Reconciliation ___ Sacrament of Sick _x__ Supportive presence ___ Wedding ___ Other (describe below) Pastoral Comments time given to sit with patient; pt shares music that he likes from his i-pad; this opens up more discussion of his Gnosticism heritage and personal lazara; we communicate through his hand signals, lip reading, phone texting, and head nodding; patience is given and patient has been welcoming of visits
[2017-10-16] MEDS: Tamsulosin HCl 0.4 MG Capsule PO (18:57)
[2017-10-16 19:58] VITALS: BP 107/62; PULSE 91; RESP 20; TEMP 36.8; O2SAT 95
[2017-10-16] MEDS: MELATONIN 3 MG TABLET 6 MG GT (22:02)
[2017-10-16] MEDS: Atorvastatin Calcium 20 MG Tablet GT (22:02)
[2017-10-16] MEDS: Docusate Sodium 100 MG/10 ML UDC 200 MG GT (22:03)
[2017-10-17 05:00] VITALS: BMI 22.1
[2017-10-17] MEDS: Enoxaparin 40 MG/0.4 ML Syringe SC (05:50)
[2017-10-17] MEDS: Jevity 1.5. 1,000 ML Bottle 315 ML GT ×5 (05:51→23:00)
[2017-10-17 08:52] VITALS: BP 102/61; PULSE 85; RESP 17; TEMP 36.7; O2SAT 100
[2017-10-17] MEDS: Famotidine 20 MG Tablet GT ×2 (09:01→20:44)
[2017-10-17] MEDS: Docusate Sodium 100 MG/10 ML UDC 200 MG GT ×2 (09:01→20:44)
[2017-10-17] MEDS: NYSTATIN 500,000 UNIT/5 ML UDC 500000 UNIT PO ×4 (09:01→23:00)
[2017-10-17] MEDS: Aspirin 81 MG TAB.CHEW GT (09:01)
[2017-10-17 09:41] VITALS: BMI 22.1
[2017-10-17 10:00] VITALS: O2SAT 96
--- NOTE | 2017-10-17 15:14 | PCM.PN.NEU ---
Patient Problems: Active and Suspected Problems Tracheal stenosis following tracheostomy (Acute) Subjective: Patient seen and examined. No new complaints. Tolerating therapy. Denies any shortness of breath, SATS remains in the high 90's on room air, during therapy sessions. Denies any chest pains or discomfort. No issues with GI/. - Physical Exam General: Alert, Oriented x3, Cooperative HEENT: Atraumatic, PERRLA, EOMI, Normocephalic Neck: Supple, No JVD, Negative Carotid Bruits Lungs: Clear to auscultation, Normal air movement Cardiovascular: Regular rate, No murmurs Abdomen: Bowel Sounds Present, Soft, Non Tender Extremities: No edema, Capillary Refill Less than 3 Seconds Skin: No rashes, No breakdown Musculoskeletal: No Tenderness to Palpation of Joints or Extremities Neurological: Cranial nerves II-XII grossly intact Psych/Mental Status: Normal Affect, Appropriate Vital Signs Temp Pulse Resp BP Pulse Ox 98.0 F 85 17 102/61 100 10/17/17 08:52 10/17/17 08:52 10/17/17 08:52 10/17/17 08:52 10/17/17 08:52 Oxygen Flow Rate (L/min) 10 Oxygen Delivery Method Room Air Weight: 72 kg Body Mass Index (BMI) 22.1 Intake and Output for Last 24 Hours 10/15/17 10/16/17 10/17/17 23:59 23:59 23:59 Intake Total 565 / 565 3180 / 3180 1130 / 1130 Output Total 400 / 400 900 / 900 1550 / 1550 Balance 165 / 165 2280 / 2280 -420 / -420 Active Medications Acetaminophen (Tylenol) 650 mg PO Q6H PRN PRN PRN Reason: Mild Pain (0-3/10)/Headache Aspirin (Aspirin, Baby) 81 mg GT DAILY@0800 [facility] Last Admin: 10/17/17 09:01 Dose: 81 mg Atorvastatin Calcium (Lipitor) 20 mg GT QHS [facility] Last Admin: 10/16/17 22:02 Dose: 20 mg Bisacodyl (Dulcolax) 10 mg RECTAL .PRN X 1 PRN PRN Reason: Constipation Docusate Sodium (Colace Syrup) 200 mg GT BID [facility] Last Admin: 10/17/17 09:01 Dose: 200 mg Enoxaparin Sodium (Lovenox) 40 mg SC DAILY@0600 [facility] Last Admin: 10/17/17 05:50 Dose: 40 mg Enteral Nutritional Formula (Jevity 1.5) 315 ml GT 5X/DAY [facility] Last Admin: 10/17/17 14:51 Dose: 315 ml Famotidine (Pepcid) 20 mg GT BID [facility] Last Admin: 10/17/17 09:01 Dose: 20 mg Lactobacillus Acidophilus (Acidophilus) 1 tablet GT DAILY [facility] Last Admin: 10/17/17 09:01 Dose: 1 tablet Magnesium Hydroxide (Milk Of Magnesia) 30 ml PO .PRN X 1 PRN PRN Reason: Constipation Melatonin (Melatonin) 6 mg GT QHS [facility] Last Admin: 10/16/17 22:02 Dose: 6 mg Nystatin (Nystatin) 500,000 unit PO 4X/DAY [facility] Last Admin: 10/17/17 14:35 Dose: 500,000 unit Oxycodone HCl (Oxyir) 5 - 10 mg PO Q4H PRN PRN PRN Reason: PAIN Polyethylene Glycol (Miralax) 17 gm GT DAILY [facility] Last Admin: 10/17/17 09:02 Dose: Not Given Tamsulosin HCl (Flomax) 0.4 mg PO DAILY@1830 [facility] Last Admin: 10/16/17 18:57 Dose: 0.4 mg Assessment/Plan Active and Suspected Problems Tracheal stenosis following tracheostomy (Acute) Debility s/p fall from 15 - 20 feet. Sustained a C4 - C5 fracture. Developed a large left pontine stroke. Is currently Trached with # 8 Shiley and Pegged. Had a discectomy and fusion of C4 - C6. Goal of rehab is jainism of functional independence. 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 His follow-up appointment on the has been canceled however this Sunday we will do a C-spine x-ray which will be forwarded to his [facility] surgeon for review. Follow up appointments will be scheduled upon discharge from the rehab unit. - re- Trached # 6 Ruchi => ENT consulted along with Pulmonology to follow patient. - s/p PEG => TF Pivot 315cc 5x a day. - Urinary retention -> White removed -> urinating without any problems -> Urology consulted - Knee immobilized removed => may have passive range of motion - Aspiration pneumonia re-started on Amoxicillin x 5 days with a stop date of 10/15, and Levaquin x 5 days with a stop date of 10/16. Antibiotics where stopped on Sunday, 10/12. - Family teaching on Tube feeding and trach care.
--- NOTE | 2017-10-17 15:17 | PN.NEURO_ITS ---
Addendum entered and electronically signed by Grace Loyd MD 15:30: I have personally examined the patient at bedside. Please see SLEEPING CAR PORTER Sandy Guerrier's note as below for further complete details. I have discussed the management plan for the patient in detail with NOA Guerrier and please see the plan as noted below. Patient tolerating therapies well, GI/DVT prophylaxis, falls precautions. Original Note: Patient Problems: Active and Suspected Problems Tracheal stenosis following tracheostomy (Acute) Subjective: Patient seen and examined. No new complaints. Tolerating therapy. Denies any shortness of breath, SATS remains in the high 90's on room air, during therapy sessions. Denies any chest pains or discomfort. No issues with GI/. - Physical Exam General: Alert, Oriented x3, Cooperative HEENT: Atraumatic, PERRLA, EOMI, Normocephalic Neck: Supple, No JVD, Negative Carotid Bruits Lungs: Clear to auscultation, Normal air movement Cardiovascular: Regular rate, No murmurs Abdomen: Bowel Sounds Present, Soft, Non Tender Extremities: No edema, Capillary Refill Less than 3 Seconds Skin: No rashes, No breakdown Musculoskeletal: No Tenderness to Palpation of Joints or Extremities Neurological: Cranial nerves II-XII grossly intact Psych/Mental Status: Normal Affect, Appropriate Vital Signs Temp Pulse Resp BP Pulse Ox 98.0 F 85 17 102/61 100 10/17/17 08:52 10/17/17 08:52 10/17/17 08:52 10/17/17 08:52 10/17/17 08:52 Oxygen Flow Rate (L/min) 10 Oxygen Delivery Method Room Air Weight: 72 kg Body Mass Index (BMI) 22.1 Intake and Output for Last 24 Hours 10/15/17 10/16/17 10/17/17 23:59 23:59 23:59 Intake Total 565 / 565 3180 / 3180 1130 / 1130 Output Total 400 / 400 900 / 900 1550 / 1550 Balance 165 / 165 2280 / 2280 -420 / -420 Active Medications Acetaminophen (Tylenol) 650 mg PO Q6H PRN PRN PRN Reason: Mild Pain (0-3/10)/Headache Aspirin (Aspirin, Baby) 81 mg GT DAILY@0800 [facility] Last Admin: 10/17/17 09:01 Dose: 81 mg Atorvastatin Calcium (Lipitor) 20 mg GT QHS [facility] Last Admin: 10/16/17 22:02 Dose: 20 mg Bisacodyl (Dulcolax) 10 mg RECTAL .PRN X 1 PRN PRN Reason: Constipation Docusate Sodium (Colace Syrup) 200 mg GT BID [facility] Last Admin: 10/17/17 09:01 Dose: 200 mg Enoxaparin Sodium (Lovenox) 40 mg SC DAILY@0600 [facility] Last Admin: 10/17/17 05:50 Dose: 40 mg Enteral Nutritional Formula (Jevity 1.5) 315 ml GT 5X/DAY [facility] Last Admin: 10/17/17 14:51 Dose: 315 ml Famotidine (Pepcid) 20 mg GT BID [facility] Last Admin: 10/17/17 09:01 Dose: 20 mg Lactobacillus Acidophilus (Acidophilus) 1 tablet GT DAILY [facility] Last Admin: 10/17/17 09:01 Dose: 1 tablet Magnesium Hydroxide (Milk Of Magnesia) 30 ml PO .PRN X 1 PRN PRN Reason: Constipation Melatonin (Melatonin) 6 mg GT QHS [facility] Last Admin: 10/16/17 22:02 Dose: 6 mg Nystatin (Nystatin) 500,000 unit PO 4X/DAY [facility] Last Admin: 10/17/17 14:35 Dose: 500,000 unit Oxycodone HCl (Oxyir) 5 - 10 mg PO Q4H PRN PRN PRN Reason: PAIN Polyethylene Glycol (Miralax) 17 gm GT DAILY [facility] Last Admin: 10/17/17 09:02 Dose: Not Given Tamsulosin HCl (Flomax) 0.4 mg PO DAILY@1830 [facility] Last Admin: 10/16/17 18:57 Dose: 0.4 mg Assessment/Plan Active and Suspected Problems Tracheal stenosis following tracheostomy (Acute) Debility s/p fall from 15 - 20 feet. Sustained a C4 - C5 fracture. Developed a large left pontine stroke. Is currently Trached with # 8 Shiley and Pegged. Had a discectomy and fusion of C4 - C6. Goal of rehab is sikhism of functional independence. Plan: - Physical therapy for gait and balance - Occupational Therapy for ADLs - Speech therapy - As needed analgesics - Bowel protocol - Stroke prevention on ASA, Statin, and Lovenox - DVT prophylaxis: SCDs, jfefrey clinton, Lovenox - Pontine CVA 2/2 dissection => right sided hemiparesis - C4 and C5 fracture => s/p discectomy and fusion of C4-6. His follow-up appointment on the has been canceled however this Sunday we will do a C- spine x-ray which will be forwarded to his [facility] surgeon for review. Follow up appointments will be scheduled upon discharge from the rehab unit. - re- Trached # 6 Peggyley => ENT consulted along with Pulmonology to follow patient. - s/p PEG => TF Pivot 315cc 5x a day. - Urinary retention -> White removed -> urinating without any problems -> Urology consulted - Knee immobilized removed => may have passive range of motion - Aspiration pneumonia re-started on Amoxicillin x 5 days with a stop date of , and Levaquin x 5 days with a stop date of 10/16. Antibiotics where stopped on Sunday, 10/12. - Family teaching on Tube feeding and trach care.
[2017-10-17] MEDS: Tamsulosin HCl 0.4 MG Capsule PO (17:53)
[2017-10-17] MEDS: MELATONIN 3 MG TABLET 6 MG GT (20:44)
[2017-10-17] MEDS: Atorvastatin Calcium 20 MG Tablet GT (20:44)
[2017-10-17 20:58] VITALS: BP 101/63; PULSE 73; RESP 17; TEMP 37.1; O2SAT 97
[2017-10-17 22:00] VITALS: O2SAT 96
[2017-10-18] MEDS: Enoxaparin 40 MG/0.4 ML Syringe SC (05:39)
[2017-10-18] MEDS: Jevity 1.5. 1,000 ML Bottle 315 ML GT ×5 (05:41→21:01)
--- NOTE | 2017-10-18 07:40 | CPS ---
cool aerosol water filled.
[2017-10-18 08:05] VITALS: BP 102/61; PULSE 77; RESP 20; TEMP 36.7; O2SAT 96
[2017-10-18 10:00] VITALS: O2SAT 100
[2017-10-18] MEDS: Polyethylene Glycol 3350 17 GM PACKET GT (10:12)
[2017-10-18] MEDS: Aspirin 81 MG TAB.CHEW GT (10:12)
[2017-10-18] MEDS: Famotidine 20 MG Tablet GT ×2 (10:12→21:01)
[2017-10-18] MEDS: NYSTATIN 500,000 UNIT/5 ML UDC 500000 UNIT PO ×4 (10:12→21:00)
[2017-10-18] MEDS: Docusate Sodium 100 MG/10 ML UDC 200 MG GT ×2 (10:13→21:01)
--- NOTE | 2017-10-18 11:02 | NURSING ---
spoke with dr tino dupree/samantha amezquita from speech therapy and balibna from cps attempted PMV, patient could not tolerate. ok per dr jiménez to not trial PMV at this time.
[2017-10-18 11:47] VITALS: BMI 22.1
--- NOTE | 2017-10-18 12:09 | PCM.PN.NEU ---
Patient Problems: Active and Suspected Problems Tracheal stenosis following tracheostomy (Acute) Subjective: Patient seen and examined. No acute events over night. Tolerating therapy. SATS are in the mid 90's on room air, we are putting the Humidified air on during therapy sessions and at night to help with keeping his secretion thin, since he has very thick secretions. He is tolerating the tube feed Jevity, he is having no issues with . - Physical Exam General: Alert, Oriented x3, Cooperative HEENT: Atraumatic, PERRLA, EOMI, Normocephalic Neck: Supple, No JVD, Negative Carotid Bruits Lungs: Clear to auscultation, Normal air movement Cardiovascular: Regular rate, No murmurs Abdomen: Bowel Sounds Present, Soft, Non Tender Extremities: No edema, Capillary Refill Less than 3 Seconds Skin: No rashes, No breakdown Musculoskeletal: No Tenderness to Palpation of Joints or Extremities Neurological: Cranial nerves II-XII grossly intact Psych/Mental Status: Normal Affect, Appropriate Vital Signs Temp Pulse Resp BP Pulse Ox 98.1 F 77 20 H 102/61 100 10/18/17 08:05 10/18/17 08:05 10/18/17 08:05 10/18/17 08:05 10/18/17 10:00 Oxygen Flow Rate (L/min) 8 Oxygen Delivery Method Trach Collar Weight: 72 kg Body Mass Index (BMI) 22.1 Intake and Output for Last 24 Hours 10/16/17 10/17/17 10/18/17 23:59 23:59 23:59 Intake Total 3180 / 3180 4270 / 4270 685 / 685 Output Total 900 / 900 2850 / 2850 Balance 2280 / 2280 1420 / 1420 685 / 685 Active Medications Acetaminophen (Tylenol) 650 mg PO Q6H PRN PRN PRN Reason: Mild Pain (0-3/10)/Headache Aspirin (Aspirin, Baby) 81 mg GT DAILY@0800 [facility] Last Admin: 10/18/17 10:12 Dose: 81 mg Atorvastatin Calcium (Lipitor) 20 mg GT QHS [facility] Last Admin: 10/17/17 20:44 Dose: 20 mg Bisacodyl (Dulcolax) 10 mg RECTAL .PRN X 1 PRN PRN Reason: Constipation Docusate Sodium (Colace Syrup) 200 mg GT BID [facility] Last Admin: 10/18/17 10:13 Dose: 200 mg Enoxaparin Sodium (Lovenox) 40 mg SC DAILY@0600 [facility] Last Admin: 10/18/17 05:39 Dose: 40 mg Enteral Nutritional Formula (Jevity 1.5) 315 ml GT 5X/DAY [facility] Last Admin: 10/18/17 10:13 Dose: 315 ml Famotidine (Pepcid) 20 mg GT BID [facility] Last Admin: 10/18/17 10:12 Dose: 20 mg Lactobacillus Acidophilus (Acidophilus) 1 tablet GT DAILY [facility] Last Admin: 10/18/17 10:12 Dose: 1 tablet Magnesium Hydroxide (Milk Of Magnesia) 30 ml PO .PRN X 1 PRN PRN Reason: Constipation Melatonin (Melatonin) 6 mg GT QHS [facility] Last Admin: 10/17/17 20:44 Dose: 6 mg Nystatin (Nystatin) 500,000 unit PO 4X/DAY [facility] Last Admin: 10/18/17 10:12 Dose: 500,000 unit Oxycodone HCl (Oxyir) 5 - 10 mg PO Q4H PRN PRN PRN Reason: PAIN Polyethylene Glycol (Miralax) 17 gm GT DAILY [facility] Last Admin: 10/18/17 10:12 Dose: 17 gm Tamsulosin HCl (Flomax) 0.4 mg PO DAILY@1830 [facility] Last Admin: 10/17/17 17:53 Dose: 0.4 mg Assessment/Plan Active and Suspected Problems Tracheal stenosis following tracheostomy (Acute) Debility s/p fall from 15 - 20 feet. Sustained a C4 - C5 fracture. Developed a large left pontine stroke. Is currently Trached with # 8 Shiley and Pegged. Had a discectomy and fusion of C4 - C6. Goal of rehab is rastafari of functional independence. Plan: - Physical therapy for gait and balance - Occupational Therapy for ADLs - Speech therapy - As needed analgesics - Bowel protocol - Stroke prevention on ASA, Statin, and Lovenox - DVT prophylaxis: SCDs, Del long - Pontine CVA 2/2 dissection => right sided hemiparesis - C4 and C5 fracture => s/p discectomy and fusion of C4-6. His follow-up appointment on the has been canceled however this Sunday we will do a C-spine x-ray which will be forwarded to his [facility] surgeon for review. Follow up appointments will be scheduled upon discharge from the rehab unit. - re- Trached # 6 Ruchi => ENT consulted along with Pulmonology to follow patient. - s/p PEG => TF Pivot 315cc 5x a day. - Urinary retention -> White removed -> urinating without any problems -> Urology consulted - Knee immobilized removed => may have passive range of motion - Aspiration pneumonia re-started on Amoxicillin x 5 days with a stop date of 10/15, and Levaquin x 5 days with a stop date of 10/16. Antibiotics where stopped on Sunday, 10/12. - Family teaching on Tube feeding and trach care. - Humidified air between therapy sessions and at night to help with thinning out his thick secretions.
--- NOTE | 2017-10-18 16:24 | CHAPLAIN ---
Type of Pastoral Visit ___ Initial Visit _x__ Follow-up Visit ___ On-call Visit ___ General Patient Visit ___ Spiritual Assessment ___ Family Conference ___ Bereavement ___ Rapid Response ___ Code Blue ___ Other (describe below) Pastoral Care Referral From _x__ Patient ___ Family ___ Nurse ___ Physician ___ Skate Maker ___ Piping Engineer ___ Other (describe below) Sacrament/Intervention ___ Active listening ___ Anointing ___ Taoist ___ Bereavement ___ Communion ___ Lazara exploration ___ ___ Life review _x__ Prayer ___ Reconciliation ___ Sacrament of Sick _x__ Supportive presence ___ Wedding ___ Other (describe below) Pastoral Comments
[2017-10-18] MEDS: Tamsulosin HCl 0.4 MG Capsule PO (17:58)
--- NOTE | 2017-10-18 18:03 | NURSING ---
spouse is implementing jevity via peg. denies any questions or concerns. spouse demonstrated proper technique.
[2017-10-18] MEDS: MELATONIN 3 MG TABLET 6 MG GT (21:00)
[2017-10-18] MEDS: Atorvastatin Calcium 20 MG Tablet GT (21:01)
[2017-10-18 21:53] VITALS: BP 121/69; PULSE 64; RESP 17; TEMP 36.8; O2SAT 94
[2017-10-19] MEDS: Enoxaparin 40 MG/0.4 ML Syringe SC (05:22)
[2017-10-19] MEDS: Jevity 1.5. 1,000 ML Bottle 315 ML GT ×5 (05:23→21:38)
[2017-10-19 07:32] VITALS: O2SAT 99
[2017-10-19 07:57] VITALS: BP 97/61; PULSE 66; RESP 18; TEMP 36.4; O2SAT 96
[2017-10-19] MEDS: Docusate Sodium 100 MG/10 ML UDC 200 MG GT (08:53)
[2017-10-19] MEDS: Aspirin 81 MG TAB.CHEW GT (08:53)
[2017-10-19] MEDS: Famotidine 20 MG Tablet GT ×2 (08:53→21:39)
[2017-10-19] MEDS: Polyethylene Glycol 3350 17 GM PACKET GT (08:53)
[2017-10-19] MEDS: NYSTATIN 500,000 UNIT/5 ML UDC 500000 UNIT PO ×4 (08:54→21:39)
[2017-10-19 13:21] VITALS: BMI 22.1
--- NOTE | 2017-10-19 17:15 | PN_ITS ---
Patient Problems: Active and Suspected Problems Tracheal stenosis following tracheostomy (Acute) Subjective: Patient is on baseline. Cooperating well with the PT and OT. Tracheostomy tube is functioning well. Denies excessive bouts of cough or increased phlegm. Vitals/I&O's: Vital Signs Temp Pulse Resp BP Pulse Ox 97.6 F L 66 18 97/61 96 10/19/17 07:57 10/19/17 07:57 10/19/17 07:57 10/19/17 07:57 10/19/17 07:57 Oxygen Flow Rate (L/min) 6 Oxygen Delivery Method Room Air Weight: 158 lb 11.725 oz Body Mass Index (BMI) 22.1 Intake and Output for Last 24 Hours 10/17/17 10/18/17 10/19/17 23:59 23:59 23:59 Intake Total 4270 / 4270 2810 / 2810 1695 / 1695 Output Total 2850 / 2850 1750 / 1750 550 / 550 Balance 1420 / 1420 1060 / 1060 1145 / 1145 General: Alert, Oriented x3, Cooperative HEENT: Atraumatic, PERRLA, EOMI, Normocephalic Neck: Supple, No JVD, Negative Carotid Bruits Lungs: No rhonchi, No wheeze, No rales, Diminished, - - Tracheostomy Cardiovascular: Regular rate, Normal S1, Normal S2, No murmurs Abdomen: Bowel Sounds Present, Soft, Non Tender, Non-Distended Extremities: No edema, Capillary Refill Less than 3 Seconds Skin: No rashes, No breakdown Musculoskeletal: No Tenderness to Palpation of Joints or Extremities Neurological: Cranial nerves II-XII grossly intact, - - Left-sided hemiplegia Psych/Mental Status: Normal Affect, Appropriate Current Medications Acetaminophen (Tylenol) 650 mg PO Q6H PRN PRN PRN Reason: Mild Pain (0-3/10)/Headache Aspirin (Aspirin, Baby) 81 mg GT DAILY@0800 [facility] Last Admin: 10/19/17 08:53 Dose: 81 mg Atorvastatin Calcium (Lipitor) 20 mg GT QHS [facility] Last Admin: 10/18/17 21:01 Dose: 20 mg Bisacodyl (Dulcolax) 10 mg RECTAL .PRN X 1 PRN PRN Reason: Constipation Docusate Sodium (Colace Syrup) 200 mg GT BID [facility] Last Admin: 10/19/17 08:53 Dose: 200 mg Enoxaparin Sodium (Lovenox) 40 mg SC DAILY@0600 [facility] Last Admin: 10/19/17 05:22 Dose: 40 mg Enteral Nutritional Formula (Jevity 1.5) 315 ml GT 5X/DAY [facility] Last Admin: 10/19/17 14:56 Dose: 315 ml Famotidine (Pepcid) 20 mg GT BID [facility] Last Admin: 10/19/17 08:53 Dose: 20 mg Lactobacillus Acidophilus (Acidophilus) 1 tablet GT DAILY [facility] Last Admin: 10/19/17 08:53 Dose: 1 tablet Magnesium Hydroxide (Milk Of Magnesia) 30 ml PO .PRN X 1 PRN PRN Reason: Constipation Melatonin (Melatonin) 6 mg GT QHS [facility] Last Admin: 10/18/17 21:00 Dose: 6 mg Nystatin (Nystatin) 500,000 unit PO 4X/DAY [facility] Last Admin: 10/19/17 15:03 Dose: 500,000 unit Oxycodone HCl (Oxyir) 5 - 10 mg PO Q4H PRN PRN PRN Reason: PAIN Polyethylene Glycol (Miralax) 17 gm GT DAILY [facility] Last Admin: 10/19/17 08:53 Dose: 17 gm Medical Necessity - Tobacco Use Smoking Status: Never smoker Tobacco Use: Non-smoker Assessment/Plan Active and Suspected Problems Tracheal stenosis following tracheostomy (Acute) There is a 27 gentleman who was admitted from [facility] for rehab after he had multiple injuries from fall including C4-C5 fracture, T2 fracture and a stroke. Patient was successfully decannulated after initial tracheostomy on 09/29/2017 and was in rehab. About 1 week later he had respiratory distress and was admitted in ICU from rehab. Patient was admitted and had bronchoscopy was done and found tracheal stenosis. Patient was emergently transferred to [facility] and tracheostomy is placed. Patient is readmitted in acute rehab. 1. Debility s/p fall from 15 - 20 feet. Sustained a C4 - C5 fracture. Developed a large left pontine stroke. Is currently Trached with # 8 Shiley and Peg tube. Had a discectomy and fusion of C4 - C6. 2. Aspiration/HCAP: Resolved. 3. Respiratory failure secondary to tracheal stenosis: Improved. Has trach collar. 4. Right sided hemiplegia 2/2 left pontine stroke. PTOT. Asa/Statin. Improving. Dysphagia 2/2 acute CVA - continue Jevity as ordered via PEG tube. 5. C4/C5 cervical fracture 2/2 fall from roof - s/p fusion surgery 6. Left patellar fracture - nonsurgical, immobilizer as directed by ortho. 7. Urinary retention - flomax. Spontaneous urination. DVT ppx: lovenox Code Visit Inpatient E&M: 30992 Subs Hosp L2
[2017-10-19 19:37] VITALS: O2SAT 98
[2017-10-19 21:35] VITALS: BP 101/56; PULSE 69; RESP 18; RESP 20; TEMP 36.8; O2SAT 97; BMI 22.1
[2017-10-19] MEDS: MELATONIN 3 MG TABLET 6 MG GT (21:39)
[2017-10-19] MEDS: Atorvastatin Calcium 20 MG Tablet GT (21:39)
--- NOTE | 2017-10-20 04:34 | NURSING ---
Reviewed and agree with [employer] documentation and [facility] charting.
[2017-10-20] MEDS: Enoxaparin 40 MG/0.4 ML Syringe SC (06:47)
[2017-10-20] MEDS: Jevity 1.5. 1,000 ML Bottle 315 ML GT ×5 (06:48→21:59)
[2017-10-20 07:15] VITALS: O2SAT 98
[2017-10-20 07:41] VITALS: BP 109/73; PULSE 73; RESP 16; TEMP 36.6; O2SAT 100
[2017-10-20 10:00] VITALS: O2SAT 28
[2017-10-20] MEDS: Famotidine 20 MG Tablet GT ×2 (10:02→21:58)
[2017-10-20] MEDS: Aspirin 81 MG TAB.CHEW GT (10:02)
[2017-10-20] MEDS: NYSTATIN 500,000 UNIT/5 ML UDC 500000 UNIT PO ×4 (10:03→22:23)
[2017-10-20 11:07] VITALS: BMI 22.1
--- NOTE | 2017-10-20 16:34 | PN_ITS ---
Patient Problems: Active and Suspected Problems Tracheal stenosis following tracheostomy (Acute) Subjective: Patient does not have new complaint. Objective: General: Alert, Oriented x3, Cooperative HEENT: Atraumatic, PERRLA, EOMI, Normocephalic Neck: Supple, No JVD, Negative Carotid Bruits Lungs: No rhonchi, No wheeze, No rales, Diminished, - On Tracheostomy collar Cardiovascular: Regular rate, Normal S1, Normal S2, No murmurs Abdomen: Bowel Sounds Present, Soft, Non Tender, Non-Distended Extremities: No edema, Capillary Refill Less than 3 Seconds Skin: No rashes, No breakdown Musculoskeletal: No Tenderness to Palpation of Joints or Extremities Neurological: Cranial nerves II-XII grossly intact, - - Left-sided hemiplegia Psych/Mental Status: Normal Affect, Appropriate Vitals/I&O's: Vital Signs Temp Pulse Resp BP Pulse Ox 97.8 F 73 16 109/73 28 10/20/17 07:41 10/20/17 07:41 10/20/17 07:41 10/20/17 07:41 10/20/17 10:00 Oxygen Flow Rate (L/min) 6 Oxygen Delivery Method Trach Collar Weight: 158 lb 11.725 oz Body Mass Index (BMI) 22.1 Intake and Output for Last 24 Hours 10/18/17 10/19/17 10/20/17 23:59 23:59 23:59 Intake Total 2810 / 2810 2553 / 2553 2290 / 2290 Output Total 1750 / 1750 550 / 550 1100 / 1100 Balance 1060 / 1060 2002 1190 / 1190 Current Medications Acetaminophen (Tylenol) 650 mg PO Q6H PRN PRN PRN Reason: Mild Pain (0-3/10)/Headache Aspirin (Aspirin, Baby) 81 mg GT DAILY@0800 [facility] Last Admin: 10/20/17 10:02 Dose: 81 mg Atorvastatin Calcium (Lipitor) 20 mg GT QHS [facility] Last Admin: 10/19/17 21:39 Dose: 20 mg Bisacodyl (Dulcolax) 10 mg RECTAL .PRN X 1 PRN PRN Reason: Constipation Docusate Sodium (Colace Syrup) 200 mg GT BID [facility] Last Admin: 10/20/17 10:03 Dose: Not Given Enoxaparin Sodium (Lovenox) 40 mg SC DAILY@0600 [facility] Last Admin: 10/20/17 06:47 Dose: 40 mg Enteral Nutritional Formula (Jevity 1.5) 315 ml GT 5X/DAY [facility] Last Admin: 10/20/17 13:58 Dose: 315 ml Famotidine (Pepcid) 20 mg GT BID [facility] Last Admin: 10/20/17 10:02 Dose: 20 mg Lactobacillus Acidophilus (Acidophilus) 1 tablet GT DAILY [facility] Last Admin: 10/20/17 10:03 Dose: 1 tablet Magnesium Hydroxide (Milk Of Magnesia) 30 ml PO .PRN X 1 PRN PRN Reason: Constipation Melatonin (Melatonin) 6 mg GT QHS [facility] Last Admin: 10/19/17 21:39 Dose: 6 mg Nystatin (Nystatin) 500,000 unit PO 4X/DAY [facility] Last Admin: 10/20/17 14:06 Dose: 500,000 unit Oxycodone HCl (Oxyir) 5 - 10 mg PO Q4H PRN PRN PRN Reason: PAIN Polyethylene Glycol (Miralax) 17 gm GT DAILY [facility] Last Admin: 10/20/17 10:03 Dose: Not Given Medical Necessity - Tobacco Use Smoking Status: Never smoker Tobacco Use: Non-smoker Assessment/Plan Active and Suspected Problems Tracheal stenosis following tracheostomy (Acute) There is a 27 gentleman who was admitted from [facility] for rehab after he had multiple injuries from fall including C4-C5 fracture, T2 fracture and a stroke. Patient was successfully decannulated after initial tracheostomy on 09/29/2017 and was in rehab. About 1 week later he had respiratory distress and was admitted in ICU from rehab. Patient was admitted and had bronchoscopy was done and found tracheal stenosis. Patient was emergently transferred to [facility] and tracheostomy is placed. Patient is readmitted in acute rehab. 1. Debility s/p fall from 15 - 20 feet. Sustained a C4 - C5 fracture. Developed a large left pontine stroke. Is currently Trached with # 8 Shiley and Peg tube. Had a discectomy and fusion of C4 - C6. 2. Aspiration/HCAP: Resolved. Labs reviewed. Hemoglobin and CBC within normal limits. Electrolytes within normal limits. 3. Respiratory failure secondary to tracheal stenosis: Improved. Has trach collar. 4. Right sided hemiplegia 2/2 left pontine stroke. PTOT. Asa/Statin. Improving. Dysphagia 2/2 acute CVA - continue Jevity as ordered via PEG tube. 5. C4/C5 cervical fracture 2/2 fall from roof - s/p fusion surgery 6. Left patellar fracture - nonsurgical, immobilizer as directed by ortho. 7. Urinary retention - flomax. Spontaneous urination. DVT ppx: lovenox Code Visit Inpatient E&M: 70797 Subs Hosp L2
[2017-10-20 19:54] VITALS: BP 101/67; PULSE 80; RESP 17; TEMP 36.9; O2SAT 97
[2017-10-20] MEDS: MELATONIN 3 MG TABLET 6 MG GT (21:58)
[2017-10-20] MEDS: Docusate Sodium 100 MG/10 ML UDC 200 MG GT (21:58)
[2017-10-20] MEDS: Atorvastatin Calcium 20 MG Tablet GT (21:58)
[2017-10-20 22:00] VITALS: PULSE 80; RESP 17; BMI 22.1
--- NOTE | 2017-10-21 03:08 | NURSING ---
Reviewed and agree with [employer] documentation and [facility]S charting.
[2017-10-21] MEDS: Jevity 1.5. 1,000 ML Bottle 315 ML GT ×5 (05:38→22:04)
[2017-10-21] MEDS: Enoxaparin 40 MG/0.4 ML Syringe SC (05:39)
[2017-10-21 07:27] VITALS: BP 110/63; PULSE 65; RESP 16; TEMP 36.9; O2SAT 100
[2017-10-21 07:47] VITALS: O2SAT 97
[2017-10-21] MEDS: Aspirin 81 MG TAB.CHEW GT (09:29)
[2017-10-21] MEDS: Famotidine 20 MG Tablet GT ×2 (09:29→22:03)
[2017-10-21] MEDS: Docusate Sodium 100 MG/10 ML UDC 200 MG GT (09:29)
[2017-10-21] MEDS: NYSTATIN 500,000 UNIT/5 ML UDC 500000 UNIT PO ×4 (09:29→22:04)
[2017-10-21 09:39] VITALS: O2SAT 28
[2017-10-21 12:07] VITALS: BMI 22.1
[2017-10-21 20:26] VITALS: BP 115/63; PULSE 61; RESP 16; TEMP 36.9; O2SAT 97
[2017-10-21 21:30] VITALS: PULSE 61; RESP 16; O2SAT 28; BMI 22.1
[2017-10-21] MEDS: Atorvastatin Calcium 20 MG Tablet GT (22:03)
[2017-10-21] MEDS: MELATONIN 3 MG TABLET 6 MG GT (22:03)
[2017-10-22] MEDS: Jevity 1.5. 1,000 ML Bottle 315 ML GT ×5 (06:44→22:47)
[2017-10-22] MEDS: Enoxaparin 40 MG/0.4 ML Syringe SC (06:44)
[2017-10-22 07:54] VITALS: BP 108/67; PULSE 71; RESP 20; TEMP 36.6; O2SAT 100
[2017-10-22] MEDS: Famotidine 20 MG Tablet GT ×2 (09:10→22:46)
[2017-10-22] MEDS: Aspirin 81 MG TAB.CHEW GT (09:10)
[2017-10-22] MEDS: NYSTATIN 500,000 UNIT/5 ML UDC 500000 UNIT PO ×4 (09:11→22:46)
[2017-10-22 09:16] VITALS: O2SAT 28
--- NOTE | 2017-10-22 10:14 | PCM.PN.NEU ---
Patient Problems: Active and Suspected Problems Tracheal stenosis following tracheostomy (Acute) Subjective: Staffed in team meeting. Family at bedside. Questions answered. With Physical therapy, he is walking about 900 feet with a cane at contact guard assist. He is supervised for bed mobility, he is able to go up and down a flight of stairs with a cane at contact guard. With Occupational therapy, he is getting some movement in his shoulder down his arm he still has no movement in his hand. He is able to do most of his own personal care, needing help only with his lower body and washing his left arm. With speech therapy, he is doing well with the swallow exercises, they are no longer trailing the Passy Jeff valve, will hold off until his follow up with the ENT down at [facility] on . Patient will be discharged on Sunday with Home Health Care, to include Physical therapy, Occupational therapy, and Speech Therapy, along with a home health Nurse. Will continue with family teaching today. - Physical Exam General: Alert, Oriented x3, Cooperative HEENT: Atraumatic, PERRLA, EOMI, Normocephalic Neck: Supple, No JVD, Negative Carotid Bruits Lungs: Clear to auscultation, Normal air movement Cardiovascular: Regular rate, No murmurs Abdomen: Bowel Sounds Present, Soft, Non Tender Extremities: No edema, Capillary Refill Less than 3 Seconds Skin: No rashes, No breakdown Musculoskeletal: No Tenderness to Palpation of Joints or Extremities Neurological: Cranial nerves II-XII grossly intact Psych/Mental Status: Normal Affect, Appropriate Vital Signs Temp Pulse Resp BP Pulse Ox 97.8 F 71 20 H 108/67 28 10/22/17 07:54 10/22/17 07:54 10/22/17 07:54 10/22/17 07:54 10/22/17 09:16 Oxygen Flow Rate (L/min) 6 Oxygen Delivery Method Trach Collar Weight: 72 kg Body Mass Index (BMI) 22.1 Intake and Output for Last 24 Hours 10/20/17 10/21/17 10/22/17 23:59 23:59 23:59 Intake Total 3350 / 3350 3816 / 3816 1250 / 1250 Output Total 1700 / 1700 2725 / 2725 1450 / 1450 Balance 1650 / 1650 1091 / 1091 -200 / -200 Active Medications Acetaminophen (Tylenol) 650 mg PO Q6H PRN PRN PRN Reason: Mild Pain (0-3/10)/Headache Aspirin (Aspirin, Baby) 81 mg GT DAILY@0800 [facility] Last Admin: 10/22/17 09:10 Dose: 81 mg Atorvastatin Calcium (Lipitor) 20 mg GT QHS [facility] Last Admin: 10/21/17 22:03 Dose: 20 mg Bisacodyl (Dulcolax) 10 mg RECTAL .PRN X 1 PRN PRN Reason: Constipation Docusate Sodium (Colace Syrup) 200 mg GT BID [facility] Last Admin: 10/22/17 09:10 Dose: Not Given Enoxaparin Sodium (Lovenox) 40 mg SC DAILY@0600 [facility] Last Admin: 10/22/17 06:44 Dose: 40 mg Enteral Nutritional Formula (Jevity 1.5) 315 ml GT 5X/DAY [facility] Last Admin: 10/22/17 09:11 Dose: 315 ml Famotidine (Pepcid) 20 mg GT BID [facility] Last Admin: 10/22/17 09:10 Dose: 20 mg Lactobacillus Acidophilus (Acidophilus) 1 tablet GT DAILY [facility] Last Admin: 10/22/17 09:10 Dose: 1 tablet Magnesium Hydroxide (Milk Of Magnesia) 30 ml PO .PRN X 1 PRN PRN Reason: Constipation Melatonin (Melatonin) 6 mg GT QHS [facility] Last Admin: 10/21/17 22:03 Dose: 6 mg Nystatin (Nystatin) 500,000 unit PO 4X/DAY [facility] Last Admin: 10/22/17 09:11 Dose: 500,000 unit Oxycodone HCl (Oxyir) 5 - 10 mg PO Q4H PRN PRN PRN Reason: PAIN Polyethylene Glycol (Miralax) 17 gm GT DAILY [facility] Last Admin: 10/22/17 09:10 Dose: Not Given Medical Necessity - Tobacco Use Smoking Status: Never smoker Tobacco Use: Non-smoker Assessment/Plan Active and Suspected Problems Tracheal stenosis following tracheostomy (Acute) Debility s/p fall from 15 - 20 feet. Sustained a C4 - C5 fracture. Developed a large left pontine stroke. Is currently Trached with # 8 Shiley and Pegged. Had a discectomy and fusion of C4 - C6. Goal of rehab is uatsdin of functional independence. Plan: - Physical therapy for gait and balance - Occupational Therapy for ADLs - Speech therapy - As needed analgesics - Bowel protocol - Stroke prevention on ASA, Statin, and Lovenox - DVT prophylaxis: SCDs, jeffrey hoses, Lovenox - Pontine CVA 2/2 dissection => right sided hemiparesis - C4 and C5 fracture => s/p discectomy and fusion of C4-6. His follow-up appointment on the has been canceled however this Sunday we will do a C-spine x-ray which will be forwarded to his [facility] surgeon for review. Follow up appointments will be scheduled upon discharge from the rehab unit. - re- Trached # 6 Peggyley => ENT consulted along with Pulmonology to follow patient. - s/p PEG => TF Pivot 315cc 5x a day. - Urinary retention -> White removed -> urinating without any problems -> Urology consulted - Knee immobilized removed => may have passive range of motion - Aspiration pneumonia re-started on Amoxicillin x 5 days with a stop date of 10/15, and Levaquin x 5 days with a stop date of 10/16. Antibiotics where stopped on Sunday, 10/12. - Family teaching on Tube feeding and trach care. - Humidified air between therapy sessions and at night to help with thinning out his thick secretions. - Continued Family teaching with ambulation, and getting in and out of the shower. - Discharge home on Sunday, if he remains stable. Has a follow up appointment with ENT at [facility] on .
--- NOTE | 2017-10-22 10:33 | PN.NEURO_ITS ---
Patient Problems: Active and Suspected Problems Tracheal stenosis following tracheostomy (Acute) Subjective: Staffed in team meeting. Family at bedside. Questions answered. With Physical therapy, he is walking about 900 feet with a cane at contact guard assist. He is supervised for bed mobility, he is able to go up and down a flight of stairs with a cane at contact guard. With Occupational therapy, he is getting some movement in his shoulder down his arm he still has no movement in his hand. He is able to do most of his own personal care, needing help only with his lower body and washing his left arm. With speech therapy, he is doing well with the swallow exercises, they are no longer trailing the Passy [place] valve, will hold off until his follow up with the ENT down at [facility] on . Patient will be discharged on Sunday with Home Health Care, to include Physical therapy, Occupational therapy, and Speech Therapy, along with a home health Nurse. Will continue with family teaching today. - Physical Exam General: Alert, Oriented x3, Cooperative HEENT: Atraumatic, PERRLA, EOMI, Normocephalic Neck: Supple, No JVD, Negative Carotid Bruits Lungs: Clear to auscultation, Normal air movement Cardiovascular: Regular rate, No murmurs Abdomen: Bowel Sounds Present, Soft, Non Tender Extremities: No edema, Capillary Refill Less than 3 Seconds Skin: No rashes, No breakdown Musculoskeletal: No Tenderness to Palpation of Joints or Extremities Neurological: Cranial nerves II-XII grossly intact Psych/Mental Status: Normal Affect, Appropriate Vital Signs Temp Pulse Resp BP Pulse Ox 97.8 F 71 20 H 108/67 28 10/22/17 07:54 10/22/17 07:54 10/22/17 07:54 10/22/17 07:54 10/22/17 09:16 Oxygen Flow Rate (L/min) 6 Oxygen Delivery Method Trach Collar Weight: 72 kg Body Mass Index (BMI) 22.1 Intake and Output for Last 24 Hours 10/20/17 10/21/17 10/22/17 23:59 23:59 23:59 Intake Total 3350 / 3350 3816 / 3816 1250 / 1250 Output Total 1700 / 1700 2725 / 2725 1450 / 1450 Balance 1650 / 1650 1091 / 1091 -200 / -200 Active Medications Acetaminophen (Tylenol) 650 mg PO Q6H PRN PRN PRN Reason: Mild Pain (0-3/10)/Headache Aspirin (Aspirin, Baby) 81 mg GT DAILY@0800 [facility] Last Admin: 10/22/17 09:10 Dose: 81 mg Atorvastatin Calcium (Lipitor) 20 mg GT QHS [facility] Last Admin: 10/21/17 22:03 Dose: 20 mg Bisacodyl (Dulcolax) 10 mg RECTAL .PRN X 1 PRN PRN Reason: Constipation Docusate Sodium (Colace Syrup) 200 mg GT BID [facility] Last Admin: 10/22/17 09:10 Dose: Not Given Enoxaparin Sodium (Lovenox) 40 mg SC DAILY@0600 [facility] Last Admin: 10/22/17 06:44 Dose: 40 mg Enteral Nutritional Formula (Jevity 1.5) 315 ml GT 5X/DAY [facility] Last Admin: 10/22/17 09:11 Dose: 315 ml Famotidine (Pepcid) 20 mg GT BID [facility] Last Admin: 10/22/17 09:10 Dose: 20 mg Lactobacillus Acidophilus (Acidophilus) 1 tablet GT DAILY [facility] Last Admin: 10/22/17 09:10 Dose: 1 tablet Magnesium Hydroxide (Milk Of Magnesia) 30 ml PO .PRN X 1 PRN PRN Reason: Constipation Melatonin (Melatonin) 6 mg GT QHS [facility] Last Admin: 10/21/17 22:03 Dose: 6 mg Nystatin (Nystatin) 500,000 unit PO 4X/DAY [facility] Last Admin: 10/22/17 09:11 Dose: 500,000 unit Oxycodone HCl (Oxyir) 5 - 10 mg PO Q4H PRN PRN PRN Reason: PAIN Polyethylene Glycol (Miralax) 17 gm GT DAILY [facility] Last Admin: 10/22/17 09:10 Dose: Not Given Medical Necessity - Tobacco Use Smoking Status: Never smoker Tobacco Use: Non-smoker Assessment/Plan Active and Suspected Problems Tracheal stenosis following tracheostomy (Acute) Debility s/p fall from 15 - 20 feet. Sustained a C4 - C5 fracture. Developed a large left pontine stroke. Is currently Trached with # 8 Shiley and Pegged. Had a discectomy and fusion of C4 - C6. Goal of rehab is evangelical of functional independence. Plan: - Physical therapy for gait and balance - Occupational Therapy for ADLs - Speech therapy - As needed analgesics - Bowel protocol - Stroke prevention on ASA, Statin, and Lovenox - DVT prophylaxis: SCDs, jeffrey hoses, Lovenox - Pontine CVA 2/2 dissection => right sided hemiparesis - C4 and C5 fracture => s/p discectomy and fusion of C4-6. His follow-up appointment on the has been canceled however this Sunday we will do a C- spine x-ray which will be forwarded to his [facility] surgeon for review. Follow up appointments will be scheduled upon discharge from the rehab unit. - re- Trached # 6 Peggyley => ENT consulted along with Pulmonology to follow patient. - s/p PEG => TF Pivot 315cc 5x a day. - Urinary retention -> White removed -> urinating without any problems -> Urology consulted - Knee immobilized removed => may have passive range of motion - Aspiration pneumonia re-started on Amoxicillin x 5 days with a stop date of , and Levaquin x 5 days with a stop date of 10/16. Antibiotics where stopped on Sunday, 10/12. - Family teaching on Tube feeding and trach care. - Humidified air between therapy sessions and at night to help with thinning out his thick secretions. - Continued Family teaching with ambulation, and getting in and out of the shower. - Discharge home on Sunday, if he remains stable. Has a follow up appointment with ENT at [facility] on .
[2017-10-22 10:42] VITALS: BMI 22.1
--- NOTE | 2017-10-22 16:35 | CASEMGMT ---
Team meeting held. Patient present as well as patient family. Collaborating with team and patient, discharge date set for 10/24/17. Patient plans to discharge home with spouse and home health services. Patient will continue with trach and PEG tube at time of discharge. Patient requesting for supplies to be set up through [facility]. Support given. Proposed discharge date: 10/24/17 Will continue to follow for further discharge planning and support. Chhaya DUBON, RECORDS ADMINISTRATOR
[2017-10-22 17:25] VITALS: O2SAT 99
[2017-10-22 20:14] VITALS: BP 108/67; PULSE 74; RESP 20; TEMP 36.8; O2SAT 96
[2017-10-22 22:40] VITALS: PULSE 62; O2SAT 98
[2017-10-22] MEDS: MELATONIN 3 MG TABLET 6 MG GT (22:47)
[2017-10-22] MEDS: Docusate Sodium 100 MG/10 ML UDC 200 MG GT (22:47)
[2017-10-22] MEDS: Atorvastatin Calcium 20 MG Tablet GT (22:47)
[2017-10-23] MEDS: Jevity 1.5. 1,000 ML Bottle 315 ML GT ×5 (06:32→22:45)
[2017-10-23] MEDS: Enoxaparin 40 MG/0.4 ML Syringe SC (06:32)
[2017-10-23 06:49] VITALS: O2SAT 97
[2017-10-23 08:35] VITALS: BP 110/58; PULSE 72; RESP 17; TEMP 36.7; O2SAT 99
[2017-10-23] MEDS: NYSTATIN 500,000 UNIT/5 ML UDC 500000 UNIT PO ×4 (10:42→22:45)
[2017-10-23] MEDS: Famotidine 20 MG Tablet GT ×2 (10:43→22:45)
[2017-10-23] MEDS: Aspirin 81 MG TAB.CHEW GT (10:44)
--- NOTE | 2017-10-23 10:45 | CASEMGMT ---
Social Work Spoke with patient and patient family in room. Patient and patient family requesting for all medical equipment to be set up through [facility]. Patient will need a straight cane, shower chair (without arm rest), PEG tube supplies, home oxygen and Trach care supplies. Physical and occupational and speech therapy as well as senior living are recommending for patient to have continued services within the home. Patient and patient family are agreeable to recommendation and requesting for home health services to be set up through [facility]. Patient family planning to provide transportation home for patient at time of discharge. Support given. C-9 completed with workman's comp for all needed supplies and services. C-9's were all approved. Telephone call to [facility], All orders faxed along with C-9 and clinical information. [facility] to collaborate with patient family on discharge information. Telephone call to [facility], referral made to physical, occupational, and speech therapy. Order faxed along with clinical information. Pending acceptance at this time. Proposed discharge date: 10/24/17 PLAN: Discharge home with spouse and home health services. Chhaya DUBON, CLINICAL INFORMATICS DIRECTOR
[2017-10-23 12:22] VITALS: BMI 22.1
--- NOTE | 2017-10-23 12:29 | PCM.PN.NEU ---
Patient Problems: Active and Suspected Problems Tracheal stenosis following tracheostomy (Acute) Subjective: No new complaints. No GI or complaints. No pain. Tolerating therapies. He is looking forward to discharge to home tomorrow. Objective: Exam is stable with right hemiparesis. He does have now 1-2 out of 5 movement of his intrinsic hand muscles in his right upper extremity. According to therapists he is ambulating extensively only with a cane. - Physical Exam Vital Signs Temp Pulse Resp BP Pulse Ox 36.7 C 72 17 110/58 L 99 10/23/17 08:35 10/23/17 08:35 10/23/17 08:35 10/23/17 08:35 10/23/17 08:35 Oxygen Flow Rate (L/min) 6 Oxygen Delivery Method Room Air Weight: 72 kg Body Mass Index (BMI) 22.1 Intake and Output for Last 24 Hours 10/21/17 10/22/17 10/23/17 23:59 23:59 23:59 Intake Total 3816 / 3816 2515 / 2515 1160 / 1160 Output Total 2725 / 2725 2600 / 2600 700 / 700 Balance 1091 / 1091 -85 / -85 460 / 460 Medical Necessity - Tobacco Use Smoking Status: Never smoker Tobacco Use: Non-smoker Assessment/Plan Active and Suspected Problems Tracheal stenosis following tracheostomy (Acute) Debility status post cervical fracture status post posterior circulation infarct requiring tracheostomy, tracheostomy weaning was complicated by tracheal stenosis requiring reintubation. He has now been stable and improving. Plan is to discharge him to home tomorrow with outpatient follow-up with his ENT. Continue outpatient therapies as well, including outpatient speech therapy and tube feedings, however I suspect that he will regain his ability to take p.o. once his tracheostomy has been removed.
--- NOTE | 2017-10-23 16:44 | CHAPLAIN ---
Type of Pastoral Visit ___ Initial Visit _x__ Follow-up Visit ___ On-call Visit ___ General Patient Visit ___ Spiritual Assessment ___ Family Conference ___ Bereavement ___ Rapid Response ___ Code Blue ___ Other (describe below) Pastoral Care Referral From _x__ Patient ___ Family ___ Nurse ___ Physician ___ Cigarette Vendor ___ Mill Roll Operator ___ Other (describe below) Sacrament/Intervention ___ Active listening ___ Anointing ___ Yarsanism ___ Bereavement ___ Communion ___ Lazara exploration ___ ___ Life review _x__ Prayer ___ Reconciliation ___ Sacrament of Sick _x__ Supportive presence ___ Wedding ___ Other (describe below) Pastoral Comments patient is leaving tomorrow; wished him well and collected the CD player and CD he had been using from the hospital
[2017-10-23 20:16] VITALS: BP 103/65; PULSE 72; RESP 20; TEMP 36.7; O2SAT 97
[2017-10-23] MEDS: Atorvastatin Calcium 20 MG Tablet GT (22:45)
[2017-10-23] MEDS: MELATONIN 3 MG TABLET 6 MG GT (22:45)
[2017-10-23] MEDS: Docusate Sodium 100 MG/10 ML UDC 200 MG GT (22:46)
[2017-10-24 05:00] VITALS: BMI 22.1
[2017-10-24] MEDS: Enoxaparin 40 MG/0.4 ML Syringe SC (06:35)
[2017-10-24] MEDS: Jevity 1.5. 1,000 ML Bottle 315 ML GT ×2 (06:36→11:15)
[2017-10-24 06:45] VITALS: O2SAT 96
[2017-10-24 07:16] VITALS: BP 100/66; PULSE 73; RESP 16; TEMP 36.7; O2SAT 100
--- NOTE | 2017-10-24 09:40 | PCM.DC ---
- Discharge Diagnoses Current Active Problems: Current Active and Chronic Problems Left patella fracture (Chronic) Tracheal stenosis following tracheostomy (Acute) Reason(s) for Visit for Discharge Instructions: CVA You will use the following diet at home:: Other - Jevity 1.5 => 315cc x 5 a day Discharge Activity: May Not Drive, May Shower, May Take a Tub Bath, Use Walker, - - May use cane Weight Bearing Status: Weight bearing as tolerated Call your doctor if you observe: Fever of 101 or Higher, Coldness, Increased Pain, Numbness or Tingling, Change in Color, Inability to urinate, Inability to have a bowel movement, Using more than one pad per hour, Shortness of breath, Dizziness, Fainting spells, Swelling in the ankles, Chest pain, Prolonged hiccoughing, Increased palpitations (irregular heartbeat), Calf discomfort, Uncontrolled pain Allergies/Adverse Reactions: Allergies No Known Allergies Allergy (Verified 10/10/17 16:31) Medications to take at Discharge Jevity 1.5 315 ml GT 5X/DAY 10/05/17 Aspirin [Aspirin, Baby] 81 mg GT DAILY@0800 10/10/17 Acetaminophen [Tylenol Tablet] 650 mg PO Q6H PRN PRN tablet 10/24/17 Atorvastatin Calcium [Lipitor] 20 mg GT QHS #30 tab 10/24/17 Famotidine [Pepcid] 20 mg GT BID #60 tab 10/24/17 Lactobacillus Acidophilus [Acidophilus] 1 tab GT DAILY #30 tab 10/24/17 The following prescriptions were given: Atorvastatin Calcium [Lipitor] 20 mg GT QHS #30 tab Lactobacillus Acidophilus [Acidophilus] 1 tab GT DAILY #30 tab Famotidine [Pepcid] 20 mg GT BID #60 tab Primary Care Physician: Cirilo Mendoza MD [Primary Care Provider] - Please Follow Up With: Dr. Nickie MD [phone] When: 10/25/17 Please Follow Up With: Dr. Mendoza Please Follow Up With: Sarwat Guerrier NP Please Follow Up With: Home Health - [facility] Proposed Discharge Date: 10/24/17
--- NOTE | 2017-10-24 09:48 | DCINST_ITS ---
- Discharge Diagnoses Current Active Problems: Current Active and Chronic Problems Left patella fracture (Chronic) Tracheal stenosis following tracheostomy (Acute) Reason(s) for Visit for Discharge Instructions: CVA You will use the following diet at home:: Other - Jevity 1.5 => 315cc x 5 a day Discharge Activity: May Not Drive, May Shower, May Take a Tub Bath, Use Walker, - - May use cane Weight Bearing Status: Weight bearing as tolerated Call your doctor if you observe: Fever of 101 or Higher, Coldness, Increased Pain, Numbness or Tingling, Change in Color, Inability to urinate, Inability to have a bowel movement, Using more than one pad per hour, Shortness of breath, Dizziness, Fainting spells, Swelling in the ankles, Chest pain, Prolonged hiccoughing, Increased palpitations (irregular heartbeat), Calf discomfort, Uncontrolled pain Allergies/Adverse Reactions: Allergies No Known Allergies Allergy (Verified 10/10/17 16:31) Medications to take at Discharge Jevity 1.5 315 ml GT 5X/DAY 10/05/17 Aspirin [Aspirin, Baby] 81 mg GT DAILY@0800 10/10/17 Acetaminophen [Tylenol Tablet] 650 mg PO Q6H PRN PRN tablet 10/24/17 Atorvastatin Calcium [Lipitor] 20 mg GT QHS #30 tab 10/24/17 Famotidine [Pepcid] 20 mg GT BID #60 tab 10/24/17 Lactobacillus Acidophilus [Acidophilus] 1 tab GT DAILY #30 tab 10/24/17 The following prescriptions were given: Atorvastatin Calcium [Lipitor] 20 mg GT QHS #30 tab Lactobacillus Acidophilus [Acidophilus] 1 tab GT DAILY #30 tab Famotidine [Pepcid] 20 mg GT BID #60 tab Primary Care Physician: Cirilo Mendoza MD [Primary Care Provider] - Please Follow Up With: Dr. Nickie MD [phone] When: 10/25/17 Please Follow Up With: Dr. Mendoza Please Follow Up With: Sarwat Guerrier NP Please Follow Up With: Home Health - [facility] Proposed Discharge Date: 10/24/17
--- NOTE | 2017-10-24 09:48 | PCM.RU.DC ---
Rehab Discharge Summary DATE OF ADMISSION: 10/10/17 DATE OF DISCHARGE: 10/24/17 - Rehab Diagnosis CVA Discharge Diet: Swallowing Precautions, - - Jevity 1.5 => 315cc x 5 a day Discharge Activity: May Not Drive, May Shower, May Take a Tub Bath, Use Walker, - - May use cane Weight Bearing Status: Weight bearing as tolerated Call your doctor if you observe: Fever of 101 or Higher, Coldness, Increased Pain, Numbness or Tingling, Change in Color, Inability to urinate, Inability to have a bowel movement, Using more than one pad per hour, Shortness of breath, Dizziness, Fainting spells, Swelling in the ankles, Chest pain, Prolonged hiccoughing, Increased palpitations (irregular heartbeat), Calf discomfort, Uncontrolled pain Home Medications: Medications to take at Discharge Jevity 1.5 315 ml GT 5X/DAY 10/05/17 Aspirin [Aspirin, Baby] 81 mg GT DAILY@0800 10/10/17 Acetaminophen [Tylenol Tablet] 650 mg PO Q6H PRN PRN tablet 10/24/17 Atorvastatin Calcium [Lipitor] 20 mg GT QHS #30 tab 10/24/17 Famotidine [Pepcid] 20 mg GT BID #60 tab 10/24/17 Lactobacillus Acidophilus [Acidophilus] 1 tab GT DAILY #30 tab 10/24/17 Following Prescrptions Were Given to Patient: Atorvastatin Calcium [Lipitor] 20 mg GT QHS #30 tab Lactobacillus Acidophilus [Acidophilus] 1 tab GT DAILY #30 tab Famotidine [Pepcid] 20 mg GT BID #60 tab Primary Care Physician: Cirilo Mendoza MD [Primary Care Provider] - Please Follow Up With: Dr. Nickie MD [phone] When: 10/25/17 Please Follow Up With: Dr. Mendoza Please Follow Up With: Sarwat Guerrier NP When: 11/12/17 Please Follow Up With: Home [facility] - [facility] Disposition: Home with Home Health Minutes spent on discharge:: 40 Patient Condition:: Good Rehab Course 27 M admitted to [facility] on 09/20/17 with debility s/p traumatic fall with C4-C5 fracture, T2 fracture, left patellar fracture and stroke, patient admitted to [facility] s/p traumatic fall from about 20 feet at work, found to have C4-C5 fracture s/p discectomy and fusion, hospital course complicated with left pontine stroke and posterior circulation strokes, s/p angiogram, on ASA, statin, s/p trach which was decannulated during the inpatient RU stay on 09/29/17 and s/p PEG, right sided weakness, on cervical collar to be continues atleast for 4 weeks per documentation. Patient developed acute onset dyspnea overnight (10/04/17), was seen by the hospitalist, diagnosed with right LL aspiration PNA, his SOB worsened this morning (10/04/17), and per Dr. Gomez sugarcane planter it was felt that he would benefit from ICU admission for further monitoring and management of his symptoms. Patient transferred to ICU for further management of aspiration PNA. Had mucus plugging. Patient was then readmitted to [facility] on 10/05/17 after being treated with antibiotics and was maintained on Augmentin and Levaquin but during the night of 10/05/17 patient again developed dyspnea, respiratory distress, with tachypnea and tachycardia needing racemic epinephrine which stabilized the patient but overnight patient had more episodes of acute respiratory distress the evening of (10/06/17) patient developed severe stridor with acute dyspnea, with tachypnea and tachycardia needing racemic epinephrine, hospitalist and sugarcane planter was consulted who felt patient would benefit from monitoring in the ICU for evaluation and management. Patient was transferred back to ICU with acute respiratory distress, Stridor, dyspnea, tachypnea and tachycardia for further medical management and stabilization. On 10/07 he was transferred from [facility] to [facility]. At [facility] a new tracheostomy was placed for tracheal stenosis. Also of note prior to transfer to [facility] he was on Augmentin and Levaquin for suspected aspiration pna with a CXR showing a developing left lower lobe infiltrate. These were not continued at [facility]. They were restarted upon admission to the rehab unit. He is using 28% blow by O2 with his trach. His Left knee immobilizer, was cleared for removal on 10/08 by the Orthopedic surgeons here at [facility] on his return to the unit it was removed. He may have passive range of motion on that side per Ortho notes. He is on Tube feed, Pivot 315 cc 5 x a day. His right sided flaccidity has improved, he is able to walk using a Janes-walker but his right arm remains motionless. He lives with his and 3 small children in a 3 story home with a walk out basement. He has 5 steps to get into the home. He is previously completely functionally independent and is admitted to the rehab unit in order to restore his previous level of functional independence. With Physical therapy, he is walking about 900 feet with a cane at contact guard assist. He is supervised for bed mobility, he is able to go up and down a flight of stairs with a cane at contact guard. With Occupational therapy, he is getting some movement in his shoulder down his arm he still has no movement in his hand. He is able to do most of his own personal care, needing help only with his lower body and washing his left arm. With speech therapy, he is doing well with the swallow exercises, they are no longer trailing the Pass[place] valve, will hold off until his follow up with the ENT down at [facility] on . Patient will be discharged on Sunday with Home Health Care, to include Physical therapy, Occupational therapy, and Speech Therapy, along with a home health Nurse. He will have a follow up appointment with the ENT on 10/25, a follow up appointment will be made with the Neurologist for 6 weeks after discharge. Meaningful Use Info Meaningful Use Diagnoses (Choose all that apply): Ischemic CVA - CVA Therapy Assessed for PT,OT and/or ST?: Yes - Ischemic Stroke Antithrombotic order at d/c?: Yes Dx of Atrial fib/flutter?: No Anticoagulant at discharge?: No Reason anticoagulant not ordered: Treatment not Indicated Statins at discharge?: Yes Primary Dx Acute Ischemic CVA?: Yes IV tPA ordered during stay?: No Reason IV t-PA not ordered: Treatment not Indicated
--- NOTE | 2017-10-24 09:52 | DS.PCM_ITS ---
Rehab Discharge Summary DATE OF ADMISSION: 10/10/17 DATE OF DISCHARGE: 10/24/17 - Rehab Diagnosis CVA Discharge Diet: Swallowing Precautions, - - Jevity 1.5 => 315cc x 5 a day Discharge Activity: May Not Drive, May Shower, May Take a Tub Bath, Use Walker, - - May use cane Weight Bearing Status: Weight bearing as tolerated Call your doctor if you observe: Fever of 101 or Higher, Coldness, Increased Pain, Numbness or Tingling, Change in Color, Inability to urinate, Inability to have a bowel movement, Using more than one pad per hour, Shortness of breath, Dizziness, Fainting spells, Swelling in the ankles, Chest pain, Prolonged hiccoughing, Increased palpitations (irregular heartbeat), Calf discomfort, Uncontrolled pain Home Medications: Medications to take at Discharge Jevity 1.5 315 ml GT 5X/DAY 10/05/17 Aspirin [Aspirin, Baby] 81 mg GT DAILY@0800 10/10/17 Acetaminophen [Tylenol Tablet] 650 mg PO Q6H PRN PRN tablet 10/24/17 Atorvastatin Calcium [Lipitor] 20 mg GT QHS #30 tab 10/24/17 Famotidine [Pepcid] 20 mg GT BID #60 tab 10/24/17 Lactobacillus Acidophilus [Acidophilus] 1 tab GT DAILY #30 tab 10/24/17 Following Prescrptions Were Given to Patient: Atorvastatin Calcium [Lipitor] 20 mg GT QHS #30 tab Lactobacillus Acidophilus [Acidophilus] 1 tab GT DAILY #30 tab Famotidine [Pepcid] 20 mg GT BID #60 tab Primary Care Physician: Cirilo Mendoza MD [Primary Care Provider] - Please Follow Up With: Dr. Nickie MD [phone] When: 10/25/17 Please Follow Up With: Dr. Mendoza Please Follow Up With: Sarwat Guerrier NP When: 11/12/17 Please Follow Up With: Home Health - [facility] Disposition: Home with Home Health Minutes spent on discharge:: 40 Patient Condition:: Good Rehab Course 27 M admitted to [facility] on 09/20/17 with debility s/p traumatic fall with C4-C5 fracture, T2 fracture, left patellar fracture and stroke, patient admitted to [facility] s/p traumatic fall from about 20 feet at work, found to have C4-C5 fracture s/p discectomy and fusion, hospital course complicated with left pontine stroke and posterior circulation strokes, s/p angiogram, on ASA, statin, s/p trach which was decannulated during the inpatient RU stay on 09/29/17 and s/p PEG, right sided weakness, on cervical collar to be continues atleast for 4 weeks per documentation. Patient developed acute onset dyspnea overnight (10/04/17), was seen by the hospitalist, diagnosed with right LL aspiration PNA, his SOB worsened this morning (10/04/17), and per Dr. Gomez bulk fluids handler it was felt that he would benefit from ICU admission for further monitoring and management of his symptoms. Patient transferred to ICU for further management of aspiration PNA. Had mucus plugging. Patient was then readmitted to [facility] on 10/05/17 after being treated with antibiotics and was maintained on Augmentin and Levaquin but during the night of 10/05/17 patient again developed dyspnea, respiratory distress , with tachypnea and tachycardia needing racemic epinephrine which stabilized the patient but overnight patient had more episodes of acute respiratory distress the evening of (10/06/17) patient developed severe stridor with acute dyspnea, with tachypnea and tachycardia needing racemic epinephrine, hospitalist and bulk fluids handler was consulted who felt patient would benefit from monitoring in the ICU for evaluation and management. Patient was transferred back to ICU with acute respiratory distress, Stridor, dyspnea, tachypnea and tachycardia for further medical management and stabilization. On 10/07 he was transferred from [facility] to [facility]. At [facility] a new tracheostomy was placed for tracheal stenosis. Also of note prior to transfer to [facility] he was on Augmentin and Levaquin for suspected aspiration pna with a CXR showing a developing left lower lobe infiltrate. These were not continued at [facility]. They were restarted upon admission to the rehab unit. He is using 28% blow by O2 with his trach. His Left knee immobilizer, was cleared for removal on 10/08 by the Orthopedic surgeons here at [facility] on his return to the unit it was removed. He may have passive range of motion on that side per Ortho notes. He is on Tube feed, Pivot 315 cc 5 x a day. His right sided flaccidity has improved, he is able to walk using a Janes- walker but his right arm remains motionless. He lives with his and 3 small children in a 3 story home with a walk out basement. He has 5 steps to get into the home. He is previously completely functionally independent and is admitted to the rehab unit in order to restore his previous level of functional independence. With Physical therapy, he is walking about 900 feet with a cane at contact guard assist. He is supervised for bed mobility, he is able to go up and down a flight of stairs with a cane at contact guard. With Occupational therapy, he is getting some movement in his shoulder down his arm he still has no movement in his hand. He is able to do most of his own personal care, needing help only with his lower body and washing his left arm. With speech therapy, he is doing well with the swallow exercises, they are no longer trailing the Passy Medora valve, will hold off until his follow up with the ENT down at [facility] on . Patient will be discharged on Sunday with Home Health Care, to include Physical therapy, Occupational therapy, and Speech Therapy, along with a home health Nurse. He will have a follow up appointment with the ENT on 10/25, a follow up appointment will be made with the Neurologist for 6 weeks after discharge. Meaningful Use Info Meaningful Use Diagnoses (Choose all that apply): Ischemic CVA - CVA Therapy Assessed for PT,OT and/or ST?: Yes - Ischemic Stroke Antithrombotic order at d/c?: Yes Dx of Atrial fib/flutter?: No Anticoagulant at discharge?: No Reason anticoagulant not ordered: Treatment not Indicated Statins at discharge?: Yes Primary Dx Acute Ischemic CVA?: Yes IV tPA ordered during stay?: No Reason IV t-PA not ordered: Treatment not Indicated
--- NOTE | 2017-10-24 10:03 | CASEMGMT ---
Social Work Telephone call from [facility]. [facility] reporting to be able to accept patient. Spoke with patient in room. This psychiatric social worker supervisor giving patient a handout with information about [facility], [place] [facility] contact info, and [facility] in the event that patient has questions after discharge. Support given. Proposed discharge date: 10/24/17 PLAN: Discharge home with spouse and home health services. Chhaya DUBON, GROUND WOOD SUPERVISOR
[2017-10-24 11:00] VITALS: BMI 22.1
--- NOTE | 2017-10-24 11:01 | CASEMGMT ---
Insurance Notified Workman's comp of patient discharge on 10/24/17 to home with spouse and home health services. Proposed discharge: 10/24/17 Auth#[id number] Chhaya DUBON, HEALTH TECH
[2017-10-24] MEDS: Famotidine 20 MG Tablet GT (11:10)
[2017-10-24] MEDS: Aspirin 81 MG TAB.CHEW GT (11:10)
[2017-10-24 12:30] VITALS: BP 100/66; PULSE 73; RESP 16; TEMP 36.7; O2SAT 100
--- NOTE | 2017-10-24 12:30 | NURSING ---
and patient aware of dc instruct and verbalized understanding. demonstrated trach care use and care and also did all meds via peg tube with demonstration.
== END 2017-10-24 12:35 | disposition home health service (06) | DRG 559 ==
PROVIDERS: Nurse Practitioner Acute Care; Physician Assistant; Admitting Provider Psychiatry & Neurology Neurology; Family Provider Family Medicine; PCP Family Medicine; Visit Provider Internal Medicine
DX: S12.400D Unspecified displaced fracture of fifth cervical vertebra, subsequent encounter for fracture with routine healing (principal); J69.0 Pneumonitis due to inhalation of food and vomit; J96.10 Chronic respiratory failure, unspecified whether with hypoxia or hypercapnia; Z93.0 Tracheostomy status; R13.10 Dysphagia, unspecified; I69.351 Hemiplegia and hemiparesis following cerebral infarction affecting right dominant side; S82.002D Unspecified fracture of left patella, subsequent encounter for closed fracture with routine healing; S12.300D Unspecified displaced fracture of fourth cervical vertebra, subsequent encounter for fracture with routine healing; S22.029D Unspecified fracture of second thoracic vertebra, subsequent encounter for fracture with routine healing; W13.2XXD Fall from, out of or through roof, subsequent encounter; I69.391 Dysphagia following cerebral infarction; R33.9 Retention of urine, unspecified; Z98.1 Arthrodesis status; Z79.01 Long term (current) use of anticoagulants; Z79.82 Long term (current) use of aspirin; Z79.899 Other long term (current) drug therapy; Z93.1 Gastrostomy status
CPT/HCPCS: 36415; 71046; 80048; 80053; 83735; 84100; 85025; 85027; 92507; 92526; 92610; 94640; 97032; 97110; 97112; 97116; 97140; 97162; 97166; 97530; 97535; 97802; 97803